=== PATIENT | male | born 1955 | race Caucasian/White ===

== ENCOUNTER → 2016-07-09 | Outpatient (CLI) | payer BC ==
[~2016-07-09] MED LIST: /HCTZ25TA PO; ADVA250A IN; ALBU17IN INH; ALLO100T PO; ASPI1TAB PO; ATEN100T PO; AUGM875T27 PO; CELE10TA PO; FENO145T PO; MULTCAP PO; PERCOCET PO; PRED10TA2 PO
[2016-07-09 12:36] LABS: BASO % 0.7 % (0.0-1.0); EOS # 0.2 K/mm3 (0.0-0.50); EOS % 2.5 % (0.0-3.0); LARGE UNSTAINED CELL # 0.2 K/mm3 (0.0-0.4); LARGE UNSTAINED CELL % 3.5 % (0.0-4.0); LYMPH # 1.3 K/mm3 (1.5-4.5); LYMPH % 19.2 % (24.0-44.0); MEAN CORPUSCULAR HEMOGLOBIN 31.2 pg (27.0-33.0); MEAN CORPUSCULAR HGB CONC 33.9 g/dl (32.0-36.5); MEAN CORPUSCULAR VOLUME 91.9 fl (80.0-96.0); MONO # 0.5 K/mm3 (0.0-0.8); MONO % 7.3 % (0.0-5.0); NEUTROPHILS # 4.6 K/mm3 (1.8-7.7); NEUTROPHILS % 66.8 % (36.0-66.0); PLATELET COUNT, AUTOMATED 258 k/mm3 (150-450); RED CELL DISTRIBUTION WIDTH 12.7 % (11.5-14.5); WHITE BLOOD COUNT 6.8 K/mm3 (4.0-10.0)
[2016-07-09 12:46] LABS: ALBUMIN 3.8 GM/DL (3.2-5.2); ALBUMIN/GLOBULIN RATIO 1.23 (1.00-1.93); ALKALINE PHOSPHATASE 51 U/L (45-117); ALT/SGPT 57 U/L (12-78); ANION GAP 6 MEQ/L (8-16); AST/SGOT 27 U/L (15-37); BILIRUBIN,TOTAL 0.4 MG/DL (0.2-1.0); BLOOD UREA NITROGEN 16 MG/DL (7-18); CARBON DIOXIDE LEVEL 31 MEQ/L (21-32); CHLORIDE LEVEL 106 MEQ/L (98-107); CREATININE FOR GFR 1.26 MG/DL (0.70-1.30); GLOMERULAR FILTRATION RATE > 60.0 (>49); GLUCOSE, FASTING 87 MG/DL (80-110); POTASSIUM SERUM 4.6 MEQ/L (3.5-5.1); SODIUM LEVEL 143 MEQ/L (136-145); TOTAL PROTEIN 6.9 GM/DL (6.4-8.2)
== END ==
LOC: M LAB 11:37
PROVIDERS: ATTEND Internal Medicine Medical Oncology
DX: C26.0 Malignant neoplasm of intestinal tract, part unspecified (principal)

== ENCOUNTER → 2016-07-11 | Outpatient (CLI) | payer BC ==
[~2016-07-11] MED LIST changes: +GASTROGRAFIN SOLUTION 30ML (Q9963) As Ordered ONE; +ISOVUE-370 76% 100ML VIAL (Q9967) As Ordered ONE
--- NOTE | 2016-07-11 22:11 | REP ---
Clinical: History of colorectal cancer. Technique: Axial contrast enhanced images from the lung bases to the pubic symphysis using oral and 100 ml Isovue 370 intravenous contrast material with precontrast and delayed images of the abdomen as well as coronal and sagittal re-formations. Comparison: 07/06/2015. Findings: Diffuse fatty infiltration the liver is appreciated without focal hepatic lesion. Spleen, pancreas, bilateral adrenal glands and kidneys are essentially normal. Cholelithiasis noted without evidence for acute cholecystitis. The patient is status post sigmoid resection with colostomy through the left anterior abdominal wall and evidence for Pedro's pouch. Postsurgical changes in the pelvis remains stable. No obvious recurrence, mass lesion or adenopathy is appreciated and no pelvic fluid or ascites is identified. Pelvis demonstrates normal bladder and stable appearance to the prostate/seminal vesicles. No intraperitoneal or retroperitoneal adenopathy. No free air. No ascites. Atherosclerotic changes to the vasculature noted. Musculoskeletal structures demonstrate age-related changes without focal osseous abnormality. Lung bases are clear. Impression: Status post sigmoid resection with colostomy and Pedro's pouch. Stable postsurgical changes appreciated in the pelvis. No evidence for mass lesion, ascites, adenopathy, or recurrence. Cholelithiasis. Signed by Timmy Briggs MD 07/11/2016 10:03 P
--- NOTE | 2016-07-11 22:15 | REP ---
Clinical: History of colorectal cancer for follow up. Technique: Axial contrast enhanced images from the thoracic inlet to the upper abdomen using 100 ml Isovue 370 intravenous contrast material with coronal and sagittal re-formations. Comparison: 01/12/2016. Findings: The bilateral lung benitez are well-aerated, relatively symmetric and essentially clear. No pulmonary parenchymal consolidation, nodule or mass lesion is appreciated. No pleural effusion/reaction or pneumothorax. Tracheobronchial tree is patent. No significant axillary, hilar or mediastinal adenopathy is appreciated. Mediastinum demonstrates atherosclerotic changes to the thoracic aorta and coronary arteries without cardiomegaly or pericardial effusion. Thoracic aorta is normal caliber without aneurysm or dissection. Surrounding musculoskeletal structures are intact without focal osseous abnormality. Impression: No acute mediastinal or pleuroparenchymal process is appreciated. Previous subtle ground-glass opacity on lung screening examination is unchanged and benign appearing. Signed by Timmy Briggs MD 07/11/2016 10:07 P
== END ==
LOC: M RAD 13:11
PROVIDERS: ATTEND Internal Medicine Medical Oncology
DX: C19 Malignant neoplasm of rectosigmoid junction (principal)
CPT/HCPCS: 71260; 74178; Q9963; Q9967

== ENCOUNTER → 2016-09-23 | Outpatient (CLI) | payer BC ==
[~2016-09-23] VITALS: Ht 177.8 cm; Wt 101.6 kg
[~2016-09-23] MED LIST changes: +ADV250INH INH; -GASTROGRAFIN SOLUTION 30ML (Q9963) As Ordered ONE; -ISOVUE-370 76% 100ML VIAL (Q9967) As Ordered ONE; +JANU100T PO; +NS 1,000 ML IV SCH; +PROPOFOL 200 MG/20 ML VIAL As Ordered ONE
--- NOTE | 2016-09-23 10:01 | ROOR ---
Patient Name: Zack Timmons Procedure Date: 09/23/2016 9:38 AM Date of : 1955 Age: 61 Room: [facility] Gender: Male Note Status: Finalized Procedure: Colonoscopy Indications: High risk colon cancer surveillance: Personal history of colon cancer (2012-rectal and hepatic flrxure metachronous adenoCA--s/p Right aziza and s/p sigmoid colostomy.) Providers: Peter DOW MD Referring MD: ALEXANDRA WILLIAM NP Requesting Provider: Medicines: Monitored Anesthesia Care Complications: No immediate complications. Procedure: Pre-Anesthesia Assessment: - The heart rate, respiratory rate, oxygen saturations, blood pressure, adequacy of pulmonary ventilation, and response to care were monitored throughout the procedure. The Colonoscope was introduced through the sigmoid colostomy and advanced to the ileocolonic anastomosis. The colonoscopy was performed without difficulty. The patient tolerated the procedure well. The quality of the bowel preparation was good. Findings: There was evidence of a prior functional end-to-end ileo-colonic anastomosis at the hepatic flexure. This was patent and was characterized by healthy appearing mucosa. There was evidence of a prior end sigmoid colostomy in the sigmoid colon. This was patent and was characterized by healthy appearing mucosa. (Exam: Complete, Prep: Good or Excellent.) Two sessile polyps were found in the transverse colon. The polyps were diminutive in size. These polyps were removed with a cold snare. Resection and retrieval were complete. The exam was otherwise without abnormality. Impression: - Right Hemicolectomy: Patent, normal ileocolonic anastomosis - End sigmoid colostomy, characterized by healthy appearing mucosa. - Two diminutive polyps in the transverse colon, removed with a cold snare. Resected and retrieved. - The examination was otherwise normal. Recommendation: - Repeat colonoscopy in 1 year for surveillance. Peter Dow MD Peter DOW MD 09/23/2016 10:01:11 AM This report has been signed electronically. Number of Addenda: 0 Note Initiated On: 09/23/2016 9:38 AM Estimated Blood Loss: Estimated blood loss: none.
[2016-09-23 10:27] VITALS: BP 179/82
== END ==
LOC: M OPP 08:26
PROVIDERS: ATTEND Internal Medicine Gastroenterology
DX: Z12.11 Encounter for screening for malignant neoplasm of colon (principal); Z85.038 Personal history of other malignant neoplasm of large intestine; Z98.0 Intestinal bypass and anastomosis status; Z80.0 Family history of malignant neoplasm of digestive organs; D12.3 Benign neoplasm of transverse colon; I10 Essential (primary) hypertension; J45.909 Unspecified asthma, uncomplicated; J44.9 Chronic obstructive pulmonary disease, unspecified; E11.9 Type 2 diabetes mellitus without complications; Z79.82 Long term (current) use of aspirin; Z79.899 Other long term (current) drug therapy; Z88.1 Allergy status to other antibiotic agents

== ENCOUNTER → 2016-11-30 | Outpatient (CLI) | payer BC ==
[~2016-11-30] MED LIST changes: -NS 1,000 ML IV SCH; -PROPOFOL 200 MG/20 ML VIAL As Ordered ONE
[2016-11-30 10:13] LABS: BASO % 0.6 % (0.0-1.0); EOS # 0.1 K/mm3 (0.0-0.50); EOS % 1.8 % (0.0-3.0); LARGE UNSTAINED CELL # 0.2 K/mm3 (0.0-0.4); LARGE UNSTAINED CELL % 2.1 % (0.0-4.0); LYMPH # 1.5 K/mm3 (1.5-4.5); LYMPH % 17.6 % (24.0-44.0); MEAN CORPUSCULAR HEMOGLOBIN 30.7 pg (27.0-33.0); MEAN CORPUSCULAR HGB CONC 33.6 g/dl (32.0-36.5); MEAN CORPUSCULAR VOLUME 91.3 fl (80.0-96.0); MONO # 0.6 K/mm3 (0.0-0.8); MONO % 8.2 % (0.0-5.0); NEUTROPHILS # 5.5 K/mm3 (1.8-7.7); NEUTROPHILS % 69.8 % (36.0-66.0); PLATELET COUNT, AUTOMATED 254 k/mm3 (150-450); RED CELL DISTRIBUTION WIDTH 13.1 % (11.5-14.5); WHITE BLOOD COUNT 7.8 K/mm3 (4.0-10.0)
[2016-11-30 10:40] LABS: ALBUMIN 3.7 GM/DL (3.2-5.2); ALBUMIN/GLOBULIN RATIO 1.06 (1.00-1.93); BILIRUBIN,TOTAL 0.4 MG/DL (0.2-1.0); CALCIUM LEVEL 8.9 MG/DL (8.8-10.2); CREATININE FOR GFR 1.34 MG/DL (0.70-1.30); GLOMERULAR FILTRATION RATE 57.5 (>49); POTASSIUM SERUM 4.4 MEQ/L (3.5-5.1); TOTAL PROTEIN 7.2 GM/DL (6.4-8.2)
== END ==
LOC: M LAB 09:41
PROVIDERS: ATTEND Family Medicine
DX: E78.1 Pure hyperglyceridemia (principal); E11.9 Type 2 diabetes mellitus without complications

== ENCOUNTER → 2017-01-06 | Outpatient (CLI) | payer BC ==
[~2017-01-06] MED LIST changes: +ASPI325T24 PO; +ATOR1TAB21 PO; +BACL1TAB8 PO; +CLOP75TA2 PO; +DULO30CA PO; +ESCI20TA PO; +LISI-538 PO; +LISI-542 PO; +LISI10TA4 PO; +MAGN1TAB25 PO; +MAGN250T9 PO; +OXYB5TAB10 PO; +POTA99TA PO; +PREVPST MT; +SIMV40TA2 PO; +VITA100066 PO
[2017-01-06 14:11] LABS: ALBUMIN 3.8 GM/DL (3.2-5.2); ALBUMIN/GLOBULIN RATIO 1.23 (1.00-1.93); ALKALINE PHOSPHATASE 51 U/L (45-117); ALT/SGPT 58 U/L (12-78); ANION GAP 5 MEQ/L (8-16); AST/SGOT 27 U/L (15-37); BILIRUBIN,TOTAL 0.5 MG/DL (0.2-1.0); BLOOD UREA NITROGEN 18 MG/DL (7-18); CARBON DIOXIDE LEVEL 30 MEQ/L (21-32); CHLORIDE LEVEL 101 MEQ/L (98-107); CHOLESTEROL LEVEL 136 MG/DL (<200); CREATININE FOR GFR 1.01 MG/DL (0.70-1.30); GLOMERULAR FILTRATION RATE > 60.0 (>49); GLUCOSE, FASTING 120 MG/DL (80-110); POTASSIUM SERUM 4.2 MEQ/L (3.5-5.1); SODIUM LEVEL 136 MEQ/L (136-145); TOTAL PROTEIN 6.9 GM/DL (6.4-8.2); TRIGLYCERIDES LEVEL 186 MG/DL (<150)
== END ==
LOC: M SMT 08:50
PROVIDERS: ATTEND Family Medicine
DX: E11.9 Type 2 diabetes mellitus without complications (principal); E78.1 Pure hyperglyceridemia

== ENCOUNTER → 2017-03-06 | Outpatient (REF) | payer BC | LOC: M LAB REF 16:48 | PROVIDERS: ATTEND Internal Medicine Medical Oncology | DX: C18.9 Malignant neoplasm of colon, unspecified (principal) ==

== ENCOUNTER → 2017-03-09 | Outpatient (CLI) | payer BC ==
[2017-03-09 12:44] LABS: ANION GAP 6 MEQ/L (8-16); BLOOD UREA NITROGEN 16 MG/DL (7-18); CALCIUM LEVEL 9.1 MG/DL (8.8-10.2); CARBON DIOXIDE LEVEL 34 MEQ/L (21-32); CHLORIDE LEVEL 95 MEQ/L (98-107); CHOLESTEROL LEVEL 139 MG/DL (<200); CREATININE FOR GFR 1.05 MG/DL (0.70-1.30); GLOMERULAR FILTRATION RATE > 60.0 (>49); GLUCOSE, FASTING 134 MG/DL (80-110); POTASSIUM SERUM 4.2 MEQ/L (3.5-5.1); SODIUM LEVEL 135 MEQ/L (136-145); TRIGLYCERIDES LEVEL 259 MG/DL (<150)
[2017-03-09 12:48] LABS: BASO # 0.1 K/mm3 (0.0-0.2); BASO % 0.7 % (0.0-1.0); EOS # 0.1 K/mm3 (0.0-0.50); EOS % 1.7 % (0.0-3.0); LARGE UNSTAINED CELL # 0.2 K/mm3 (0.0-0.4); LARGE UNSTAINED CELL % 1.8 % (0.0-4.0); LYMPH # 1.4 K/mm3 (1.5-4.5); LYMPH % 17.3 % (24.0-44.0); MEAN CORPUSCULAR HEMOGLOBIN 31.2 pg (27.0-33.0); MEAN CORPUSCULAR HGB CONC 34.2 g/dl (32.0-36.5); MEAN CORPUSCULAR VOLUME 91.4 fl (80.0-96.0); MONO # 0.6 K/mm3 (0.0-0.8); MONO % 7.6 % (0.0-5.0); NEUTROPHILS # 5.9 K/mm3 (1.8-7.7); NEUTROPHILS % 70.9 % (36.0-66.0); PLATELET COUNT, AUTOMATED 233 k/mm3 (150-450); RED CELL DISTRIBUTION WIDTH 12.8 % (11.5-14.5); WHITE BLOOD COUNT 8.2 K/mm3 (4.0-10.0)
== END ==
LOC: M SMT 08:29
PROVIDERS: ATTEND Family Medicine
DX: E11.9 Type 2 diabetes mellitus without complications (principal); E78.2 Mixed hyperlipidemia

== ENCOUNTER 2017-03-23 11:47 | Inpatient (IN) | payer BC ==
[~2017-03-23] VITALS: Ht 177.8 cm; Wt 97.4 kg
[~2017-03-23 11:47] MED LIST changes: -ASPI325T24 PO; -ATOR1TAB21 PO; -BACL1TAB8 PO; -CLOP75TA2 PO; -DULO30CA PO; -ESCI20TA PO; -LISI-538 PO; -LISI-542 PO; -LISI10TA4 PO; -MAGN1TAB25 PO; -MAGN250T9 PO; -OXYB5TAB10 PO; -POTA99TA PO; -PREVPST MT; -SIMV40TA2 PO; -VITA100066 PO
[2017-03-23] MEDS ORDERED: LISI-542 PO (12:08)
[2017-03-23] MEDS ORDERED: ESCI20TA PO (12:08)
[2017-03-23] MEDS ORDERED: SIMV40TA2 PO (12:08)
[2017-03-23] MEDS ORDERED: NS 500 ML IV ONE (12:30)
--- NOTE | 2017-03-23 12:58 | REP ---
CT Head without contrast HISTORY: Infarction COMPARISON: None There is no intraparenchymal hemorrhage, acute infarct, mass or midline shift. The ventricular system is normal in appearance. There is no extra cerebral collection. There is no fracture. The visualized sinuses are clear. IMPRESSION: There is no intracranial lesion. Signed by Jamarcus Houser MD 03/23/2017 12:49 P
[2017-03-23 13:01] LABS: BASO # 0.1 10^3/uL (0.0-0.2); BASO % 0.6 % (0.0-1.0); EOS # 0.2 10^3/uL (0.0-0.50); EOS % 2.3 % (0.0-3.0); IMMATURE GRANULOCYTE % 1.5 % (0-0); LYMPH # 1.6 10^3/uL (1.5-4.5); MEAN CORPUSCULAR HEMOGLOBIN 30.5 pg (27.0-33.0); MEAN CORPUSCULAR HGB CONC 33.8 g/dl (32.0-36.5); MONO # 0.8 10^3/uL (0.0-0.8); MONO % 8.8 % (0.0-5.0); NEUTROPHILS # 5.9 10^3/uL (1.8-7.7); NEUTROPHILS % 68.8 % (36.0-66.0); PLATELET COUNT, AUTOMATED 229 10^3/uL (150-450); RED CELL DISTRIBUTION WIDTH 12.6 % (11.5-14.5); WHITE BLOOD COUNT 8.6 10^3/uL (4.0-10.0)
[2017-03-23 13:22] LABS: INR 0.98
--- NOTE | 2017-03-23 13:24 | REP ---
CHEST, SINGLE VIEW: COMPARISON: 07/06/2015. There is no evidence of acute infiltrate. No pleural effusion is seen. The heart is normal in size. The mediastinal silhouette is unremarkable. The visualized osseous structures are intact. IMPRESSION: No acute pulmonary disease. Signed by Manuel Hart MD 03/23/2017 07:53 P
[2017-03-23 13:42] LABS: ANION GAP 5 MEQ/L (8-16); BLOOD UREA NITROGEN 16 MG/DL (7-18); CALCIUM LEVEL 9.1 MG/DL (8.8-10.2); CARBON DIOXIDE LEVEL 33 MEQ/L (21-32); CHLORIDE LEVEL 97 MEQ/L (98-107); CREATININE FOR GFR 1.14 MG/DL (0.70-1.30); GLOMERULAR FILTRATION RATE > 60.0 (>49); GLUCOSE, FASTING 118 MG/DL (80-110); POTASSIUM SERUM 3.9 MEQ/L (3.5-5.1); SODIUM LEVEL 135 MEQ/L (136-145)
[2017-03-23] MEDS ORDERED: LISI10TA4 PO (16:13)
[2017-03-23] MEDS ORDERED: POTA99TA PO (16:13)
[2017-03-23] MEDS ORDERED: MAGN1TAB25 PO (16:13)
[2017-03-23] MEDS ORDERED: PREVPST MT (16:13)
[2017-03-23] MEDS ORDERED: VITA100066 PO (16:13)
[2017-03-23] MEDS ORDERED: ALBUTEROL 90 MCG/ACT 8GM HFA INHALER INH PRN (17:00)
[2017-03-23] MEDS ORDERED: GLUCOSE 4 GM CHEW TABLET PO PRN (17:15)
[2017-03-23] MEDS ORDERED: GLUCAGON FOR INJ 1 MG VIAL (J1610) SC PRN (17:15)
[2017-03-23] MEDS ORDERED: DEXTROSE 50% 50 ML SYRINGE IV PRN (17:15)
[2017-03-23] MEDS ORDERED: ASPIRIN 325 MG TAB FT SCH (18:00)
--- NOTE | 2017-03-23 18:35 | HPEPDOC ---
General Date of Admission Mar 23, 2017 at 15:41 Primary Care Physician: LUCIE MANUEL DO Chief Complaint The patient is a 61-year-old male complaining of weakness of the right side and was admitted for a TIA workup. History of Present Illness This is a 61-year-old male with a pertinent past medical history of colorectal cancer status post radiation and chemotherapy 2012, a current smoker with a 42- pack-year, presenting with unilateral weakness and slurred speech. Patient states that when he was going to work this morning at 7:40 AM he noticed that his legs were weak. He's noticed that his right side was weaker than his left and it was not "working right"" the patient states that he was able to walk into work still with a little bit of unsteadiness. He then states 2 hours later he noticed a tingling in his right arm down to his fingers. He states that he can physically move his fingers but it was "like it wasn't there". Patient states he then went home and his noticed that he looked at this oriented. Patient states that had at his work is possible noticed that he was speaking funny but he could not elaborate more. His ,who is a retired RN, states that she took his blood pressure at home and it was ranged between 170/90-140/ 90. The then took him to the urgent care because she felt like he didn't look right. Patient states that from the urgent care they call an ambulance and send him to the [facility] ER. Patient states at the urgent care his blood pressure ranged from 140-180s systolic. Patient states that currently he is experiencing weakness in his right leg more than his left leg and he still has a tingling sensation in his right upper extremity. Patient states the only recent medication change was lisinopril 5 mg was added a month ago and this past Monday was increased to 10 mg. Per she states his blood pressure at home has been ranging in the 140s/80s. Patient states that he takes aspirin 81 mg every day. Patient states that he does have chronic pain bilaterally in his knees after the radiation to his rectum with his right side worse than his left. Patient states that he has trouble breathing in the last week he has some shortness of breath and cough that is chronic. Home Medications Scheduled (Prevident 5000 Enamel Pro 1.1-5 %) 1 Pst Pst, 1 DOSE MT BID, (Reported) Aspirin (Aspirin 81) 81 Mg Tab, 81 MG PO DAILY, (Reported) Atenolol (Atenolol) 100 Mg Tab, 100 MG PO DAILY, (Reported) Cholecalciferol (Vitamin D) 1,000 Unit Tab, 1,000 UNIT PO DAILY, (Reported) Escitalopram Oxalate (Escitalopram Oxalate) 20 Mg Tab, 20 MG PO DAILY, (Reported ) Lisinopril (Lisinopril) 10 Mg Tab, 10 MG PO DAILY, (Reported) Magnesium Oxide (Magnesium) 400 Mg Tab, 800 MG PO DAILY, (Reported) Potassium (Potassium) 99 Mg Tab, 198 MG PO DAILY, (Reported) Salmeterol/Fluticasone (Advair Diskus 250-50 Mcg/Dose) 14 Puff/Inhaler Aerp, 1 PUFF INH BID, (Reported) Simvastatin - High Dose (Simvastatin) 40 Mg Tab, 40 MG PO QHS, (Reported) Sitagliptin Phosphate (Januvia) 100 Mg Tab, 100 MG PO DAILY, (Reported) Scheduled PRN Albuterol Sulfate (Ventolin Hfa) 200 Puff/8 Gm Aers, 2 PUFF INH QID PRN for SOB/ WHEEZING, (Reported) Allergies Coded Allergies: Quinolones (Verified Allergy, Unknown, 09/15/16) Past Medical History Medical History 1. Colorectal cancer 2. Hypertension 3. Diverticulitis 3. COPD 4. Hyperlipidemia 5. Tobacco abuse [id number] Social History * Smoker: current smoker ([id number]) Alcohol: other (previous drinker 8-10 beers daily stopped 5 years ago) Drugs: denies Review of Symptoms Constitutional: Reports: Weakness, Denies: Chills, Fever, Night Sweats Eyes: Denies: Pain, Vision change ENT: Denies: Head Aches, Ear Pain, Dysphagia Skin: Denies: Rash, Lesions, Breakdown Pulmonary: Denies: Dyspnea, Cough Cardiovascular: Denies: Chest Pain, Palpitations, Orthopnea, Paroxysmal Noc. Dyspnea, Lt Headedness Gastrointestinal: Denies: Nausea, Vomiting, Abdominal Pain, Diarrhea Genitourinary: Denies: Dysuria, Frequency, Incontinence, Retention Hematologic: Denies: Bruising, Bleeding Excessively Musculoskeletal: Denies: Neck Pain, Back Pain, Joint Pain, Muscle Pain, Spasms Neurological: Reports: Weakness (bilateral lower extremities (R>L), right upper extremity), Numbness (right upper extremity), Other Symptoms (dizziness), Denies: Change in speech, Confusion Psych: Reports: Mood Normal, Denies: Depression, Memory Issues Physical Examination General Exam: Positive: Alert, No Acute Distress Eye Exam: Positive: PERRLA, Conjunctiva & lids normal, EOMI, Negative: Sclera icteric ENT Exam: Positive: Atraumatic, Mucous membr. moist/pink, Pharynx Normal Neck Exam: Positive: Supple, Negative: JVD, thyromegaly Chest Exam: Positive: Clear to auscultation, Normal air movement Heart Exam: Positive: Rate Normal, Regular Rhythm, Normal S1, Normal S2, Negative: Murmurs, Rubs Telemetry: Positive: No significant arrhythmia Abdomen Exam: Positive: Normal bowel sounds, Soft, Other (colostomy bag appreciated in the left lower quadrant multiple surgical incisions are noted on the abdomen), Negative: Tenderness, Hepatospenomegaly Extremity Exam: Positive: Normal pulses, Negative: Clubbing, Cyanosis, Edema Skin Exam: Positive: Nl turgor and temperature, Other skin issue (multiple skin lesions are appreciated on the this), Negative: Breakdown, Lesion Neuro Exam: Positive: Normal Gait, Normal Speech, Negative: Strength at 5/5 X4 ext (5 out of 5 strength of the lower extremities bilaterally, reduce muscle strength (4/5) in the right upper extremities), Sensation Intact (sensation reduced on the right side upper extremity, sensation intact bilaterally in the lower extremities) Psych Exam: Positive: Mental status NL, Mood NL, Oriented x 3 Vital Signs Vital Signs Date Time Temp Pulse Resp B/P (MAP) Pulse Ox O2 Delivery O2 Flow Rate FiO2 03/23/17 16:33 56 03/23/17 16:03 95 03/23/17 15:33 187/91 (123) 03/23/17 12:19 97.4 16 Room Air Laboratory Data Labs 24H Laboratory Tests 2 03/23/17 12:57: White Blood Count 8.6, Red Blood Count 4.40, Hemoglobin 13.4L, Hematocrit 39.6L , Mean Corpuscular Volume 90.0, Mean Corpuscular Hemoglobin 30.5, Mean Corpuscular Hemoglobin Concent 33.8, Red Cell Distribution Width 12.6, Platelet Count 229, Neutrophils (%) (Auto) 68.8H, Lymphocytes (%) (Auto) 18.0L, Monocytes (%) (Auto) 8.8H, Eosinophils (%) (Auto) 2.3, Basophils (%) (Auto) 0.6 , Neutrophils # (Auto) 5.9, Lymphocytes # (Auto) 1.6, Monocytes # (Auto) 0.8, Eosinophils # (Auto) 0.2, Basophils # (Auto) 0.1, Immature Granulocyte # (Auto) 0.1H, Nucleated Red Blood Cells % (auto) 0.0, Prothrombin Time 13.1, Prothromb Time International Ratio 0.98, Activated Partial Thromboplast Time 30.8, Anion Gap 5L, Glomerular Filtration Rate > 60.0, Blood Urea Nitrogen 16, Creatinine 1.14, Sodium Level 135L, Potassium Level 3.9, Chloride Level 97L, Carbon Dioxide Level 33H, Calcium Level 9.1, Total Creatine Kinase 209, Creatine Kinase MB 2.2, Creatine Kinase MB Relative Index 1.05, Troponin I < 0.02 03/23/17 13:01: Bedside Glucose (Misc Panel) 113 CBC/BMP Laboratory Tests 03/23/17 12:57 Red Blood Count 4.40, Mean Corpuscular Volume 90.0, Mean Corpuscular Hemoglobin 30.5, Mean Corpuscular Hemoglobin Concent 33.8, Red Cell Distribution Width 12.6 , Neutrophils (%) (Auto) 68.8 H, Lymphocytes (%) (Auto) 18.0 L, Monocytes (%) ( Auto) 8.8 H, Eosinophils (%) (Auto) 2.3, Basophils (%) (Auto) 0.6, Neutrophils # (Auto) 5.9, Lymphocytes # (Auto) 1.6, Monocytes # (Auto) 0.8, Eosinophils # ( Auto) 0.2, Basophils # (Auto) 0.1, Calcium Level 9.1, Total Creatine Kinase 209 Assessment/Plan 1. Unilateral weakness-likely due to a TIA. In the ER CT of the head was negative for a stroke. Dr. Puentes was consulted and requested for a TIA workup. Have ordered a MRI and MRA of the brain. Cardiac marker channels were ordered in the ER CK was 2.2. Patient's EKG in the ER showed a sinus bradycardia with AV block. Patient at this time denies any chest pain. Patient is to take 325 mg of aspirin daily. Will get a cardiac lipid panel fasting in the a.m. Also ordered a carotid ultrasound and echocardiogram. Neurology recommendations are appreciated. 2. Bradycardia with AV block -in the ER the patient's EKG showed a sinus bradycardia with AV block. The patient was on atenolol 100 mg at home. We will not continue the medication at this time inpatient. We'll continue to monitor the patient's rhythm on telemetry. 3. Hypertension - We will like to keep the patient's blood pressure elevated if he is currently experiencing a stroke to give sufficient flow for the collaterals vessels for the next 24 hours. I have held the patient's home dose of lisinopril 10 mg. And continue to monitor the patient daily vitals every 4hours. Will reassess in 24 hours if it's warranted to continue patient's BP meds. 4. Diabetes - patient is currently on insulin sliding scale. 5. COPD- patient is to continue home medication, Advair 6. Hyperlipidemia - patient is to continue with his Zocor inpatient. We will get a updated cardiac lipid panel in the a.m. 7. Diet - consistent carb with 2 g of sodium diet 8. DVT prophylaxis -TEDs/SCDs Plan / VTE VTE Prophylaxis Ordered?: Yes (TEDs) GME ATTESTATION GME ATTESTATION My preceptor for this patient encounter was physically present in the building during the encounter and was fully available. As needed, all aspects of the patient interview, examination, medical decision making process, and medical care plan development were reviewed and approved by the preceptor. Preceptor is aware and concurs with the plan as stated in the body of this note and will attest to such by his/her cosignature. ATTENDING NOTE I have seen and examined the above patient and agree with the H and P as documented above. KACEY PEÑALOZA DO Mar 23, 2017 18:34 PATTIE PHILIP Mar 23, 2017 21:17
[2017-03-23] MEDS: HumaLOG INSULIN (NovoLOG) PER UNIT SC SCH ×2 (18:43→20:54)
[2017-03-23 18:50] VITALS: BP 162/76
[2017-03-23 20:00] VITALS: BP 170/82
[2017-03-23] MEDS: ADVAIR HFA 115/21MCG INHALER INH SCH (20:24)
[2017-03-23] MEDS: SIMVASTATIN 40 MG TAB PO SCH (20:54)
--- NOTE | 2017-03-23 20:54 | ECGEPIP ---
Stationary ECG Study [facility] - ED Test Date: 2017-03-23 Pat Name: OSWALDO GARY Department: Room: - Gender: M [employer] Intern: AF : 1955 Requested By: DANISHA Cheung Order Number: [id number] Reading MD: Mona Tiwari Measurements Intervals [place] Rate: 58 P: 61 IL: 240 QRS: 23 QRSD: 95 T: 64 QT: 431 QTc: 424 Interpretive Statements SINUS BRADYCARDIA WITH FIRST DEGREE AV BLOCK ST DEVIATION AND MODERATE T-WAVE ABNORMALITY, CONSIDER ANTERIOR ISCHEMIA DECREASED RATE 03/13/12 Electronically Signed On 03-23-2017 20:53:40 EDT by Mona Tiwari
[2017-03-24] VITALS: BP 166/76
--- NOTE | 2017-03-24 01:50 | REPUSA ---
CLINICAL HISTORY: Acute neural changes. TECHNIQUE: Multiple axial CT images were obtained through the brain without IV contrast material. COMMENTS: There is normal configuration of sella turcica. There are no intra or extra-axial collections. There is no mass effect or midline shift. There is no evidence of hematoma formation. No hydrocephalus is p resent. The ventricles are symmetrical. No abnormal calcifications are present. There is diffuse age-appropriate cerebellar and cerebral atrophy with proportionally dilated ventricl es and cortical sulci. There are bilateral periventricular and subcortical white matter hypolucencies compatible with mild c hronic microvascular disease. Otherwise, no significant focal abnormalities are seen either in the posterior fossa or supratentoria l compartment. IMPRESSION: 1. Age-appropriate cerebellar and cerebral atrophy. 2. Mild chronic microvascular disease. 3. No evidence of acute intracranial pathology. No change from the prior exam on 03/23/2017. Thank you for your kind referral of this patient.
--- NOTE | 2017-03-24 03:23 | REP ---
Clinical: Transient ischemic attack . Technique: Hart scale and color Doppler evaluation using linear high frequency transducer Findings: Two-dimensional hart scale and color images demonstrate smooth intimal thickening to the common carotid arteries significant mixed atheromatous plaquing involving the distal common carotid arteries extending through the bulbs and proximal internal/external carotid arteries bilaterally (right greater than left). Color Doppler interrogation demonstrates arterial wave patterns with moderate spectral broadening. Normal flow direction is appreciated in the left vertebral artery only, and the right vertebral artery was not visualized. RIGHT (cm/s) LEFT (cm/s) ICA peak systolic velocity 160.9 113.1 ICA diastolic velocity 49.8 32.2 ECA peak systolic velocity 170.9 103.2 CCA peak systolic velocity 62.5 68.8 ICA/CCA ratio 2.57 1.86 Impression: 1. Significant atheromatous plaquing is appreciated bilaterally (right greater than left) and evaluation is somewhat limited due to motion artifact and high bifurcation. 2. Based on set standards narrowing falls within the 50-69% range through the right carotid bulb/ICA and approaches the 50% range through the left carotid bulb/ICA. Signed by Timmy Briggs MD 03/24/2017 03:14 A
[2017-03-24 04:00] VITALS: BP 160/74
[2017-03-24 05:11] LABS: MEAN CORPUSCULAR HEMOGLOBIN 30.1 pg (27.0-33.0); MEAN CORPUSCULAR HGB CONC 33.6 g/dl (32.0-36.5); MEAN CORPUSCULAR VOLUME 89.7 fl (80.0-96.0); RED CELL DISTRIBUTION WIDTH 12.8 % (11.5-14.5); WHITE BLOOD COUNT 8.8 10^3/uL (4.0-10.0)
[2017-03-24 05:27] LABS: ALBUMIN 3.4 GM/DL (3.2-5.2); ALBUMIN/GLOBULIN RATIO 0.97 (1.00-1.93); ALKALINE PHOSPHATASE 47 U/L (45-117); ALT/SGPT 44 U/L (12-78); ANION GAP 4 MEQ/L (8-16); AST/SGOT 23 U/L (15-37); BILIRUBIN,TOTAL 0.4 MG/DL (0.2-1.0); BLOOD UREA NITROGEN 17 MG/DL (7-18); CALCIUM LEVEL 8.8 MG/DL (8.8-10.2); CARBON DIOXIDE LEVEL 31 MEQ/L (21-32); CHLORIDE LEVEL 101 MEQ/L (98-107); CHOLESTEROL LEVEL 139 MG/DL (<200); CREATININE FOR GFR 1.02 MG/DL (0.70-1.30); GLOMERULAR FILTRATION RATE > 60.0 (>49); GLUCOSE, FASTING 143 MG/DL (80-110); POTASSIUM SERUM 4.2 MEQ/L (3.5-5.1); SODIUM LEVEL 136 MEQ/L (136-145); TOTAL PROTEIN 6.9 GM/DL (6.4-8.2); TRIGLYCERIDES LEVEL 252 MG/DL (<150)
[2017-03-24] MEDS: ADVAIR HFA 115/21MCG INHALER INH SCH ×2 (07:49→21:00)
[2017-03-24 08:00] VITALS: BP 184/84
[2017-03-24] MEDS ORDERED: LISINOPRIL 10 MG TAB PO SCH (09:00)
[2017-03-24] MEDS: HumaLOG INSULIN (NovoLOG) PER UNIT SC SCH ×4 (09:40→21:00)
[2017-03-24] MEDS: ASPIRIN ENTERIC 325 MG TAB PO SCH (09:41)
[2017-03-24] MEDS: ESCITALOPRAM OXALATE 10 MG TAB (LEXAPRO) PO SCH (09:41)
--- NOTE | 2017-03-24 09:41 | REP ---
MRA BRAIN WITHOUT CONTRAST: HISTORY: Slurred speech. 3D [id number] MR angiography was performed at the level of the [place] of [place]. There is no aneurysm or arteriovenous malformation. Mild atherosclerotic disease involves the cavernous internal carotid arteries. The major intracranial vessels are patent. The left vertebral artery is dominant. IMPRESSION: 1. There is no aneurysm or arteriovenous malformation. 2. Atherosclerotic disease as described above. Signed by Jamarcus Houser MD 03/24/2017 10:33 A
--- NOTE | 2017-03-24 09:49 | REP ---
MR BRAIN WITHOUT CONTRAST: HISTORY: Slurred speech. COMPARISON: CT 03/23/2017 A punctate focus of increased signal intensity on diffusion and T2-weighted images is present in the anteromedial left temporal lobe. This is decreased in signal intensity on ADC images and is consistent with an acute infarction. Several punctate areas of increased signal intensity on T2-weighted images are present in the periventricular and subcortical white matter. This represents small vessel ischemic disease. There is no intraparenchymal hemorrhage, mass or midline shift. The ventricular system is normal in appearance. There is no extracerebral collection. The sinuses are clear. IMPRESSION: 1. There is a punctate acute infarction in the anteromedial left temporal lobe. 2. Minimal small vessel ischemic disease. Signed by Jamarcus Houser MD 03/24/2017 10:33 A
--- NOTE | 2017-03-24 10:05 | CR ---
DATE OF CONSULTATION: REFERRING PROVIDER: Dr. Nataly Marrero REASON FOR CONSULTATION: Suspected acute stroke. HISTORY: The patient is a 61-year-old male with a past medical history significant for hypertension, diabetes and tobacco abuse presenting with a chief complaint of having sudden onset of right leg weakness, as well as right upper extremity numbness and a sense of disorientation with slight slurred speech. The patient's symptoms continued to wax and wane and eventually had completely resolved. While in the emergency department, he had a recurrence of right upper extremity numbness, which has been intermittent. His right lower extremity weakness returned and persisted. The patient was outside the hours of receiving TPA. The patient had a head CT, which was negative. He does not have a history of atrial fibrillation. He was taking aspirin 81 mg every day, as well as Simvastatin 40 mg daily. Recommendation was to increase his aspirin to 325 mg, as well as complete stroke workup, including MRI of the brain, MR angiogram of the head, and carotid ultrasound. The patient was to be started with physical therapy and occupational therapy for any residual symptoms. The patient states he has never had any stroke-like symptoms in the past. He has been smoking one packet tobacco per day. The patient has a history of colorectal cancer, which he had upper and lower colectomy and has a colostomy pouch. PAST MEDICAL HISTORY: 1. Colorectal cancer. 2. Hypertension. 3. Diabetes. 4. Tobacco abuse. 5. Chronic obstructive pulmonary disease (COPD). 6. Asthma. 7. History of gout. PAST SURGICAL HISTORY: Ileostomy construction, colon resection, colostomy, bilateral cataract surgery with IOL in 2007, bronchoscopy. ALLERGIES: FLOXIN, QUINOLONES. HOME MEDICATIONS: Include: - aspirin 81 mg daily - simvastatin 40 mg by mouth daily - Advair 250/50 mcg twice a day - atenolol 100 mg daily - hydrochlorothiazide 25 mg daily - Proventil two puffs every 6 hours as needed for shortness breath SOCIAL HISTORY: The patient has a 60 pack-year history of smoking, smoked for 40 years at a pack and half a day. The patient used to drink six to eight beers daily, but no longer does. Denies any recreational drug use. FAMILY HISTORY: Noncontributory. REVIEW OF SYSTEMS: 14-point review of systems obtained is negative except as per history of present illness. PHYSICAL EXAMINATION: Blood pressure is 218/93, pulse rate 58, respiratory rate is 16, oxygenation 95% on room air, temperature 97.4 degrees Fahrenheit. The patient is awake, alert, oriented to person, place and time. Speech, language comprehension and repetition are intact. Pupils are 3 mm round, reactive to light. Sensation V1, V2-V3 is intact to light touch. No facial asymmetry to activation. Palate elevates symmetrically. Tongue is midline. No weakness of sternocleidomastoids bilaterally. No pronator drift. Strength is 5/5, including bilateral deltoids, biceps, triceps, handgrip. The patient demonstrates 5- weakness of the right iliopsoas and tibialis anterior, quadriceps are 5/5, left-sided lower extremity strength is normal. Babinski signs are absent. Sensory is intact to light touch in all four extremities, as well as vibration. Gait deferred. ASSESSMENT: Suspected acute stroke with right-sided sensory hemiparesis with fluctuating symptoms. PLAN: 1. Increase aspirin to 325 mg daily. 2. Continue simvastatin 40 mg daily. 3. Obtain MRI of brain MR angiogram of the head without contrast. 4. Obtain carotid ultrasound. 5. Telemetry monitoring. 6. Obtain echocardiogram. 7. Physical therapy (PT) and occupational therapy (OT).
--- NOTE | 2017-03-24 10:40 | IPNPDOC ---
Subjective Date Seen The patient was seen on 03/24/17. Subjective Chief Complaint/HPI The patient is a 61-year-old male admitted with a reason for visit of TIA. Patient was seen in the ICU this morning and states that his symptoms are worsening. He states he has decreased coordination in his right upper extremity and that his limbs feel heavier and weaker compared to last night. His nurse also reports the worsening of the patient's symptoms in that he is becoming less coordinated with his [id number]-[id number] testing. Other than the decrease in coordination, the nurses report bp have been downtrending from 180 to 160 systolic. Patient hasn't received his lisinopril. No telemetry events overnight. Constitutional: Reports: Weakness, Denies: Fever Eyes: Denies: Pain, Vision change (denies blurry and double vision, denies vision loss) ENT: Reports: Sinus Congestion, Denies: Head Aches Pulmonary: Reports: Cough (productive, unable to confirm appearance), Denies: Dyspnea, Pleuritic Chest Pain Cardiovascular: Denies: Chest Pain, Palpitations Gastrointestinal: Denies: Abdominal Pain Neurological: Reports: Numbness (right face, right upper extremity, right lower extremity ), Incoordination (right upper extremity ), Other Symptoms ( reports right upper and lower extremity feel "heavy") Objective Physical Examination General Exam: Positive: Alert, No Acute Distress Eye Exam: Positive: PERRLA, Conjunctiva & lids normal, EOMI, Other Eye Symptoms (visual benitez intact), Negative: Sclera icteric ENT Exam: Positive: Atraumatic, Mucous membr. moist/pink, Pharynx Normal Neck Exam: Positive: Supple, Negative: JVD, thyromegaly Chest Exam: Positive: Normal air movement, Wheezing (faint expiratory wheezes heard in left anteriorly and right posteriorly ) Heart Exam: Positive: Rate Normal, Regular Rhythm, Normal S1, Normal S2, Negative: Murmurs, Rubs Telemetry: Positive: No significant arrhythmia Abdomen Exam: Positive: Normal bowel sounds, Soft, Other (colostomy bag appreciated in the left lower quadrant with fecal drainage, multiple surgical incisions are noted on the abdomen), Negative: Tenderness, Hepatospenomegaly Extremity Exam: Negative: Clubbing, Cyanosis, Edema Skin Exam: Positive: Nl turgor and temperature, Other skin issue (multiple skin lesions are appreciated on the this), Negative: Breakdown, Lesion Neuro Exam: Positive: Normal Speech, Strength at 5/5 X4 ext (Facial muscles have normal strength/tone), Cranial Nerves 3-12 NL, Other (FNF on right markedly impaired, heel to henderson normal BL, positive pronator drift on right upper extremity, no facial palsy, patient has unilateral choreaform movements on the right upper extermity. ), Negative: Sensation Intact (sensation decreased on the right in: V1-V3, C4-T2 ,L4-S1 dermatomes) Psych Exam: Positive: Mental status NL, Mood NL Assessment /Plan Assessment 1. Unilateral sensory deficits/incoordination-likely due to a TIA. In the ER CT of the head was negative for a stroke. Repeat CT of the head today revealed no evidence of acute pathology. Dr. Puentes was consulted and requested for a TIA workup. Appreciate his assistance. Have ordered a MRI and MRA of the brain , results are pending. Cardiac marker panels were ordered in the ER, CK was 2.2. Patient's EKG in the ER showed a sinus bradycardia with 1st degree AV block. Patient currently denies any chest pain. Patient was started on 325 mg of aspirin daily yesterday. Carotid ultrasound ordered yesterday revealed stenosis of 50-69% on the right and 50% on the left. Will consult Vascular surgery for possible carotid endarterectomy. 2. Bradycardia with AV block -in the ER the patient's EKG showed a sinus bradycardia with AV block. The patient was on atenolol 100 mg at home. We will not continue the medication at this time inpatient. Patient had no events on telemetry overnight. Continue to monitor. 3. Hypertension - Permissive hypertension as patient is within 48 hours of stroke onset. Restarted the lisinopril 10 mg this AM. Continue to monitor the patient daily vitals every 4hours. Dr. Proctor recommendation on BP perimeters will be appreciate . 4. Diabetes - patient is currently on insulin sliding scale. 5. COPD- patient is to continue home medication, Advair 6. Hyperlipidemia - patient is to continue with his Zocor 40mg inpatient. Lipid panel today revealed high triglycerides at 252, and low HDL at 37. Patients CV risk is 39.3%. Will consider changing the patient to a high-density statin. 7. Diet - consistent carb with 2 g of sodium diet 8. DVT prophylaxis -TEDs/SCDs 9. Right shoulder/arm pain: musculoscketal, Percocet 5/325mg one every 4hrs prn. Hold for sedation. Plan/VTE VTE Prophylaxis Ordered?: Yes (TEDs) VS, I&O, 24H, Fishbone Vital Signs/I&O Vital Signs Date Time Temp Pulse Resp B/P (MAP) Pulse Ox O2 Delivery O2 Flow Rate FiO2 03/24/17 04:00 98.9 68 20 160/74 (102) 94 Room Air I&O- Last 24 Hours up to 6 AM 03/25/17 06:00 Intake Total 0 ml Output Total 300 ml Balance -300 ml Laboratory Data 24H LABS Laboratory Tests 2 03/23/17 12:57: White Blood Count 8.6, Red Blood Count 4.40, Hemoglobin 13.4L, Hematocrit 39.6L , Mean Corpuscular Volume 90.0, Mean Corpuscular Hemoglobin 30.5, Mean Corpuscular Hemoglobin Concent 33.8, Red Cell Distribution Width 12.6, Platelet Count 229, Neutrophils (%) (Auto) 68.8H, Lymphocytes (%) (Auto) 18.0L, Monocytes (%) (Auto) 8.8H, Eosinophils (%) (Auto) 2.3, Basophils (%) (Auto) 0.6 , Neutrophils # (Auto) 5.9, Lymphocytes # (Auto) 1.6, Monocytes # (Auto) 0.8, Eosinophils # (Auto) 0.2, Basophils # (Auto) 0.1, Immature Granulocyte # (Auto) 0.1H, Nucleated Red Blood Cells % (auto) 0.0, Prothrombin Time 13.1, Prothromb Time International Ratio 0.98, Activated Partial Thromboplast Time 30.8, Anion Gap 5L, Glomerular Filtration Rate > 60.0, Blood Urea Nitrogen 16, Creatinine 1.14, Sodium Level 135L, Potassium Level 3.9, Chloride Level 97L, Carbon Dioxide Level 33H, Calcium Level 9.1, Total Creatine Kinase 209, Creatine Kinase MB 2.2, Creatine Kinase MB Relative Index 1.05, Troponin I < 0.02 03/23/17 13:01: Bedside Glucose (Misc Panel) 113 03/23/17 18:38: Bedside Glucose (Misc Panel) 125H 03/23/17 20:49: Bedside Glucose (Misc Panel) 182H 03/24/17 04:38: Anion Gap 4L, Glomerular Filtration Rate > 60.0, Blood Urea Nitrogen 17, Creatinine 1.02, Sodium Level 136, Potassium Level 4.2, Chloride Level 101, Carbon Dioxide Level 31, Calcium Level 8.8, Aspartate Amino Transf (AST/SGOT) 23 , Alanine Aminotransferase (ALT/SGPT) 44, Alkaline Phosphatase 47, Total Bilirubin 0.4, Triglycerides Level 252H, LDL Cholesterol 51.6, Total Protein 6.9 , Albumin 3.4, Magnesium Level 2.0, Albumin/Globulin Ratio 0.97L, Total Cholesterol 139, Non-HDL Cholesterol (LDL + VLDL) 102, Total HDL Cholesterol 37L , Cholesterol/HDL Ratio 3.756 CBC/BMP Laboratory Tests 03/23/17 12:57 Red Blood Count 4.40, Mean Corpuscular Volume 90.0, Mean Corpuscular Hemoglobin 30.5, Mean Corpuscular Hemoglobin Concent 33.8, Red Cell Distribution Width 12.6 , Neutrophils (%) (Auto) 68.8 H, Lymphocytes (%) (Auto) 18.0 L, Monocytes (%) ( Auto) 8.8 H, Eosinophils (%) (Auto) 2.3, Basophils (%) (Auto) 0.6, Neutrophils # (Auto) 5.9, Lymphocytes # (Auto) 1.6, Monocytes # (Auto) 0.8, Eosinophils # ( Auto) 0.2, Basophils # (Auto) 0.1, Calcium Level 9.1, Total Creatine Kinase 209 03/24/17 04:38 Red Blood Count 4.48, Mean Corpuscular Volume 89.7, Mean Corpuscular Hemoglobin 30.1, Mean Corpuscular Hemoglobin Concent 33.6, Red Cell Distribution Width 12.8 , Calcium Level 8.8, Aspartate Amino Transf (AST/SGOT) 23, Alanine Aminotransferase (ALT/SGPT) 44, Alkaline Phosphatase 47, Total Bilirubin 0.4, Triglycerides Level 252 H, LDL Cholesterol 51.6, Total Protein 6.9, Albumin 3.4 GME ATTESTATION GME ATTESTATION My preceptor for this patient encounter was physically present in the building during the encounter and was fully available. As needed, all aspects of the patient interview, examination, medical decision making process, and medical care plan development were reviewed and approved by the preceptor. Preceptor is aware and concurs with the plan as stated in the body of this note and will attest to such by his/her cosignature. ATTENDING NOTE MRI Brain: 1. There is a punctate acute infarction in the anteromedial left temporal lobe. 2. Minimal small vessel ischemic disease. MRA Brain: 1. There is no aneurysm or arteriovenous malformation. 2. Atherosclerotic disease as described above KACEY PEÑALOZA,DO Mar 24, 2017 10:03 KAUSHAL BLAIR DO Mar 24, 2017 14:26
[2017-03-24] MEDS ORDERED: ISOVUE-370 76% 100ML VIAL (Q9967) As Ordered ONE (11:26)
[2017-03-24 12:00] VITALS: BP 154/80
--- NOTE | 2017-03-24 13:19 | REP ---
CT ANGIO HEAD: HISTORY: TIA. CONTRAST: Isovue-370, 100 mL. There is no aneurysm or arteriovenous malformation. Calcified atherosclerotic plaques are present in the cavernous internal carotid arteries. These produce mild to moderate stenosis. Major intracranial vessels are patent. The left vertebral artery is dominant. IMPRESSION: 1. There is no aneurysm or arteriovenous malformation. 2. Atherosclerotic disease, as described above. Signed by Jamarcus Houser MD 03/24/2017 01:48 P
--- NOTE | 2017-03-24 13:36 | REP ---
CT ANGIO NECK: HISTORY: TIAs. CONTRAST: Isovue-370, 75 mL. A large calcified atherosclerotic plaque is present at the origins of the right external and internal carotid arteries. There is severe stenosis of 90% of the right internal carotid artery at its origin. There is moderate stenosis of 65% of the right external carotid artery at its origin. A large calcified atherosclerotic plaque is present at the origins of the left external and internal carotid arteries. There is mild stenosis of 25% of the left internal carotid artery at its origin. There is severe stenosis of 80% of the left internal carotid artery 8 mm from its origin. There is mild stenosis of 20% on the left external carotid artery at its origin. A small calcified atherosclerotic plaque is present in the proximal right vertebral artery. There is no significant stenosis. The vertebral arteries are patent. The left vertebral artery is dominant. Calcified atherosclerotic plaques are present at the origins of the left subclavian, left common carotid, and right subclavian arteries. These produce at least mild stenosis. IMPRESSION: 1. Severe stenosis of 90% of the right internal carotid artery at its origin. 2. Mild stenosis of 25% of the left internal carotid artery at its origin. There is severe stenosis of 80% of the internal carotid artery 8 mm from its origin. Signed by Jamarcus Houser MD 03/24/2017 01:48 P
[2017-03-24] MEDS: PERCOCET 5MG/325MG TAB PO PRN ×3 (15:51→23:58)
[2017-03-24 16:00] VITALS: BP 152/78
[2017-03-24] MEDS ORDERED: CLOPIDOGREL 300 MG TAB (PLAVIX) PO STA (16:05)
[2017-03-24 20:00] VITALS: BP 152/68
[2017-03-24] MEDS: SIMVASTATIN 40 MG TAB PO SCH (20:02)
--- NOTE | 2017-03-24 22:00 | REPUSA ---
MRI of the brain. Clinical history: CVA. Comparison: 03/24/2017. Technique: Multiecho multiplanar MRI images of the brain were obtained without administration of cont rast. Diffusion weighted images with ADC mapping was also obtained. Findings: The ventricles and sulci are symmetric bilaterally. The brain parenchyma demonstrates several small f oci of T2 hyperintensity in the subcortical white matter bilaterally. There is a large T2 hyperintens e lesion in the posterior left basal ganglia . A second large lesion is seen in the anterior left upp er lobe. Both of these lesions demonstrate restricted diffusion. There is no midline shift, mass effe ct, or extra-axial fluid collection. The midline intracranial structures do not demonstrate any gross abnormalities. The cervical cranial junction is intact. The orbits are unremarkable. The visualized paranasal sinuses and mastoid air cells are clear. The osseous structures and superficial soft tissue s are unremarkable. The vascular structures demonstrate appropriate flow voids. Impression: 1. Acute infarct in the posterior left basal ganglia. No edema or mass effect appreciated. 2. Small acute infarct in the anterior left temporal lobe. 3. Mild chronic small vessel ischemic changes. A call will be placed to the facility regarding these findings.
[2017-03-25] VITALS: BP 170/78
[2017-03-25 04:00] VITALS: BP 172/74
[2017-03-25 05:10] LABS: MEAN CORPUSCULAR HEMOGLOBIN 29.9 pg (27.0-33.0); MEAN CORPUSCULAR HGB CONC 33.4 g/dl (32.0-36.5); MEAN CORPUSCULAR VOLUME 89.6 fl (80.0-96.0); RED CELL DISTRIBUTION WIDTH 12.9 % (11.5-14.5)
[2017-03-25 05:32] LABS: ALBUMIN 3.5 GM/DL (3.2-5.2); ALBUMIN/GLOBULIN RATIO 0.92 (1.00-1.93); ALKALINE PHOSPHATASE 51 U/L (45-117); ALT/SGPT 48 U/L (12-78); ANION GAP 7 MEQ/L (8-16); AST/SGOT 31 U/L (15-37); BILIRUBIN,TOTAL 0.5 MG/DL (0.2-1.0); BLOOD UREA NITROGEN 16 MG/DL (7-18); CALCIUM LEVEL 8.9 MG/DL (8.8-10.2); CARBON DIOXIDE LEVEL 30 MEQ/L (21-32); CHLORIDE LEVEL 98 MEQ/L (98-107); CREATININE FOR GFR 1.08 MG/DL (0.70-1.30); GLOMERULAR FILTRATION RATE > 60.0 (>49); GLUCOSE, FASTING 131 MG/DL (80-110); MAGNESIUM LEVEL 2.1 MG/DL (1.8-2.4); POTASSIUM SERUM 3.9 MEQ/L (3.5-5.1); SODIUM LEVEL 135 MEQ/L (136-145); TOTAL PROTEIN 7.3 GM/DL (6.4-8.2)
[2017-03-25 08:00] VITALS: BP 160/78
[2017-03-25] MEDS: ADVAIR HFA 115/21MCG INHALER INH SCH ×2 (08:02→19:52)
[2017-03-25] MEDS: CLOPIDOGREL 75 MG TAB PO SCH (08:42)
[2017-03-25] MEDS: ASPIRIN ENTERIC 325 MG TAB PO SCH (08:42)
[2017-03-25] MEDS: LISINOPRIL 20 MG TAB PO SCH ×2 (08:42→20:01)
[2017-03-25] MEDS: ESCITALOPRAM OXALATE 10 MG TAB (LEXAPRO) PO SCH (08:42)
[2017-03-25] MEDS: HumaLOG INSULIN (NovoLOG) PER UNIT SC SCH ×4 (08:43→19:30)
[2017-03-25] MEDS: PERCOCET 5MG/325MG TAB PO PRN (10:45)
[2017-03-25] MEDS: BACLOFEN 10 MG TAB PO SCH ×2 (10:48→20:00)
[2017-03-25] MEDS: DULoxetine 30 MG CAP (CYMBALTA) PO SCH (10:48)
--- NOTE | 2017-03-25 11:32 | IPNPDOC ---
Subjective Date Seen The patient was seen on 03/25/17. Subjective Chief Complaint/HPI The patient is a 61-year-old male admitted with a reason for visit of TIA. Events since last encounter Has no complaints this. Involuntary movements in the right shoulder is improving. Appetite is appropriate. BP is still elevated this AM. wasn't in the room to ask questions. Neurologist and Vascular Surgeons are on board and saw the patient yesterday. Patient has had new imaging done yesterday. General: Reports: Normal Appetite, Denies: Chills, Night Sweats, Fatigue, Malaise Eyes: Denies: Pain, Vision change ENT: Denies: Dysphagia, Sore Throat Skin: Denies: Rash, Lesions, Bruising Pulmonary: Denies: Dyspnea, Cough Cardiovascular: Denies: Chest Pain, Palpitations, Edema, Lt Headedness Gastrointestinal: Denies: Nausea, Vomiting, Abdominal Pain, Diarrhea, Constipation Genitourinary: Denies: Dysuria, Frequency, Incontinence, Hematuria, Retention Hematologic: Denies: Bruising, Bleeding Excessively Endocrine: Denies: Polydipsia, Polyphagia, Polyuria Musculoskeletal: Denies: Neck Pain, Back Pain, Joint Pain, Muscle Pain, Spasms Neurological: Reports: Incoordination (Right shoulder involuntary movment ( improving)), Denies: Weakness, Numbness, Change in speech, Confusion Psych: Reports: Mood Normal, Denies: Depression, Memory Issues Objective Physical Examination General Exam: Positive: Alert, No Acute Distress Eye Exam: Positive: PERRLA, Conjunctiva & lids normal, EOMI, Other Eye Symptoms (visual benitez intact), Negative: Sclera icteric ENT Exam: Positive: Atraumatic, Mucous membr. moist/pink, Pharynx Normal Neck Exam: Positive: Supple, Negative: JVD, thyromegaly Chest Exam: Positive: Normal air movement, Wheezing (faint expiratory wheezes heard in left anteriorly and right posteriorly ) Heart Exam: Positive: Rate Normal, Regular Rhythm, Normal S1, Normal S2, Negative: Murmurs, Rubs Telemetry: Positive: No significant arrhythmia Abdomen Exam: Positive: Normal bowel sounds, Soft, Other (colostomy bag appreciated in the left lower quadrant with fecal drainage, multiple surgical incisions are noted on the abdomen), Negative: Tenderness, Hepatospenomegaly Extremity Exam: Negative: Clubbing, Cyanosis, Edema Skin Exam: Positive: Nl turgor and temperature, Other skin issue (multiple skin lesions are appreciated on his back), Negative: Breakdown, Lesion Neuro Exam: Positive: Normal Speech, Strength at 5/5 X4 ext (Facial muscles have normal strength/tone), Cranial Nerves 3-12 NL, Other (FNF on right markedly impaired, heel to henderson normal BL, positive pronator drift on right upper extremity, no facial palsy, patient has unilateral choreaform movements on the right upper extermity (improving) ), Negative: Sensation Intact (sensation decreased on the right in: V1-V3, C4-T2 ,L4-S1 dermatomes) Psych Exam: Positive: Mental status NL, Mood NL Assessment /Plan Assessment 1. Unilateral sensory deficits/incoordination-likely due to a TIA. In the ER CT of the head was negative for a stroke. Repeat CT of the head today revealed no evidence of acute pathology. Dr. Puentes was consulted and requested for a TIA workup. Appreciate his assistance. MRI of the brain showed punctate acute infarction in the anteromedial left temporal lobe. Cardiac marker panels were ordered in the ER, CK was 2.2. Patient's EKG in the ER showed a sinus bradycardia with 1st degree AV block. Patient currently denies any chest pain. Patient was started on 325 mg of aspirin daily yesterday. Carotid ultrasound revealed stenosis of 50-69% on the right and 50% on the left. CTA of the neck showed 1. Severe stenosis of 90% of the right internal carotid artery at its origin. Mild stenosis of 25% of the left internal carotid artery at its origin. There is severe stenosis of 80% of the internal carotid artery 8 mm from its origin. Patient also had an update MRI of the brain yesterday showed a new Acute infarct in the posterior left basal ganglia. No edema or mass effect appreciated. Awaiting Neurology and Vascular recommendations. 2. Bradycardia with AV block (Improving) -in the ER the patient's EKG showed a sinus bradycardia with AV block. The patient was on atenolol 100 mg at home. We will not continue the medication at this time inpatient. Patient had no events on telemetry overnight. Patient heart rate this AM was 70. Will continue to monitor. 3. Hypertension - Increased the patient lisinopril to 20 mg. Will continue to monitor the patient daily vitals every 4hours. 4. Diabetes - patient is currently on insulin sliding scale. 5. COPD- patient is to continue home medication, Advair 6. Hyperlipidemia - patient is to continue with his Zocor 40mg inpatient. Lipid panel today revealed high triglycerides at 252, and low HDL at 37. Patients CV risk is 39.3%. Will consider changing the patient to a high-density statin in the future. 7. Diet - consistent carb with 2 g of sodium diet 8. DVT prophylaxis -TEDs/SCDs 9. Right shoulder/arm pain: musculoscketal, Percocet 5/325mg one every 4hrs prn. Updated MRI of the brain yesterday showed a new acute infarct in the posterior left basal ganglia. No edema or mass effect appreciated. Involuntary movements are improving. Plan/VTE VTE Prophylaxis Ordered?: Yes (TEDs) VS, I&O, 24H, Fishbone Vital Signs/I&O Vital Signs Date Time Temp Pulse Resp B/P (MAP) Pulse Ox O2 Delivery O2 Flow Rate FiO2 03/25/17 10:45 20 03/25/17 08:00 Room Air 03/25/17 08:00 98.0 70 160/78 (105) 92 I&O- Last 24 Hours up to 6 AM 03/26/17 06:00 Intake Total 240 ml Output Total 425 ml Balance -185 ml Laboratory Data 24H LABS Laboratory Tests 2 03/24/17 12:25: Bedside Glucose (Misc Panel) 137H 03/24/17 17:12: Bedside Glucose (Misc Panel) 117H 03/24/17 21:33: Bedside Glucose (Misc Panel) 121H 03/25/17 04:45: Anion Gap 7L, Glomerular Filtration Rate > 60.0, Blood Urea Nitrogen 16, Creatinine 1.08, Sodium Level 135L, Potassium Level 3.9, Chloride Level 98, Carbon Dioxide Level 30, Calcium Level 8.9, Aspartate Amino Transf (AST/SGOT) 31 , Alanine Aminotransferase (ALT/SGPT) 48, Alkaline Phosphatase 51, Total Bilirubin 0.5, Total Protein 7.3, Albumin 3.5, Magnesium Level 2.1, Albumin/ Globulin Ratio 0.92L CBC/BMP Laboratory Tests 03/25/17 04:45 Red Blood Count 4.71, Mean Corpuscular Volume 89.6, Mean Corpuscular Hemoglobin 29.9, Mean Corpuscular Hemoglobin Concent 33.4, Red Cell Distribution Width 12.9 , Calcium Level 8.9, Aspartate Amino Transf (AST/SGOT) 31, Alanine Aminotransferase (ALT/SGPT) 48, Alkaline Phosphatase 51, Total Bilirubin 0.5, Total Protein 7.3, Albumin 3.5 GME ATTESTATION GME ATTESTATION My preceptor for this patient encounter was physically present in the building during the encounter and was fully available. As needed, all aspects of the patient interview, examination, medical decision making process, and medical care plan development were reviewed and approved by the preceptor. Preceptor is aware and concurs with the plan as stated in the body of this note and will attest to such by his/her cosignature. KACEY PEÑALOZA DO Mar 25, 2017 11:31
[2017-03-25 12:00] VITALS: BP 150/63
[2017-03-25 16:00] VITALS: BP 158/84
[2017-03-25 20:00] VITALS: BP 156/62
[2017-03-25] MEDS: ATORVASTATIN 20 MG TAB PO SCH (20:00)
[2017-03-26] VITALS (8 sets, daily range): BP systolic 144–160; BP diastolic 70–84
[2017-03-26 04:49] LABS: MEAN CORPUSCULAR HEMOGLOBIN 30.2 pg (27.0-33.0); MEAN CORPUSCULAR HGB CONC 33.3 g/dl (32.0-36.5); MEAN CORPUSCULAR VOLUME 90.5 fl (80.0-96.0); RED CELL DISTRIBUTION WIDTH 13.1 % (11.5-14.5); WHITE BLOOD COUNT 11.2 10^3/uL (4.0-10.0)
[2017-03-26 05:09] LABS: ALBUMIN 3.6 GM/DL (3.2-5.2); ALBUMIN/GLOBULIN RATIO 1.06 (1.00-1.93); ALKALINE PHOSPHATASE 52 U/L (45-117); ALT/SGPT 43 U/L (12-78); ANION GAP 5 MEQ/L (8-16); AST/SGOT 30 U/L (15-37); BILIRUBIN,TOTAL 0.6 MG/DL (0.2-1.0); BLOOD UREA NITROGEN 17 MG/DL (7-18); CALCIUM LEVEL 8.9 MG/DL (8.8-10.2); CARBON DIOXIDE LEVEL 30 MEQ/L (21-32); CHLORIDE LEVEL 99 MEQ/L (98-107); GLOMERULAR FILTRATION RATE > 60.0 (>49); GLUCOSE, FASTING 138 MG/DL (80-110); POTASSIUM SERUM 4.3 MEQ/L (3.5-5.1); SODIUM LEVEL 134 MEQ/L (136-145)
--- NOTE | 2017-03-26 06:44 | ECHO ---
DATE OF PROCEDURE: 03/24/2017 REFERRING PHYSICIAN: Dr. Suha Chu. INDICATION: Transient cerebral ischemic, unspecified. HEIGHT: 178 cm. WEIGHT: 104 kg. MEASUREMENTS: Aortic valve velocity: 1.24 cm/s Posterior wall: 1.21 cm Left ventricle diastole: 4.2 cm Left atrium: 3.6 cm Aortic root: 3.6 cm LVOT: 2.3 cm DOPPLER MEASUREMENTS: Aortic valve velocity: 85.5 cm/s LVOT velocity: 84.2 cm/s LVOT VTI: 17.6 cm Mitral E velocity: 66.6 cm/s Mitral A velocity: 80.5 cm/s Mitral deacceleration time: 268 ms Pulmonary artery systolic pressure 21 mmHg by pulmonary acceleration time method. MITRAL ANNULAR TISSUE DOPPLER: E-prime septal: 9.0 cm/s E-prime lateral: 8.7 cm/s DESCRIPTION: Rhythm was sinus. No pericardial effusion. This was a technically difficult echocardiogram. This was a 2D, M-mode, color flow Doppler and pulsed wave Doppler examination and included mitral annular tissue Doppler. CONCLUSIONS: 1. Very mild concentric left ventricular hypertrophy. No regional wall motion abnormalities apparent. Normal LV systolic function. LVEF 65% by visual estimate. Grade 1 LV diastolic dysfunction (impaired relaxation filling pattern). 2. Normal right ventricle size and systolic function. 3. Normal appearing aortic and mitral valves. 4. Technically difficult echocardiogram. cc: DO Suha Martinez, PGY-1,DO
[2017-03-26] MEDS: ADVAIR HFA 115/21MCG INHALER INH SCH ×2 (07:33→21:40)
[2017-03-26] MEDS: HumaLOG INSULIN (NovoLOG) PER UNIT SC SCH ×4 (07:55→21:00)
[2017-03-26] MEDS: DULoxetine 30 MG CAP (CYMBALTA) PO SCH (09:23)
[2017-03-26] MEDS: ASPIRIN ENTERIC 325 MG TAB PO SCH (09:24)
[2017-03-26] MEDS: ESCITALOPRAM OXALATE 10 MG TAB (LEXAPRO) PO SCH (09:24)
[2017-03-26] MEDS: LISINOPRIL 20 MG TAB PO SCH ×2 (09:26→21:26)
[2017-03-26] MEDS: BACLOFEN 10 MG TAB PO SCH ×2 (09:27→21:27)
[2017-03-26] MEDS: CLOPIDOGREL 75 MG TAB PO SCH (09:27)
[2017-03-26] MEDS ORDERED: SLF 3 ML SYR IV PRN (11:45)
[2017-03-26] MEDS: SLF 3 ML SYR IV SCH ×2 (14:15→21:27)
--- NOTE | 2017-03-26 14:26 | IPNPDOC ---
Date Seen The patient was seen on 03/26/17. Progress Note SUBJECTIVE: Patient is a 59-year-old gentleman with cerebrovascular accident, right arm weakness and decreased proprioception involving the right arm and right leg. He denies any overnight issues. No fevers, chills, chest pain, shortness of breath, nausea, vomiting, no visual changes. OBJECTIVE PHYSICAL EXAMINATION: VITAL SIGNS: Please see below. GENERAL: No acute distress, is alert, pleasant HEENT: PERRLA. Throat clear. Neck supple, no adenopathy CARDIOVASCULAR: Regular rate and rhythm. RESPIRATORY: Clear to auscultation bilaterally. ABDOMINAL: Soft, nontender, nondistended, positive bowel sounds, masses. No rebound EXTREMITIES: No edema, no calf tenderness NEUROLOGICAL: Cranial nerves II through XII grossly intact. He does have good dining room busser strength bilaterally and strength appears to be appreciated, however, his proprioception for spatial occasion of his upper extremity is quite noticeable. PSYCHOLOGICAL: Negative LABORATORY DATA: Please see below. MICROBIOLOGY: Please see below. IMAGING: [ MRI BRAIN (03/24/2017): 1. Acute infarct in the posterior left basal ganglia. No edema or mass effect appreciated. 2. Small acute infarct in the anterior left temporal lobe. 3. Mild chronic small vessel ischemic changes. CT ANGiO head (03/24/2017): 1. There is no aneurysm or arteriovenous malformation. 2. Atherosclerotic disease, as described above. CT ANGIO NECK (03/24/2017): 1. Severe stenosis of 90% of the right internal carotid artery at its origin. 2. Mild stenosis of 25% of the left internal carotid artery at its origin. There is severe stenosis of 80% of the internal carotid artery 8 mm from its origin. Echocardiogram: () 1. Very mild concentric left ventricular hypertrophy. No regional wall motion abnormalities apparent. Normal LV systolic function. LVEF 65% by visual estimate. Grade 1 LV diastolic dysfunction (impaired relaxation filling pattern). 2. Normal right ventricle size and systolic function. 3. Normal appearing aortic and mitral valves. 4. Technically difficult echocardiogram. . DVT prophylaxis ordered?: YES ASSESSMENT AND PLAN: This is a 61-year-old gentleman seen at bedside with continued issues with paresthesias and loss of proprioception involving the right upper and lower extremity, likely secondary to new cerebrovascular accident. He additionally has significant carotid stenosis bilaterally. PROBLEMS: 1. Unilateral sensory deficits/incoordination-likely due to CVA: He has significant carotid artery stenosis bilaterally and appreciate Dr. Martinez's further recommendations. We will need patient follow-up elective procedure in the near future. Regarding the neurologic issues. Appreciate neurology's input and he'll be continuing with occupational therapy and physical therapy. Already spoke to physical medicine rehabilitation to evaluate the patient this coming week to see if he would qualify for rehabilitation. Full dose ASA (325mg) daily, Lipitor 80mg daily and Plavix 75mg daily. 2. Bradycardia with AV block resolved and held beta lata. 3. Hypertension - Increased the patient lisinopril to 20 mg. Allowed passive mild hypertension for now and can begin gradually working on lowering BP. 4. Diabetes - patient is currently on insulin sliding scale. 5. COPD- continue Advair 6. Hyperlipidemia - continue statin. 7. Diet - consistent carb with 2 g of sodium diet 8. Right shoulder/arm pain: continue prn Percocet, Cymbalta and Baclofen. 9. DVT prophylaxis -TEDs/SCDs DISPOSITION: Patient currently appears stable. Will anticipate evaluation by PMR tomorrow. Ok to transfer off telemetry to the medical floor.. VS, I&O, 24H, [place] Vital Signs/I&O Vital Signs Date Time Temp Pulse Resp B/P (MAP) Pulse Ox O2 Delivery O2 Flow Rate FiO2 03/26/17 12:00 98.7 86 16 156/82 (106) 97 Room Air I&O- Last 24 Hours up to 6 AM 03/27/17 06:00 Intake Total 720 ml Output Total 1000 ml Balance -280 ml Laboratory Data 24H LABS Laboratory Tests 2 03/25/17 17:18: Bedside Glucose (Misc Panel) 135H 03/25/17 19:28: Bedside Glucose (Misc Panel) 197H 03/26/17 04:34: Anion Gap 5L, Glomerular Filtration Rate > 60.0, Blood Urea Nitrogen 17, Creatinine 1.20, Sodium Level 134L, Potassium Level 4.3, Chloride Level 99, Carbon Dioxide Level 30, Calcium Level 8.9, Aspartate Amino Transf (AST/SGOT) 30 , Alanine Aminotransferase (ALT/SGPT) 43, Alkaline Phosphatase 52, Total Bilirubin 0.6, Total Protein 7.0, Albumin 3.6, Magnesium Level 2.0, Albumin/ Globulin Ratio 1.06 03/26/17 11:47: Bedside Glucose (Misc Panel) 156H CBC/BMP Laboratory Tests 03/26/17 04:34 Red Blood Count 4.61, Mean Corpuscular Volume 90.5, Mean Corpuscular Hemoglobin 30.2, Mean Corpuscular Hemoglobin Concent 33.3, Red Cell Distribution Width 13.1 , Calcium Level 8.9, Aspartate Amino Transf (AST/SGOT) 30, Alanine Aminotransferase (ALT/SGPT) 43, Alkaline Phosphatase 52, Total Bilirubin 0.6, Total Protein 7.0, Albumin 3.6 KAUSHAL BLAIR DO Mar 26, 2017 14:26
[2017-03-26] MEDS: ATORVASTATIN 20 MG TAB PO SCH (21:26)
[2017-03-27] MEDS: SLF 3 ML SYR IV SCH (05:37)
[2017-03-27 06:00] VITALS: BP 138/77
[2017-03-27 07:24] LABS: MEAN CORPUSCULAR HEMOGLOBIN 29.8 pg (27.0-33.0); MEAN CORPUSCULAR HGB CONC 32.6 g/dl (32.0-36.5); MEAN CORPUSCULAR VOLUME 91.3 fl (80.0-96.0); RED CELL DISTRIBUTION WIDTH 13.1 % (11.5-14.5); WHITE BLOOD COUNT 10.5 10^3/uL (4.0-10.0)
[2017-03-27] MEDS: ADVAIR HFA 115/21MCG INHALER INH SCH (07:29)
[2017-03-27 07:46] LABS: ALBUMIN 3.6 GM/DL (3.2-5.2); ALBUMIN/GLOBULIN RATIO 0.88 (1.00-1.93); BILIRUBIN,TOTAL 0.7 MG/DL (0.2-1.0); CALCIUM LEVEL 8.9 MG/DL (8.8-10.2); CREATININE FOR GFR 1.32 MG/DL (0.70-1.30); GLOMERULAR FILTRATION RATE 58.5 (>49); MAGNESIUM LEVEL 2.1 MG/DL (1.8-2.4); POTASSIUM SERUM 4.5 MEQ/L (3.5-5.1); TOTAL PROTEIN 7.7 GM/DL (6.4-8.2)
[2017-03-27 08:33] VITALS: BP 165/85
[2017-03-27] MEDS: LISINOPRIL 20 MG TAB PO SCH (08:33)
[2017-03-27] MEDS: HumaLOG INSULIN (NovoLOG) PER UNIT SC SCH ×2 (08:33→12:37)
[2017-03-27] MEDS: CLOPIDOGREL 75 MG TAB PO SCH (08:34)
[2017-03-27] MEDS: BACLOFEN 10 MG TAB PO SCH (08:34)
[2017-03-27] MEDS: DULoxetine 30 MG CAP (CYMBALTA) PO SCH (08:34)
[2017-03-27] MEDS: ESCITALOPRAM OXALATE 10 MG TAB (LEXAPRO) PO SCH (08:34)
[2017-03-27] MEDS ORDERED: ASPIRIN ENTERIC 325 MG TAB PO SCH (09:00)
[2017-03-27] MEDS ORDERED: ATOR1TAB21 PO (12:09)
[2017-03-27] MEDS ORDERED: LISI-538 PO (12:09)
[2017-03-27] MEDS ORDERED: BACL1TAB8 PO (12:09)
[2017-03-27] MEDS ORDERED: ASPI325T24 PO (12:09)
[2017-03-27] MEDS ORDERED: CLOP75TA2 PO (12:09)
[2017-03-27] MEDS ORDERED: DULO30CA PO (12:09)
--- NOTE | 2017-03-27 21:40 | DS.PDOC ---
Discharge Summary General Date of Admission Mar 24, 2017 at 14:58 Date of Discharge Date of discharge to [facility] 03/27/2017 Primary Care Physician: LUCIE MANUEL DO Discharge Summary ADMITTING DIAGNOSES: 1. TIA DISCHARGE DIAGNOSES: 1. acute infarction in the anteromedial left temporal lobe COMPLICATIONS/CHIEF COMPLAINT: TIA. HISTORY OF PRESENT ILLNESS: This is a 61-year-old male with a pertinent past medical history of colorectal cancer status post radiation and chemotherapy 2012 , a current smoker with a [id number], presenting with unilateral weakness and slurred speech. Patient states that when he was going to work this morning at 7: 40 AM he noticed that his legs were weak. He's noticed that his right side was weaker than his left and it was not "working right"" the patient states that he was able to walk into work still with a little bit of unsteadiness. He then states 2 hours later he noticed a tingling in his right arm down to his fingers. He states that he can physically move his fingers but it was "like it wasn't there". Patient states he then went home and his noticed that he looked at this oriented. Patient states that had at his work is possible noticed that he was speaking funny but he could not elaborate more. His , who is a retired RN, states that she took his blood pressure at home and it was ranged between 170/90-140/90. The then took him to the urgent care because she felt like he didn't look right. Patient states that from the urgent care they call an ambulance and send him to the [facility] ER. Patient states at the urgent care his blood pressure ranged from 140-180s systolic. Patient states that currently he is experiencing weakness in his right leg more than his left leg and he still has a tingling sensation in his right upper extremity. Patient states the only recent medication change was lisinopril 5 mg was added a month ago and this past Monday was increased to 10 mg. Per she states his blood pressure at home has been ranging in the 140s/80s. Patient states that he takes aspirin 81 mg every day. Patient states that he does have chronic pain bilaterally in his knees after the radiation to his rectum with his right side worse than his left. Patient states that he has trouble breathing in the last week he has some shortness of breath and cough that is chronic. HOSPITAL COURSE: 1. Unilateral sensory deficits/incoordination-likely due to a TIA. In the ER CT of the head was negative for a stroke. Repeat CT of the head today revealed no evidence of acute pathology. Dr. Puentes was consulted and requested for a TIA workup. Appreciate his assistance. MRI of the brain showed punctate acute infarction in the anteromedial left temporal lobe. Cardiac marker panels were ordered in the ER, CK was 2.2. Patient's EKG in the ER showed a sinus bradycardia with 1st degree AV block. Patient currently denies any chest pain. Patient was started on 325 mg of aspirin daily yesterday. Carotid ultrasound revealed stenosis of 50-69% on the right and 50% on the left. CTA of the neck showed 1. Severe stenosis of 90% of the right internal carotid artery at its origin. Mild stenosis of 25% of the left internal carotid artery at its origin. There is severe stenosis of 80% of the internal carotid artery 8 mm from its origin. Patient also had an update MRI of the brain yesterday showed a new Acute infarct in the posterior left basal ganglia. No edema or mass effect appreciated. Awaiting Neurology and Vascular recommendations. 2. Bradycardia with AV block (Improving) -in the ER the patient's EKG showed a sinus bradycardia with AV block. The patient was on atenolol 100 mg at home. We will not continue the medication at this time inpatient. Patient had no events on telemetry overnight. Patient heart rate this AM was 70. Will continue to monitor. 3. Hypertension - Increased the patient lisinopril to 20 mg. Will continue to monitor the patient daily vitals every 4hours. 4. Diabetes - patient is currently on insulin sliding scale. 5. COPD- patient is to continue home medication, Advair 6. Hyperlipidemia - patient is to continue with his Zocor 40mg inpatient. Lipid panel today revealed high triglycerides at 252, and low HDL at 37. Patients CV risk is 39.3%. Will consider changing the patient to a high-density statin in the future. 7. Diet - consistent carb with 2 g of sodium diet 8. DVT prophylaxis -TEDs/SCDs 9. Right shoulder/arm pain: musculoscketal, Percocet 5/325mg one every 4hrs prn. Updated MRI of the brain yesterday showed a new acute infarct in the posterior left basal ganglia. No edema or mass effect appreciated. Involuntary movements are improving. DISCHARGE MEDICATIONS: Please see below. ALLERGIES: Please see below. PHYSICAL EXAMINATION ON DISCHARGE: VITAL SIGNS: Please see below. GENERAL: No acute distress, is alert, pleasant HEENT: PERRLA. Throat clear. Neck supple, no adenopathy CARDIOVASCULAR: Regular rate and rhythm. RESPIRATORY: Clear to auscultation bilaterally. ABDOMINAL: Soft, nontender, nondistended, positive bowel sounds, masses. No rebound EXTREMITIES: No edema, no calf tenderness NEUROLOGICAL: Cranial nerves II through XII grossly intact. 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 PSYCHOLOGICAL: Negative LABORATORY DATA: Please see below. LABORATORY DATA: Please see below. IMAGING: [ MRI BRAIN (03/24/2017): 1. Acute infarct in the posterior left basal ganglia. No edema or mass effect appreciated. 2. Small acute infarct in the anterior left temporal lobe. 3. Mild chronic small vessel ischemic changes. CT ANGiO head (03/24/2017): 1. There is no aneurysm or arteriovenous malformation. 2. Atherosclerotic disease, as described above. CT ANGIO NECK (03/24/2017): 1. Severe stenosis of 90% of the right internal carotid artery at its origin. 2. Mild stenosis of 25% of the left internal carotid artery at its origin. There is severe stenosis of 80% of the internal carotid artery 8 mm from its origin. Echocardiogram: () 1. Very mild concentric left ventricular hypertrophy. No regional wall motion abnormalities apparent. Normal LV systolic function. LVEF 65% by visual estimate. Grade 1 LV diastolic dysfunction (impaired relaxation filling pattern). 2. Normal right ventricle size and systolic function. 3. Normal appearing aortic and mitral valves. 4. Technically difficult echocardiogram. ACTIVITY: As tolerated. DIET: Consistent Carb Diet with 2g sodium diet DISCHARGE PLAN: 1. Unilateral sensory deficits/incoordination-likely due to CVA : He has significant carotid artery stenosis bilaterally and appreciate Dr. Martinez's further recommendations. We will need patient follow-up elective procedure in the near future. Regarding the neurologic issues. Appreciate neurology's input and he'll be continuing with occupational therapy and physical therapy. Already spoke to physical medicine rehabilitation to evaluate the patient this coming week to see if he would qualify for rehabilitation. Full dose ASA (325mg) daily, Lipitor 80mg daily and Plavix 75mg daily. 2. Bradycardia with AV block resolved and held beta lata. 3. Hypertension - Increased the patient lisinopril to 20 mg. Allowed passive mild hypertension for now and can begin gradually working on lowering BP. 4. Diabetes - patient is currently on insulin sliding scale. 5. COPD- continue Advair 6. Hyperlipidemia - continue statin. 7. Diet - consistent carb with 2 g of sodium diet 8. Right shoulder/arm pain: continue prn Percocet, Cymbalta and Baclofen. 9. DVT prophylaxis -TEDs/SCDs DISPOSITION: 62 D/T Rehab Facility. DISCHARGE INSTRUCTIONS: 1. Discharge to [facility] 1. Follow up with PCP within 7 days after discharge from PMR ITEMS TO FOLLOWUP ON ON OUTPATIENT: 1. Follow up with PCP within 7 days after discharge from PMR TIME SPENT ON DISCHARGE: Greater than 30 minutes. Vital Signs/I&Os Vital Signs Date Time Temp Pulse Resp B/P (MAP) Pulse Ox O2 Delivery O2 Flow Rate FiO2 03/27/17 08:33 165/85 03/27/17 06:00 96.0 67 18 97 Room Air I&O- Last 24 Hours up to 6 AM 03/28/17 06:00 Intake Total 480 ml Output Total 450 ml Balance 30 ml Laboratory Data Labs 24H Laboratory Tests 2 03/27/17 07:11: Anion Gap 4L, Glomerular Filtration Rate 58.5, Blood Urea Nitrogen 19H, Creatinine 1.32H, Sodium Level 133L, Potassium Level 4.5, Chloride Level 99, Carbon Dioxide Level 30, Calcium Level 8.9, Aspartate Amino Transf (AST/SGOT) 31 , Alanine Aminotransferase (ALT/SGPT) 44, Alkaline Phosphatase 59, Total Bilirubin 0.7, Total Protein 7.7, Albumin 3.6, Magnesium Level 2.1, Albumin/ Globulin Ratio 0.88L 03/27/17 11:38: Bedside Glucose (Misc Panel) 120H CBC/BMP Laboratory Tests 03/27/17 07:11 Red Blood Count 4.80, Mean Corpuscular Volume 91.3, Mean Corpuscular Hemoglobin 29.8, Mean Corpuscular Hemoglobin Concent 32.6, Red Cell Distribution Width 13.1 , Calcium Level 8.9, Aspartate Amino Transf (AST/SGOT) 31, Alanine Aminotransferase (ALT/SGPT) 44, Alkaline Phosphatase 59, Total Bilirubin 0.7, Total Protein 7.7, Albumin 3.6 FSBS Laboratory Tests Test 03/27/17 11:38 Range/Units Bedside Glucose (Misc Panel) 120 80-115 MG/DL Discharge Medications Scheduled (Prevident 5000 Enamel Pro 1.1-5 %) 1 Pst Pst, 1 DOSE MT BID, (Reported) Aspirin (Aspirin EC) 325 Mg Tabec, 325 MG PO DAILY Atorvastatin Calcium (Atorvastatin Calcium) 20 Mg Tab, 80 MG PO DAILY@2100 Baclofen (Baclofen) 10 Mg Tab, 10 MG PO BID Cholecalciferol (Vitamin D) 1,000 Unit Tab, 1,000 UNIT PO DAILY, (Reported) Clopidogrel Bisulfate (Clopidogrel) 75 Mg Tab, 75 MG PO DAILY Duloxetine Hcl (Cymbalta) 30 Mg Cap, 60 MG PO DAILY Escitalopram Oxalate (Escitalopram Oxalate) 20 Mg Tab, 20 MG PO DAILY, (Reported ) Lisinopril (Lisinopril) 20 Mg Tab, 20 MG PO BID Salmeterol/Fluticasone (Advair Diskus 250-50 Mcg/Dose) 14 Puff/Inhaler Aerp, 1 PUFF INH BID, (Reported) Sitagliptin Phosphate (Januvia) 100 Mg Tab, 100 MG PO DAILY, (Reported) Scheduled PRN Albuterol Sulfate (Ventolin Hfa) 200 Puff/8 Gm Aers, 2 PUFF INH QID PRN for SOB/ WHEEZING, (Reported) Allergies Coded Allergies: Ofloxacin (Verified Allergy, Unknown, 03/27/17) Quinolones (Verified Allergy, Unknown, 09/15/16) GME ATTESTATION GME ATTESTATION My preceptor for this patient encounter was physically present in the building during the encounter and was fully available. As needed, all aspects of the patient interview, examination, medical decision making process, and medical care plan development were reviewed and approved by the preceptor. Preceptor is aware and concurs with the plan as stated in the body of this note and will attest to such by his/her cosignature. KACEY PEÑALOZA DO Mar 27, 2017 21:40
[2017-05-01] MEDS ORDERED: MAGN250T9 PO (13:42)
[2017-05-01] MEDS ORDERED: POTA99TA PO (13:42)
== END 2017-03-27 14:28 | DRG 45 ==
LOC: M ED 11:47 → M ED INP 15:41 → M ICU 18:30 → OBSVTOIN 03-24 14:58 → M MSPAV 03-26 15:02
PROVIDERS: ADMIT Hospitalist; ATTEND Hospitalist
DX: I63.9 Cerebral infarction, unspecified (principal); I69.351 Hemiplegia and hemiparesis following cerebral infarction affecting right dominant side; I10 Essential (primary) hypertension; F17.210 Nicotine dependence, cigarettes, uncomplicated; J44.9 Chronic obstructive pulmonary disease, unspecified; E78.5 Hyperlipidemia, unspecified; I44.30 Unspecified atrioventricular block; Z90.49 Acquired absence of other specified parts of digestive tract; Z93.3 Colostomy status; Z92.3 Personal history of irradiation; Z92.21 Personal history of antineoplastic chemotherapy; Z85.038 Personal history of other malignant neoplasm of large intestine; Z79.82 Long term (current) use of aspirin; Z79.84 Long term (current) use of oral hypoglycemic drugs; Z88.1 Allergy status to other antibiotic agents; Z98.41 Cataract extraction status, right eye; Z98.42 Cataract extraction status, left eye

== ENCOUNTER 2017-03-27 11:50 | Inpatient (IN) | payer BC ==
[~2017-03-27] VITALS: Ht 177.8 cm; Wt 97.3 kg
[~2017-03-27 11:50] MED LIST changes: +ESCI20TA PO; +LISI-542 PO; +LISI10TA4 PO; +MAGN1TAB25 PO; +POTA99TA PO; +PREVPST MT; +SIMV40TA2 PO; +VITA100066 PO
[2017-03-27] MEDS ORDERED: BACL1TAB8 PO (12:09)
[2017-03-27] MEDS ORDERED: ASPI325T24 PO (12:09)
[2017-03-27] MEDS ORDERED: CLOP75TA2 PO (12:09)
[2017-03-27] MEDS ORDERED: DULO30CA PO (12:09)
[2017-03-27] MEDS ORDERED: LISI-538 PO (12:09)
[2017-03-27] MEDS ORDERED: ATOR1TAB21 PO (12:09)
[2017-03-27 14:45] VITALS: BP 124/61
[2017-03-27] MEDS ORDERED: GLUCAGON FOR INJ 1 MG VIAL (J1610) SC PRN (15:15)
[2017-03-27] MEDS ORDERED: MOM 30ML SUSPENSION UDC PO PRN (15:15)
[2017-03-27] MEDS ORDERED: DEXTROSE 50% 50 ML SYRINGE IV PRN (15:15)
[2017-03-27] MEDS ORDERED: BISACODYL 5 MG TAB PO PRN (15:15)
[2017-03-27] MEDS ORDERED: PERCOCET 5MG/325MG TAB PO PRN (15:15)
[2017-03-27] MEDS ORDERED: GLUCOSE 4 GM CHEW TABLET PO PRN (15:15)
[2017-03-27] MEDS: ALBUTEROL 90 MCG/ACT 8GM HFA INHALER INH SCH ×2 (16:57→21:00)
[2017-03-27] MEDS: HumaLOG INSULIN (NovoLOG) PER UNIT SC SCH ×2 (17:01→21:00)
--- NOTE | 2017-03-27 18:45 | PMRHPE ---
DATE OF ADMISSION: 03/27/2017 REASON FOR ADMISSION: Rehabilitation of left basal ganglia and superior temporal lobe cerebrovascular accidents (CVAs) with right hemisensory deficits and right upper extremity motor coordination and balance, activities of daily living (ADL) deficits. HISTORY OF THE PRESENT ILLNESS: The patient is a 61-year-old right-handed white male who started having trouble with controlling his right side on 03/23/2017 and presented to [facility] Emergency Room and was evaluated for possible transient ischemic attack (TIA) as he was having the right-sided discoordinated movement and weakness, especially the upper, as well as a sense of weakness in both lower extremities, difficulty walking and some slurring of speech. He then developed tingling in his right arm, down the finger and has since developed pain in his right upper extremity, which is of an achy nature. On arriving at the emergency room, the patient's blood pressure has ranged from 140 to 180 in the systolic range and was treated. Recurrent CT scan and MRIs did end up disclosing the thromboembolic left basal ganglia and superior temporal lobe CVAs with extensive internal carotid stenosis. Blood pressure has been treated and stabilized, and the patient has been assessed in physical and occupational therapy and is very motivated to regain independence to return home and to work. Therefore, the patient has elected a trial of neurorehabilitation on the acute rehabilitation unit today, 03/27/2017. PAST MEDICAL HISTORY: Includes: Colorectal cancer in two sites with two anastomoses and a colostomy and one time ileostomy. He reports having been treated with radiation and chemotherapy as well as resection. Atherosclerotic cardiovascular disease including hypertension, hyperlipidemia and 42 pack-year smoking history with 5 years off of smoking. Diverticulitis. Chronic obstructive pulmonary disease (COPD) and reactive airways disease. Type 2 diabetes mellitus. PAST SURGICAL HISTORY: Includes the abdominal surgeries reported above. ALLERGIES: QUINOLONES and to FLOXIN. FAMILY HISTORY: Noncontributory. SOCIAL HISTORY: As previously noted, patient with a 42 pack-year smoking history, quit 5 years ago. Also a history of drinking 8-10 beers daily, which he also stopped 5 years ago. He has no illicit drug history. 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 MEDICATIONS ON ADMISSION: - albuterol HFA inhaler two puffs four times a day - aspirin, enteric coated, 325 mg daily - atorvastatin 80 mg nightly - baclofen 10 mg twice a day - Plavix 75 mg daily - Cymbalta 60 mg daily - Lexapro 20 mg daily - lisinopril 20 mg twice a day for hypertension - Percocet 5/325 one every 4 hours for the right upper extremity pain - Advair HFA inhaler two puffs twice a day - The patient has also been placed on insulin sliding scale before food and nightly along with hypoglycemic protocol with glucose, Glucagon and dextrose in case of low blood sugars. - I have also started him on Milk of Magnesia as needed for any constipation and Dulcolax tablets, though these will probably not be necessary as the patient has had fairly good control using his colostomy. REVIEW OF SYSTEMS: Negative except for those things noted above. PHYSICAL EXAMINATION: The patient is a 5 foot 10 inch, 97.6 kg, late middle-aged white male who looks approximately stated age of 61 with some thinning and graying of the hair. Vital Signs: Showed a temperature of 97.9, blood pressure 124/61, pulse 89, respirations 16 and pulse oximetry is 91% on room air. HEENT: Normocephalic, atraumatic. As noted above, some thinning and graying of the hair with normal facial symmetry. No facial droop. Slight right-sided deviation of the tongue. No dysarthria or dysphagia noted. No pooling or gurgling noted on speech or trouble handling secretion. Septum is midline and nares are patent. Hearing is somewhat decreased but patient is able to function reasonably well with language. Neck is supple. Thyroid is normal size, texture and midline. There are no carotid bruits appreciated on auscultation. Lungs are clear in all benitez to auscultation. Coronary shows a regular rate and rhythm with normal S1 and S2 without S3, S4, murmurs or rubs. Patient with 2/4 bilateral radial pulses and good perfusion and skin coloration in the upper and lower extremities. Patient with functional range of motion of bilateral upper and lower extremities. He does have a little discomfort in right upper extremity range of motion. Abdomen: Mildly obese with normal bowel sounds in all quadrants. Colostomy in the left lower quadrant. Neurologically: Patient alert and oriented times four. Speech is clear, coherent and appropriate. Affect is pleasant and cooperative without significant anxiety or depression. Memory is grossly intact. Motor shows functional strength in left upper and lower extremity with good strength in the right lower extremity but a little bit of increased tone with positioning but lots of motor coordination problems in the right upper extremity with tendency to go past pointing in movements but good strength is present; it is just a coordination problem noted. Deep tendon reflexes show 2 out of 4 biceps, triceps, brachial radialis and left knee jerk and 2+ out of 4 right knee jerk. Toes are equivalent on understimulation. Light touch is decreased in the right upper and lower extremity. Vibration is decreased in the right upper extremity versus the left side. Extraocular motions are intact and pupils are 4 mm and equal, round and reactive to light and accommodation. LABORATORY DATA: White blood cell count is mildly elevated at 10.5 with normal hemoglobin and hematocrit of 14.3 and 43.8. MCV is normal at 91.3. RDW is normal at 13.1 and platelet count is 235,000, which is normal. Comprehensive metabolic panel shows mild hyponatremia at 133 with normal potassium, chloride and bicarbonate. Mildly elevated BUN of 19 and creatinine of 1.32. Fasting blood sugar of 135, which is also elevated. Calcium, liver function test, albumin and total protein are all normal and most recent fasting blood sugar is 154, which is elevated. ASSESSMENT/PLAN: 1. Rehabilitation of left basal ganglia and superior temporal lobe cerebrovascular accidents secondary to thromboembolic event, most likely related to the stenosis of the left internal carotid artery, though the patient had bilateral stenosis and will followup with Dr. Martinez as an outpatient. The patient currently is having problems with balance and gaiting and this is affecting his ability to perform normal activities of daily living and function in his regular capacity. I do feel the patient is very likely to benefit from acute intensive rehabilitation to facilitate his return to home with his and transition to home care physical therapy (PT), occupational therapy (OT) and then on to outpatient, and I feel he has a very good prognosis for being able to return to his former type of employment as it is to my understanding to be light duty to sedentary type work. But at this time, the patient is not safe in mobility, ambulations and activities of daily living and will need work with physical therapy and occupational therapy to improve his balance and neuromuscular facilitation of his right upper and lower extremity to learn to compensate for the sensory deficits noted on the physical exam above. The patient, because of his prior cancer and hypertension problem, I feel does need to be monitored closely, as well as receive education from rehabilitation nursing, physiatry and also I have submitted a medicine consultation to continue with management as it is important to avoid any exacerbation due to hypertensive problems. I anticipate the patient will likely require about 10-14 days; however, it is quite possible that due to his relative young age for this event, that he may progress faster. 2. Atherosclerotic cardiovascular disease. As noted above, the patient will need followup for surgical options to prevent subsequent thromboembolic events, likely coming from the 80 and 90% internal carotid artery stenosis found on study. He will need ongoing blood pressure management with his lisinopril and possible other addition, blood clot prevention with the Plavix and enteric coated aspirin. 3. Chronic obstructive pulmonary disease (COPD)/asthma. Will go ahead and continue the patient on his Advair and albuterol inhalers and provide oxygen as needed, though it appears the patient has weaned off from this. 4. Right upper extremity pain problem. For now, will go ahead and continue with the Percocet, along with the Cymbalta. The Cymbalta should be helpful to the Lexapro in treating any mood disorder that appears the patient may have going into this but furthermore to help treat pain, the patient is already on Baclofen. I will continue this. 5. Atherosclerotic cardiovascular disease. Patient will continue on the atorvastatin for the hyperlipidemia along with the aspirin and Plavix for clot prevention. 6. Type 2 diabetes mellitus. The patient will go ahead and continue on insulin sliding scale at this time along with a consistent carbohydrate diet. Because of the hypertension problems, he will also be on a 2-gram sodium restriction. POST-ADMISSION PHYSICIAN EVALUATION: I find the patient is consistent with preadmission screening and while he has multiple medical problems, I do feel he is able to participate in and is very willing to do so and benefit from acute intensive neurorehabilitation, including physical and occupational therapy, along with rehabilitation nursing and physiatry. He does have a number of medical needs, and I will consult the hospitalists on this. I do feel he has a good prognosis for returning to home with his and eventually to vocation. I estimate his length of stay approximately 10-14 days. Time spent on chart review, history and physical and documentation is greater than 70 minutes. MTDD
[2017-03-27 20:00] VITALS: BP 152/61
[2017-03-27] MEDS: LISINOPRIL 20 MG TAB PO SCH (20:57)
[2017-03-27] MEDS: BACLOFEN 10 MG TAB PO SCH (20:57)
[2017-03-27] MEDS: ATORVASTATIN 20 MG TAB PO SCH (20:57)
[2017-03-27] MEDS: ADVAIR HFA 115/21MCG INHALER INH SCH (21:06)
[2017-03-28 06:00] VITALS: BP 139/73
[2017-03-28 07:12] LABS: BASO # 0.1 10^3/uL (0.0-0.2); BASO % 0.6 % (0.0-1.0); EOS # 0.2 10^3/uL (0.0-0.50); EOS % 1.4 % (0.0-3.0); IMMATURE GRANULOCYTE % 1.1 % (0-0); LYMPH # 1.3 10^3/uL (1.5-4.5); LYMPH % 12.6 % (24.0-44.0); MEAN CORPUSCULAR HEMOGLOBIN 30.5 pg (27.0-33.0); MEAN CORPUSCULAR HGB CONC 33.5 g/dl (32.0-36.5); MONO # 1.1 10^3/uL (0.0-0.8); MONO % 9.9 % (0.0-5.0); NEUTROPHILS # 7.9 10^3/uL (1.8-7.7); NEUTROPHILS % 74.4 % (36.0-66.0); PLATELET COUNT, AUTOMATED 230 10^3/uL (150-450); RED CELL DISTRIBUTION WIDTH 13.1 % (11.5-14.5); WHITE BLOOD COUNT 10.6 10^3/uL (4.0-10.0)
[2017-03-28] MEDS: ADVAIR HFA 115/21MCG INHALER INH SCH ×2 (07:33→20:24)
[2017-03-28] MEDS: HumaLOG INSULIN (NovoLOG) PER UNIT SC SCH ×4 (07:51→21:00)
[2017-03-28 07:52] LABS: ALBUMIN 3.4 GM/DL (3.2-5.2); ALBUMIN/GLOBULIN RATIO 0.85 (1.00-1.93); ALKALINE PHOSPHATASE 65 U/L (45-117); ALT/SGPT 49 U/L (12-78); ANION GAP 4 MEQ/L (8-16); AST/SGOT 28 U/L (15-37); BILIRUBIN,TOTAL 0.7 MG/DL (0.2-1.0); BLOOD UREA NITROGEN 19 MG/DL (7-18); CALCIUM LEVEL 8.9 MG/DL (8.8-10.2); CARBON DIOXIDE LEVEL 31 MEQ/L (21-32); CHLORIDE LEVEL 98 MEQ/L (98-107); CREATININE FOR GFR 1.13 MG/DL (0.70-1.30); GLOMERULAR FILTRATION RATE > 60.0 (>49); GLUCOSE, FASTING 133 MG/DL (80-110); POTASSIUM SERUM 4.5 MEQ/L (3.5-5.1); SODIUM LEVEL 133 MEQ/L (136-145); TOTAL PROTEIN 7.4 GM/DL (6.4-8.2)
[2017-03-28] MEDS: DULoxetine 30 MG CAP (CYMBALTA) PO SCH (08:50)
[2017-03-28] MEDS: ASPIRIN ENTERIC 325 MG TAB PO SCH (08:50)
[2017-03-28] MEDS: ESCITALOPRAM OXALATE 10 MG TAB (LEXAPRO) PO SCH (08:51)
[2017-03-28] MEDS: CLOPIDOGREL 75 MG TAB PO SCH (08:51)
[2017-03-28] MEDS: BACLOFEN 10 MG TAB PO SCH ×2 (08:51→20:17)
[2017-03-28] MEDS: LISINOPRIL 20 MG TAB PO SCH ×2 (08:51→20:18)
[2017-03-28] MEDS: ALBUTEROL 90 MCG/ACT 8GM HFA INHALER INH SCH ×4 (09:00→20:24)
--- NOTE | 2017-03-28 11:13 | CR.PDOC ---
[facility] Consultation Consultation CONSULTATION REPORT FOR: Dr Moon REASON FOR CONSULTATION: Medical Management DATE OF VISIT: 03/28/17 ATTENDING: Dr. Peter Moreno PCP: Dr Kushal Steen HPI: This is a 61-year-old male with a pertinent past medical history of colorectal cancer status post radiation and chemotherapy 2012, a current smoker with a [id number], presenting with unilateral weakness and slurred speech. Patient states that when he was going to work on the morning of admission at 7: 40 AM he noticed that his legs were weak. He noticed that his right side was weaker than his left and it was not "working right"" the patient stated that he was able to walk into work still with a little bit of unsteadiness. He then stated 2 hours later he noticed a tingling in his right arm down to his fingers. He stated that he can physically move his fingers but it was "like it wasn't there". Patient stated he then went home and his noticed that he looked disoriented. Patient states that he was speaking funny but he could not elaborate more. He was brought to [facility] on the day of admission 03/24/17. He was found to have acute infarction in the anterior medial left temporal lobe. The patient was seen by neurology during his admission. He was also seen by Dr. Martinez vascular surgery, related to severe carotid stenosis PN not available at this time. He was subsequently transferred to the care of MARIBEL Casillas 03/27/17. Denies any fevers, chills, weakness, fatigue, Headache, Chest Pain, Shortness of breath, cough, palpitations, abdominal pain, N/V/D or changes in bowel or bladder habits. Consultation is requested for medical management. PMHx/PSH: Bradycardia with First degree AV block. Beta lata, atenolol, discontinued during admission. Carotid stenosis Hypertension DM COPD Dyslipidemia Chronic right shoulder/arm pain History of colorectal cancer status post resection/s/p radiation and chemotherapy 2012/Colostomy. 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 ETOH: 8-10 beers daily, stopped 2011 Illicit Drugs: Denies Advanced Directives. Full code ROS: As noted in HPI, otherwise 11pt ROS of systems reviewed and unremarkable. PE: GEN: 61yoM, appears stated age. Well-nourished, well developed. No acute distress. Alert and oriented x 3. Pleasant, interactive. HEENT: Normocephalic, atraumatic. Sclera are nonicteric. Conjunctiva without injection. Nose midline. No facial asymmetry. Moist mucous membranes. Dentition fair. Pharynx pink and moist, no cobblestoning. Neck supple, trachea midline. CHEST: Regular rate and rhythm, +S1, +S2 LUNGS: Clear to auscultation bilaterally. No wheezes, rales, or rhonchi. Breathing appears symmetric and easy. Patient is speaking in full sentences. No accessory muscle use. ABD: Round, soft, non-tender, non-distended. +Bowel sounds throughout. No rebound or guarding. No costovertebral angle tenderness. Colostomy noted. EXT: Pulses 2+ bilaterally dorsalis pedis and radial. No lower extremity edema appreciated. SKIN: [place], dry, warm. Capillary refill <2sec. No rashes. NEURO: Alert and oriented x 3. MRI BRAIN (03/24/2017): 1. Acute infarct in the posterior left basal ganglia. No edema or mass effect appreciated. 2. Small acute infarct in the anterior left temporal lobe. 3. Mild chronic small vessel ischemic changes. CT ANGiO head (03/24/2017): 1. There is no aneurysm or arteriovenous malformation. 2. Atherosclerotic disease, as described above. CT ANGIO NECK (03/24/2017): 1. Severe stenosis of 90% of the right internal carotid artery at its origin. 2. Mild stenosis of 25% of the left internal carotid artery at its origin. There is severe stenosis of 80% of the internal carotid artery 8 mm from its origin. Echocardiogram: (03/24/2017) 1. Very mild concentric left ventricular hypertrophy. No regional wall motion abnormalities apparent. Normal LV systolic function. LVEF 65% by visual estimate. Grade 1 LV diastolic dysfunction (impaired relaxation filling pattern). 2. Normal right ventricle size and systolic function. 3. Normal appearing aortic and mitral valves. 4. Technically difficult echocardiogram. UC pending. A&P: This is a 61-year-old male with a pertinent past medical history of colorectal cancer status post radiation and chemotherapy 2012, a current smoker with a [id number], presenting with unilateral weakness and slurred speech. Patient states that when he was going to work on the morning of admission at 7: 40 AM he noticed that his legs were weak. He noticed that his right side was weaker than his left and it was not "working right"" the patient stated that he was able to walk into work still with a little bit of unsteadiness. He then stated 2 hours later he noticed a tingling in his right arm down to his fingers. He stated that he can physically move his fingers but it was "like it wasn't there". Patient stated he then went home and his noticed that he looked disoriented. Patient states that he was speaking funny but he could not elaborate more. He was brought to [facility] on the day of admission 03/24/17. He was found to have acute infarction in the anterior medial left temporal lobe. The patient was seen by neurology during his admission. He was subsequently transferred to the care of MARIBEL Casillas 03/27/17. 1. Status post CVA. Management as per MARIBEL/Dr Moon. Outpatient follow-up with neurology. Outpatient follow up with vascular surgery. PT/OT as per Dr Moon/MARIBEL. Speech therapy as per Dr Moon/MARIBEL. Pain control as per Dr Moon/MARIBEL Bowel care as per Dr Hailey LÓPEZ. DVT prophylaxis as per MARIBEL/Dr Moon. Continue aspirin 325 mg daily, Plavix 75 mg daily, Lipitor 80 mg daily. 2. Severe carotid stenosis. Note from Vascular surgery not available at this time. Plan is for outpatient follow-up with vascular surgery. Continue aspirin 325 mg daily, Plavix 75 mg daily, Lipitor 80 mg daily. 3. Bradycardia, first-degree AV block. Beta lata discontinued during his admission. Monitor heart rate trends. 4. Hypertension. Continue lisinopril 20 mg by mouth twice a day. Blood pressure this a.m. is noted to be 139/73. 5. DM. Consistent carbohydrate diet. Continue sliding scale insulin. 6. COPD. Continue Advair 115/21 2 puffs twice a day and albuterol HFA 2 puffs every 4 hours as needed. 7. Dyslipidemia. Continue Lipitor 80 mg daily. 8. Chronic right arm/right shoulder pain. Continue Percocet 5/325 every 4 hours as needed, Cymbalta 60 mg daily and baclofen 10 mg twice a day. 9. Depression. Continue Lexapro 20 mg by mouth daily. 10. Mild leukocytosis. WBC 10.6. Pt afebrile. Recheck CBC in AM. UC pending. Thank you for your consultation. We will continue to follow along with you. Vital Signs/I&O Vital Signs Date Time Temp Pulse Resp B/P (MAP) Pulse Ox O2 Delivery O2 Flow Rate FiO2 03/28/17 08:51 139/73 03/28/17 06:00 97.5 86 18 95 Room Air I&O- Last 24 Hours up to 6 AM 03/29/17 05:59 Intake Total 440 ml Output Total 600 ml Balance -160 ml Laboratory Data Labs 24H Laboratory Tests 2 03/27/17 16:23: Urine Appearance HAZY, Urine Color YELLOW, Urine pH 6.0, Urine Specific Glenn 1.014, Urine Protein NEGATIVE, Urine Glucose (UA) NEGATIVE, Urine Ketones NEGATIVE, Urine Urobilinogen 0.2, Urine Bilirubin NEGATIVE, Urine Leukocyte Esterase 1+H, Urine Blood NEGATIVE, Urine Nitrite POSITIVE, Urine WBC (Auto) 12H , Urine RBC (Auto) 2, Urine Hyaline Casts (Auto) 3, Urine Bacteria (Auto) 1+H, Urine Squamous Epithelial Cells 1, Urine Mucus (Auto) SMALL, Urine Sperm (Auto) 03/27/17 16:56: Bedside Glucose (Misc Panel) 154H 03/27/17 20:25: Bedside Glucose (Misc Panel) 115 03/28/17 07:03: Immature Granulocyte % (Auto) 1.1H, White Blood Count 10.6H, Red Blood Count 4.79, Hemoglobin 14.6, Hematocrit 43.6, Mean Corpuscular Volume 91.0, Mean Corpuscular Hemoglobin 30.5, Mean Corpuscular Hemoglobin Concent 33.5, Red Cell Distribution Width 13.1, Platelet Count 230, Neutrophils (%) (Auto) 74.4H, Lymphocytes (%) (Auto) 12.6L, Monocytes (%) (Auto) 9.9H, Eosinophils (%) (Auto) 1.4, Basophils (%) (Auto) 0.6, Neutrophils # (Auto) 7.9H, Lymphocytes # (Auto) 1.3L, Monocytes # (Auto) 1.1H, Eosinophils # (Auto) 0.2, Basophils # (Auto) 0.1 , Immature Granulocyte # (Auto) 0.1H, Nucleated Red Blood Cells % (auto) 0.0, Anion Gap 4L, Glomerular Filtration Rate > 60.0, Blood Urea Nitrogen 19H, Creatinine 1.13, Sodium Level 133L, Potassium Level 4.5, Chloride Level 98, Carbon Dioxide Level 31, Calcium Level 8.9, Aspartate Amino Transf (AST/SGOT) 28 , Alanine Aminotransferase (ALT/SGPT) 49, Alkaline Phosphatase 65, Total Bilirubin 0.7, Total Protein 7.4, Albumin 3.4, Albumin/Globulin Ratio 0.85L 03/28/17 07:04: Bedside Glucose (Misc Panel) 131H CBC/BMP Laboratory Tests 03/28/17 07:03 Red Blood Count 4.79, Mean Corpuscular Volume 91.0, Mean Corpuscular Hemoglobin 30.5, Mean Corpuscular Hemoglobin Concent 33.5, Red Cell Distribution Width 13.1 , Neutrophils (%) (Auto) 74.4 H, Lymphocytes (%) (Auto) 12.6 L, Monocytes (%) ( Auto) 9.9 H, Eosinophils (%) (Auto) 1.4, Basophils (%) (Auto) 0.6, Neutrophils # (Auto) 7.9 H, Lymphocytes # (Auto) 1.3 L, Monocytes # (Auto) 1.1 H, Eosinophils # (Auto) 0.2, Basophils # (Auto) 0.1, Calcium Level 8.9, Aspartate Amino Transf (AST/SGOT) 28, Alanine Aminotransferase (ALT/SGPT) 49, Alkaline Phosphatase 65, Total Bilirubin 0.7, Total Protein 7.4, Albumin 3.4 Allergies Coded Allergies: Ofloxacin (Verified Allergy, Unknown, 03/27/17) Quinolones (Verified Allergy, Unknown, 09/15/16) Home Medications Scheduled (Prevident 5000 Enamel Pro 1.1-5 %) 1 Pst Pst, 1 DOSE MT BID, (Reported) Aspirin (Aspirin EC) 325 Mg Tabec, 325 MG PO DAILY, #30 Atorvastatin Calcium (Atorvastatin Calcium) 20 Mg Tab, 80 MG PO DAILY@2100, #30 Baclofen (Baclofen) 10 Mg Tab, 10 MG PO BID, #30 Cholecalciferol (Vitamin D) 1,000 Unit Tab, 1,000 UNIT PO DAILY, (Reported) Clopidogrel Bisulfate (Clopidogrel) 75 Mg Tab, 75 MG PO DAILY, #30 Duloxetine Hcl (Cymbalta) 30 Mg Cap, 60 MG PO DAILY, #30 Escitalopram Oxalate (Escitalopram Oxalate) 20 Mg Tab, 20 MG PO DAILY, (Reported ) Lisinopril (Lisinopril) 20 Mg Tab, 20 MG PO BID, #30 Salmeterol/Fluticasone (Advair Diskus 250-50 Mcg/Dose) 14 Puff/Inhaler Aerp, 1 PUFF INH BID, (Reported) Sitagliptin Phosphate (Januvia) 100 Mg Tab, 100 MG PO DAILY, (Reported) Scheduled PRN Albuterol Sulfate (Ventolin Hfa) 200 Puff/8 Gm Aers, 2 PUFF INH QID PRN for SOB/ WHEEZING, (Reported) Viki Valiente Mar 28, 2017 11:12
[2017-03-28 14:00] VITALS: BP 156/74
--- NOTE | 2017-03-28 14:44 | IPNPDOC ---
Marriage Therapist Progress Note DATE OF SERVICE: 03/28/17 DATE OF ADMISSION: Mar 27, 2017 at 14:35 INPATIENT REHABILITATION ADMISSION DAY: #2 SUBJECTIVE: The patient is a 61-year-old right-handed white male who started having trouble with controlling his right side on 03/23/2017 and presented to [facility] Emergency Room and was evaluated for possible transient ischemic attack (TIA) as he was having the right-sided discoordinated movement and weakness, especially the upper, as well as a sense of weakness in both lower extremities, difficulty walking and some slurring of speech. He then developed tingling in his right arm, down the finger and has since developed pain in his right upper extremity, which is of an achy nature. 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 Patient reported sleeping well and having less Right Upper Extremity pain this morning. No other complaints. ALLERGIES: See Below MEDICATIONS: Reviewed, see below. OBJECTIVE: VITAL SIGNS: Please see below. PHYSICAL EXAMINATION: GENERAL: Somewhat overweight but well-nourished well-developed late middle-age white male in no acute distress, who is alert and well oriented. HEENT: Minimal left facial droop and tongue deviation otherwise normocephalic/ atraumatic. CARDIOVASCULAR: Regular rate and rhythm with normal S1 and S2. 2/4 bilateral radial pulses. LUNGS: All benitez clear to auscultation. ABDOMEN: Obese, soft, nontender with left lower quadrant colostomy and bowel sounds present in all quadrants. NEUROLOGICAL: Patient alert and oriented 4. Affect is pleasant and cooperative. Memory is good. Speech is clear coherent and appropriate without any notable dysarthria or sounds of gurgling of secretions. Extraocular ocular motions are intact in vision is conjugate. Good to full motor power in left upper and bilateral lower extremities but some decreased control in the right upper and lower extremity with difficulty planning and placing right upper extremity on ballistic movement. Right lower extremity with good strength. SKIN: Colostomy site intact without any inflammation or irritation findings. No other skin lesions. LABORATORY DATA: Reviewed. Please see below. MICROBIOLOGY: Please see below. IMAGING: No new imaging. DVT prophylaxis ordered?: Aspirin, Plavix and use of LILIBETH hose. ASSESSMENT AND PLAN: 1. 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 Patient starting physical and occupational therapy 3 hours per day. Focus to be on sensory and motor reintegration of the right upper and lower extremities. Kaila needs to learn to adapt to the discoordination as dominant right hand/upper extremity. Anticipated length of stay 10-14 days. 2. Leukocytosis: Patient with WBC count of 10.6 thousand with a mild rise in PMNs on his CBC. This is likely a stress reaction but we will continue to monitor it. 3. Type 2 diabetes mellitus: Patient with reasonable blood sugars on before meals and at bedtime testing affect fasting load sugar this morning of 133 being maintained on consistent carbohydrate diet and insulin sliding scales before meals and at at bedtime. 4. Colon cancer: Patient doing well with colostomy. He has no anemia and has normal albumin total protein and liver function tests. TIME SPENT: Chart Review, examination and documentation required greater than 25 minutes. Allergies Coded Allergies: Ofloxacin (Verified Allergy, Unknown, 03/27/17) Quinolones (Verified Allergy, Unknown, 09/15/16) Vital Signs Vital Signs Date Time Temp Pulse Resp B/P (MAP) Pulse Ox O2 Delivery O2 Flow Rate FiO2 03/28/17 08:51 139/73 03/28/17 06:00 97.5 86 18 95 Room Air Laboratory Data CBC/BMP Laboratory Tests 03/28/17 07:03 Red Blood Count 4.79, Mean Corpuscular Volume 91.0, Mean Corpuscular Hemoglobin 30.5, Mean Corpuscular Hemoglobin Concent 33.5, Red Cell Distribution Width 13.1 , Neutrophils (%) (Auto) 74.4 H, Lymphocytes (%) (Auto) 12.6 L, Monocytes (%) ( Auto) 9.9 H, Eosinophils (%) (Auto) 1.4, Basophils (%) (Auto) 0.6, Neutrophils # (Auto) 7.9 H, Lymphocytes # (Auto) 1.3 L, Monocytes # (Auto) 1.1 H, Eosinophils # (Auto) 0.2, Basophils # (Auto) 0.1, Calcium Level 8.9, Aspartate Amino Transf (AST/SGOT) 28, Alanine Aminotransferase (ALT/SGPT) 49, Alkaline Phosphatase 65, Total Bilirubin 0.7, Total Protein 7.4, Albumin 3.4 Labs 24H Laboratory Tests 2 03/27/17 16:23: Urine Appearance HAZY, Urine Color YELLOW, Urine pH 6.0, Urine Specific [place] 1.014, Urine Protein NEGATIVE, Urine Glucose (UA) NEGATIVE, Urine Ketones NEGATIVE, Urine Urobilinogen 0.2, Urine Bilirubin NEGATIVE, Urine Leukocyte Esterase 1+H, Urine Blood NEGATIVE, Urine Nitrite POSITIVE, Urine WBC (Auto) 12H , Urine RBC (Auto) 2, Urine Hyaline Casts (Auto) 3, Urine Bacteria (Auto) 1+H, Urine Squamous Epithelial Cells 1, Urine Mucus (Auto) SMALL, Urine Sperm (Auto) 03/27/17 16:56: Bedside Glucose (Misc Panel) 154H 03/27/17 20:25: Bedside Glucose (Misc Panel) 115 03/28/17 07:03: Immature Granulocyte % (Auto) 1.1H, White Blood Count 10.6H, Red Blood Count 4.79, Hemoglobin 14.6, Hematocrit 43.6, Mean Corpuscular Volume 91.0, Mean Corpuscular Hemoglobin 30.5, Mean Corpuscular Hemoglobin Concent 33.5, Red Cell Distribution Width 13.1, Platelet Count 230, Neutrophils (%) (Auto) 74.4H, Lymphocytes (%) (Auto) 12.6L, Monocytes (%) (Auto) 9.9H, Eosinophils (%) (Auto) 1.4, Basophils (%) (Auto) 0.6, Neutrophils # (Auto) 7.9H, Lymphocytes # (Auto) 1.3L, Monocytes # (Auto) 1.1H, Eosinophils # (Auto) 0.2, Basophils # (Auto) 0.1 , Immature Granulocyte # (Auto) 0.1H, Nucleated Red Blood Cells % (auto) 0.0, Anion Gap 4L, Glomerular Filtration Rate > 60.0, Blood Urea Nitrogen 19H, Creatinine 1.13, Sodium Level 133L, Potassium Level 4.5, Chloride Level 98, Carbon Dioxide Level 31, Calcium Level 8.9, Aspartate Amino Transf (AST/SGOT) 28 , Alanine Aminotransferase (ALT/SGPT) 49, Alkaline Phosphatase 65, Total Bilirubin 0.7, Total Protein 7.4, Albumin 3.4, Albumin/Globulin Ratio 0.85L 03/28/17 07:04: Bedside Glucose (Misc Panel) 131H 03/28/17 11:37: Bedside Glucose (Misc Panel) 123H Current Medications Current Medications Current Medications Albuterol Sulfate (Proventil, Ventolin Hfa) 2 puff QID INH Last administered on 03/28/17 11:08; Start 03/27/17 at 17:00; Stop 04/26/17 at 16:59 Aspirin (Ecotrin) 325 mg DAILY PO Last administered on 03/28/17 08:50; Start 03/28/17 at 09:00; Stop 04/27/17 at 08:59 Atorvastatin Calcium (Lipitor) 80 mg QHS PO Last administered on 03/27/17 20: 57; Start 03/27/17 at 21:00; Stop 04/26/17 at 20:59 Baclofen (Lioresal) 10 mg BID PO Last administered on 03/28/17 08:51; Start 03/27/17 at 21:00; Stop 04/26/17 at 20:59 Bisacodyl (Dulcolax Tab) 5 mg DAILYPRN PRN PO CONSTIPATION; Start 03/27/17 at 15:15; Stop 04/26/17 at 15:14 Clopidogrel Bisulfate (PLAVix) 75 mg DAILY PO Last administered on 03/28/17 08 :51; Start 03/28/17 at 09:00; Stop 04/27/17 at 08:59 Dextrose (Dextrose 50%) 25 ml ASDIRECTED PRN IV SEE LABEL COMMENTS; Start 03/27 at 15:15; Stop 04/26/17 at 15:14 Duloxetine HCl (Cymbalta) 60 mg DAILY PO Last administered on 03/28/17 08:50; Start 03/28/17 at 09:00; Stop 04/27/17 at 08:59 Escitalopram Oxalate (Lexapro) 20 mg DAILY PO Last administered on 03/28/17 08 :51; Start 03/28/17 at 09:00; Stop 04/27/17 at 08:59 Glucagon (Glucagon) 1 mg ASDIRECTED PRN SC SEE LABEL COMMENTS; Start 03/27/17 at 15:15; Stop 04/26/17 at 15:14 Glucose (Glucose) 16 GM ASDIRECTED PRN PO SEE LABEL COMMENTS; Start 03/27/17 at 15:15; Stop 04/26/17 at 15:14 Insulin Human Lispro (HumaLOG INSULIN) See Protocol Table AC SC Last administered on 03/28/17 12:47; Start 03/27/17 at 17:30; Stop 04/26/17 at 17:29 Insulin Human Lispro (HumaLOG INSULIN) See Protocol Table QHS SC ; Start at 21:00; Stop 04/26/17 at 20:59 Lisinopril (Prinivil) 20 mg BID PO Last administered on 03/28/17 08:51; Start 03/27/17 at 21:00; Stop 04/26/17 at 20:59 Magnesium Hydroxide (Milk Of Magnesia) 30 ml DAILYPRN PRN PO CONSTIPATION; Start 03/27/17 at 15:15; Stop 04/26/17 at 15:14 Oxycodone/ Acetaminophen (Percocet 5mg/ 325mg Tablet) 1 tab Q4HP PRN PO SEVERE PAIN (PS 8-10); Start 03/27/17 at 15:15; Stop 04/03/17 at 15:14 Salmeterol Xinafoate/ Fluticasone (Advair Hfa 115/ 21) 2 puff BID INH Last administered on 03/28/17 07:33; Start 03/27/17 at 21:00; Stop 04/26/17 at 20:59 FLAVIO ZAPATA MD Mar 28, 2017 14:44
[2017-03-28 20:00] VITALS: BP 162/73
[2017-03-28] MEDS: ATORVASTATIN 20 MG TAB PO SCH (20:17)
[2017-03-29 06:00] VITALS: BP 135/77
[2017-03-29 06:43] LABS: MEAN CORPUSCULAR HGB CONC 32.8 g/dl (32.0-36.5); MEAN CORPUSCULAR VOLUME 91.3 fl (80.0-96.0); PLATELET COUNT, AUTOMATED 315 10^3/uL (150-450); WHITE BLOOD COUNT 13.3 10^3/uL (4.0-10.0)
[2017-03-29 07:08] LABS: ALBUMIN 3.5 GM/DL (3.2-5.2); ALBUMIN/GLOBULIN RATIO 0.85 (1.00-1.93); BILIRUBIN,TOTAL 0.6 MG/DL (0.2-1.0); CALCIUM LEVEL 9.2 MG/DL (8.8-10.2); CREATININE FOR GFR 1.5 MG/DL (0.70-1.30); GLOMERULAR FILTRATION RATE 50.5 (>49); POTASSIUM SERUM 4.6 MEQ/L (3.5-5.1); TOTAL PROTEIN 7.6 GM/DL (6.4-8.2)
[2017-03-29 07:21] LABS: ADD MANUAL DIFFER YES; DIFF SLIDE NUMBER 64
[2017-03-29 07:22] LABS: EOSINOPHILS 1 % (0-5)
[2017-03-29] MEDS: ASPIRIN ENTERIC 325 MG TAB PO SCH (08:17)
[2017-03-29] MEDS: DULoxetine 30 MG CAP (CYMBALTA) PO SCH (08:17)
[2017-03-29] MEDS: LISINOPRIL 20 MG TAB PO SCH (08:17)
[2017-03-29] MEDS: ESCITALOPRAM OXALATE 10 MG TAB (LEXAPRO) PO SCH (08:17)
[2017-03-29] MEDS: BACLOFEN 10 MG TAB PO SCH ×3 (08:17→21:13)
[2017-03-29] MEDS: CLOPIDOGREL 75 MG TAB PO SCH (08:17)
[2017-03-29] MEDS: HumaLOG INSULIN (NovoLOG) PER UNIT SC SCH ×4 (08:17→20:59)
[2017-03-29] MEDS: ALBUTEROL 90 MCG/ACT 8GM HFA INHALER INH SCH ×2 (08:25→11:57)
[2017-03-29] MEDS: ADVAIR HFA 115/21MCG INHALER INH SCH ×2 (08:25→20:55)
--- NOTE | 2017-03-29 11:37 | IPNPDOC ---
Date Seen The patient was seen on 03/29/17. Progress Note HPI: This is a 61-year-old male with a pertinent past medical history of colorectal cancer status post radiation and chemotherapy 2012, a current smoker with a [id number], presenting with unilateral weakness and slurred speech. Patient states that when he was going to work on the morning of admission at 7: 40 AM he noticed that his legs were weak. He noticed that his right side was weaker than his left and it was not "working right"" the patient stated that he was able to walk into work still with a little bit of unsteadiness. He then stated 2 hours later he noticed a tingling in his right arm down to his fingers. He stated that he can physically move his fingers but it was "like it wasn't there". Patient stated he then went home and his noticed that he looked disoriented. Patient states that he was speaking funny but he could not elaborate more. He was brought to [facility] on the day of admission 03/24/17. He was found to have acute infarction in the anterior medial left temporal lobe. The patient was seen by neurology during his admission. He was also seen by Dr. Martinez vascular surgery, related to severe carotid stenosis PN not available at this time. He was subsequently transferred to the care of MARIBEL Casillas 03/27/17. Denies any fevers, chills, weakness, fatigue, Headache, Chest Pain, Shortness of breath, cough, palpitations, abdominal pain, N/V/D or changes in bowel or bladder habits. Consultation is requested for medical management. PMHx/PSH: Bradycardia with First degree AV block. Beta lata, atenolol, discontinued during admission. Carotid stenosis Hypertension DM COPD Dyslipidemia Chronic right shoulder/arm pain History of colorectal cancer status post resection/s/p radiation and chemotherapy 2012/Colostomy. 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 ETOH: 8-10 beers daily, stopped 2011 Illicit Drugs: Denies Advanced Directives. Full code ROS: As noted in HPI, otherwise 11pt ROS of systems reviewed and unremarkable. PE: GEN: 61yoM, appears stated age. Well-nourished, well developed. No acute distress. Alert and oriented x 3. Pleasant, interactive. HEENT: Normocephalic, atraumatic. Sclera are nonicteric. Conjunctiva without injection. Nose midline. No facial asymmetry. Moist mucous membranes. Dentition fair. Pharynx pink and moist, no cobblestoning. Neck supple, trachea midline. CHEST: Regular rate and rhythm, +S1, +S2 LUNGS: Clear to auscultation bilaterally. No wheezes, rales, or rhonchi. Breathing appears symmetric and easy. Patient is speaking in full sentences. No accessory muscle use. ABD: Round, soft, non-tender, non-distended. +Bowel sounds throughout. No rebound or guarding. No costovertebral angle tenderness. Colostomy noted. EXT: Pulses 2+ bilaterally dorsalis pedis and radial. No lower extremity edema appreciated. SKIN: [place], dry, warm. Capillary refill <2sec. No rashes. NEURO: Alert and oriented x 3. MRI BRAIN (03/24/2017): 1. Acute infarct in the posterior left basal ganglia. No edema or mass effect appreciated. 2. Small acute infarct in the anterior left temporal lobe. 3. Mild chronic small vessel ischemic changes. CT ANGiO head (03/24/2017): 1. There is no aneurysm or arteriovenous malformation. 2. Atherosclerotic disease, as described above. CT ANGIO NECK (03/24/2017): 1. Severe stenosis of 90% of the right internal carotid artery at its origin. 2. Mild stenosis of 25% of the left internal carotid artery at its origin. There is severe stenosis of 80% of the internal carotid artery 8 mm from its origin. Echocardiogram: (03/24/2017) 1. Very mild concentric left ventricular hypertrophy. No regional wall motion abnormalities apparent. Normal LV systolic function. LVEF 65% by visual estimate. Grade 1 LV diastolic dysfunction (impaired relaxation filling pattern). 2. Normal right ventricle size and systolic function. 3. Normal appearing aortic and mitral valves. 4. Technically difficult echocardiogram. UC pending. A&P: This is a 61-year-old male with a pertinent past medical history of colorectal cancer status post radiation and chemotherapy 2012, a current smoker with a [id number], presenting with unilateral weakness and slurred speech. Patient states that when he was going to work on the morning of admission at 7: 40 AM he noticed that his legs were weak. He noticed that his right side was weaker than his left and it was not "working right"" the patient stated that he was able to walk into work still with a little bit of unsteadiness. He then stated 2 hours later he noticed a tingling in his right arm down to his fingers. He stated that he can physically move his fingers but it was "like it wasn't there". Patient stated he then went home and his noticed that he looked disoriented. Patient states that he was speaking funny but he could not elaborate more. He was brought to [facility] on the day of admission 03/24/17. He was found to have acute infarction in the anterior medial left temporal lobe. The patient was seen by neurology during his admission. He was subsequently transferred to the care of MARIBEL Casillas 03/27/17. 1. Status post CVA. Management as per MARIBEL/Dr Moon. Outpatient follow-up with neurology. Outpatient follow up with vascular surgery. PT/OT as per Dr Moon/MARIBEL. Speech therapy as per Dr Moon/MARIBEL. Pain control as per Dr Moon/MARIBEL Bowel care as per Dr Moon/ MARIBEL. DVT prophylaxis as per MARIBEL/Dr Moon. Continue aspirin 325 mg daily, Plavix 75 mg daily, Lipitor 80 mg daily. 2. Severe carotid stenosis. Note from Vascular surgery not available at this time. Plan is for outpatient follow-up with vascular surgery. Continue aspirin 325 mg daily, Plavix 75 mg daily, Lipitor 80 mg daily. 3. Bradycardia, first-degree AV block. Beta lata discontinued during his admission. Heart rate trends noted 78-117. Request EKG. 4. Hypertension. Avoid BB related to above Elevated SCr noted, Reduce lisinopril to 20 mg Daily (previous oupt dose 10mg daily). Add Norvasc 5 mg daily. Monitor BP control. 5. DM. Consistent carbohydrate diet. Continue sliding scale insulin. 6. COPD. Continue Advair 115/21 2 puffs twice a day and albuterol HFA 2 puffs every 4 hours as needed. 7. Dyslipidemia. Continue Lipitor 80 mg daily. 8. Chronic right arm/right shoulder pain. Continue Percocet 5/325 every 4 hours as needed, Cymbalta 60 mg daily and baclofen 10 mg twice a day. 9. Depression. Continue Lexapro 20 mg by mouth daily. 10. Leukocytosis. WBC 10.6. Pt afebrile. UC pending. BC pending. CXR pending. 11. Hyponatremia. Request further labs. Mag, TSH. Ur Na/Osm/Cr. IVF x 1 liter over 10 hrs then D/C. Monitor labs. Discussed with Dr Bhat. VS, I&O, 24H, Fishbone Vital Signs/I&O Vital Signs Date Time Temp Pulse Resp B/P (MAP) Pulse Ox O2 Delivery O2 Flow Rate FiO2 03/29/17 08:17 135/77 03/29/17 06:00 97.8 117 18 96 Room Air I&O- Last 24 Hours up to 6 AM 03/30/17 06:00 Intake Total 360 ml Output Total 200 ml Balance 160 ml Laboratory Data 24H LABS Laboratory Tests 2 03/28/17 11:37: Bedside Glucose (Misc Panel) 123H 03/28/17 16:35: Bedside Glucose (Misc Panel) 122H 03/28/17 21:08: Bedside Glucose (Misc Panel) 208H 03/29/17 06:26: White Blood Count 13.3H, Red Blood Count 5.17, Hemoglobin 15.5, Hematocrit 47.2 , Mean Corpuscular Volume 91.3, Mean Corpuscular Hemoglobin 30.0, Mean Corpuscular Hemoglobin Concent 32.8, Red Cell Distribution Width 13.0, Platelet Count 315, Monocytes # (Auto) , Nucleated Red Blood Cells % (auto) 0.0, Neutrophils 77H, Lymphocytes (Manual) 8L, Monocytes (Manual) 12H, Eosinophils ( Manual) 1, Myelocytes 2H, Platelet Estimate NORMAL, Red Blood Cell Morphology NORMAL, Anion Gap 7L, Glomerular Filtration Rate 50.5, Blood Urea Nitrogen 24H, Creatinine 1.50H, Sodium Level 132L, Potassium Level 4.6, Chloride Level 98, Carbon Dioxide Level 27, Calcium Level 9.2, Aspartate Amino Transf (AST/SGOT) 28 , Alanine Aminotransferase (ALT/SGPT) 52, Alkaline Phosphatase 66, Total Bilirubin 0.6, Total Protein 7.6, Albumin 3.5, Albumin/Globulin Ratio 0.85L CBC/BMP Laboratory Tests 03/29/17 06:26 Red Blood Count 5.17, Mean Corpuscular Volume 91.3, Mean Corpuscular Hemoglobin 30.0, Mean Corpuscular Hemoglobin Concent 32.8, Red Cell Distribution Width 13.0 , Monocytes # (Auto) , Calcium Level 9.2, Aspartate Amino Transf (AST/SGOT) 28, Alanine Aminotransferase (ALT/SGPT) 52, Alkaline Phosphatase 66, Total Bilirubin 0.6, Total Protein 7.6, Albumin 3.5 Microbiology Microbiology 03/28/17 Urine Culture, Received Pending Viki Valiente Mar 29, 2017 11:37
[2017-03-29] MEDS ORDERED: NS 1,000 ML IV SCH (12:06)
[2017-03-29 12:10] LABS: MAGNESIUM LEVEL 2.1 MG/DL (1.8-2.4)
--- NOTE | 2017-03-29 12:12 | IPNPDOC ---
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 He then developed tingling in his right arm, down the finger and has since developed pain in his right upper extremity, which is of an achy nature. 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 Patient reported sleeping well and having less Right Upper Extremity pain this morning. Patient requests through Respiratory Therapy change of Albuterol HFA to PRN. Patient notes some left flank and upper quadrant abdominal tightness and pain. ALLERGIES: See Below MEDICATIONS: Reviewed, see below. OBJECTIVE: VITAL SIGNS: Please see below. PHYSICAL EXAMINATION: GENERAL: Somewhat overweight but well-nourished well-developed late middle-age white male in no acute distress, who is alert and well oriented. HEENT: Minimal left facial droop and tongue deviation otherwise normocephalic/ atraumatic. CARDIOVASCULAR: Regular rate and rhythm with normal S1 and S2. 2/4 bilateral radial pulses. LUNGS: All benitez clear to auscultation. ABDOMEN: Obese, soft, nontender with left lower quadrant colostomy and bowel sounds present in all quadrants. Mild tender points of left flank. NEUROLOGICAL: Patient alert and oriented 4. Affect is pleasant and cooperative. Memory is good. Speech is clear coherent and appropriate without any notable dysarthria or sounds of gurgling of secretions. Extraocular ocular motions are intact in vision is conjugate. Good to full motor power in left upper and bilateral lower extremities but some decreased control in the right upper and lower extremity with difficulty planning and placing right upper extremity on ballistic movement (he did reach out in space today and take my right hand with his). Right lower extremity with good strength. SKIN: Colostomy site intact without any inflammation or irritation findings. No other skin lesions. LABORATORY DATA: Reviewed. Please see below. MICROBIOLOGY: Please see below. IMAGING: No new imaging. DVT prophylaxis ordered?: Aspirin, Plavix and use of LILIBETH hose. ASSESSMENT AND PLAN: 1. 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 Patient starting physical and occupational therapy 3 hours per day. Focus to be on sensory and motor reintegration of the right upper and lower extremities. As he needs to learn to adapt to the disco-ordination as dominant right hand/upper extremity. However, today much more accurate in Right Upper Extremity placement. Anticipated length of stay 10-14 days. 2. Leukocytosis: Patient with WBC count of 13.3 thousand increased today . This is likely a stress reaction but we will continue to monitor it. 3. Type 2 diabetes mellitus: Patient with reasonable blood sugars on before meals and at bedtime testing affect fasting load sugar this morning of 133 being maintained on consistent carbohydrate diet and insulin sliding scales before meals and at at bedtime. 4. Colon cancer: Patient doing well with colostomy, except for some left flank/ abdominal cramps. He has no anemia and has normal albumin total protein and liver function tests. I am increasing his Baclofen to 10 mg PO tid. 5. COPD/RAD: Patient doing well and would like to revert to home use of PRN Albuterol from scheduled. I will change this. TIME SPENT: Chart Review, examination and documentation required greater than 25 minutes. Allergies Coded Allergies: Ofloxacin (Verified Allergy, Unknown, 03/27/17) Quinolones (Verified Allergy, Unknown, 09/15/16) Vital Signs Vital Signs Date Time Temp Pulse Resp B/P (MAP) Pulse Ox O2 Delivery O2 Flow Rate FiO2 03/29/17 08:17 135/77 03/29/17 06:00 97.8 117 18 96 Room Air Laboratory Data CBC/BMP Laboratory Tests 03/29/17 06:26 Red Blood Count 5.17, Mean Corpuscular Volume 91.3, Mean Corpuscular Hemoglobin 30.0, Mean Corpuscular Hemoglobin Concent 32.8, Red Cell Distribution Width 13.0 , Monocytes # (Auto) , Calcium Level 9.2, Aspartate Amino Transf (AST/SGOT) 28, Alanine Aminotransferase (ALT/SGPT) 52, Alkaline Phosphatase 66, Total Bilirubin 0.6, Total Protein 7.6, Albumin 3.5 Labs 24H Laboratory Tests 2 03/28/17 16:35: Bedside Glucose (Misc Panel) 122H 03/28/17 21:08: Bedside Glucose (Misc Panel) 208H 03/29/17 06:26: White Blood Count 13.3H, Red Blood Count 5.17, Hemoglobin 15.5, Hematocrit 47.2 , Mean Corpuscular Volume 91.3, Mean Corpuscular Hemoglobin 30.0, Mean Corpuscular Hemoglobin Concent 32.8, Red Cell Distribution Width 13.0, Platelet Count 315, Monocytes # (Auto) , Nucleated Red Blood Cells % (auto) 0.0, Neutrophils 77H, Lymphocytes (Manual) 8L, Monocytes (Manual) 12H, Eosinophils ( Manual) 1, Myelocytes 2H, Platelet Estimate NORMAL, Red Blood Cell Morphology NORMAL, Anion Gap 7L, Glomerular Filtration Rate 50.5, Blood Urea Nitrogen 24H, Creatinine 1.50H, Sodium Level 132L, Potassium Level 4.6, Chloride Level 98, Carbon Dioxide Level 27, Calcium Level 9.2, Aspartate Amino Transf (AST/SGOT) 28 , Alanine Aminotransferase (ALT/SGPT) 52, Alkaline Phosphatase 66, Total Bilirubin 0.6, Total Protein 7.6, Albumin 3.5, Albumin/Globulin Ratio 0.85L 03/29/17 11:29: Bedside Glucose (Misc Panel) 115 Microbiology Microbiology 03/28/17 Urine Culture, Received Pending Current Medications Current Medications Current Medications Albuterol Sulfate (Proventil, Ventolin Hfa) 2 puff QID INH Last administered on 03/29/17 11:57; Start 03/27/17 at 17:00; Stop 04/26/17 at 16:59 Aspirin (Ecotrin) 325 mg DAILY PO Last administered on 03/29/17 08:17; Start 03/28/17 at 09:00; Stop 04/27/17 at 08:59 Atorvastatin Calcium (Lipitor) 80 mg QHS PO Last administered on 03/28/17 20: 17; Start 03/27/17 at 21:00; Stop 04/26/17 at 20:59 Baclofen (Lioresal) 10 mg BID PO Last administered on 03/29/17 08:17; Start 03/27/17 at 21:00; Stop 04/26/17 at 20:59 Bisacodyl (Dulcolax Tab) 5 mg DAILYPRN PRN PO CONSTIPATION; Start 03/27/17 at 15:15; Stop 04/26/17 at 15:14 Clopidogrel Bisulfate (PLAVix) 75 mg DAILY PO Last administered on 03/29/17 08 :17; Start 03/28/17 at 09:00; Stop 04/27/17 at 08:59 Dextrose (Dextrose 50%) 25 ml ASDIRECTED PRN IV SEE LABEL COMMENTS; Start 03/27 at 15:15; Stop 04/26/17 at 15:14 Duloxetine HCl (Cymbalta) 60 mg DAILY PO Last administered on 03/29/17 08:17; Start 03/28/17 at 09:00; Stop 04/27/17 at 08:59 Escitalopram Oxalate (Lexapro) 20 mg DAILY PO Last administered on 03/29/17 08 :17; Start 03/28/17 at 09:00; Stop 04/27/17 at 08:59 Glucagon (Glucagon) 1 mg ASDIRECTED PRN SC SEE LABEL COMMENTS; Start 03/27/17 at 15:15; Stop 04/26/17 at 15:14 Glucose (Glucose) 16 GM ASDIRECTED PRN PO SEE LABEL COMMENTS; Start 03/27/17 at 15:15; Stop 04/26/17 at 15:14 Insulin Human Lispro (HumaLOG INSULIN) See Protocol Table AC SC Last administered on 03/29/17 08:17; Start 03/27/17 at 17:30; Stop 04/26/17 at 17:29 Insulin Human Lispro (HumaLOG INSULIN) See Protocol Table QHS SC ; Start at 21:00; Stop 04/26/17 at 20:59 Lisinopril (Prinivil) 20 mg BID PO Last administered on 03/29/17 08:17; Start 03/27/17 at 21:00; Stop 04/26/17 at 20:59 Magnesium Hydroxide (Milk Of Magnesia) 30 ml DAILYPRN PRN PO CONSTIPATION; Start 03/27/17 at 15:15; Stop 04/26/17 at 15:14 Oxycodone/ Acetaminophen (Percocet 5mg/ 325mg Tablet) 1 tab Q4HP PRN PO SEVERE PAIN (PS 8-10); Start 03/27/17 at 15:15; Stop 04/03/17 at 15:14 Salmeterol Xinafoate/ Fluticasone (Advair Hfa 115/ 21) 2 puff BID INH Last administered on 03/29/17t 08:25; Start 03/27/17 at 21:00; Stop 04/26/17 at 20:59 FLAVIO ZAPATA MD Mar 29, 2017 12:12
[2017-03-29 14:00] VITALS: BP 140/70
--- NOTE | 2017-03-29 14:12 | REP ---
PA and lateral chest: Comparisons 07/06/2015. The lung benitez are clear. The cardiac size is normal The billy, mediastinum, and bony thorax are unremarkable. Impression: Negative PA and lateral chest. There is no interval change. Signed by Manuel Dowell MD 03/29/2017 02:03 P
[2017-03-29] MEDS ORDERED: ALBUTEROL 90 MCG/ACT 8GM HFA INHALER INH PRN (17:00)
[2017-03-29 20:00] VITALS: BP 140/62
--- NOTE | 2017-03-29 21:02 | ECGEPIP ---
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
[2017-03-29] MEDS: amLODIPine 5 MG TAB PO SCH (21:13)
[2017-03-29] MEDS: ATORVASTATIN 20 MG TAB PO SCH (21:13)
[2017-03-30 06:00] VITALS: BP 127/73
[2017-03-30 07:11] LABS: MEAN CORPUSCULAR HEMOGLOBIN 30.2 pg (27.0-33.0); MEAN CORPUSCULAR HGB CONC 33.3 g/dl (32.0-36.5); MEAN CORPUSCULAR VOLUME 90.5 fl (80.0-96.0)
[2017-03-30 07:30] LABS: ALBUMIN 3.1 GM/DL (3.2-5.2); ALBUMIN/GLOBULIN RATIO 0.91 (1.00-1.93); ALKALINE PHOSPHATASE 64 U/L (45-117); ALT/SGPT 47 U/L (12-78); ANION GAP 7 MEQ/L (8-16); AST/SGOT 23 U/L (15-37); BILIRUBIN,TOTAL 0.5 MG/DL (0.2-1.0); BLOOD UREA NITROGEN 24 MG/DL (7-18); CALCIUM LEVEL 8.9 MG/DL (8.8-10.2); CARBON DIOXIDE LEVEL 26 MEQ/L (21-32); CHLORIDE LEVEL 100 MEQ/L (98-107); CREATININE FOR GFR 1.23 MG/DL (0.70-1.30); GLOMERULAR FILTRATION RATE > 60.0 (>49); GLUCOSE, FASTING 128 MG/DL (80-110); POTASSIUM SERUM 4.8 MEQ/L (3.5-5.1); SODIUM LEVEL 133 MEQ/L (136-145); TOTAL PROTEIN 6.5 GM/DL (6.4-8.2)
[2017-03-30] MEDS: ADVAIR HFA 115/21MCG INHALER INH SCH ×2 (08:36→18:28)
[2017-03-30] MEDS: CLOPIDOGREL 75 MG TAB PO SCH (08:39)
[2017-03-30] MEDS: HumaLOG INSULIN (NovoLOG) PER UNIT SC SCH ×4 (08:39→20:24)
[2017-03-30] MEDS: DULoxetine 30 MG CAP (CYMBALTA) PO SCH (08:39)
[2017-03-30] MEDS: BACLOFEN 10 MG TAB PO SCH ×3 (08:40→20:48)
[2017-03-30] MEDS: ASPIRIN ENTERIC 325 MG TAB PO SCH (08:40)
[2017-03-30] MEDS: ESCITALOPRAM OXALATE 10 MG TAB (LEXAPRO) PO SCH (08:40)
[2017-03-30] MEDS: LISINOPRIL 20 MG TAB PO SCH (08:42)
[2017-03-30] MEDS ORDERED: AZITHROMYCIN 250 MG TAB PO ONE (09:00)
--- NOTE | 2017-03-30 10:24 | IPNPDOC ---
Developmental Psychologist Progress Note DATE OF SERVICE: 03/30/17 DATE OF ADMISSION: Mar 27, 2017 at 14:35 INPATIENT REHABILITATION ADMISSION DAY: #4 SUBJECTIVE: The patient is a 61-year-old right-handed white male who started having trouble with controlling his right side on 03/23/2017 and presented to [facility] Emergency Room and was evaluated for possible transient ischemic attack (TIA) as he was having the right-sided discoordinated movement and weakness, especially the upper, as well as a sense of weakness in both lower extremities, difficulty walking and some slurring of speech. He then developed tingling in his right arm, down the finger and has since developed pain in his right upper extremity, which is of an achy nature. 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 Patient reported sleeping well and having less Right Upper Extremity pain this morning. Patient's only complaint is no meat with breakfast (salt restricted). ALLERGIES: See Below MEDICATIONS: Reviewed, see below. OBJECTIVE: VITAL SIGNS: Please see below. PHYSICAL EXAMINATION: GENERAL: Somewhat overweight but well-nourished well-developed late middle-age white male in no acute distress, who is alert and well oriented. HEENT: Minimal left facial droop and tongue deviation otherwise normocephalic/ atraumatic. CARDIOVASCULAR: Regular rate and rhythm with normal S1 and S2. 2/4 bilateral radial pulses. LUNGS: All benitez clear to auscultation. ABDOMEN: Obese, soft, nontender with left lower quadrant colostomy and bowel sounds present in all quadrants. Mild tender points of left flank. NEUROLOGICAL: Patient alert and oriented 4. Affect is pleasant and cooperative. Memory is good. Speech is clear coherent and appropriate without any notable dysarthria or sounds of gurgling of secretions. Extraocular ocular motions are intact in vision is conjugate. Good to full motor power in left upper and bilateral lower extremities but some decreased control in the right upper and lower extremity with difficulty planning and placing right upper extremity on ballistic movement. Right lower extremity with good strength. SKIN: Colostomy site intact without any inflammation or irritation findings. No other skin lesions. LABORATORY DATA: Reviewed. Please see below. MICROBIOLOGY: Please see below. IMAGING: No new imaging. DVT prophylaxis ordered?: Aspirin, Plavix and use of LILIBETH hose. ASSESSMENT AND PLAN: 1. 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 Patient tolerating therapy 3 hours per day and showing gains. Focus continues to be on sensory and motor reintegration of the right upper and lower extremities. As he needs to learn to adapt to the disco- ordination as dominant right hand/upper extremity. However, daily improvement in accuracy in Right Upper Extremity placement. Anticipated length of stay 10- 14 days. REHAB. TEAM ROUNDS: Patient doing well in PT/OT for effort and his main deficits are due to RUE (Dominant Hand) ataxia limiting his daily activities including his ostomy care/management. Patient needs to work more on balance and safe gaiting, along with NMF of RU&LE to compensate in ballistic activities. Estimated Length of Stay is 15 days to 04/10/17. 2. Leukocytosis: Patient with WBC count of 9.0 thousand which is normal. Uc&s positive. 3. Type 2 diabetes mellitus: Patient with reasonable blood sugars on before meals and at bedtime testing affect fasting load sugar this morning of 128 being maintained on consistent carbohydrate diet and insulin sliding scales before meals and at at bedtime. 4. Colon cancer: Patient doing well with colostomy, except for some left flank/ abdominal cramps. He has no anemia and has normal albumin total protein and liver function tests. I am increasing his Baclofen to 10 mg PO tid. No spasms complaints today. 5. COPD/RAD: Patient doing well and would like to revert to home use of PRN Albuterol from scheduled. I will change this. 6. Staph. Epi. UTI: Uc&s shows Staph Epi sensitive to Oxacillin, not PCN. Also sensitive to Erythromycin, Gentamicin, Bactrim. I will put patient on Z-John. He reports having tolerated this before. TIME SPENT: Chart Review, examination and documentation required greater than 25 minutes. Allergies Coded Allergies: Ofloxacin (Verified Allergy, Unknown, 03/27/17) Quinolones (Verified Allergy, Unknown, 09/15/16) Vital Signs Vital Signs Date Time Temp Pulse Resp B/P (MAP) Pulse Ox O2 Delivery O2 Flow Rate FiO2 03/30/17 08:42 142/68 03/30/17 06:00 98.7 75 18 95 Room Air Laboratory Data CBC/BMP Laboratory Tests 03/30/17 06:52 Red Blood Count 4.41, Mean Corpuscular Volume 90.5, Mean Corpuscular Hemoglobin 30.2, Mean Corpuscular Hemoglobin Concent 33.3, Red Cell Distribution Width 13.0 , Calcium Level 8.9, Aspartate Amino Transf (AST/SGOT) 23, Alanine Aminotransferase (ALT/SGPT) 47, Alkaline Phosphatase 64, Total Bilirubin 0.5, Total Protein 6.5, Albumin 3.1 L Labs 24H Laboratory Tests 2 03/29/17 11:29: Bedside Glucose (Misc Panel) 115 03/29/17 13:35: Urine Random Osmolality 627, Urine Random Creatinine 271.0, Urine Random Sodium 27 03/29/17 16:47: Bedside Glucose (Misc Panel) 171H 03/29/17 20:56: Bedside Glucose (Misc Panel) 158H 03/30/17 06:52: Anion Gap 7L, Glomerular Filtration Rate > 60.0, Blood Urea Nitrogen 24H, Creatinine 1.23, Sodium Level 133L, Potassium Level 4.8, Chloride Level 100, Carbon Dioxide Level 26, Calcium Level 8.9, Aspartate Amino Transf (AST/SGOT) 23 , Alanine Aminotransferase (ALT/SGPT) 47, Alkaline Phosphatase 64, Total Bilirubin 0.5, Total Protein 6.5, Albumin 3.1L, Albumin/Globulin Ratio 0.91L 03/30/17 07:10: Bedside Glucose (Misc Panel) 141H Microbiology Microbiology 03/29/17 Blood Culture, Received Pending 03/29/17 Blood Culture, Received Pending 03/28/17 Urine Culture - Final, Complete Staphylococcus Epidermidis Current Medications Current Medications Current Medications Albuterol Sulfate (Proventil, Ventolin Hfa) 2 puff QID INH Last administered on 03/29/17 11:57; Start 03/27/17 at 17:00; Stop 03/29/17 at 12:04; Status DC Albuterol Sulfate (Proventil, Ventolin Hfa) 2 puff QIDP PRN INH dyspnea; Start 03/29/17 at 17:00; Stop 04/26/17 at 16:59 Amlodipine Besylate (Norvasc) 5 mg DAILY@2100 PO Last administered on 21:13; Start 03/29/17 at 21:00; Stop 04/28/17 at 20:59 Aspirin (Ecotrin) 325 mg DAILY PO Last administered on 03/30/17 08:40; Start 03/28/17 at 09:00; Stop 04/27/17 at 08:59 Atorvastatin Calcium (Lipitor) 80 mg QHS PO Last administered on 03/29/17 21: 13; Start 03/27/17 at 21:00; Stop 04/26/17 at 20:59 Azithromycin (Zithromax Tab) 250 mg DAILY PO ; Start 03/31/17 at 09:00; Stop at 08:59 Baclofen (Lioresal) 10 mg BID PO Last administered on 03/29/17 08:17; Start 03/27/17 at 21:00; Stop 03/29/17 at 12:04; Status DC Baclofen (Lioresal) 10 mg TID PO Last administered on 03/30/17 08:40; Start 03/29/17 at 16:00; Stop 04/26/17 at 20:59 Bisacodyl (Dulcolax Tab) 5 mg DAILYPRN PRN PO CONSTIPATION; Start 03/27/17 at 15:15; Stop 04/26/17 at 15:14 Clopidogrel Bisulfate (PLAVix) 75 mg DAILY PO Last administered on 03/30/17 08 :39; Start 03/28/17 at 09:00; Stop 04/27/17 at 08:59 Dextrose (Dextrose 50%) 25 ml ASDIRECTED PRN IV SEE LABEL COMMENTS; Start 03/27 at 15:15; Stop 04/26/17 at 15:14 Duloxetine HCl (Cymbalta) 60 mg DAILY PO Last administered on 03/30/17 08:39; Start 03/28/17 at 09:00; Stop 04/27/17 at 08:59 Escitalopram Oxalate (Lexapro) 20 mg DAILY PO Last administered on 03/30/17 08 :40; Start 03/28/17 at 09:00; Stop 04/27/17 at 08:59 Glucagon (Glucagon) 1 mg ASDIRECTED PRN SC SEE LABEL COMMENTS; Start 03/27/17 at 15:15; Stop 04/26/17 at 15:14 Glucose (Glucose) 16 GM ASDIRECTED PRN PO SEE LABEL COMMENTS; Start 03/27/17 at 15:15; Stop 04/26/17 at 15:14 Insulin Human Lispro (HumaLOG INSULIN) See Protocol Table AC SC Last administered on 03/30/17 08:39; Start 03/27/17 at 17:30; Stop 04/26/17 at 17:29 Insulin Human Lispro (HumaLOG INSULIN) See Protocol Table QHS SC ; Start at 21:00; Stop 04/26/17 at 20:59 Lisinopril (Prinivil) 20 mg BID PO Last administered on 03/29/17 08:17; Start 03/27/17 at 21:00; Stop 03/29/17 at 12:16; Status DC Lisinopril (Prinivil) 20 mg DAILY PO Last administered on 03/30/17 08:42; Start 03/30/17 at 09:00; Stop 04/29/17 at 08:59 Magnesium Hydroxide (Milk Of Magnesia) 30 ml DAILYPRN PRN PO CONSTIPATION; Start 03/27/17 at 15:15; Stop 04/26/17 at 15:14 Oxycodone/ Acetaminophen (Percocet 5mg/ 325mg Tablet) 1 tab Q4HP PRN PO SEVERE PAIN (PS 8-10); Start 03/27/17 at 15:15; Stop 04/03/17 at 15:14 Salmeterol Xinafoate/ Fluticasone (Advair Hfa 115/ 21) 2 puff BID INH Last administered on 03/30/17 08:36; Start 03/27/17 at 21:00; Stop 04/26/17 at 20:59 Sodium Chloride 1,000 ml @ 100 mls/hr Q10H IV Last administered on 03/29/17 14:03; Start 03/29/17 at 12:06; Stop 03/29/17 at 22:05; Status DC FLAVIO ZAPATA MD Mar 30, 2017 10:24
--- NOTE | 2017-03-30 11:43 | IPNPDOC ---
Date Seen The patient was seen on 03/30/17. Progress Note HPI: This is a 61-year-old male with a pertinent past medical history of colorectal cancer status post radiation and chemotherapy 2012, a current smoker with a [id number], presenting with unilateral weakness and slurred speech. Patient states that when he was going to work on the morning of admission at 7: 40 AM he noticed that his legs were weak. He noticed that his right side was weaker than his left and it was not "working right"" the patient stated that he was able to walk into work still with a little bit of unsteadiness. He then stated 2 hours later he noticed a tingling in his right arm down to his fingers. He stated that he can physically move his fingers but it was "like it wasn't there". Patient stated he then went home and his noticed that he looked disoriented. Patient states that he was speaking funny but he could not elaborate more. He was brought to [facility] on the day of admission 03/24/17. He was found to have acute infarction in the anterior medial left temporal lobe. The patient was seen by neurology during his admission. He was also seen by Dr. Martinez vascular surgery, related to severe carotid stenosis PN not available at this time. He was subsequently transferred to the care of MARIBEL Casillas 03/27/17. Denies any fevers, chills, weakness, fatigue, Headache, Chest Pain, Shortness of breath, cough, palpitations, abdominal pain, N/V/D or changes in bowel or bladder habits. Consultation was requested for medical management. PMHx/PSH: Bradycardia with First degree AV block. Beta lata, atenolol, discontinued during admission. Carotid stenosis Hypertension DM COPD Dyslipidemia Chronic right shoulder/arm pain History of colorectal cancer status post resection/s/p radiation and chemotherapy 2012/Colostomy. History of diverticulitis Tobacco use Depression PE: GEN: 61yoM, appears stated age. Well-nourished, well developed. No acute distress. Alert and oriented x 3. Pleasant, interactive. HEENT: Normocephalic, atraumatic. Sclera are nonicteric. Conjunctiva without injection. Nose midline. No facial asymmetry. Moist mucous membranes. Dentition fair. Pharynx pink and moist, no cobblestoning. Neck supple, trachea midline. CHEST: Regular rate and rhythm, +S1, +S2 LUNGS: Clear to auscultation bilaterally. No wheezes, rales, or rhonchi. Breathing appears symmetric and easy. Patient is speaking in full sentences. No accessory muscle use. ABD: Round, soft, non-tender, non-distended. +Bowel sounds throughout. No rebound or guarding. No costovertebral angle tenderness. Colostomy noted. EXT: Pulses 2+ bilaterally dorsalis pedis and radial. No lower extremity edema appreciated. SKIN: [place], dry, warm. Capillary refill <2sec. No rashes. NEURO: Alert and oriented x 3. MRI BRAIN (03/24/2017): 1. Acute infarct in the posterior left basal ganglia. No edema or mass effect appreciated. 2. Small acute infarct in the anterior left temporal lobe. 3. Mild chronic small vessel ischemic changes. CT ANGiO head (03/24/2017): 1. There is no aneurysm or arteriovenous malformation. 2. Atherosclerotic disease, as described above. CT ANGIO NECK (03/24/2017): 1. Severe stenosis of 90% of the right internal carotid artery at its origin. 2. Mild stenosis of 25% of the left internal carotid artery at its origin. There is severe stenosis of 80% of the internal carotid artery 8 mm from its origin. Echocardiogram: (03/24/2017) 1. Very mild concentric left ventricular hypertrophy. No regional wall motion abnormalities apparent. Normal LV systolic function. LVEF 65% by visual estimate. Grade 1 LV diastolic dysfunction (impaired relaxation filling pattern). 2. Normal right ventricle size and systolic function. 3. Normal appearing aortic and mitral valves. 4. Technically difficult echocardiogram. CXR 03/29/17 Negative PA and lateral chest. There is no interval change. BC x 2 pending. EKG 03/29/[address] DEVIATION AND MODERATE T-WAVE ABNORMALITY, CONSIDER ANTEROLATERAL ISCHEMIA ST DEVIATION AND MODERATE T-WAVE ABNORMALITY, CONSIDER INFERIOR ISCHEMIA SINCE 03/23/17 STT ABNORMALITIES ARE MUCH MORE APPARENT UC 03/28 Organism 1 STAPHYLOCOCCUS EPIDERMIDIS COLONY COUNT >100,000 CFU/ml A&P: This is a 61-year-old male with a pertinent past medical history of colorectal cancer status post radiation and chemotherapy 2012, a current smoker with a [id number], presenting with unilateral weakness and slurred speech. Patient states that when he was going to work on the morning of admission at 7: 40 AM he noticed that his legs were weak. He noticed that his right side was weaker than his left and it was not "working right"" the patient stated that he was able to walk into work still with a little bit of unsteadiness. He then stated 2 hours later he noticed a tingling in his right arm down to his fingers. He stated that he can physically move his fingers but it was "like it wasn't there". Patient stated he then went home and his noticed that he looked disoriented. Patient states that he was speaking funny but he could not elaborate more. He was brought to [facility] on the day of admission 03/24/17. He was found to have acute infarction in the anterior medial left temporal lobe. The patient was seen by neurology during his admission. He was subsequently transferred to the care of MARIBEL Casillas 03/27/17. 1. Status post CVA. Management as per MARIBEL/Dr Moon. Outpatient follow-up with neurology. Outpatient follow up with vascular surgery. PT/OT as per Dr Moon/MARIBEL. Speech therapy as per Dr Moon/MARIBEL. Pain control as per Dr Moon/MARIBEL Bowel care as per Dr Moon/ MARIBEL. DVT prophylaxis as per MARIBEL/Dr Moon. Continue aspirin 325 mg daily, Plavix 75 mg daily, Lipitor 80 mg daily. 2. Severe carotid stenosis. Note from Vascular surgery not available at this time. Plan is for outpatient follow-up with vascular surgery. Continue aspirin 325 mg daily, Plavix 75 mg daily, Lipitor 80 mg daily. 3. Bradycardia, first-degree AV block. Beta lata discontinued during his admission. Heart rate trends noted 78-117 03/29/17. Noted this AM 70s-80s. EKG as above. Pt has been asymptomatic. Will add CIP/Troponin to this AM labs. 4. Hypertension. Avoid BB related to above Elevated SCr noted, Reduce lisinopril to 20 mg Daily (previous oupt dose 10mg daily). Norvasc 5 mg daily added 03/29/17. BP 127-142 systolic. 5. DM. Consistent carbohydrate diet. Continue sliding scale insulin. 6. COPD. Continue Advair 115/21 2 puffs twice a day and albuterol HFA 2 puffs every 4 hours as needed. 7. Dyslipidemia. Continue Lipitor 80 mg daily. 8. Chronic right arm/right shoulder pain. Continue Percocet 5/325 every 4 hours as needed, Cymbalta 60 mg daily and baclofen 10 mg twice a day. 9. Depression. Continue Lexapro 20 mg by mouth daily. 10. UTI. Staph epi. Pt started on Zmax as per [facility]U attending 03/29/17. 11. Hyponatremia. Mag, TSH. Ur Na/Osm/Cr WNL. IVF x 1 liter 03/29. Monitor labs. VS, I&O, 24H, Fishbone Vital Signs/I&O Vital Signs Date Time Temp Pulse Resp B/P (MAP) Pulse Ox O2 Delivery O2 Flow Rate FiO2 03/30/17 08:42 142/68 03/30/17 06:00 98.7 75 18 95 Room Air I&O- Last 24 Hours up to 6 AM 03/31/17 05:59 Intake Total 360 ml Output Total 325 ml Balance 35 ml Laboratory Data 24H LABS Laboratory Tests 2 03/29/17 13:35: Urine Random Osmolality 627, Urine Random Creatinine 271.0, Urine Random Sodium 27 03/29/17 16:47: Bedside Glucose (Misc Panel) 171H 03/29/17 20:56: Bedside Glucose (Misc Panel) 158H 03/30/17 06:52: Anion Gap 7L, Glomerular Filtration Rate > 60.0, Blood Urea Nitrogen 24H, Creatinine 1.23, Sodium Level 133L, Potassium Level 4.8, Chloride Level 100, Carbon Dioxide Level 26, Calcium Level 8.9, Aspartate Amino Transf (AST/SGOT) 23 , Alanine Aminotransferase (ALT/SGPT) 47, Alkaline Phosphatase 64, Total Bilirubin 0.5, Total Protein 6.5, Albumin 3.1L, Albumin/Globulin Ratio 0.91L 03/30/17 07:10: Bedside Glucose (Misc Panel) 141H 03/30/17 11:17: Bedside Glucose (Misc Panel) 114 CBC/BMP Laboratory Tests 03/30/17 06:52 Red Blood Count 4.41, Mean Corpuscular Volume 90.5, Mean Corpuscular Hemoglobin 30.2, Mean Corpuscular Hemoglobin Concent 33.3, Red Cell Distribution Width 13.0 , Calcium Level 8.9, Aspartate Amino Transf (AST/SGOT) 23, Alanine Aminotransferase (ALT/SGPT) 47, Alkaline Phosphatase 64, Total Bilirubin 0.5, Total Protein 6.5, Albumin 3.1 L Microbiology Microbiology 03/29/17 Blood Culture, Received Pending 03/29/17 Blood Culture, Received Pending 03/28/17 Urine Culture - Final, Complete Staphylococcus Epidermidis Viki Valiente Mar 30, 2017 11:43
[2017-03-30 14:00] VITALS: BP 140/67
[2017-03-30 20:00] VITALS: BP 144/64
[2017-03-30] MEDS: ATORVASTATIN 20 MG TAB PO SCH (20:48)
[2017-03-30] MEDS: amLODIPine 5 MG TAB PO SCH (20:48)
[2017-03-31 06:00] VITALS: BP 133/64
[2017-03-31] MEDS: ADVAIR HFA 115/21MCG INHALER INH SCH ×2 (07:12→19:56)
[2017-03-31 07:19] LABS: MEAN CORPUSCULAR HEMOGLOBIN 30.4 pg (27.0-33.0); MEAN CORPUSCULAR HGB CONC 33.4 g/dl (32.0-36.5); RED CELL DISTRIBUTION WIDTH 12.6 % (11.5-14.5); WHITE BLOOD COUNT 7.8 10^3/uL (4.0-10.0)
[2017-03-31 07:57] LABS: ALBUMIN 3.4 GM/DL (3.2-5.2); ALBUMIN/GLOBULIN RATIO 0.94 (1.00-1.93); ALKALINE PHOSPHATASE 65 U/L (45-117); ALT/SGPT 50 U/L (12-78); ANION GAP 3 MEQ/L (8-16); AST/SGOT 30 U/L (15-37); BILIRUBIN,TOTAL 0.5 MG/DL (0.2-1.0); BLOOD UREA NITROGEN 19 MG/DL (7-18); CALCIUM LEVEL 8.6 MG/DL (8.8-10.2); CARBON DIOXIDE LEVEL 32 MEQ/L (21-32); CHLORIDE LEVEL 99 MEQ/L (98-107); CREATININE FOR GFR 0.92 MG/DL (0.70-1.30); GLOMERULAR FILTRATION RATE > 60.0 (>49); GLUCOSE, FASTING 122 MG/DL (80-110); POTASSIUM SERUM 4.4 MEQ/L (3.5-5.1); SODIUM LEVEL 134 MEQ/L (136-145)
[2017-03-31] MEDS: LISINOPRIL 20 MG TAB PO SCH (08:11)
[2017-03-31] MEDS: ASPIRIN ENTERIC 325 MG TAB PO SCH (08:11)
[2017-03-31] MEDS: AZITHROMYCIN 250 MG TAB PO SCH (08:11)
[2017-03-31] MEDS: ESCITALOPRAM OXALATE 10 MG TAB (LEXAPRO) PO SCH (08:11)
[2017-03-31] MEDS: DULoxetine 30 MG CAP (CYMBALTA) PO SCH (08:11)
[2017-03-31] MEDS: BACLOFEN 10 MG TAB PO SCH ×3 (08:11→20:49)
[2017-03-31] MEDS: CLOPIDOGREL 75 MG TAB PO SCH (08:12)
[2017-03-31] MEDS: HumaLOG INSULIN (NovoLOG) PER UNIT SC SCH ×4 (08:12→20:49)
--- NOTE | 2017-03-31 11:34 | IPNPDOC ---
[facility] Progress Note DATE OF SERVICE: 03/31/17 DATE OF ADMISSION: Mar 27, 2017 at 14:35 INPATIENT REHABILITATION ADMISSION DAY: #5 SUBJECTIVE: The patient is a 61-year-old right-handed white male who started having trouble with controlling his right side on 03/23/2017 and presented to [facility] Emergency Room and was evaluated for possible transient ischemic attack (TIA) as he was having the right-sided discoordinated movement and weakness, especially the upper, as well as a sense of weakness in both lower extremities, difficulty walking and some slurring of speech. He then developed tingling in his right arm, down the finger and has since developed pain in his right upper extremity, which is of an achy nature. 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 Patient reported sleeping well and having less Right Upper Extremity pain this morning. No complaints today. Happier about the food. ALLERGIES: See Below MEDICATIONS: Reviewed, see below. OBJECTIVE: VITAL SIGNS: Please see below. PHYSICAL EXAMINATION: GENERAL: Somewhat overweight but well-nourished well-developed late middle-age white male in no acute distress, who is alert and well oriented. HEENT: Minimal left facial droop and tongue deviation otherwise normocephalic/ atraumatic. CARDIOVASCULAR: Regular rate and rhythm with normal S1 and S2. 2/4 bilateral radial pulses. LUNGS: All benitez clear to auscultation. ABDOMEN: Obese, soft, nontender with left lower quadrant colostomy and bowel sounds present in all quadrants. Mild tender points of left flank. NEUROLOGICAL: Patient alert and oriented 4. Affect is pleasant and cooperative. Memory is good. Speech is clear coherent and appropriate without any notable dysarthria or sounds of gurgling of secretions. Extraocular ocular motions are intact in vision is conjugate. Good to full motor power in left upper and bilateral lower extremities but some decreased control in the right upper and lower extremity with difficulty planning and placing right upper extremity on ballistic movement. Right lower extremity with good strength. SKIN: Colostomy site intact without any inflammation or irritation findings. No other skin lesions. LABORATORY DATA: Reviewed. Please see below. MICROBIOLOGY: Please see below. IMAGING: No new imaging. DVT prophylaxis ordered?: Aspirin, Plavix and use of LILIBETH hose. ASSESSMENT AND PLAN: 1. 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 Patient tolerating therapy 3 hours per day and showing gains. Focus continues to be on sensory and motor reintegration of the right upper and lower extremities. As he needs to learn to adapt to the disco- ordination as dominant right hand/upper extremity. However, daily improvement in accuracy in Right Upper Extremity placement. 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 Patient needs to work more on balance and safe gaiting, along with NMF of RU&LE to compensate in ballistic activities. Patient status discussed with him and his this morning. Estimated Length of Stay is 15 days to 04/10/17. 2. Leukocytosis: Patient with WBC count of 7.8 thousand which is normal. Uc&s positive and being treated with improved WBC counts. 3. Type 2 diabetes mellitus: Patient with reasonable blood sugars on before meals and at bedtime testing affect fasting load sugar this morning of 122 being maintained on consistent carbohydrate diet and insulin sliding scales before meals and at at bedtime. 4. Colon cancer: Patient doing well with colostomy, except for some left flank/ abdominal cramps. He has no anemia and has normal albumin total protein and liver function tests. I am increasing his Baclofen to 10 mg PO tid. No spasms complaints for 2 days. 5. COPD/RAD: Patient doing well and would like to revert to home use of PRN Albuterol from scheduled. I will change this. 6. Staph. Epi. UTI: Uc&s shows Staph Epi sensitive to Oxacillin, not PCN. Also sensitive to Erythromycin, Gentamicin, Bactrim. Patient on Z-John. He reports having tolerated this before. TIME SPENT: Chart Review, examination and documentation required greater than 25 minutes. Allergies Coded Allergies: Ofloxacin (Verified Allergy, Unknown, 03/27/17) Quinolones (Verified Allergy, Unknown, 09/15/16) Vital Signs Vital Signs Date Time Temp Pulse Resp B/P (MAP) Pulse Ox O2 Delivery O2 Flow Rate FiO2 03/31/17 08:11 133/64 03/31/17 06:00 98.4 75 18 94 Room Air Laboratory Data CBC/BMP Laboratory Tests 03/31/17 06:57 Red Blood Count 4.31, Mean Corpuscular Volume 91.0, Mean Corpuscular Hemoglobin 30.4, Mean Corpuscular Hemoglobin Concent 33.4, Red Cell Distribution Width 12.6 , Calcium Level 8.6 L, Aspartate Amino Transf (AST/SGOT) 30, Alanine Aminotransferase (ALT/SGPT) 50, Alkaline Phosphatase 65, Total Bilirubin 0.5, Total Protein 7.0, Albumin 3.4 Labs 24H Laboratory Tests 2 03/30/17 16:33: Bedside Glucose (Misc Panel) 192H 03/30/17 20:07: Bedside Glucose (Misc Panel) 158H 03/31/17 06:48: Bedside Glucose (Misc Panel) 107 03/31/17 06:57: Anion Gap 3L, Glomerular Filtration Rate > 60.0, Blood Urea Nitrogen 19H, Creatinine 0.92, Sodium Level 134L, Potassium Level 4.4, Chloride Level 99, Carbon Dioxide Level 32, Calcium Level 8.6L, Aspartate Amino Transf (AST/SGOT) 30, Alanine Aminotransferase (ALT/SGPT) 50, Alkaline Phosphatase 65, Total Bilirubin 0.5, Total Protein 7.0, Albumin 3.4, Albumin/Globulin Ratio 0.94L Microbiology Microbiology 03/29/17 Blood Culture - Preliminary, Resulted No growth after 24 hours . All specim... 03/29/17 Blood Culture - Preliminary, Resulted No growth after 24 hours . All specim... 03/28/17 Urine Culture - Final, Complete Staphylococcus Epidermidis Current Medications Current Medications Current Medications Albuterol Sulfate (Proventil, Ventolin Hfa) 2 puff QID INH Last administered on 03/29/17 11:57; Start 03/27/17 at 17:00; Stop 03/29/17 at 12:04; Status DC Albuterol Sulfate (Proventil, Ventolin Hfa) 2 puff QIDP PRN INH dyspnea; Start 03/29/17 at 17:00; Stop 04/26/17 at 16:59 Amlodipine Besylate (Norvasc) 5 mg DAILY@2100 PO Last administered on 20:48; Start 03/29/17 at 21:00; Stop 04/28/17 at 20:59 Aspirin (Ecotrin) 325 mg DAILY PO Last administered on 03/31/17 08:11; Start 03/28/17 at 09:00; Stop 04/27/17 at 08:59 Atorvastatin Calcium (Lipitor) 80 mg QHS PO Last administered on 03/30/17 20: 48; Start 03/27/17 at 21:00; Stop 04/26/17 at 20:59 Azithromycin (Zithromax Tab) 250 mg DAILY PO Last administered on 03/31/17 08: 11; Start 03/31/17 at 09:00; Stop 04/04/17 at 08:59 Baclofen (Lioresal) 10 mg BID PO Last administered on 03/29/17 08:17; Start 03/27/17 at 21:00; Stop 03/29/17 at 12:04; Status DC Baclofen (Lioresal) 10 mg TID PO Last administered on 03/31/17 08:11; Start 03/29/17 at 16:00; Stop 04/26/17 at 20:59 Bisacodyl (Dulcolax Tab) 5 mg DAILYPRN PRN PO CONSTIPATION; Start 03/27/17 at 15:15; Stop 04/26/17 at 15:14 Clopidogrel Bisulfate (PLAVix) 75 mg DAILY PO Last administered on 03/31/17 08 :12; Start 03/28/17 at 09:00; Stop 04/27/17 at 08:59 Dextrose (Dextrose 50%) 25 ml ASDIRECTED PRN IV SEE LABEL COMMENTS; Start 03/27 at 15:15; Stop 04/26/17 at 15:14 Duloxetine HCl (Cymbalta) 60 mg DAILY PO Last administered on 03/31/17 08:11; Start 03/28/17 at 09:00; Stop 04/27/17 at 08:59 Escitalopram Oxalate (Lexapro) 20 mg DAILY PO Last administered on 03/31/17 08 :11; Start 03/28/17 at 09:00; Stop 04/27/17 at 08:59 Glucagon (Glucagon) 1 mg ASDIRECTED PRN SC SEE LABEL COMMENTS; Start 03/27/17 at 15:15; Stop 04/26/17 at 15:14 Glucose (Glucose) 16 GM ASDIRECTED PRN PO SEE LABEL COMMENTS; Start 03/27/17 at 15:15; Stop 04/26/17 at 15:14 Insulin Human Lispro (HumaLOG INSULIN) See Protocol Table AC SC Last administered on 03/31/17 08:12; Start 03/27/17 at 17:30; Stop 04/26/17 at 17:29 Insulin Human Lispro (HumaLOG INSULIN) See Protocol Table QHS SC ; Start at 21:00; Stop 04/26/17 at 20:59 Lisinopril (Prinivil) 20 mg BID PO Last administered on 03/29/17 08:17; Start 03/27/17 at 21:00; Stop 03/29/17 at 12:16; Status DC Lisinopril (Prinivil) 20 mg DAILY PO Last administered on 03/31/17 08:11; Start 03/30/17 at 09:00; Stop 04/29/17 at 08:59 Magnesium Hydroxide (Milk Of Magnesia) 30 ml DAILYPRN PRN PO CONSTIPATION; Start 03/27/17 at 15:15; Stop 04/26/17 at 15:14 Oxycodone/ Acetaminophen (Percocet 5mg/ 325mg Tablet) 1 tab Q4HP PRN PO SEVERE PAIN (PS 8-10); Start 03/27/17 at 15:15; Stop 04/03/17 at 15:14 Salmeterol Xinafoate/ Fluticasone (Advair Hfa 115/ 21) 2 puff BID INH Last administered on 03/31/17 07:12; Start 03/27/17 at 21:00; Stop 04/26/17 at 20:59 Sodium Chloride 1,000 ml @ 100 mls/hr Q10H IV Last administered on 03/29/17 14:03; Start 03/29/17 at 12:06; Stop 03/29/17 at 22:05; Status DC FLAVIO ZAPATA MD Mar 31, 2017 11:34
[2017-03-31 14:00] VITALS: BP 135/64
[2017-03-31 20:00] VITALS: BP 148/68
[2017-03-31] MEDS: ATORVASTATIN 20 MG TAB PO SCH (20:48)
[2017-03-31] MEDS: amLODIPine 5 MG TAB PO SCH (20:49)
[2017-04-01 06:00] VITALS: BP 154/62
[2017-04-01 06:38] LABS: MEAN CORPUSCULAR HGB CONC 33.2 g/dl (32.0-36.5); MEAN CORPUSCULAR VOLUME 90.5 fl (80.0-96.0); RED CELL DISTRIBUTION WIDTH 12.7 % (11.5-14.5); WHITE BLOOD COUNT 7.3 10^3/uL (4.0-10.0)
[2017-04-01 07:00] LABS: ALBUMIN 3.4 GM/DL (3.2-5.2); ALBUMIN/GLOBULIN RATIO 0.97 (1.00-1.93); ALKALINE PHOSPHATASE 67 U/L (45-117); ALT/SGPT 57 U/L (12-78); ANION GAP 7 MEQ/L (8-16); AST/SGOT 37 U/L (15-37); BILIRUBIN,TOTAL 0.5 MG/DL (0.2-1.0); BLOOD UREA NITROGEN 20 MG/DL (7-18); CALCIUM LEVEL 8.6 MG/DL (8.8-10.2); CARBON DIOXIDE LEVEL 29 MEQ/L (21-32); CHLORIDE LEVEL 98 MEQ/L (98-107); CREATININE FOR GFR 1.01 MG/DL (0.70-1.30); GLOMERULAR FILTRATION RATE > 60.0 (>49); GLUCOSE, FASTING 118 MG/DL (80-110); POTASSIUM SERUM 4.6 MEQ/L (3.5-5.1); SODIUM LEVEL 134 MEQ/L (136-145); TOTAL PROTEIN 6.9 GM/DL (6.4-8.2)
[2017-04-01] MEDS: ADVAIR HFA 115/21MCG INHALER INH SCH ×2 (07:25→19:09)
[2017-04-01] MEDS: HumaLOG INSULIN (NovoLOG) PER UNIT SC SCH ×4 (08:14→21:12)
[2017-04-01] MEDS: CLOPIDOGREL 75 MG TAB PO SCH (08:14)
[2017-04-01] MEDS: BACLOFEN 10 MG TAB PO SCH ×3 (08:14→21:17)
[2017-04-01] MEDS: LISINOPRIL 20 MG TAB PO SCH (08:14)
[2017-04-01] MEDS: DULoxetine 30 MG CAP (CYMBALTA) PO SCH (08:15)
[2017-04-01] MEDS: ASPIRIN ENTERIC 325 MG TAB PO SCH (08:15)
[2017-04-01] MEDS: ESCITALOPRAM OXALATE 10 MG TAB (LEXAPRO) PO SCH (08:15)
[2017-04-01] MEDS: AZITHROMYCIN 250 MG TAB PO SCH (08:15)
[2017-04-01 14:00] VITALS: BP 142/56
[2017-04-01 20:00] VITALS: BP 134/63
[2017-04-01] MEDS: ATORVASTATIN 20 MG TAB PO SCH (21:17)
[2017-04-01] MEDS: amLODIPine 5 MG TAB PO SCH (21:17)
[2017-04-02 06:30] VITALS: BP 162/64
[2017-04-02 06:41] LABS: MEAN CORPUSCULAR HEMOGLOBIN 30.4 pg (27.0-33.0); MEAN CORPUSCULAR HGB CONC 33.4 g/dl (32.0-36.5); MEAN CORPUSCULAR VOLUME 90.8 fl (80.0-96.0); RED CELL DISTRIBUTION WIDTH 12.8 % (11.5-14.5); WHITE BLOOD COUNT 6.8 10^3/uL (4.0-10.0)
[2017-04-02 07:07] LABS: ALBUMIN 3.3 GM/DL (3.2-5.2); ALKALINE PHOSPHATASE 62 U/L (45-117); ALT/SGPT 61 U/L (12-78); ANION GAP 5 MEQ/L (8-16); AST/SGOT 34 U/L (15-37); BILIRUBIN,TOTAL 0.4 MG/DL (0.2-1.0); BLOOD UREA NITROGEN 23 MG/DL (7-18); CALCIUM LEVEL 8.9 MG/DL (8.8-10.2); CARBON DIOXIDE LEVEL 29 MEQ/L (21-32); CHLORIDE LEVEL 100 MEQ/L (98-107); CREATININE FOR GFR 0.98 MG/DL (0.70-1.30); GLOMERULAR FILTRATION RATE > 60.0 (>49); GLUCOSE, FASTING 118 MG/DL (80-110); POTASSIUM SERUM 4.5 MEQ/L (3.5-5.1); SODIUM LEVEL 134 MEQ/L (136-145); TOTAL PROTEIN 6.6 GM/DL (6.4-8.2)
[2017-04-02] MEDS: ADVAIR HFA 115/21MCG INHALER INH SCH ×2 (07:30→19:52)
[2017-04-02] MEDS: HumaLOG INSULIN (NovoLOG) PER UNIT SC SCH ×4 (07:41→21:00)
[2017-04-02] MEDS: DULoxetine 30 MG CAP (CYMBALTA) PO SCH (09:15)
[2017-04-02] MEDS: LISINOPRIL 20 MG TAB PO SCH (09:15)
[2017-04-02] MEDS: CLOPIDOGREL 75 MG TAB PO SCH (09:15)
[2017-04-02] MEDS: AZITHROMYCIN 250 MG TAB PO SCH (09:15)
[2017-04-02] MEDS: ASPIRIN ENTERIC 325 MG TAB PO SCH (09:15)
[2017-04-02] MEDS: BACLOFEN 10 MG TAB PO SCH ×3 (09:15→21:33)
[2017-04-02] MEDS: ESCITALOPRAM OXALATE 10 MG TAB (LEXAPRO) PO SCH (09:16)
[2017-04-02 14:00] VITALS: BP 156/62
[2017-04-02 20:00] VITALS: BP 138/68
[2017-04-02] MEDS: ATORVASTATIN 20 MG TAB PO SCH (21:34)
[2017-04-02] MEDS: amLODIPine 5 MG TAB PO SCH (21:34)
[2017-04-03 06:00] VITALS: BP 142/80
[2017-04-03 07:06] LABS: MEAN CORPUSCULAR HGB CONC 32.6 g/dl (32.0-36.5); MEAN CORPUSCULAR VOLUME 91.9 fl (80.0-96.0); RED CELL DISTRIBUTION WIDTH 12.9 % (11.5-14.5); WHITE BLOOD COUNT 7.8 10^3/uL (4.0-10.0)
[2017-04-03 07:24] LABS: ALBUMIN 3.4 GM/DL (3.2-5.2); ALKALINE PHOSPHATASE 69 U/L (45-117); ALT/SGPT 67 U/L (12-78); ANION GAP 5 MEQ/L (8-16); AST/SGOT 36 U/L (15-37); BILIRUBIN,TOTAL 0.4 MG/DL (0.2-1.0); BLOOD UREA NITROGEN 19 MG/DL (7-18); CALCIUM LEVEL 8.7 MG/DL (8.8-10.2); CARBON DIOXIDE LEVEL 29 MEQ/L (21-32); CHLORIDE LEVEL 102 MEQ/L (98-107); CREATININE FOR GFR 0.96 MG/DL (0.70-1.30); GLOMERULAR FILTRATION RATE > 60.0 (>49); GLUCOSE, FASTING 107 MG/DL (80-110); POTASSIUM SERUM 4.4 MEQ/L (3.5-5.1); SODIUM LEVEL 136 MEQ/L (136-145); TOTAL PROTEIN 6.8 GM/DL (6.4-8.2)
[2017-04-03] MEDS: DULoxetine 30 MG CAP (CYMBALTA) PO SCH (08:24)
[2017-04-03] MEDS: ASPIRIN ENTERIC 325 MG TAB PO SCH (08:24)
[2017-04-03] MEDS: LISINOPRIL 20 MG TAB PO SCH (08:24)
[2017-04-03] MEDS: ESCITALOPRAM OXALATE 10 MG TAB (LEXAPRO) PO SCH (08:24)
[2017-04-03] MEDS: HumaLOG INSULIN (NovoLOG) PER UNIT SC SCH ×4 (08:24→20:47)
[2017-04-03] MEDS: CLOPIDOGREL 75 MG TAB PO SCH (08:25)
[2017-04-03] MEDS: BACLOFEN 10 MG TAB PO SCH ×3 (08:25→20:45)
[2017-04-03] MEDS: AZITHROMYCIN 250 MG TAB PO SCH (08:25)
[2017-04-03] MEDS: ADVAIR HFA 115/21MCG INHALER INH SCH ×2 (08:32→20:24)
--- NOTE | 2017-04-03 11:52 | IPNPDOC ---
Date Seen The patient was seen on 04/03/17. Progress Note HPI: This is a 61-year-old male with a pertinent past medical history of colorectal cancer status post radiation and chemotherapy 2012, a current smoker with a [id number], presenting with unilateral weakness and slurred speech. Patient states that when he was going to work on the morning of admission at 7: 40 AM he noticed that his legs were weak. He noticed that his right side was weaker than his left and it was not "working right"" the patient stated that he was able to walk into work still with a little bit of unsteadiness. He then stated 2 hours later he noticed a tingling in his right arm down to his fingers. He stated that he can physically move his fingers but it was "like it wasn't there". Patient stated he then went home and his noticed that he looked disoriented. Patient states that he was speaking funny but he could not elaborate more. He was brought to [facility] on the day of admission 03/24/17. He was found to have acute infarction in the anterior medial left temporal lobe. The patient was seen by neurology during his admission. He was also seen by Dr. Martinez vascular surgery, related to severe carotid stenosis PN not available at this time. He was subsequently transferred to the care of MARIBEL Casillas 03/27/17. Denies any fevers, chills, weakness, fatigue, Headache, Chest Pain, Shortness of breath, cough, palpitations, abdominal pain, N/V/D or changes in bowel or bladder habits. Consultation was requested for medical management. PMHx/PSH: Bradycardia with First degree AV block. Beta lata, atenolol, discontinued during admission. Carotid stenosis Hypertension DM COPD Dyslipidemia Chronic right shoulder/arm pain History of colorectal cancer status post resection/s/p radiation and chemotherapy 2012/Colostomy. History of diverticulitis Tobacco use Depression PE: GEN: 61yoM, appears stated age. Well-nourished, well developed. No acute distress. Alert and oriented x 3. Pleasant, interactive. HEENT: Normocephalic, atraumatic. Sclera are nonicteric. Conjunctiva without injection. Nose midline. No facial asymmetry. Moist mucous membranes. Dentition fair. Pharynx pink and moist, no cobblestoning. Neck supple, trachea midline. CHEST: Regular rate and rhythm, +S1, +S2 LUNGS: Clear to auscultation bilaterally. No wheezes, rales, or rhonchi. Breathing appears symmetric and easy. Patient is speaking in full sentences. No accessory muscle use. ABD: Round, soft, non-tender, non-distended. +Bowel sounds throughout. No rebound or guarding. No costovertebral angle tenderness. Colostomy noted. EXT: Pulses 2+ bilaterally dorsalis pedis and radial. No lower extremity edema appreciated. SKIN: Espy, dry, warm. Capillary refill <2sec. No rashes. NEURO: Alert and oriented x 3. MRI BRAIN (03/24/2017): 1. Acute infarct in the posterior left basal ganglia. No edema or mass effect appreciated. 2. Small acute infarct in the anterior left temporal lobe. 3. Mild chronic small vessel ischemic changes. CT ANGiO head (03/24/2017): 1. There is no aneurysm or arteriovenous malformation. 2. Atherosclerotic disease, as described above. CT ANGIO NECK (03/24/2017): 1. Severe stenosis of 90% of the right internal carotid artery at its origin. 2. Mild stenosis of 25% of the left internal carotid artery at its origin. There is severe stenosis of 80% of the internal carotid artery 8 mm from its origin. Echocardiogram: (03/24/2017) 1. Very mild concentric left ventricular hypertrophy. No regional wall motion abnormalities apparent. Normal LV systolic function. LVEF 65% by visual estimate. Grade 1 LV diastolic dysfunction (impaired relaxation filling pattern). 2. Normal right ventricle size and systolic function. 3. Normal appearing aortic and mitral valves. 4. Technically difficult echocardiogram. CXR 03/29/17 Negative PA and lateral chest. There is no interval change. BC x 2 pending. EKG 03/29/[address] DEVIATION AND MODERATE T-WAVE ABNORMALITY, CONSIDER ANTEROLATERAL ISCHEMIA ST DEVIATION AND MODERATE T-WAVE ABNORMALITY, CONSIDER INFERIOR ISCHEMIA SINCE 03/23/17 STT ABNORMALITIES ARE MUCH MORE APPARENT UC 03/28 Organism 1 STAPHYLOCOCCUS EPIDERMIDIS COLONY COUNT >100,000 CFU/ml A&P: This is a 61-year-old male with a pertinent past medical history of colorectal cancer status post radiation and chemotherapy 2012, a current smoker with a [id number], presenting with unilateral weakness and slurred speech. Patient states that when he was going to work on the morning of admission at 7: 40 AM he noticed that his legs were weak. He noticed that his right side was weaker than his left and it was not "working right"" the patient stated that he was able to walk into work still with a little bit of unsteadiness. He then stated 2 hours later he noticed a tingling in his right arm down to his fingers. He stated that he can physically move his fingers but it was "like it wasn't there". Patient stated he then went home and his noticed that he looked disoriented. Patient states that he was speaking funny but he could not elaborate more. He was brought to [facility] on the day of admission 03/24/17. He was found to have acute infarction in the anterior medial left temporal lobe. The patient was seen by neurology during his admission. He was subsequently transferred to the care of MARIBEL Casillas 03/27/17. 1. Status post CVA. Management as per MARIBEL/Dr Mono. Outpatient follow-up with neurology. Outpatient follow up with vascular surgery. PT/OT as per Dr Moon/MARIBEL. Speech therapy as per Dr Moon/MARIBEL. Pain control as per Dr Moon/MARIBEL Bowel care as per Dr Moon/ MARIBEL. DVT prophylaxis as per MARIBEL/Dr Moon. Continue aspirin 325 mg daily, Plavix 75 mg daily, Lipitor 80 mg daily. 2. Severe carotid stenosis. Note from Vascular surgery not available at this time. Plan is for outpatient follow-up with vascular surgery. Continue aspirin 325 mg daily, Plavix 75 mg daily, Lipitor 80 mg daily. 3. Bradycardia, first-degree AV block. Beta lata discontinued during his admission. Heart rate trends noted 78-117 03/29/17. Noted trend 70s-80s. EKG as above. Pt has been asymptomatic. CIP/Troponin unremarkable. 4. Hypertension. Avoid BB related to above Elevated SCr noted, Reduce lisinopril to 20 mg Daily (previous oupt dose 10mg daily). Norvasc 5 mg daily added 03/29/17. BP 138-142 systolic. 5. DM. Consistent carbohydrate diet. Continue sliding scale insulin. 6. COPD. Continue Advair 115/21 2 puffs twice a day and albuterol HFA 2 puffs every 4 hours as needed. 7. Dyslipidemia. Continue Lipitor 80 mg daily. 8. Chronic right arm/right shoulder pain. Continue Percocet 5/325 every 4 hours as needed, Cymbalta 60 mg daily and baclofen 10 mg twice a day. 9. Depression. Continue Lexapro 20 mg by mouth daily. 10. UTI. Staph epi. Pt completed Zmax as per ARU attending. 11. Hyponatremia. Resolved. Mag, TSH. Ur Na/Osm/Cr WNL. IVF x 1 liter 03/29. VS, I&O, 24H, Fishbone Vital Signs/I&O Vital Signs Date Time Temp Pulse Resp B/P (MAP) Pulse Ox O2 Delivery O2 Flow Rate FiO2 04/03/17 08:24 142/80 04/03/17 06:00 98.3 74 18 94 Room Air I&O- Last 24 Hours up to 6 AM 04/04/17 05:59 Intake Total 120 ml Output Total 240 ml Balance -120 ml Laboratory Data 24H LABS Laboratory Tests 2 04/02/17 16:50: Bedside Glucose (Misc Panel) 186H 04/02/17 21:08: Bedside Glucose (Misc Panel) 135H 04/03/17 06:32: Anion Gap 5L, Glomerular Filtration Rate > 60.0, Blood Urea Nitrogen 19H, Creatinine 0.96, Sodium Level 136, Potassium Level 4.4, Chloride Level 102, Carbon Dioxide Level 29, Calcium Level 8.7L, Aspartate Amino Transf (AST/SGOT) 36, Alanine Aminotransferase (ALT/SGPT) 67, Alkaline Phosphatase 69, Total Bilirubin 0.4, Total Protein 6.8, Albumin 3.4, Albumin/Globulin Ratio 1.00 04/03/17 11:34: Bedside Glucose (Misc Panel) 114 CBC/BMP Laboratory Tests 04/03/17 06:32 Calcium Level 8.7 L, Aspartate Amino Transf (AST/SGOT) 36, Alanine Aminotransferase (ALT/SGPT) 67, Alkaline Phosphatase 69, Total Bilirubin 0.4, Total Protein 6.8, Albumin 3.4 04/03/17 06:33 Red Blood Count 4.07 L, Mean Corpuscular Volume 91.9, Mean Corpuscular Hemoglobin 30.0, Mean Corpuscular Hemoglobin Concent 32.6, Red Cell Distribution Width 12.9 Microbiology Microbiology 03/29/17 Blood Culture - Preliminary, Resulted No Growth after 72 hours. All specime... 03/29/17 Blood Culture - Preliminary, Resulted No Growth after 72 hours. All specime... 03/28/17 Urine Culture - Final, Complete Staphylococcus Epidermidis iVki Valiente Apr 03, 2017 11:52
[2017-04-03 14:00] VITALS: BP 149/66
[2017-04-03 20:00] VITALS: BP 139/77
[2017-04-03] MEDS: ATORVASTATIN 20 MG TAB PO SCH (20:45)
[2017-04-03] MEDS: amLODIPine 5 MG TAB PO SCH (20:45)
[2017-04-04 06:00] VITALS: BP_SYST 160; BP_SYST 164; BP_DIAS 68; BP_DIAS 72
[2017-04-04 06:45] VITALS: BP 172/90
[2017-04-04] MEDS: ADVAIR HFA 115/21MCG INHALER INH SCH ×2 (07:14→19:47)
[2017-04-04] MEDS: BACLOFEN 10 MG TAB PO SCH ×3 (08:02→21:20)
[2017-04-04] MEDS: ASPIRIN ENTERIC 325 MG TAB PO SCH (08:02)
[2017-04-04] MEDS: HumaLOG INSULIN (NovoLOG) PER UNIT SC SCH ×4 (08:02→21:00)
[2017-04-04] MEDS: ESCITALOPRAM OXALATE 10 MG TAB (LEXAPRO) PO SCH (08:02)
[2017-04-04] MEDS: DULoxetine 30 MG CAP (CYMBALTA) PO SCH (08:02)
[2017-04-04] MEDS: LISINOPRIL 20 MG TAB PO SCH (08:02)
[2017-04-04] MEDS: CLOPIDOGREL 75 MG TAB PO SCH (08:02)
[2017-04-04 08:24] VITALS: BP 150/70
[2017-04-04 08:24] LABS: MEAN CORPUSCULAR HEMOGLOBIN 29.8 pg (27.0-33.0); MEAN CORPUSCULAR HGB CONC 32.6 g/dl (32.0-36.5); MEAN CORPUSCULAR VOLUME 91.3 fl (80.0-96.0); RED CELL DISTRIBUTION WIDTH 12.7 % (11.5-14.5); WHITE BLOOD COUNT 8.1 10^3/uL (4.0-10.0)
[2017-04-04 08:39] LABS: ALBUMIN 3.5 GM/DL (3.2-5.2); ALBUMIN/GLOBULIN RATIO 1.17 (1.00-1.93); ALKALINE PHOSPHATASE 56 U/L (45-117); ALT/SGPT 74 U/L (12-78); ANION GAP 7 MEQ/L (8-16); AST/SGOT 34 U/L (15-37); BILIRUBIN,TOTAL 0.4 MG/DL (0.2-1.0); BLOOD UREA NITROGEN 19 MG/DL (7-18); CALCIUM LEVEL 9.3 MG/DL (8.8-10.2); CARBON DIOXIDE LEVEL 29 MEQ/L (21-32); CHLORIDE LEVEL 98 MEQ/L (98-107); GLOMERULAR FILTRATION RATE > 60.0 (>49); GLUCOSE, FASTING 193 MG/DL (80-110); POTASSIUM SERUM 4.3 MEQ/L (3.5-5.1); SODIUM LEVEL 134 MEQ/L (136-145); TOTAL PROTEIN 6.5 GM/DL (6.4-8.2)
--- NOTE | 2017-04-04 11:37 | IPNPDOC ---
Florist Manager Progress Note DATE OF SERVICE: 04/04/17 DATE OF ADMISSION: Mar 27, 2017 at 14:35 INPATIENT REHABILITATION ADMISSION DAY: #9 SUBJECTIVE: The patient is a 61-year-old right-handed white male who started having trouble with controlling his right side on 03/23/[address] [facility] Emergency Room and was evaluated for possible transient ischemic attack (TIA) as he was having the right-sided discoordinated movement and weakness, especially the upper, as well as a sense of weakness in both lower extremities, difficulty walking and some slurring of speech. He then developed tingling in his right arm, down the finger and has since developed pain in his right upper extremity, which is of an achy nature. 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 Patient reported sleeping well with no complaints today. ALLERGIES: See Below MEDICATIONS: Reviewed, see below. OBJECTIVE: VITAL SIGNS: Please see below. PHYSICAL EXAMINATION: GENERAL: Somewhat overweight but well-nourished well-developed late middle-age white male in no acute distress, who is alert and well oriented. HEENT: Minimal left facial droop and tongue deviation otherwise normocephalic/ atraumatic. CARDIOVASCULAR: Regular rate and rhythm with normal S1 and S2. 2/4 bilateral radial pulses. LUNGS: All benitez clear to auscultation. ABDOMEN: Obese, soft, nontender with left lower quadrant colostomy and bowel sounds present in all quadrants. Mild tender points of left flank. NEUROLOGICAL: Patient alert and oriented 4. Affect is pleasant and cooperative. Memory is good. Speech is clear coherent and appropriate without any notable dysarthria or sounds of gurgling of secretions. Extraocular ocular motions are intact in vision is conjugate. Good to full motor power in left upper and bilateral lower extremities but some decreased control in the right upper and lower extremity with difficulty planning and placing right upper extremity on ballistic movement. Right lower extremity with good strength. SKIN: Colostomy site intact without any inflammation or irritation findings. No other skin lesions. LABORATORY DATA: Reviewed. Please see below. MICROBIOLOGY: Please see below. IMAGING: No new imaging. DVT prophylaxis ordered?: Aspirin, Plavix and use of LILIBETH hose. ASSESSMENT AND PLAN: 1. 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 Patient tolerating therapy 3 hours per day and showing gains. Focus continues to be on sensory and motor reintegration of the right upper and lower extremities. As he needs to learn to adapt to the disco- ordination as dominant right hand/upper extremity. However, daily improvement in accuracy in Right Upper Extremity placement. 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 Patient needs to work more on balance and safe gaiting, along with NMF of RU&LE to compensate in ballistic activities. Patient status discussed with him and his this morning. REHAB. TEAM ROUNDS: Patient now Independent in dressing Upper Body and Supervision for dressing Lower body. However, Colostomy management is Mod. Assist due to two hand nature and presence of RUE ataxia affecting fine motor control. RUE gross motor is improved. Ambulation progressing well and patient may transition to a cane vs. aziza-walker. We need to focus on hand function of the dominate Right hand for now. Estimated Discharge Date is 04/10/17. 2. Leukocytosis: Patient with WBC count of 8.1 thousand which is normal. 3. Type 2 diabetes mellitus: Patient with reasonable blood sugars on before meals and at bedtime testing affect fasting load sugar this morning of 193. Generally patient in the 100's and this morning's FBS is high for recent measurements. He is being maintained on consistent carbohydrate diet and insulin sliding scales before meals and at at bedtime. 4. Colon cancer: Patient doing well with colostomy, except for some left flank/ abdominal cramps. He has no anemia and has normal albumin total protein and liver function tests. Baclofen at 10 mg PO tid. No spasms complaints. 5. COPD/RAD: Patient doing well and using PRN Albuterol from scheduled. 6. Staph. Epi. UTI: Patient completed Z-pack and denies any dysuria. He is not having fevers, but has had some urinary incontinence since admission. I will recheck UA if this does not appear to be clearing. Bladder with normal emptying , but some frequency problem, likely bladder spasm. I will try Oxybutynin 5 mg BID. TIME SPENT: Chart Review, examination and documentation required greater than 25 minutes. Allergies Coded Allergies: Ofloxacin (Verified Allergy, Unknown, 03/27/17) Quinolones (Verified Allergy, Unknown, 09/15/16) Vital Signs Vital Signs Date Time Temp Pulse Resp B/P (MAP) Pulse Ox O2 Delivery O2 Flow Rate FiO2 04/04/17 08:24 150/70 (96) 04/04/17 06:00 98.0 74 18 96 Room Air Laboratory Data CBC/BMP Laboratory Tests 04/04/17 08:03 Red Blood Count 4.00 L, Mean Corpuscular Volume 91.3, Mean Corpuscular Hemoglobin 29.8, Mean Corpuscular Hemoglobin Concent 32.6, Red Cell Distribution Width 12.7, Calcium Level 9.3, Aspartate Amino Transf (AST/SGOT) 34 , Alanine Aminotransferase (ALT/SGPT) 74, Alkaline Phosphatase 56, Total Bilirubin 0.4, Total Protein 6.5, Albumin 3.5 Labs 24H Laboratory Tests 2 04/03/17 11:34: Bedside Glucose (Misc Panel) 114 04/03/17 16:16: Bedside Glucose (Misc Panel) 158H 04/03/17 20:14: Bedside Glucose (Misc Panel) 128H 04/04/17 06:39: Bedside Glucose (Misc Panel) 112 04/04/17 08:03: Anion Gap 7L, Glomerular Filtration Rate > 60.0, Blood Urea Nitrogen 19H, Creatinine 1.00, Sodium Level 134L, Potassium Level 4.3, Chloride Level 98, Carbon Dioxide Level 29, Calcium Level 9.3, Aspartate Amino Transf (AST/SGOT) 34 , Alanine Aminotransferase (ALT/SGPT) 74, Alkaline Phosphatase 56, Total Bilirubin 0.4, Total Protein 6.5, Albumin 3.5, Albumin/Globulin Ratio 1.17 Microbiology Microbiology 03/29/17 Blood Culture - Final, Complete NO GROWTH AFTER 5 DAYS 03/29/17 Blood Culture - Final, Complete NO GROWTH AFTER 5 DAYS 03/28/17 Urine Culture - Final, Complete Staphylococcus Epidermidis Current Medications Current Medications Current Medications Albuterol Sulfate (Proventil, Ventolin Hfa) 2 puff QID INH Last administered on 03/29/17t 11:57; Start 03/27/17 at 17:00; Stop 03/29/17 at 12:04; Status DC Albuterol Sulfate (Proventil, Ventolin Hfa) 2 puff QIDP PRN INH dyspnea; Start 03/29/17 at 17:00; Stop 04/26/17 at 16:59 Amlodipine Besylate (Norvasc) 5 mg DAILY@2100 PO Last administered on 20:45; Start 03/29/17 at 21:00; Stop 04/28/17 at 20:59 Aspirin (Ecotrin) 325 mg DAILY PO Last administered on 04/04/17 08:02; Start 03/28/17 at 09:00; Stop 04/27/17 at 08:59 Atorvastatin Calcium (Lipitor) 80 mg QHS PO Last administered on 04/03/17 20: 45; Start 03/27/17 at 21:00; Stop 04/26/17 at 20:59 Azithromycin (Zithromax Tab) 250 mg DAILY PO Last administered on 04/03/17 08: 25; Start 03/31/17 at 09:00; Stop 04/04/17 at 08:59; Status DC Baclofen (Lioresal) 10 mg BID PO Last administered on 03/29/17 08:17; Start 03/27/17 at 21:00; Stop 03/29/17 at 12:04; Status DC Baclofen (Lioresal) 10 mg TID PO Last administered on 04/04/17 08:02; Start 03/29/17 at 16:00; Stop 04/26/17 at 20:59 Bisacodyl (Dulcolax Tab) 5 mg DAILYPRN PRN PO CONSTIPATION; Start 03/27/17 at 15:15; Stop 04/26/17 at 15:14 Clopidogrel Bisulfate (PLAVix) 75 mg DAILY PO Last administered on 04/04/17 08:02; Start 03/28/17 at 09:00; Stop 04/27/17 at 08:59 Dextrose (Dextrose 50%) 25 ml ASDIRECTED PRN IV SEE LABEL COMMENTS; Start 03/27 at 15:15; Stop 04/26/17 at 15:14 Duloxetine HCl (Cymbalta) 60 mg DAILY PO Last administered on 04/04/17 08:02 ; Start 03/28/17 at 09:00; Stop 04/27/17 at 08:59 Escitalopram Oxalate (Lexapro) 20 mg DAILY PO Last administered on 04/04/17 08:02; Start 03/28/17 at 09:00; Stop 04/27/17 at 08:59 Glucagon (Glucagon) 1 mg ASDIRECTED PRN SC SEE LABEL COMMENTS; Start 03/27/17 at 15:15; Stop 04/26/17 at 15:14 Glucose (Glucose) 16 GM ASDIRECTED PRN PO SEE LABEL COMMENTS; Start 03/27/17 at 15:15; Stop 04/26/17 at 15:14 Insulin Human Lispro (HumaLOG INSULIN) See Protocol Table AC SC Last administered on 04/04/17 08:02; Start 03/27/17 at 17:30; Stop 04/26/17 at 17: 29 Insulin Human Lispro (HumaLOG INSULIN) See Protocol Table QHS SC ; Start at 21:00; Stop 04/26/17 at 20:59 Lisinopril (Prinivil) 20 mg BID PO Last administered on 03/29/17 08:17; Start 03/27/17 at 21:00; Stop 03/29/17 at 12:16; Status DC Lisinopril (Prinivil) 20 mg DAILY PO Last administered on 04/04/17 08:02; Start 03/30/17 at 09:00; Stop 04/29/17 at 08:59 Magnesium Hydroxide (Milk Of Magnesia) 30 ml DAILYPRN PRN PO CONSTIPATION; Start 03/27/17 at 15:15; Stop 04/26/17 at 15:14 Oxycodone/ Acetaminophen (Percocet 5mg/ 325mg Tablet) 1 tab Q4HP PRN PO SEVERE PAIN (PS 8-10); Start 03/27/17 at 15:15; Stop 04/10/17 at 15:14 Salmeterol Xinafoate/ Fluticasone (Advair Hfa 115/ 21) 2 puff BID INH Last administered on 04/04/17 07:14; Start 03/27/17 at 21:00; Stop 04/26/17 at 20: 59 Sodium Chloride 1,000 ml @ 100 mls/hr Q10H IV Last administered on 03/29/17 14:03; Start 03/29/17 at 12:06; Stop 03/29/17 at 22:05; Status DC FLAVIO ZAPATA MD Apr 04, 2017 11:37
[2017-04-04 14:00] VITALS: BP 140/60
[2017-04-04 20:00] VITALS: BP 137/67
[2017-04-04] MEDS: ATORVASTATIN 20 MG TAB PO SCH (21:19)
[2017-04-04] MEDS: amLODIPine 5 MG TAB PO SCH (21:19)
[2017-04-04] MEDS: oxyBUTYnin 5 MG TAB PO SCH (21:20)
[2017-04-05 06:00] VITALS: BP 146/82
[2017-04-05] MEDS: ADVAIR HFA 115/21MCG INHALER INH SCH ×2 (07:32→19:35)
[2017-04-05] MEDS: BACLOFEN 10 MG TAB PO SCH ×3 (07:36→20:43)
[2017-04-05] MEDS: DULoxetine 30 MG CAP (CYMBALTA) PO SCH (07:36)
[2017-04-05] MEDS: ASPIRIN ENTERIC 325 MG TAB PO SCH (07:36)
[2017-04-05] MEDS: CLOPIDOGREL 75 MG TAB PO SCH (07:36)
[2017-04-05] MEDS: ESCITALOPRAM OXALATE 10 MG TAB (LEXAPRO) PO SCH (07:36)
[2017-04-05] MEDS: HumaLOG INSULIN (NovoLOG) PER UNIT SC SCH ×4 (07:36→20:44)
[2017-04-05] MEDS: oxyBUTYnin 5 MG TAB PO SCH ×2 (07:36→21:43)
[2017-04-05] MEDS: LISINOPRIL 20 MG TAB PO SCH (07:36)
[2017-04-05 08:13] LABS: MEAN CORPUSCULAR HEMOGLOBIN 30.6 pg (27.0-33.0); MEAN CORPUSCULAR HGB CONC 33.4 g/dl (32.0-36.5); MEAN CORPUSCULAR VOLUME 91.6 fl (80.0-96.0); RED CELL DISTRIBUTION WIDTH 12.8 % (11.5-14.5); WHITE BLOOD COUNT 8.3 10^3/uL (4.0-10.0)
[2017-04-05 09:08] LABS: ALBUMIN 3.7 GM/DL (3.2-5.2); ALBUMIN/GLOBULIN RATIO 1.19 (1.00-1.93); ALKALINE PHOSPHATASE 62 U/L (45-117); ALT/SGPT 71 U/L (12-78); ANION GAP 6 MEQ/L (8-16); AST/SGOT 31 U/L (15-37); BILIRUBIN,TOTAL 0.5 MG/DL (0.2-1.0); BLOOD UREA NITROGEN 23 MG/DL (7-18); CALCIUM LEVEL 8.7 MG/DL (8.8-10.2); CARBON DIOXIDE LEVEL 30 MEQ/L (21-32); CHLORIDE LEVEL 99 MEQ/L (98-107); CREATININE FOR GFR 0.93 MG/DL (0.70-1.30); GLOMERULAR FILTRATION RATE > 60.0 (>49); GLUCOSE, FASTING 107 MG/DL (80-110); POTASSIUM SERUM 4.3 MEQ/L (3.5-5.1); SODIUM LEVEL 135 MEQ/L (136-145); TOTAL PROTEIN 6.8 GM/DL (6.4-8.2)
--- NOTE | 2017-04-05 10:27 | IPNPDOC ---
Food General Manager Progress Note DATE OF SERVICE: 04/05/17 DATE OF ADMISSION: Mar 27, 2017 at 14:35 INPATIENT REHABILITATION ADMISSION DAY: #10 SUBJECTIVE: The patient is a 61-year-old right-handed white male who started having trouble with controlling his right side on 03/23/2017 and presented to [facility] Emergency Room and was evaluated for possible transient ischemic attack (TIA) as he was having the right-sided discoordinated movement and weakness, especially the upper, as well as a sense of weakness in both lower extremities, difficulty walking and some slurring of speech. He then developed tingling in his right arm, down the finger and has since developed pain in his right upper extremity, which is of an achy nature. 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 Patient reported sleeping well with no complaints today. ALLERGIES: See Below MEDICATIONS: Reviewed, see below. OBJECTIVE: VITAL SIGNS: Please see below. PHYSICAL EXAMINATION: GENERAL: Somewhat overweight but well-nourished well-developed late middle-age white male in no acute distress, who is alert and well oriented. HEENT: Minimal left facial droop and tongue deviation otherwise normocephalic/ atraumatic. CARDIOVASCULAR: Regular rate and rhythm with normal S1 and S2. 2/4 bilateral radial pulses. LUNGS: All benitez clear to auscultation. ABDOMEN: Obese, soft, nontender with left lower quadrant colostomy and bowel sounds present in all quadrants. Mild tender points of left flank. NEUROLOGICAL: Patient alert and oriented 4. Affect is pleasant and cooperative. Memory is good. Speech is clear coherent and appropriate without any notable dysarthria or sounds of gurgling of secretions. Extraocular ocular motions are intact in vision is conjugate. Good to full motor power in left upper and bilateral lower extremities but some decreased control in the right upper and lower extremity with less difficulty planning and placing right upper extremity on ballistic movement. Fine motor or RUE is the main problem now with becoming distracted from the RUE and it starts to drift. Right lower extremity with good strength. SKIN: Colostomy site intact without any inflammation or irritation findings. No other skin lesions. LABORATORY DATA: Reviewed. Please see below. MICROBIOLOGY: Please see below. IMAGING: No new imaging. DVT prophylaxis ordered?: Aspirin, Plavix and use of LILIBETH hose. ASSESSMENT AND PLAN: 1. 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 Patient tolerating therapy 3 hours per day and showing gains. Focus continues to be on sensory and motor reintegration of the right upper and lower extremities. As he needs to learn to adapt to the disco- ordination as dominant right hand/upper extremity. However, daily improvement in accuracy in Right Upper Extremity placement. 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 Patient needs to work more on balance and safe gaiting, along with NMF of RU&LE to compensate in ballistic activities. Patient now Independent in dressing Upper Body and Supervision for dressing Lower body. However, Colostomy management is Mod. Assist due to two hand nature and presence of RUE ataxia affecting fine motor control. RUE gross motor is markedly improved till distracted then patient tends to move RUE into mild Abduction, with full extension except for wrist/ finger flexion. Ambulation progressing well and patient may transition to a cane vs. aziza-walker. We need to focus on hand function of the dominate Right hand for now. Estimated Discharge Date is 04/10/17. 2. Leukocytosis: Patient with WBC count of 8.3 thousand which is normal. 3. Type 2 diabetes mellitus: Patient with reasonable blood sugars on before meals and at bedtime testing affect fasting load sugar this morning of 107. Generally patient in the 100's on AC & HS blood glucose fingersticks. He is being maintained on consistent carbohydrate diet and insulin sliding scales before meals and at at bedtime. 4. Colon cancer: Patient doing well with colostomy, except for some left flank/ abdominal cramps. He has no anemia and has normal albumin total protein and liver function tests. Baclofen at 10 mg PO tid. No spasms complaints. 5. COPD/RAD: Patient doing well and using PRN Albuterol from scheduled. 6. Staph. Epi. UTI: Patient completed Z-pack and denies any dysuria. He is not having fevers, but has had some urinary incontinence since admission. Bladder with normal emptying, but some frequency problem, likely bladder spasm. Patient on Oxybutynin 5 mg BID with some incontinence still present. We will watch and maybe up dose and recheck UA. TIME SPENT: Chart Review, examination and documentation required greater than 25 minutes. Allergies Coded Allergies: Ofloxacin (Verified Allergy, Unknown, 03/27/17) Quinolones (Verified Allergy, Unknown, 09/15/16) Vital Signs Vital Signs Date Time Temp Pulse Resp B/P (MAP) Pulse Ox O2 Delivery O2 Flow Rate FiO2 04/05/17 07:36 146/82 04/05/17 06:00 97.5 87 18 99 Room Air Laboratory Data CBC/BMP Laboratory Tests 04/05/17 07:29 Red Blood Count 3.95 L, Mean Corpuscular Volume 91.6, Mean Corpuscular Hemoglobin 30.6, Mean Corpuscular Hemoglobin Concent 33.4, Red Cell Distribution Width 12.8, Calcium Level 8.7 L, Aspartate Amino Transf (AST/SGOT) 31, Alanine Aminotransferase (ALT/SGPT) 71, Alkaline Phosphatase 62, Total Bilirubin 0.5, Total Protein 6.8, Albumin 3.7 Labs 24H Laboratory Tests 2 04/04/17 11:51: Bedside Glucose (Misc Panel) 73L 04/04/17 17:06: Bedside Glucose (Misc Panel) 176H 04/04/17 20:19: Bedside Glucose (Misc Panel) 139H 04/05/17 07:25: Bedside Glucose (Misc Panel) 118H 04/05/17 07:29: Anion Gap 6L, Glomerular Filtration Rate > 60.0, Blood Urea Nitrogen 23H, Creatinine 0.93, Sodium Level 135L, Potassium Level 4.3, Chloride Level 99, Carbon Dioxide Level 30, Calcium Level 8.7L, Aspartate Amino Transf (AST/SGOT) 31, Alanine Aminotransferase (ALT/SGPT) 71, Alkaline Phosphatase 62, Total Bilirubin 0.5, Total Protein 6.8, Albumin 3.7, Albumin/Globulin Ratio 1.19 Microbiology Microbiology 03/29/17 Blood Culture - Final, Complete NO GROWTH AFTER 5 DAYS 03/29/17 Blood Culture - Final, Complete NO GROWTH AFTER 5 DAYS 03/28/17 Urine Culture - Final, Complete Staphylococcus Epidermidis Current Medications Current Medications Current Medications Albuterol Sulfate (Proventil, Ventolin Hfa) 2 puff QID INH Last administered on 03/29/17t 11:57; Start 03/27/17 at 17:00; Stop 03/29/17 at 12:04; Status DC Albuterol Sulfate (Proventil, Ventolin Hfa) 2 puff QIDP PRN INH dyspnea; Start 03/29/17 at 17:00; Stop 04/26/17 at 16:59 Amlodipine Besylate (Norvasc) 5 mg DAILY@2100 PO Last administered on 21:19; Start 03/29/17 at 21:00; Stop 04/28/17 at 20:59 Aspirin (Ecotrin) 325 mg DAILY PO Last administered on 04/05/17 07:36; Start 03/28/17 at 09:00; Stop 04/27/17 at 08:59 Atorvastatin Calcium (Lipitor) 80 mg QHS PO Last administered on 04/04/17 21: 19; Start 03/27/17 at 21:00; Stop 04/26/17 at 20:59 Azithromycin (Zithromax Tab) 250 mg DAILY PO Last administered on 04/03/17 08: 25; Start 03/31/17 at 09:00; Stop 04/04/17 at 08:59; Status DC Baclofen (Lioresal) 10 mg BID PO Last administered on 03/29/17 08:17; Start 03/27/17 at 21:00; Stop 03/29/17 at 12:04; Status DC Baclofen (Lioresal) 10 mg TID PO Last administered on 04/05/17 07:36; Start 03/29/17 at 16:00; Stop 04/26/17 at 20:59 Bisacodyl (Dulcolax Tab) 5 mg DAILYPRN PRN PO CONSTIPATION; Start 03/27/17 at 15:15; Stop 04/26/17 at 15:14 Clopidogrel Bisulfate (PLAVix) 75 mg DAILY PO Last administered on 04/05/17 07:36; Start 03/28/17 at 09:00; Stop 04/27/17 at 08:59 Dextrose (Dextrose 50%) 25 ml ASDIRECTED PRN IV SEE LABEL COMMENTS; Start 03/27 at 15:15; Stop 04/26/17 at 15:14 Duloxetine HCl (Cymbalta) 60 mg DAILY PO Last administered on 04/05/17 07:36 ; Start 03/28/17 at 09:00; Stop 04/27/17 at 08:59 Escitalopram Oxalate (Lexapro) 20 mg DAILY PO Last administered on 04/05/17 07:36; Start 03/28/17 at 09:00; Stop 04/27/17 at 08:59 Glucagon (Glucagon) 1 mg ASDIRECTED PRN SC SEE LABEL COMMENTS; Start 03/27/17 at 15:15; Stop 04/26/17 at 15:14 Glucose (Glucose) 16 GM ASDIRECTED PRN PO SEE LABEL COMMENTS; Start 03/27/17 at 15:15; Stop 04/26/17 at 15:14 Insulin Human Lispro (HumaLOG INSULIN) See Protocol Table AC SC Last administered on 04/05/17 07:36; Start 03/27/17 at 17:30; Stop 04/26/17 at 17: 29 Insulin Human Lispro (HumaLOG INSULIN) See Protocol Table QHS SC ; Start at 21:00; Stop 04/26/17 at 20:59 Lisinopril (Prinivil) 20 mg BID PO Last administered on 03/29/17 08:17; Start 03/27/17 at 21:00; Stop 03/29/17 at 12:16; Status DC Lisinopril (Prinivil) 20 mg DAILY PO Last administered on 04/05/17 07:36; Start 03/30/17 at 09:00; Stop 04/29/17 at 08:59 Magnesium Hydroxide (Milk Of Magnesia) 30 ml DAILYPRN PRN PO CONSTIPATION; Start 03/27/17 at 15:15; Stop 04/26/17 at 15:14 Oxybutynin Chloride (Ditropan) 5 mg BID PO Last administered on 04/05/17 07: 36; Start 04/04/17 at 21:00; Stop 05/04/17 at 20:59 Oxycodone/ Acetaminophen (Percocet 5mg/ 325mg Tablet) 1 tab Q4HP PRN PO SEVERE PAIN (PS 8-10); Start 03/27/17 at 15:15; Stop 04/10/17 at 15:14; Status Cancel Salmeterol Xinafoate/ Fluticasone (Advair Hfa 115/ 21) 2 puff BID INH Last administered on 10/11/17at 07:32; Start 03/27/17 at 21:00; Stop 04/26/17 at 20: 59 Sodium Chloride 1,000 ml @ 100 mls/hr Q10H IV Last administered on 03/29/17t 14:03; Start 03/29/17 at 12:06; Stop 03/29/17 at 22:05; Status DC FLAVIO ZAPAAT MD Apr 05, 2017 10:27
[2017-04-05 14:00] VITALS: BP 129/60
[2017-04-05] MEDS: ATORVASTATIN 20 MG TAB PO SCH (20:43)
[2017-04-05 20:44] VITALS: BP 121/58
[2017-04-05] MEDS: amLODIPine 5 MG TAB PO SCH (20:44)
[2017-04-06 06:00] VITALS: BP 142/70
[2017-04-06] MEDS: ADVAIR HFA 115/21MCG INHALER INH SCH ×2 (07:48→19:53)
[2017-04-06] MEDS: CLOPIDOGREL 75 MG TAB PO SCH (08:37)
[2017-04-06] MEDS: oxyBUTYnin 5 MG TAB PO SCH ×3 (08:37→21:00)
[2017-04-06] MEDS: DULoxetine 30 MG CAP (CYMBALTA) PO SCH (08:37)
[2017-04-06] MEDS: HumaLOG INSULIN (NovoLOG) PER UNIT SC SCH ×4 (08:37→21:00)
[2017-04-06] MEDS: BACLOFEN 10 MG TAB PO SCH ×3 (08:37→21:03)
[2017-04-06] MEDS: LISINOPRIL 20 MG TAB PO SCH (08:37)
[2017-04-06] MEDS: ESCITALOPRAM OXALATE 10 MG TAB (LEXAPRO) PO SCH (08:38)
[2017-04-06] MEDS: ASPIRIN ENTERIC 325 MG TAB PO SCH (11:00)
--- NOTE | 2017-04-06 11:33 | IPNPDOC ---
Office Machine Service Supervisor Progress Note DATE OF SERVICE: 04/06/17 DATE OF ADMISSION: Mar 27, 2017 at 14:35 INPATIENT REHABILITATION ADMISSION DAY: #11 SUBJECTIVE: The patient is a 61-year-old right-handed white male who started having trouble with controlling his right side on 03/23/2017 and presented to [facility] Emergency Room and was evaluated for possible transient ischemic attack (TIA) as he was having the right-sided discoordinated movement and weakness, especially the upper, as well as a sense of weakness in both lower extremities, difficulty walking and some slurring of speech. He then developed tingling in his right arm, down the finger and has since developed pain in his right upper extremity, which is of an achy nature. 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 Patient reported sleeping well with no complaints today. ALLERGIES: See Below MEDICATIONS: Reviewed, see below. OBJECTIVE: VITAL SIGNS: Please see below. PHYSICAL EXAMINATION: GENERAL: Somewhat overweight but well-nourished well-developed late middle-age white male in no acute distress, who is alert and well oriented. HEENT: Minimal left facial droop and tongue deviation otherwise normocephalic/ atraumatic. CARDIOVASCULAR: Regular rate and rhythm with normal S1 and S2. 2/4 bilateral radial pulses. LUNGS: All benitez clear to auscultation. ABDOMEN: Obese, soft, nontender with left lower quadrant colostomy and bowel sounds present in all quadrants. Mild tender points of left flank. NEUROLOGICAL: Patient alert and oriented 4. Affect is pleasant and cooperative. Memory is good. Speech is clear coherent and appropriate without any notable dysarthria or sounds of gurgling of secretions. Extraocular ocular motions are intact in vision is conjugate. Good to full motor power in left upper and bilateral lower extremities but some decreased control in the right upper and lower extremity with less difficulty planning and placing right upper extremity on ballistic movement. Fine motor or RUE is the main problem now with becoming distracted from the RUE and it starts to drift. Right lower extremity with good strength. SKIN: Colostomy site intact without any inflammation or irritation findings. No other skin lesions. LABORATORY DATA: Reviewed. Please see below. MICROBIOLOGY: Please see below. IMAGING: No new imaging. DVT prophylaxis ordered?: Aspirin, Plavix and use of LILIBETH hose. ASSESSMENT AND PLAN: 1. 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 Patient tolerating therapy 3 hours per day and showing gains. Focus continues to be on sensory and motor reintegration of the right upper and lower extremities. As he needs to learn to adapt to the dis- coordination as dominant right hand/upper extremity. However, daily improvement in accuracy in Right Upper Extremity placement. 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 Patient needs to work more on balance and safe gaiting, along with NMF of RU&LE to compensate in ballistic activities. Patient now Independent in dressing Upper Body and Supervision for dressing Lower body. REHAB. TEAM ROUNDS: Patient continues to progress toward discharge goal and plan D/C date of 04/10/17. However, the urinary incontinence while improved is still a problems, so I will increase the Ditropan 10mg to TID. 2. Leukocytosis: Patient with WBC count of 8.3 thousand which is normal. 3. Type 2 diabetes mellitus: Patient with reasonable blood sugars on before meals and at bedtime testing affect fasting load sugar this morning of 107. Generally patient in the 70's to 199 on AC & HS blood glucose fingersticks. He is being maintained on consistent carbohydrate diet and insulin sliding scales before meals and at at bedtime. 4. Colon cancer: Patient doing well with colostomy, except for some left flank/ abdominal cramps. He has no anemia and has normal albumin total protein and liver function tests. Baclofen at 10 mg PO tid. No spasms complaints. 5. COPD/RAD: Patient doing well and using PRN Albuterol from scheduled. 6. Staph. Epi. UTI: Patient completed Z-pack and denies any dysuria. He is not having fevers, but has had some urinary incontinence since admission. Bladder with normal emptying, but some frequency problem, likely bladder spasm. Patient on Oxybutynin 5 mg BID with some incontinence still present but improving to no incontinent voids yesterday and only one this morning. We will watch and maybe up dose and recheck UA. TIME SPENT: Chart Review, examination and documentation required greater than 25 minutes. Allergies Coded Allergies: Ofloxacin (Verified Allergy, Unknown, 03/27/17) Quinolones (Verified Allergy, Unknown, 09/15/16) Vital Signs Vital Signs Date Time Temp Pulse Resp B/P (MAP) Pulse Ox O2 Delivery O2 Flow Rate FiO2 04/06/17 08:37 142/70 04/06/17 06:00 98.2 71 18 97 Room Air Laboratory Data Labs 24H Laboratory Tests 2 04/05/17 12:00: Bedside Glucose (Misc Panel) 95 04/05/17 17:02: Bedside Glucose (Misc Panel) 123H 04/05/17 20:18: Bedside Glucose (Misc Panel) 143H 04/06/17 07:00: Bedside Glucose (Misc Panel) 106 Microbiology Microbiology 03/29/17 Blood Culture - Final, Complete NO GROWTH AFTER 5 DAYS 03/29/17 Blood Culture - Final, Complete NO GROWTH AFTER 5 DAYS 03/28/17 Urine Culture - Final, Complete Staphylococcus Epidermidis Current Medications Current Medications Current Medications Albuterol Sulfate (Proventil, Ventolin Hfa) 2 puff QID INH Last administered on 03/29/17 11:57; Start 03/27/17 at 17:00; Stop 03/29/17 at 12:04; Status DC Albuterol Sulfate (Proventil, Ventolin Hfa) 2 puff QIDP PRN INH dyspnea; Start 03/29/17 at 17:00; Stop 04/26/17 at 16:59 Amlodipine Besylate (Norvasc) 5 mg DAILY@2100 PO Last administered on 20:44; Start 03/29/17 at 21:00; Stop 04/28/17 at 20:59 Aspirin (Ecotrin) 325 mg DAILY PO Last administered on 04/06/17 11:00; Start 03/28/17 at 09:00; Stop 04/27/17 at 08:59 Atorvastatin Calcium (Lipitor) 80 mg QHS PO Last administered on 04/05/17 20: 43; Start 03/27/17 at 21:00; Stop 04/26/17 at 20:59 Azithromycin (Zithromax Tab) 250 mg DAILY PO Last administered on 04/03/17 08: 25; Start 03/31/17 at 09:00; Stop 04/04/17 at 08:59; Status DC Baclofen (Lioresal) 10 mg BID PO Last administered on 03/29/17 08:17; Start 03/27/17 at 21:00; Stop 03/29/17 at 12:04; Status DC Baclofen (Lioresal) 10 mg TID PO Last administered on 04/06/17 08:37; Start 03/29/17 at 16:00; Stop 04/26/17 at 20:59 Bisacodyl (Dulcolax Tab) 5 mg DAILYPRN PRN PO CONSTIPATION; Start 03/27/17 at 15:15; Stop 04/26/17 at 15:14 Clopidogrel Bisulfate (PLAVix) 75 mg DAILY PO Last administered on 04/06/17 08:37; Start 03/28/17 at 09:00; Stop 04/27/17 at 08:59 Dextrose (Dextrose 50%) 25 ml ASDIRECTED PRN IV SEE LABEL COMMENTS; Start 03/27 at 15:15; Stop 04/26/17 at 15:14 Duloxetine HCl (Cymbalta) 60 mg DAILY PO Last administered on 04/06/17 08:37 ; Start 03/28/17 at 09:00; Stop 04/27/17 at 08:59 Escitalopram Oxalate (Lexapro) 20 mg DAILY PO Last administered on 04/06/17 08:38; Start 03/28/17 at 09:00; Stop 04/27/17 at 08:59 Glucagon (Glucagon) 1 mg ASDIRECTED PRN SC SEE LABEL COMMENTS; Start 03/27/17 at 15:15; Stop 04/26/17 at 15:14 Glucose (Glucose) 16 GM ASDIRECTED PRN PO SEE LABEL COMMENTS; Start 03/27/17 at 15:15; Stop 04/26/17 at 15:14 Insulin Human Lispro (HumaLOG INSULIN) See Protocol Table AC SC Last administered on 04/06/17 08:37; Start 03/27/17 at 17:30; Stop 04/26/17 at 17: 29 Insulin Human Lispro (HumaLOG INSULIN) See Protocol Table QHS SC ; Start at 21:00; Stop 04/26/17 at 20:59 Lisinopril (Prinivil) 20 mg BID PO Last administered on 03/29/17 08:17; Start 03/27/17 at 21:00; Stop 03/29/17 at 12:16; Status DC Lisinopril (Prinivil) 20 mg DAILY PO Last administered on 04/06/17 08:37; Start 03/30/17 at 09:00; Stop 04/29/17 at 08:59 Magnesium Hydroxide (Milk Of Magnesia) 30 ml DAILYPRN PRN PO CONSTIPATION; Start 03/27/17 at 15:15; Stop 04/26/17 at 15:14 Oxybutynin Chloride (Ditropan) 5 mg BID PO Last administered on 04/06/17 08: 37; Start 04/04/17 at 21:00; Stop 05/04/17 at 20:59 Oxycodone/ Acetaminophen (Percocet 5mg/ 325mg Tablet) 1 tab Q4HP PRN PO SEVERE PAIN (PS 8-10); Start 03/27/17 at 15:15; Stop 04/10/17 at 15:14; Status Cancel Salmeterol Xinafoate/ Fluticasone (Advair Hfa 115/ 21) 2 puff BID INH Last administered on 04/06/17 07:48; Start 03/27/17 at 21:00; Stop 04/26/17 at 20: 59 Sodium Chloride 1,000 ml @ 100 mls/hr Q10H IV Last administered on 03/29/17 14:03; Start 03/29/17 at 12:06; Stop 03/29/17 at 22:05; Status DC FLAVIO ZAPATA MD Apr 06, 2017 11:33
[2017-04-06 14:00] VITALS: BP 133/66
[2017-04-06] MEDS: amLODIPine 5 MG TAB PO SCH (21:02)
[2017-04-06] MEDS: ATORVASTATIN 20 MG TAB PO SCH (21:03)
[2017-04-06 21:33] VITALS: BP 122/60
[2017-04-07 06:00] VITALS: BP 148/72
[2017-04-07] MEDS: HumaLOG INSULIN (NovoLOG) PER UNIT SC SCH ×4 (07:30→21:00)
[2017-04-07] MEDS: ADVAIR HFA 115/21MCG INHALER INH SCH ×2 (07:37→20:28)
[2017-04-07] MEDS: LISINOPRIL 20 MG TAB PO SCH (08:50)
[2017-04-07] MEDS: BACLOFEN 10 MG TAB PO SCH ×3 (08:50→20:10)
[2017-04-07] MEDS: ESCITALOPRAM OXALATE 10 MG TAB (LEXAPRO) PO SCH (08:50)
[2017-04-07] MEDS: CLOPIDOGREL 75 MG TAB PO SCH (08:50)
[2017-04-07] MEDS: oxyBUTYnin 5 MG TAB PO SCH ×3 (08:50→20:11)
[2017-04-07] MEDS: DULoxetine 30 MG CAP (CYMBALTA) PO SCH (08:50)
[2017-04-07] MEDS: ASPIRIN ENTERIC 325 MG TAB PO SCH (10:50)
--- NOTE | 2017-04-07 13:06 | IPNPDOC ---
PM&R Progress Note Engineering Writer Progress Note DATE OF SERVICE: 04/07/17 DATE OF ADMISSION: Mar 27, 2017 at 14:35 INPATIENT REHABILITATION ADMISSION DAY: #12 SUBJECTIVE: The patient is a 61-year-old right-handed white male who started having trouble with controlling his right side on 03/23/2017 and presented to [facility] Emergency Room and was evaluated for possible transient ischemic attack (TIA) as he was having the right-sided discoordinated movement and weakness, especially the upper, as well as a sense of weakness in both lower extremities, difficulty walking and some slurring of speech. He then developed tingling in his right arm, down the finger and has since developed pain in his right upper extremity, which is of an achy nature. 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 Patient reported sleeping well with no complaints today. ALLERGIES: See Below MEDICATIONS: Reviewed, see below. OBJECTIVE: VITAL SIGNS: Please see below. PHYSICAL EXAMINATION: GENERAL: Somewhat overweight but well-nourished well-developed late middle-age white male in no acute distress, who is alert and well oriented. HEENT: Minimal left facial droop and tongue deviation otherwise normocephalic/ atraumatic. CARDIOVASCULAR: Regular rate and rhythm with normal S1 and S2. 2/4 bilateral radial pulses. LUNGS: All benitez clear to auscultation. ABDOMEN: Obese, soft, nontender with left lower quadrant colostomy and bowel sounds present in all quadrants. Mild tender points of left flank. NEUROLOGICAL: Patient alert and oriented 4. Affect is pleasant and cooperative. Memory is good. Speech is clear coherent and appropriate without any notable dysarthria or sounds of gurgling of secretions. Extraocular ocular motions are intact in vision is conjugate. Good to full motor power in left upper and bilateral lower extremities but some decreased control in the right upper and lower extremity with less difficulty planning and placing right upper extremity on ballistic movement. Fine motor or RUE is the main problem now with becoming distracted from the RUE and it starts to drift. Right lower extremity with good strength. SKIN: Colostomy site intact without any inflammation or irritation findings. No other skin lesions. LABORATORY DATA: Reviewed. Please see below. MICROBIOLOGY: Please see below. IMAGING: No new imaging. DVT prophylaxis ordered?: Aspirin, Plavix and use of LILIBETH hose. ASSESSMENT AND PLAN: 1. 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 Patient tolerating therapy 3 hours per day and showing gains. Focus continues to be on sensory and motor reintegration of the right upper and lower extremities. As he needs to learn to adapt to the dis- coordination as dominant right hand/upper extremity. However, daily improvement in accuracy in Right Upper Extremity placement. 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 Patient needs to work more on balance and safe gaiting, along with NMF of RU&LE to compensate in ballistic activities. Patient now Independent in dressing Upper Body and Supervision for dressing Lower body. Patient continues to progress toward discharge goal and plan D/C date of 04/10/17. 2. Leukocytosis: Patient with WBC count of 8.3 thousand which is normal. 3. Type 2 diabetes mellitus: Patient with reasonable blood sugars on before meals and at bedtime testing affect fasting load sugar this morning of 101. Patient 71 to 146 on AC & HS blood glucose fingersticks in last 48 hours. He is being maintained on consistent carbohydrate diet and insulin sliding scales before meals and at at bedtime. 4. Colon cancer: Patient doing well with colostomy, except for some left flank/ abdominal cramps. He has no anemia and has normal albumin total protein and liver function tests. Baclofen at 10 mg PO tid. No spasms complaints. 5. COPD/RAD: Patient doing well and using PRN Albuterol from scheduled. 6. Staph. Epi. UTI: Patient completed Z-pack and denies any dysuria. He is not having fevers, but has had some urinary incontinence since admission. Bladder with normal emptying, but some frequency problem, likely bladder spasm. Patient on Oxybutynin 5 mg TID with some incontinence still present. We will watch and maybe up dose and recheck UA. TIME SPENT: Chart Review, examination and documentation required greater than 25 minutes. Allergies Coded Allergies: Ofloxacin (Verified Allergy, Unknown, 03/27/17) Quinolones (Verified Allergy, Unknown, 09/15/16) Vital Signs Vital Signs Date Time Temp Pulse Resp B/P (MAP) Pulse Ox O2 Delivery O2 Flow Rate FiO2 04/07/17 08:50 148/72 04/07/17 06:00 97.5 64 18 98 Room Air Laboratory Data Labs 24H Laboratory Tests 2 04/06/17 17:05: Bedside Glucose (Misc Panel) 92 04/06/17 20:36: Bedside Glucose (Misc Panel) 118H 04/07/17 06:56: Bedside Glucose (Misc Panel) 101 04/07/17 11:23: Bedside Glucose (Misc Panel) 102 Microbiology Microbiology 03/29/17 Blood Culture - Final, Complete NO GROWTH AFTER 5 DAYS 03/29/17 Blood Culture - Final, Complete NO GROWTH AFTER 5 DAYS 03/28/17 Urine Culture - Final, Complete Staphylococcus Epidermidis Current Medications Current Medications Current Medications Albuterol Sulfate (Proventil, Ventolin Hfa) 2 puff QID INH Last administered on 03/29/17 11:57; Start 03/27/17 at 17:00; Stop 03/29/17 at 12:04; Status DC Albuterol Sulfate (Proventil, Ventolin Hfa) 2 puff QIDP PRN INH dyspnea; Start 03/29/17 at 17:00; Stop 04/26/17 at 16:59 Amlodipine Besylate (Norvasc) 5 mg DAILY@2100 PO Last administered on 21:02; Start 03/29/17 at 21:00; Stop 04/28/17 at 20:59 Aspirin (Ecotrin) 325 mg DAILY PO Last administered on 04/07/17 10:50; Start 03/28/17 at 09:00; Stop 04/27/17 at 08:59 Atorvastatin Calcium (Lipitor) 80 mg QHS PO Last administered on 04/06/17 21: 03; Start 03/27/17 at 21:00; Stop 04/26/17 at 20:59 Azithromycin (Zithromax Tab) 250 mg DAILY PO Last administered on 04/03/17 08: 25; Start 03/31/17 at 09:00; Stop 04/04/17 at 08:59; Status DC Baclofen (Lioresal) 10 mg BID PO Last administered on 03/29/17 08:17; Start 03/27/17 at 21:00; Stop 03/29/17 at 12:04; Status DC Baclofen (Lioresal) 10 mg TID PO Last administered on 04/07/17 08:50; Start 03/29/17 at 16:00; Stop 04/26/17 at 20:59 Bisacodyl (Dulcolax Tab) 5 mg DAILYPRN PRN PO CONSTIPATION; Start 03/27/17 at 15:15; Stop 04/26/17 at 15:14 Clopidogrel Bisulfate (PLAVix) 75 mg DAILY PO Last administered on 04/07/17 08:50; Start 03/28/17 at 09:00; Stop 04/27/17 at 08:59 Dextrose (Dextrose 50%) 25 ml ASDIRECTED PRN IV SEE LABEL COMMENTS; Start 03/27 at 15:15; Stop 04/26/17 at 15:14 Duloxetine HCl (Cymbalta) 60 mg DAILY PO Last administered on 04/07/17 08:50 ; Start 03/28/17 at 09:00; Stop 04/27/17 at 08:59 Escitalopram Oxalate (Lexapro) 20 mg DAILY PO Last administered on 04/07/17 08:50; Start 03/28/17 at 09:00; Stop 04/27/17 at 08:59 Glucagon (Glucagon) 1 mg ASDIRECTED PRN SC SEE LABEL COMMENTS; Start 03/27/17 at 15:15; Stop 04/26/17 at 15:14 Glucose (Glucose) 16 GM ASDIRECTED PRN PO SEE LABEL COMMENTS; Start 03/27/17 at 15:15; Stop 04/26/17 at 15:14 Insulin Human Lispro (HumaLOG INSULIN) See Protocol Table AC SC Last administered on 04/07/17 12:28; Start 03/27/17 at 17:30; Stop 04/26/17 at 17: 29 Insulin Human Lispro (HumaLOG INSULIN) See Protocol Table QHS SC ; Start at 21:00; Stop 04/26/17 at 20:59 Lisinopril (Prinivil) 20 mg BID PO Last administered on 03/29/17 08:17; Start 03/27/17 at 21:00; Stop 03/29/17 at 12:16; Status DC Lisinopril (Prinivil) 20 mg DAILY PO Last administered on 04/07/17 08:50; Start 03/30/17 at 09:00; Stop 04/29/17 at 08:59 Magnesium Hydroxide (Milk Of Magnesia) 30 ml DAILYPRN PRN PO CONSTIPATION; Start 03/27/17 at 15:15; Stop 04/26/17 at 15:14 Oxybutynin Chloride (Ditropan) 5 mg BID PO Last administered on 04/06/17 08: 37; Start 04/04/17 at 21:00; Stop 04/06/17 at 17:45; Status DC Oxybutynin Chloride (Ditropan) 5 mg TID PO Last administered on 04/07/17 08: 50; Start 04/06/17 at 16:00; Stop 05/04/17 at 15:59 Oxycodone/ Acetaminophen (Percocet 5mg/ 325mg Tablet) 1 tab Q4HP PRN PO SEVERE PAIN (PS 8-10); Start 03/27/17 at 15:15; Stop 04/10/17 at 15:14; Status Cancel Salmeterol Xinafoate/ Fluticasone (Advair Hfa 115/ 21) 2 puff BID INH Last administered on 04/07/17 07:37; Start 03/27/17 at 21:00; Stop 04/26/17 at 20: 59 Sodium Chloride 1,000 ml @ 100 mls/hr Q10H IV Last administered on 03/29/17 14:03; Start 03/29/17 at 12:06; Stop 03/29/17 at 22:05; Status DC FLAVIO ZAPATA MD Apr 07, 2017 13:06
[2017-04-07 14:00] VITALS: BP 125/80
[2017-04-07] MEDS ORDERED: LISI-538 PO (15:57)
[2017-04-07] MEDS ORDERED: DULO30CA PO (15:57)
[2017-04-07] MEDS ORDERED: CLOP75TA2 PO (15:57)
[2017-04-07] MEDS ORDERED: BACL1TAB8 PO (15:57)
[2017-04-07] MEDS ORDERED: OXYB5TAB10 PO (15:57)
[2017-04-07 20:00] VITALS: BP 125/56
[2017-04-07] MEDS: ATORVASTATIN 20 MG TAB PO SCH (20:10)
[2017-04-07] MEDS: amLODIPine 5 MG TAB PO SCH (20:11)
[2017-04-08 06:00] VITALS: BP 135/64
[2017-04-08] MEDS: DULoxetine 30 MG CAP (CYMBALTA) PO SCH (08:34)
[2017-04-08] MEDS: CLOPIDOGREL 75 MG TAB PO SCH (08:34)
[2017-04-08] MEDS: LISINOPRIL 20 MG TAB PO SCH (08:34)
[2017-04-08] MEDS: HumaLOG INSULIN (NovoLOG) PER UNIT SC SCH ×4 (08:34→21:00)
[2017-04-08] MEDS: oxyBUTYnin 5 MG TAB PO SCH ×3 (08:34→20:43)
[2017-04-08] MEDS: BACLOFEN 10 MG TAB PO SCH ×3 (08:34→20:43)
[2017-04-08] MEDS: ESCITALOPRAM OXALATE 10 MG TAB (LEXAPRO) PO SCH (08:34)
[2017-04-08] MEDS: ASPIRIN ENTERIC 325 MG TAB PO SCH (08:34)
[2017-04-08] MEDS: ADVAIR HFA 115/21MCG INHALER INH SCH ×2 (09:02→20:25)
[2017-04-08 14:00] VITALS: BP 130/60
[2017-04-08 20:25] VITALS: BP 116/59
[2017-04-08] MEDS: ATORVASTATIN 20 MG TAB PO SCH (20:43)
[2017-04-08] MEDS: amLODIPine 5 MG TAB PO SCH (20:43)
[2017-04-09 06:00] VITALS: BP 147/67
[2017-04-09] MEDS: HumaLOG INSULIN (NovoLOG) PER UNIT SC SCH ×4 (07:30→20:17)
[2017-04-09] MEDS: ADVAIR HFA 115/21MCG INHALER INH SCH ×2 (08:08→20:14)
[2017-04-09] MEDS: ESCITALOPRAM OXALATE 10 MG TAB (LEXAPRO) PO SCH (08:18)
[2017-04-09] MEDS: oxyBUTYnin 5 MG TAB PO SCH ×3 (08:18→20:15)
[2017-04-09] MEDS: BACLOFEN 10 MG TAB PO SCH ×3 (08:18→20:15)
[2017-04-09] MEDS: ASPIRIN ENTERIC 325 MG TAB PO SCH (08:18)
[2017-04-09] MEDS: LISINOPRIL 20 MG TAB PO SCH (08:18)
[2017-04-09] MEDS: CLOPIDOGREL 75 MG TAB PO SCH (08:18)
[2017-04-09] MEDS: DULoxetine 30 MG CAP (CYMBALTA) PO SCH (08:18)
[2017-04-09 14:00] VITALS: BP 127/59
[2017-04-09 19:51] VITALS: BP 131/58
[2017-04-09] MEDS: ATORVASTATIN 20 MG TAB PO SCH (20:15)
[2017-04-09] MEDS: amLODIPine 5 MG TAB PO SCH (20:17)
[2017-04-10 06:04] VITALS: BP 144/65
[2017-04-10 06:58] LABS: MEAN CORPUSCULAR HGB CONC 32.4 g/dl (32.0-36.5); MEAN CORPUSCULAR VOLUME 92.4 fl (80.0-96.0); RED CELL DISTRIBUTION WIDTH 13.1 % (11.5-14.5); WHITE BLOOD COUNT 8.7 10^3/uL (4.0-10.0)
[2017-04-10 07:25] LABS: ALBUMIN 3.5 GM/DL (3.2-5.2); ALBUMIN/GLOBULIN RATIO 0.97 (1.00-1.93); ALKALINE PHOSPHATASE 66 U/L (45-117); ALT/SGPT 64 U/L (12-78); ANION GAP 4 MEQ/L (8-16); AST/SGOT 28 U/L (15-37); BILIRUBIN,TOTAL 0.4 MG/DL (0.2-1.0); BLOOD UREA NITROGEN 19 MG/DL (7-18); CALCIUM LEVEL 8.9 MG/DL (8.8-10.2); CARBON DIOXIDE LEVEL 30 MEQ/L (21-32); CHLORIDE LEVEL 103 MEQ/L (98-107); CREATININE FOR GFR 0.99 MG/DL (0.70-1.30); GLOMERULAR FILTRATION RATE > 60.0 (>49); GLUCOSE, FASTING 103 MG/DL (80-110); POTASSIUM SERUM 4.1 MEQ/L (3.5-5.1); SODIUM LEVEL 137 MEQ/L (136-145); TOTAL PROTEIN 7.1 GM/DL (6.4-8.2)
[2017-04-10] MEDS: ADVAIR HFA 115/21MCG INHALER INH SCH (08:03)
[2017-04-10] MEDS: DULoxetine 30 MG CAP (CYMBALTA) PO SCH (08:30)
[2017-04-10] MEDS: oxyBUTYnin 5 MG TAB PO SCH (08:30)
[2017-04-10] MEDS: HumaLOG INSULIN (NovoLOG) PER UNIT SC SCH (08:30)
[2017-04-10 08:31] VITALS: BP 144/65
[2017-04-10] MEDS: ASPIRIN ENTERIC 325 MG TAB PO SCH (08:31)
[2017-04-10] MEDS: BACLOFEN 10 MG TAB PO SCH (08:31)
[2017-04-10] MEDS: LISINOPRIL 20 MG TAB PO SCH (08:31)
[2017-04-10] MEDS: ESCITALOPRAM OXALATE 10 MG TAB (LEXAPRO) PO SCH (08:31)
[2017-04-10] MEDS: CLOPIDOGREL 75 MG TAB PO SCH (08:31)
--- NOTE | 2017-04-10 17:44 | PMRDS ---
DATE OF ADMISSION: 03/27/2017 DATE OF DISCHARGE: 04/10/2017 DISCHARGE DIAGNOSIS: Rehabilitation of the left basal ganglia and superior temporal lobe CVAs with right hemisensory deficits, ataxia, and balance deficits impacting activities of daily living and mobility and overall safety. HISTORY: Patient is a 61-year-old white male who started having trouble controlling his right side on 03/23/2017 and presented to the [facility] for evaluation. Showed the discoordination of the right upper and to a lesser degree lower extremities that was affecting walking. Also causing slurring of speech and some sensory deficits in the right body, again greater in the right upper than lower extremity and an elevated blood pressure. On repeated CTs it was found the patient thromboembolic left basal ganglia and left superior temporal lobe CVAs as well as extensive internal carotid stenosis, 90% on the right and 80% in some segments on the left. Patient was initially seen and stabilized including his blood pressure evaluated by Dr. Martinez who felt that the carotid arteries will need treatment but not immediately. Patient was doing well in physical and occupational therapies and was felt to be able to benefit from acute intensive rehabilitation and was transferred to the acute rehabilitation unit on 03/27/2017. PAST MEDICAL HISTORY: 1. Includes colorectal cancer in two sites with two anastomoses and colostomy and one time ileostomy that has been taken down along with radiation and chemotherapy treatments. 2. Atherosclerotic cardiovascular disease with hypertension, hyperlipidemia, 42-pack year smoking history with 5 years with no smoking. 3. Diverticulitis. 4. Chronic obstructive pulmonary disease (COPD) with reactive airway disease component. 5. Type 2 diabetes mellitus. 6 PAST SURGICAL HISTORY: Includes the abdominal surgeries noted above. ALLERGIES: Quinolones. PROCEDURES PERFORMED ON THIS UNIT INCLUDE: Chest x-ray on 03/29/2017 which showed no interval change and blood cultures times two that were negative and urine culture; an abnormal urinalysis (UA) on admission that showed staphylococcus epidermidis that sensitive to levofloxacin and patient was sensitive to erythromycin and patient was treated with a Z-Pack for 5 days. DIAGNOSTIC AND LABORATORY TESTS: Patient with very mild anemia during the course of his admission. Today hemoglobin and hematocrit is 11.0 and 33.9 which is slightly reduced from admission and chemistry show BUN 19 today, otherwise normal electrolytes, creatinine normal at 0.99 with calcium magnesium on last evaluation as normal. Normal liver function test today and albumin normal at 3.5. Patient with elevated blood glucoses throughout the course of admission with one low blood sugar before lunch time of 73 and on the and , on the it was 78, otherwise fairly good blood sugar control. HOSPITAL COURSE: Patient admitted on 03/27/2017 for a course of neurorehabilitation with physical and occupational therapy evaluations and then training performed over the course of admission patient initially with moderate assist transfer, moderate assist toileting and assisted lower dressing with standby assistance and upper body dressing and diminished balance in standing to fair and dynamic sitting to fair plus. Improving to modified independent in transfers, bathing with standby assistance, dressing upper body modified independent, lower body standby assistance, grooming modified independent, toileting minimum assistance and sitting and sitting dynamic balance is of good minus to with initial gaiting 7 feet with a gait belt and not doing stairs, ambulate 150 feet with modified independence using a front wheel walker and able to do 12 steps with or without railing. Patient ataxia in the right upper extremity has shown notable improvement however it does remain limbing fine motor movements much less with gross motor movements at this time. The patient has counseled not to drive and that he needs to re-qualify for a drivers license before returning to that and that he will need to be patient with plans to return to work. 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 DISCHARGE MEDICATIONS: - lisinopril 20 mg daily - oxybutynin 5 mg three times a day for urinary retention - albuterol sulfate HFA inhaler 2 puffs inhaled four times a day as needed shortness of breath or wheezing - aspirin 325 mg enteric coated daily for clot prevention - atorvastatin 80 mg daily - vitamin D 1000 international units daily - Lexapro 20 mg daily for mood - Prevident 5000 1.1-5% 1 dose Monday, twice a day - Advair diskus 1 puff twice a day - Januvia 100 mg by mouth daily - baclofen 10 mg twice a day as needed for spasms - Plavix 75 mg daily for circulation and clot prevention - Cymbalta 60 mg daily DISCHARGE DIAGNOSIS: Type 2 diabetes mellitus Atherosclerotic cardiovascular disease including hypertension, severe carotid stenosis bilaterally and urinary retention. COMPLICATIONS: None. DISCHARGE PLAN INSTRUCTION: Patient to followup with his primary care. Dr. Danyelle Emerson within 1-[address] Martinez within a month at a pre-scheduled appointment to assess for appropriate management of his carotid stenosis bilaterally. Patient will also be seen in outpatient physical and occupational therapy to continue working on the ataxia, balance, ADL's and mobility as well as his overall endurance, the kerns thing being the ataxia effecting the fine motor function of his right upper extremity. TIME SPENT ON DISCHARGE TO HOME: Greater than 3 minutes.
[2017-05-01] MEDS ORDERED: POTA99TA PO (13:42)
[2017-05-01] MEDS ORDERED: MAGN250T9 PO (13:42)
== END 2017-04-10 12:05 | disposition home or self-care (01) | DRG 58 ==
LOC: M PM&R 14:35
PROVIDERS: ADMIT Physical Medicine & Rehabilitation; ATTEND Physical Medicine & Rehabilitation
DX: I69.351 Hemiplegia and hemiparesis following cerebral infarction affecting right dominant side (principal); I10 Essential (primary) hypertension; E87.1 Hypo-osmolality and hyponatremia; N39.0 Urinary tract infection, site not specified; E11.9 Type 2 diabetes mellitus without complications; B95.8 Unspecified staphylococcus as the cause of diseases classified elsewhere; I25.10 Atherosclerotic heart disease of native coronary artery without angina pectoris; I69.322 Dysarthria following cerebral infarction; E78.5 Hyperlipidemia, unspecified; J44.9 Chronic obstructive pulmonary disease, unspecified; F10.21 Alcohol dependence, in remission; D72.829 Elevated white blood cell count, unspecified; R26.81 Unsteadiness on feet; K57.90 Diverticulosis of intestine, part unspecified, without perforation or abscess without bleeding; I65.23 Occlusion and stenosis of bilateral carotid arteries; E66.3 Overweight; F32.9 Major depressive disorder, single episode, unspecified; I44.0 Atrioventricular block, first degree; M79.601 Pain in right arm; Z85.038 Personal history of other malignant neoplasm of large intestine; Z93.3 Colostomy status; Z92.21 Personal history of antineoplastic chemotherapy; Z79.02 Long term (current) use of antithrombotics/antiplatelets; Z88.1 Allergy status to other antibiotic agents; Z92.3 Personal history of irradiation; Z85.048 Personal history of other malignant neoplasm of rectum, rectosigmoid junction, and anus; Z93.2 Ileostomy status; Z68.31 Body mass index [BMI] 31.0-31.9, adult; Z87.891 Personal history of nicotine dependence

== ENCOUNTER → 2017-06-13 | Outpatient (CLI) | payer BC ==
[~2017-06-13] MED LIST changes: +ASPI325T24 PO; +ATOR1TAB21 PO; +BACL1TAB8 PO; +CLOP75TA2 PO; +DULO30CA PO; +LISI-538 PO; +MAGN250T9 PO; +OXYB5TAB10 PO
[2017-06-13 14:02] LABS: ALBUMIN/GLOBULIN RATIO 1.14 (1.00-1.93); ALKALINE PHOSPHATASE 65 U/L (45-117); ALT/SGPT 29 U/L (12-78); ANION GAP 11 MEQ/L (8-16); AST/SGOT 14 U/L (7-37); BILIRUBIN,TOTAL 0.3 MG/DL (0.2-1.0); BLOOD UREA NITROGEN 26 MG/DL (7-18); CALCIUM LEVEL 8.9 MG/DL (8.8-10.2); CARBON DIOXIDE LEVEL 26 MEQ/L (21-32); CHLORIDE LEVEL 99 MEQ/L (98-107); CREATININE FOR GFR 1.12 MG/DL (0.70-1.30); GLOMERULAR FILTRATION RATE > 60.0 (>49); GLUCOSE, FASTING 93 MG/DL (80-110); POTASSIUM SERUM 4.8 MEQ/L (3.5-5.1); SODIUM LEVEL 136 MEQ/L (136-145); TOTAL PROTEIN 7.5 GM/DL (6.4-8.2)
== END ==
LOC: M SMT 09:15
PROVIDERS: ATTEND Physician Assistant Medical
DX: E11.9 Type 2 diabetes mellitus without complications (principal)

== ENCOUNTER 2017-06-30 13:44 | Inpatient (IN) | payer BC ==
[2017-06-30] MEDS: BUPIVACAINE HCL 0.5% 30 ML VIAL As Ordered (13:20)
[2017-06-30] MEDS: LIDOCAINE 1% SDV INJ 30 ML VIAL As Ordered (13:20)
[2017-06-30] MEDS ORDERED: GLYCOPYRROLATE INJ 0.2 MG/ML 2 ML VIAL As Ordered (13:52)
[2017-06-30] MEDS ORDERED: ONDANSETRON 4MG/2ML VIAL (J2405) As Ordered (13:52)
[2017-06-30] MEDS ORDERED: PROPOFOL 200 MG/20 ML VIAL As Ordered (13:52)
[2017-06-30] MEDS ORDERED: LIDOCAINE 2% INJ 100 MG/5 ML SDV (FOR ANES.) As Ordered (13:52)
[2017-06-30] MEDS ORDERED: dexameTHASONE 4 MG/ML 1ML VIAL (J1100) As Ordered (13:52)
[2017-06-30] MEDS ORDERED: HEPARIN SOD (PORCINE) 5000 UNITS/ML VIAL As Ordered (13:52)
[2017-06-30] MEDS ORDERED: NEOSTIGMINE 10 MG/10 ML VIAL (J2710) As Ordered (13:52)
[2017-06-30] MEDS ORDERED: fentaNYL 100 MCG/2 ML INJECTION (J3010) As Ordered ×2 (13:52→16:12)
[2017-06-30] MEDS ORDERED: PHENYLephrine HCL 500 MCG/5 ML (100MCG/ML) SYRINGE (J2370) As Ordered ×2 (13:52→16:52)
[2017-06-30] MEDS ORDERED: ROCURONIUM BROMIDE 50 MG/5 ML VIAL As Ordered (13:52)
[2017-06-30] MEDS ORDERED: MIDAZOLAM INJ 2 MG/2 ML VIAL (J2250) As Ordered (13:53)
[2017-06-30] MEDS: LR 1,000 ML IV ×2 (14:20→18:20)
[2017-06-30] MEDS ORDERED: ceFAZolin 2 GM/D5W 50 ML IV BAG (J0690 PER 500MG) As Ordered (14:37)
[2017-06-30 15:03] LABS: BEDSIDE GLUCOSE 104 MG/DL (80-115)
[2017-06-30] MEDS: HEPARIN SOD (PORCINE) 5000 UNITS/ML VIAL As Ordered (16:22)
[2017-06-30] MEDS: THROMBIN SOLN 20,000 UNITS KIT As Ordered (16:23)
[2017-06-30] MEDS ORDERED: PHENYLEPHRINE INJ 10MG/ML VIAL (J2370) As Ordered (16:52)
[2017-06-30] MEDS ORDERED: LABETALOL HCL 100 MG/20 ML VIAL As Ordered (17:53)
[2017-06-30] MEDS ORDERED: MOM 30ML SUSPENSION UDC PO (18:00)
[2017-06-30] MEDS ORDERED: ALBUTEROL 90 MCG/ACT 8GM HFA INHALER INH (18:00)
[2017-06-30] MEDS ORDERED: ONDANSETRON 4MG/2ML VIAL (J2405) IV (18:00)
[2017-06-30] MEDS ORDERED: BACLOFEN 10 MG TAB PO (18:00)
[2017-06-30] MEDS ORDERED: BISACODYL 10 MG SUPP PR (18:00)
[2017-06-30 18:17] LABS: BEDSIDE GLUCOSE 125 MG/DL (80-115)
[2017-06-30] MEDS: ONDANSETRON 4MG/2ML VIAL (J2405) IV (18:22)
[2017-06-30] MEDS: fentaNYL 100 MCG/2 ML INJECTION (J3010) IV (18:22)
[2017-06-30] MEDS ORDERED: MORPHINE 10 MG/ML 1ML VIAL IV (18:30)
[2017-06-30] MEDS: DOCUSATE SODIUM 100 MG CAP PO (21:32)
[2017-06-30] MEDS: LISINOPRIL 5 MG TAB PO (21:33)
[2017-06-30] MEDS: SENOKOT S TAB PO (21:33)
[2017-06-30] MEDS: ATORVASTATIN 20 MG TAB PO (21:33)
[2017-06-30] MEDS: NORCO, ANEXSIA 5/325MG TABLET (HYDROcodone/ACETAMINOPHEN) PO (23:15)
[2017-07-01] MEDS: ADVAIR HFA 115/21MCG INHALER INH (07:38)
[2017-07-01] MEDS: SENOKOT S TAB PO (09:00)
[2017-07-01] MEDS: SITagliptin 50 MG TAB (JANUVIA) PO (09:00)
[2017-07-01] MEDS: DOCUSATE SODIUM 100 MG CAP PO (09:00)
[2017-07-01] MEDS ORDERED: LISINOPRIL 5 MG TAB PO (09:00)
[2017-07-01] MEDS: VITAMIN D 1,000 INTERNATIONAL UNITS TABLET PO (09:38)
[2017-07-01] MEDS: ESCITALOPRAM OXALATE 10 MG TAB (LEXAPRO) PO (09:39)
[2017-07-01] MEDS: ATENOLOL 25 MG TAB PO (09:39)
[2017-07-01] MEDS: DULoxetine 30 MG CAP (CYMBALTA) PO (09:39)
[2017-07-01] MEDS: ASPIRIN ENTERIC 325 MG TAB PO (09:39)
[2017-07-01] MEDS: CLOPIDOGREL 75 MG TAB PO (09:39)
[2017-07-01] MEDS: NORCO, ANEXSIA 5/325MG TABLET (HYDROcodone/ACETAMINOPHEN) PO ×2 (09:44→15:06)
== END 2017-07-01 16:59 | disposition home or self-care (01) | DRG 24 ==
LOC: M OR 13:44 → M ICU 18:39
PROVIDERS: Surgery Vascular Surgery
PROC: 03CL0ZZ Extirpation of Matter from Left Internal Carotid Artery, Open Approach (ICD-10-PCS; principal; 2017-06-30 15:28)
PROC: 03CJ0Z6 (ICD-10-PCS; 2017-06-30 15:28)
PROC: 03UJ0KZ Supplement Left Common Carotid Artery with Nonautologous Tissue Substitute, Open Approach (ICD-10-PCS; 2017-06-30 15:28)
PROC: 03CY0ZZ Extirpation of Matter from Upper Artery, Open Approach (ICD-10-PCS; 2017-06-30 15:28)
PROC: 03U Upper Arteries, Supplement (ICD-10-PCS; 2017-06-30 15:28)
DX: I65.23 Occlusion and stenosis of bilateral carotid arteries (principal); I10 Essential (primary) hypertension; I69.322 Dysarthria following cerebral infarction; E78.5 Hyperlipidemia, unspecified; F17.210 Nicotine dependence, cigarettes, uncomplicated; J44.9 Chronic obstructive pulmonary disease, unspecified; Z79.899 Other long term (current) drug therapy; Z88.1 Allergy status to other antibiotic agents; Z88.8 Allergy status to other drugs, medicaments and biological substances; Z85.038 Personal history of other malignant neoplasm of large intestine; Z98.49 Cataract extraction status, unspecified eye; Z92.21 Personal history of antineoplastic chemotherapy; Z92.3 Personal history of irradiation

== ENCOUNTER 2017-07-03 13:08 | Inpatient (IN) | payer BC ==
[2017-07-03 14:05] LABS: BASO # 0.1 10^3/uL (0.0-0.2); BASO % 0.4 % (0.0-1.0); EOS # 0.2 10^3/uL (0.0-0.50); EOS % 1.8 % (0.0-3.0); HEMATOCRIT 21.2 % (42.0-52.0); IMMATURE GRANULOCYTE # 0.2 10^3/uL (0-0); IMMATURE GRANULOCYTE % 1.7 % (0-0); LYMPH # 1.3 10^3/uL (1.5-4.5); LYMPH % 12.1 % (24.0-44.0); MEAN CORPUSCULAR HEMOGLOBIN 21.4 pg (27.0-33.0); MEAN CORPUSCULAR HGB CONC 28.3 g/dl (32.0-36.5); MEAN CORPUSCULAR VOLUME 75.7 fl (80.0-96.0); MONO # 1.5 10^3/uL (0.0-0.8); MONO % 13.5 % (0.0-5.0); NEUTROPHILS # 7.8 10^3/uL (1.8-7.7); NEUTROPHILS % 70.5 % (36.0-66.0); PLATELET COUNT, AUTOMATED 342 10^3/uL (150-450); WHITE BLOOD COUNT 11.1 10^3/uL (4.0-10.0)
[2017-07-03 14:16] LABS: INR 1.07; PROTHROMBIN TIME 14.1 SECONDS (12.4-14.5)
[2017-07-03 14:17] LABS: PARTIAL THROMBOPLASTIN TIME 31.9 SECONDS (26.8-37.9)
[2017-07-03 14:29] LABS: LACTIC ACID SEPSIS PROTOCOL 1.3 MMOL/L (0.4-2.0)
[2017-07-03 14:31] LABS: ALBUMIN 3.7 GM/DL (3.2-5.2); ALKALINE PHOSPHATASE 64 U/L (45-117); ALT/SGPT 23 U/L (12-78); ANION GAP 5 MEQ/L (8-16); AST/SGOT 13 U/L (7-37); BILIRUBIN,DIRECT < 0.1 MG/DL (0.0-0.2); BILIRUBIN,TOTAL 0.3 MG/DL (0.2-1.0); BLOOD UREA NITROGEN 26 MG/DL (7-18); CALCIUM LEVEL 8.3 MG/DL (8.8-10.2); CARBON DIOXIDE LEVEL 30 MEQ/L (21-32); CHLORIDE LEVEL 100 MEQ/L (98-107); CPK CREATINE PHOSPHOKINASE 95 U/L (39-308); CREATININE FOR GFR 1.04 MG/DL (0.70-1.30); GLOMERULAR FILTRATION RATE > 60.0 (>49); GLUCOSE, FASTING 86 MG/DL (80-110); LIPASE 198 U/L (73-393); MB/CK RELATIVE INDEX 1.05 (< OR =4); POTASSIUM SERUM 4.3 MEQ/L (3.5-5.1); SODIUM LEVEL 135 MEQ/L (136-145); TOTAL PROTEIN 7.4 GM/DL (6.4-8.2); TROPONIN I < 0.02 NG/ML (< 0.10)
[2017-07-03] MEDS ORDERED: ONDANSETRON 4MG/2ML VIAL (J2405) IV (16:30)
[2017-07-03] MEDS ORDERED: ACETAMINOPHEN TAB 650MG DOSE (2X325MG) PO (16:30)
[2017-07-03] MEDS ORDERED: GLUCOSE 4 GM CHEW TABLET PO (16:45)
[2017-07-03] MEDS ORDERED: GLUCAGON FOR INJ 1 MG VIAL (J1610) SC (16:45)
[2017-07-03] MEDS ORDERED: DEXTROSE 50% 50 ML SYRINGE IV (16:45)
[2017-07-03 17:06] LABS: RETIC HEMOGLOBIN EQUIVALENT 16.6 pg (24-36); RETICULOCYTE # 45.8 10^9/L (17-77); RETICULOCYTE % 1.6 % (0.5-1.5)
[2017-07-03 17:14] LABS: POS COUNT POS FLAG; POSITIVE MORPH POS FLAG
[2017-07-03 17:16] LABS: FERRITIN 6 NG/ML (26-388); IRON (FE) 16 UG/DL (65-175); PERCENT SATURATION 3.5 % (19.7-50.0); TOTAL IRON BINDING CAPACITY 456 UG/DL (250-450)
[2017-07-03] MEDS: HumaLOG INSULIN (NovoLOG) PER UNIT SC ×2 (17:30→21:41)
[2017-07-03] MEDS: PANTOPRAZOLE SODIUM 40 MG in D5W 50 ML IV (20:10)
[2017-07-03 20:46] LABS: BEDSIDE GLUCOSE 111 MG/DL (80-115)
[2017-07-03] MEDS: SUCRALFATE SUSP 1GM/10ML UD PO ×2 (21:41→21:44)
[2017-07-03] MEDS: ATORVASTATIN 20 MG TAB PO (21:44)
[2017-07-03] MEDS: DOCUSATE SODIUM 100 MG CAP PO (21:45)
[2017-07-03] MEDS ORDERED: SLF 3 ML SYR IV (22:00)
[2017-07-03] MEDS: ADVAIR HFA 115/21MCG INHALER INH (22:19)
[2017-07-03 23:49] LABS: HEMATOCRIT 25.1 % (42.0-52.0); HEMOGLOBIN 7.5 g/dl (14.0-18.0)
[2017-07-04 00:16] LABS: CPK CREATINE PHOSPHOKINASE 91 U/L (39-308); TROPONIN I < 0.02 NG/ML (< 0.10)
[2017-07-04 00:17] LABS: MB/CK RELATIVE INDEX 1.09 (< OR =4)
[2017-07-04] MEDS: SLF 3 ML SYR IV ×4 (01:28→20:15)
[2017-07-04] MEDS: PANTOPRAZOLE SODIUM 40 MG in D5W 50 ML IV ×2 (01:28→06:06)
[2017-07-04 05:46] LABS: HEMATOCRIT 25.1 % (42.0-52.0); HEMOGLOBIN 7.5 g/dl (14.0-18.0); MEAN CORPUSCULAR HEMOGLOBIN 22.8 pg (27.0-33.0); MEAN CORPUSCULAR HGB CONC 29.9 g/dl (32.0-36.5); MEAN CORPUSCULAR VOLUME 76.3 fl (80.0-96.0); PLATELET COUNT, AUTOMATED 287 10^3/uL (150-450); RED BLOOD COUNT 3.29 10^6/uL (4.30-6.10); RED CELL DISTRIBUTION WIDTH 17.6 % (11.5-14.5); WHITE BLOOD COUNT 9.4 10^3/uL (4.0-10.0)
[2017-07-04 05:57] LABS: ANION GAP 6 MEQ/L (8-16); BLOOD UREA NITROGEN 17 MG/DL (7-18); CALCIUM LEVEL 8.2 MG/DL (8.8-10.2); CARBON DIOXIDE LEVEL 28 MEQ/L (21-32); CHLORIDE LEVEL 104 MEQ/L (98-107); GLOMERULAR FILTRATION RATE > 60.0 (>49); GLUCOSE, FASTING 95 MG/DL (80-110); MAGNESIUM LEVEL 2.3 MG/DL (1.8-2.4); SODIUM LEVEL 138 MEQ/L (136-145)
[2017-07-04] MEDS: SUCRALFATE SUSP 1GM/10ML UD PO ×4 (06:06→20:14)
[2017-07-04] MEDS: HumaLOG INSULIN (NovoLOG) PER UNIT SC ×4 (07:30→20:22)
[2017-07-04] MEDS: ADVAIR HFA 115/21MCG INHALER INH ×2 (07:40→21:17)
[2017-07-04] MEDS ORDERED: SITagliptin 50 MG TAB (JANUVIA) PO (09:00)
[2017-07-04] MEDS: DOCUSATE SODIUM 100 MG CAP PO ×2 (09:48→20:23)
[2017-07-04] MEDS: CLOPIDOGREL 75 MG TAB PO (09:48)
[2017-07-04] MEDS: ESCITALOPRAM OXALATE 10 MG TAB (LEXAPRO) PO (09:49)
[2017-07-04] MEDS: POTASSIUM CHLORIDE 10 MEQ SR TABLET PO (09:49)
[2017-07-04] MEDS: DULoxetine 30 MG CAP (CYMBALTA) PO (09:49)
[2017-07-04] MEDS: MAGNESIUM OXIDE 400 MG TAB (MAG-OX) PO (09:50)
[2017-07-04] MEDS: VITAMIN D 1,000 INTERNATIONAL UNITS TABLET PO (09:50)
[2017-07-04] MEDS: LISINOPRIL 5 MG TAB PO (09:50)
[2017-07-04] MEDS: ATENOLOL 25 MG TAB PO (09:51)
[2017-07-04 11:01] LABS: HEMATOCRIT 25.8 % (42.0-52.0); HEMOGLOBIN 7.8 g/dl (14.0-18.0)
[2017-07-04 11:29] LABS: BEDSIDE GLUCOSE 108 MG/DL (80-115)
[2017-07-04] MEDS: PANTOPRAZOLE 40MG INJ (PROTONIX) (C9113) IV ×2 (11:31→20:15)
[2017-07-04 12:18] LABS: IMMEDIATE SPIN CROSSMATCH 1 4
[2017-07-04 16:28] LABS: HEMATOCRIT 31.2 % (42.0-52.0); HEMOGLOBIN 9.7 g/dl (14.0-18.0)
[2017-07-04 17:13] LABS: BEDSIDE GLUCOSE 104 MG/DL (80-115)
[2017-07-04] MEDS: ATORVASTATIN 20 MG TAB PO (20:14)
[2017-07-04] MEDS: BACLOFEN 10 MG TAB PO (20:28)
[2017-07-04 20:32] LABS: BEDSIDE GLUCOSE 102 MG/DL (80-115)
[2017-07-05] MEDS: SLF 3 ML SYR IV (04:46)
[2017-07-05] MEDS: SUCRALFATE SUSP 1GM/10ML UD PO ×2 (06:03→11:24)
[2017-07-05 06:24] LABS: HEMATOCRIT 33.2 % (42.0-52.0); HEMOGLOBIN 10.2 g/dl (14.0-18.0); MEAN CORPUSCULAR HEMOGLOBIN 23.9 pg (27.0-33.0); MEAN CORPUSCULAR HGB CONC 30.7 g/dl (32.0-36.5); MEAN CORPUSCULAR VOLUME 77.9 fl (80.0-96.0); PLATELET COUNT, AUTOMATED 305 10^3/uL (150-450); RED BLOOD COUNT 4.26 10^6/uL (4.30-6.10); WHITE BLOOD COUNT 8.6 10^3/uL (4.0-10.0)
[2017-07-05 06:50] LABS: ANION GAP 7 MEQ/L (8-16); BLOOD UREA NITROGEN 15 MG/DL (7-18); CALCIUM LEVEL 9.2 MG/DL (8.8-10.2); CARBON DIOXIDE LEVEL 29 MEQ/L (21-32); CHLORIDE LEVEL 102 MEQ/L (98-107); CREATININE FOR GFR 1.14 MG/DL (0.70-1.30); GLOMERULAR FILTRATION RATE > 60.0 (>49); GLUCOSE, FASTING 100 MG/DL (80-110); POTASSIUM SERUM 3.9 MEQ/L (3.5-5.1); SODIUM LEVEL 138 MEQ/L (136-145)
[2017-07-05] MEDS: ADVAIR HFA 115/21MCG INHALER INH (07:27)
[2017-07-05] MEDS: HumaLOG INSULIN (NovoLOG) PER UNIT SC ×2 (07:30→11:52)
[2017-07-05] MEDS: DOCUSATE SODIUM 100 MG CAP PO ×2 (09:00→09:23)
[2017-07-05] MEDS: DULoxetine 30 MG CAP (CYMBALTA) PO (09:22)
[2017-07-05] MEDS: ESCITALOPRAM OXALATE 10 MG TAB (LEXAPRO) PO (09:22)
[2017-07-05] MEDS: CLOPIDOGREL 75 MG TAB PO (09:22)
[2017-07-05] MEDS: ATENOLOL 25 MG TAB PO (09:23)
[2017-07-05] MEDS: VITAMIN D 1,000 INTERNATIONAL UNITS TABLET PO (09:23)
[2017-07-05] MEDS: POTASSIUM CHLORIDE 10 MEQ SR TABLET PO (09:23)
[2017-07-05] MEDS: PANTOPRAZOLE 40MG INJ (PROTONIX) (C9113) IV (09:24)
[2017-07-05] MEDS: MAGNESIUM OXIDE 400 MG TAB (MAG-OX) PO (09:24)
[2017-07-05] MEDS: LISINOPRIL 5 MG TAB PO (09:24)
[2017-07-05 11:10] LABS: KETONE, URINE AUTO RFX NEGATIVE (NEGATIVE); LEUKOCYTE ESTERASE UR AUTO RFX NEGATIVE (NEGATIVE); NITRITE, URINE AUTO RFX NEGATIVE (NEGATIVE); RBC, URINE AUTO RFX 0 /HPF (0-3); SPECIFIC GRAVITY UR AUTO RFX 1.009 (1.002-1.035); SQUAM EPITHELIAL CELL UR AURFX 0 /HPF (0-6); WBC, URINE AUTO RFX 0 /HPF (0-3)
[2017-07-05 11:53] LABS: BEDSIDE GLUCOSE 147 MG/DL (80-115)
[2017-07-05] MEDS: BACLOFEN 10 MG TAB PO (11:56)
[2017-07-05] MEDS: amLODIPine 5 MG TAB PO (14:02)
== END 2017-07-05 16:34 | disposition home or self-care (01) | DRG 253 ==
LOC: M ED 13:08 → M ED INP 17:03 → M PCU 20:50
PROVIDERS: Pediatrics
PROC: 30253N1 (ICD-10-PCS; principal; 2017-07-03)
DX: K92.2 Gastrointestinal hemorrhage, unspecified (principal); I10 Essential (primary) hypertension; I69.351 Hemiplegia and hemiparesis following cerebral infarction affecting right dominant side; E83.42 Hypomagnesemia; D50.0 Iron deficiency anemia secondary to blood loss (chronic); E11.9 Type 2 diabetes mellitus without complications; G47.33 Obstructive sleep apnea (adult) (pediatric); E87.6 Hypokalemia; J44.9 Chronic obstructive pulmonary disease, unspecified; F32.9 Major depressive disorder, single episode, unspecified; E66.9 Obesity, unspecified; F41.9 Anxiety disorder, unspecified; E78.5 Hyperlipidemia, unspecified; Z87.891 Personal history of nicotine dependence; Z85.038 Personal history of other malignant neoplasm of large intestine; Z90.49 Acquired absence of other specified parts of digestive tract; Z93.3 Colostomy status; Z79.82 Long term (current) use of aspirin; Z79.02 Long term (current) use of antithrombotics/antiplatelets; Z79.899 Other long term (current) drug therapy; Z92.21 Personal history of antineoplastic chemotherapy; Z92.3 Personal history of irradiation; Z79.84 Long term (current) use of oral hypoglycemic drugs; Z68.30 Body mass index [BMI] 30.0-30.9, adult; Z88.8 Allergy status to other drugs, medicaments and biological substances

== ENCOUNTER → 2017-07-03 | Outpatient (CLI) | payer BC ==
[~2017-07-03] MED LIST changes: -/HCTZ25TA PO; -ADV250INH INH; -ADVA250A IN; -ALBU17IN INH; -ALLO100T PO; -ASPI1TAB PO; -ASPI325T24 PO; -ATEN100T PO; -ATOR1TAB21 PO; -AUGM875T27 PO; -BACL1TAB8 PO; -CELE10TA PO; -CLOP75TA2 PO; -DULO30CA PO; -ESCI20TA PO; -FENO145T PO; +GASTROGRAFIN SOLUTION 30ML (Q9963) As Ordered; +ISOVUE-370 76% 100ML VIAL (Q9967) As Ordered; -JANU100T PO; -LISI-538 PO; -LISI-542 PO; -LISI10TA4 PO; -MAGN1TAB25 PO; -MAGN250T9 PO; -MULTCAP PO; -OXYB5TAB10 PO; -PERCOCET PO; -POTA99TA PO; -PRED10TA2 PO; -PREVPST MT; -SIMV40TA2 PO; -VITA100066 PO
[2017-07-03 11:40] LABS: BASO % 0.3 % (0.0-1.0); EOS # 0.2 10^3/uL (0.0-0.50); EOS % 1.7 % (0.0-3.0); HEMATOCRIT 21.4 % (42.0-52.0); IMMATURE GRANULOCYTE # 0.2 10^3/uL (0-0); IMMATURE GRANULOCYTE % 1.2 % (0-0); LYMPH # 1.5 10^3/uL (1.5-4.5); LYMPH % 11.3 % (24.0-44.0); MEAN CORPUSCULAR HEMOGLOBIN 21.3 pg (27.0-33.0); MEAN CORPUSCULAR VOLUME 75.9 fl (80.0-96.0); MONO # 1.7 10^3/uL (0.0-0.8); NEUTROPHILS # 9.4 10^3/uL (1.8-7.7); NEUTROPHILS % 72.5 % (36.0-66.0); PLATELET COUNT, AUTOMATED 367 10^3/uL (150-450); RED BLOOD COUNT 2.82 10^6/uL (4.30-6.10); RED CELL DISTRIBUTION WIDTH 18.3 % (11.5-14.5); WHITE BLOOD COUNT 12.9 10^3/uL (4.0-10.0)
[2017-07-03 12:11] LABS: ALBUMIN 3.5 GM/DL (3.2-5.2); ALBUMIN/GLOBULIN RATIO 1.06 (1.00-1.93); ALKALINE PHOSPHATASE 75 U/L (45-117); ALT/SGPT 22 U/L (12-78); ANION GAP 8 MEQ/L (8-16); AST/SGOT 12 U/L (7-37); BILIRUBIN,TOTAL 0.4 MG/DL (0.2-1.0); BLOOD UREA NITROGEN 24 MG/DL (7-18); CALCIUM LEVEL 8.7 MG/DL (8.8-10.2); CARBON DIOXIDE LEVEL 29 MEQ/L (21-32); CHLORIDE LEVEL 103 MEQ/L (98-107); CREATININE FOR GFR 1.15 MG/DL (0.70-1.30); GLOMERULAR FILTRATION RATE > 60.0 (>49); GLUCOSE, FASTING 60 MG/DL (80-110); POTASSIUM SERUM 4.5 MEQ/L (3.5-5.1); SODIUM LEVEL 140 MEQ/L (136-145); TOTAL PROTEIN 6.8 GM/DL (6.4-8.2)
[2017-07-04 07:17] LABS: CARCINOEMBRYONIC ANTIGEN < 0.5 NG/ML (<2.5)
== END ==
LOC: M RAD 11:02
DX: C18.9 Malignant neoplasm of colon, unspecified (principal)
CPT/HCPCS: Q9963

== ENCOUNTER → 2017-07-12 | Outpatient (CLI) | payer BC ==
[2017-07-12 18:19] LABS: BASO # 0.1 10^3/uL (0.0-0.2); BASO % 0.7 % (0.0-1.0); EOS # 0.2 10^3/uL (0.0-0.50); EOS % 2.3 % (0.0-3.0); HEMATOCRIT 34.2 % (42.0-52.0); HEMOGLOBIN 10.2 g/dl (14.0-18.0); IMMATURE GRANULOCYTE # 0.1 10^3/uL (0-0); IMMATURE GRANULOCYTE % 0.9 % (0-0); LYMPH # 1.5 10^3/uL (1.5-4.5); LYMPH % 16.7 % (24.0-44.0); MEAN CORPUSCULAR HEMOGLOBIN 23.8 pg (27.0-33.0); MEAN CORPUSCULAR HGB CONC 29.8 g/dl (32.0-36.5); MEAN CORPUSCULAR VOLUME 79.9 fl (80.0-96.0); MONO # 0.7 10^3/uL (0.0-0.8); NEUTROPHILS # 6.4 10^3/uL (1.8-7.7); NEUTROPHILS % 71.4 % (36.0-66.0); PLATELET COUNT, AUTOMATED 279 10^3/uL (150-450); RED BLOOD COUNT 4.28 10^6/uL (4.30-6.10); RED CELL DISTRIBUTION WIDTH 19.5 % (11.5-14.5)
[2017-07-12 18:31] LABS: FERRITIN 14 NG/ML (26-388); IRON (FE) 35 UG/DL (65-175); PERCENT SATURATION 8.5 % (19.7-50.0); TOTAL IRON BINDING CAPACITY 410 UG/DL (250-450)
== END ==
LOC: M SMT 14:22
DX: D64.9 Anemia, unspecified (principal)
CPT/HCPCS: 83550

== ENCOUNTER 2017-07-27 11:31 | Outpatient (RCR) | payer BC | END 2017-08-23 | LOC: M OT 08-01 09:59 | DX: Z51.89 Encounter for other specified aftercare (principal); M62.81 Muscle weakness (generalized) | CPT/HCPCS: 97110 ==

== ENCOUNTER → 2017-07-27 | Outpatient (CLI) | payer BC ==
[2017-07-27 15:58] LABS: HEMATOCRIT 36.1 % (42.0-52.0); HEMOGLOBIN 10.6 g/dl (14.0-18.0); MEAN CORPUSCULAR HEMOGLOBIN 24.6 pg (27.0-33.0); MEAN CORPUSCULAR HGB CONC 29.4 g/dl (32.0-36.5); MEAN CORPUSCULAR VOLUME 83.8 fl (80.0-96.0); PLATELET COUNT, AUTOMATED 338 10^3/uL (150-450); RED BLOOD COUNT 4.31 10^6/uL (4.30-6.10); RED CELL DISTRIBUTION WIDTH 23.5 % (11.5-14.5); WHITE BLOOD COUNT 10.7 10^3/uL (4.0-10.0)
== END ==
LOC: M SMT 09:49
DX: D50.9 Iron deficiency anemia, unspecified (principal); E83.42 Hypomagnesemia
CPT/HCPCS: 83735

== ENCOUNTER → 2017-08-07 | Day surgery (SDC) | payer BC ==
[~2017-08-07] MED LIST changes: -GASTROGRAFIN SOLUTION 30ML (Q9963) As Ordered; -ISOVUE-370 76% 100ML VIAL (Q9967) As Ordered; +LIDOCAINE 2% INJ 100 MG/5 ML SDV (FOR ANES.) As Ordered; +PROPOFOL 200 MG/20 ML VIAL As Ordered
[2017-08-07] MEDS: NS 1,000 ML IV (10:00)
== END | disposition home or self-care (01) ==
LOC: M OPP 09:38
DX: Z08 Encounter for follow-up examination after completed treatment for malignant neoplasm (principal); Z85.038 Personal history of other malignant neoplasm of large intestine; Z98.0 Intestinal bypass and anastomosis status; D12.3 Benign neoplasm of transverse colon; Z93.3 Colostomy status; D62 Acute posthemorrhagic anemia; I25.10 Atherosclerotic heart disease of native coronary artery without angina pectoris; I10 Essential (primary) hypertension; E78.5 Hyperlipidemia, unspecified; Z92.21 Personal history of antineoplastic chemotherapy; Z92.3 Personal history of irradiation; E11.9 Type 2 diabetes mellitus without complications; K57.32 Diverticulitis of large intestine without perforation or abscess without bleeding; R12 Heartburn; K21.9 Gastro-esophageal reflux disease without esophagitis; N43.3 Hydrocele, unspecified; M19.90 Unspecified osteoarthritis, unspecified site; F32.9 Major depressive disorder, single episode, unspecified; F41.9 Anxiety disorder, unspecified; G62.9 Polyneuropathy, unspecified; I69.351 Hemiplegia and hemiparesis following cerebral infarction affecting right dominant side; Z90.49 Acquired absence of other specified parts of digestive tract; J44.9 Chronic obstructive pulmonary disease, unspecified; J45.909 Unspecified asthma, uncomplicated; G47.30 Sleep apnea, unspecified; R06.83 Snoring; Z87.891 Personal history of nicotine dependence; Z88.8 Allergy status to other drugs, medicaments and biological substances; Z79.84 Long term (current) use of oral hypoglycemic drugs; Z79.899 Other long term (current) drug therapy; Z80.0 Family history of malignant neoplasm of digestive organs
CPT/HCPCS: 44394

== ENCOUNTER → 2017-08-17 | Outpatient (CLI) | payer BC ==
[~2017-08-17] MED LIST changes: +LIDOCAINE 1% SDV 5 ML VIAL SQ; +LR 1,000 ML IV; +MIDAZOLAM INJ 2 MG/2 ML VIAL (J2250) As Ordered; +ROCURONIUM BROMIDE 50 MG/5 ML VIAL As Ordered; +fentaNYL 250 MCG/5 ML INJECTION (J3010) As Ordered
[2017-08-17 11:18] LABS: HEMATOCRIT 37.6 % (42.0-52.0); HEMOGLOBIN 11.4 g/dl (14.0-18.0); MEAN CORPUSCULAR HEMOGLOBIN 26.3 pg (27.0-33.0); MEAN CORPUSCULAR HGB CONC 30.3 g/dl (32.0-36.5); MEAN CORPUSCULAR VOLUME 86.8 fl (80.0-96.0); PLATELET COUNT, AUTOMATED 285 10^3/uL (150-450); RED BLOOD COUNT 4.33 10^6/uL (4.30-6.10); RED CELL DISTRIBUTION WIDTH 23.3 % (11.5-14.5); WHITE BLOOD COUNT 9.5 10^3/uL (4.0-10.0)
[2017-08-17 11:32] LABS: INR 1.07; PROTHROMBIN TIME 14.1 SECONDS (12.4-14.5)
[2017-08-17 11:33] LABS: PARTIAL THROMBOPLASTIN TIME 32.8 SECONDS (26.8-37.9)
[2017-08-17 11:39] LABS: ALBUMIN 3.9 GM/DL (3.2-5.2); ALBUMIN/GLOBULIN RATIO 1.08 (1.00-1.93); ALKALINE PHOSPHATASE 66 U/L (45-117); ALT/SGPT 30 U/L (12-78); ANION GAP 6 MEQ/L (8-16); AST/SGOT 17 U/L (7-37); BILIRUBIN,DIRECT < 0.1 MG/DL (0.0-0.2); BILIRUBIN,TOTAL 0.3 MG/DL (0.2-1.0); BLOOD UREA NITROGEN 22 MG/DL (7-18); CALCIUM LEVEL 9.1 MG/DL (8.8-10.2); CARBON DIOXIDE LEVEL 33 MEQ/L (21-32); CHLORIDE LEVEL 102 MEQ/L (98-107); CREATININE FOR GFR 1.11 MG/DL (0.70-1.30); GLOMERULAR FILTRATION RATE > 60.0 (>49); GLUCOSE, FASTING 101 MG/DL (70-100); POTASSIUM SERUM 4.3 MEQ/L (3.5-5.1); SODIUM LEVEL 141 MEQ/L (136-145); TOTAL PROTEIN 7.5 GM/DL (6.4-8.2)
[2017-08-17 12:23] LABS: BEDSIDE GLUCOSE 97 MG/DL (80-115)
== END ==
LOC: M OR 10:30 → M SDC 10:30
DX: I65.23 Occlusion and stenosis of bilateral carotid arteries (principal); Z53.8 Procedure and treatment not carried out for other reasons
CPT/HCPCS: 80076

== ENCOUNTER 2017-08-25 10:43 | Inpatient (IN) | payer BC ==
[~2017-08-25 10:43] MED LIST changes: +BUPIVACAINE HCL 0.5% 30 ML VIAL As Ordered; -LIDOCAINE 1% SDV 5 ML VIAL SQ; +LIDOCAINE 1% SDV INJ 30 ML VIAL As Ordered; -LIDOCAINE 2% INJ 100 MG/5 ML SDV (FOR ANES.) As Ordered; -LR 1,000 ML IV; -MIDAZOLAM INJ 2 MG/2 ML VIAL (J2250) As Ordered; -PROPOFOL 200 MG/20 ML VIAL As Ordered; -ROCURONIUM BROMIDE 50 MG/5 ML VIAL As Ordered; -fentaNYL 250 MCG/5 ML INJECTION (J3010) As Ordered
[2017-08-25] MEDS: LIDOCAINE 1% SDV 5 ML VIAL SQ (11:15)
[2017-08-25] MEDS ORDERED: LR 1,000 ML IV (11:15)
[2017-08-25 11:24] LABS: HEMATOCRIT 38.8 % (42.0-52.0); MEAN CORPUSCULAR HEMOGLOBIN 26.4 pg (27.0-33.0); MEAN CORPUSCULAR HGB CONC 30.9 g/dl (32.0-36.5); MEAN CORPUSCULAR VOLUME 85.5 fl (80.0-96.0); PLATELET COUNT, AUTOMATED 297 10^3/uL (150-450); RED BLOOD COUNT 4.54 10^6/uL (4.30-6.10); RED CELL DISTRIBUTION WIDTH 22.6 % (11.5-14.5); WHITE BLOOD COUNT 9.6 10^3/uL (4.0-10.0)
[2017-08-25 11:39] LABS: INR 1.05; PROTHROMBIN TIME 13.8 SECONDS (12.4-14.5)
[2017-08-25 11:40] LABS: PARTIAL THROMBOPLASTIN TIME 34.2 SECONDS (26.8-37.9)
[2017-08-25 11:56] LABS: BEDSIDE GLUCOSE 90 MG/DL (80-115)
[2017-08-25 12:10] LABS: ALBUMIN/GLOBULIN RATIO 1.18 (1.00-1.93); ALKALINE PHOSPHATASE 76 U/L (45-117); ALT/SGPT 25 U/L (12-78); ANION GAP 8 MEQ/L (8-16); AST/SGOT 15 U/L (7-37); BILIRUBIN,DIRECT 0.1 MG/DL (0.0-0.2); BILIRUBIN,TOTAL 0.4 MG/DL (0.2-1.0); BLOOD UREA NITROGEN 25 MG/DL (7-18); CALCIUM LEVEL 8.9 MG/DL (8.8-10.2); CARBON DIOXIDE LEVEL 30 MEQ/L (21-32); CHLORIDE LEVEL 102 MEQ/L (98-107); CREATININE FOR GFR 1.18 MG/DL (0.70-1.30); GLOMERULAR FILTRATION RATE > 60.0 (>49); GLUCOSE, FASTING 91 MG/DL (70-100); POTASSIUM SERUM 4.3 MEQ/L (3.5-5.1); SODIUM LEVEL 140 MEQ/L (136-145); TOTAL PROTEIN 7.4 GM/DL (6.4-8.2)
[2017-08-25] MEDS ORDERED: BISACODYL 10 MG SUPP PR (12:45)
[2017-08-25] MEDS ORDERED: MOM 30ML SUSPENSION UDC PO (12:45)
[2017-08-25] MEDS ORDERED: ePHEDrine INJ 50 MG/ML VIAL As Ordered ×2 (12:54→13:18)
[2017-08-25] MEDS: HEPARIN SOD (PORCINE) 5000 UNITS/ML VIAL As Ordered (13:15)
[2017-08-25] MEDS: THROMBIN SOLN 20,000 UNITS KIT As Ordered (13:16)
[2017-08-25] MEDS ORDERED: HEPARIN SOD (PORCINE) 5000 UNITS/ML VIAL As Ordered ×2 (13:18→13:19)
[2017-08-25] MEDS ORDERED: MIDAZOLAM INJ 2 MG/2 ML VIAL (J2250) As Ordered (13:18)
[2017-08-25] MEDS ORDERED: ONDANSETRON 4MG/2ML VIAL (J2405) As Ordered (13:18)
[2017-08-25] MEDS ORDERED: fentaNYL 250 MCG/5 ML INJECTION (J3010) As Ordered (13:18)
[2017-08-25] MEDS ORDERED: LIDOCAINE 2% INJ 100 MG/5 ML SDV (FOR ANES.) As Ordered (13:18)
[2017-08-25] MEDS ORDERED: PROPOFOL 200 MG/20 ML VIAL As Ordered ×2 (13:18→13:24)
[2017-08-25] MEDS ORDERED: VASOPRESSIN INJ 20 UNITS/ML VIAL As Ordered (13:18)
[2017-08-25] MEDS ORDERED: ROCURONIUM BROMIDE 50 MG/5 ML VIAL As Ordered (13:18)
[2017-08-25] MEDS ORDERED: GLYCOPYRROLATE INJ 0.2 MG/ML 2 ML VIAL As Ordered ×2 (13:33→13:36)
[2017-08-25] MEDS ORDERED: NEOSTIGMINE 10 MG/10 ML VIAL (J2710) As Ordered (13:36)
[2017-08-25] MEDS ORDERED: dexameTHASONE 4 MG/ML 1ML VIAL (J1100) As Ordered (13:46)
[2017-08-25] MEDS ORDERED: PROTAMINE SULF INJ 50 MG/5 ML VIAL (J2720) As Ordered (14:55)
[2017-08-25] MEDS ORDERED: LABETALOL HCL 100 MG/20 ML VIAL As Ordered (15:20)
[2017-08-25] MEDS ORDERED: ONDANSETRON 4MG/2ML VIAL (J2405) IV (16:15)
[2017-08-25] MEDS ORDERED: fentaNYL 100 MCG/2 ML INJECTION (J3010) IV (16:15)
[2017-08-25] MEDS ORDERED: PERCOCET 5MG/325MG TAB PO (16:15)
[2017-08-25] MEDS: LR 1,000 ML IV (16:15)
[2017-08-25] MEDS ORDERED: METOCLOPRAMIDE INJ 10MG/2ML VIAL (J2765) IV (16:15)
[2017-08-25] MEDS: FERROUS SULFATE 325MG TAB PO (17:44)
[2017-08-25] MEDS: LISINOPRIL 5 MG TAB PO (17:45)
[2017-08-25] MEDS: ACETAMINOPHEN TAB 650MG DOSE (2X325MG) PO (17:50)
[2017-08-25] MEDS: DOCUSATE SODIUM 100 MG CAP PO (21:00)
[2017-08-25] MEDS: ADVAIR HFA 115/21MCG INHALER INH (21:00)
[2017-08-25] MEDS: SENOKOT S TAB PO (21:00)
[2017-08-25] MEDS: ATORVASTATIN 20 MG TAB PO (21:08)
[2017-08-26] MEDS: ACETAMINOPHEN TAB 650MG DOSE (2X325MG) PO ×2 (00:28→08:33)
[2017-08-26] MEDS: ADVAIR HFA 115/21MCG INHALER INH (07:38)
[2017-08-26] MEDS: VITAMIN D 1,000 INTERNATIONAL UNITS TABLET PO (08:23)
[2017-08-26] MEDS: ESCITALOPRAM OXALATE 10 MG TAB (LEXAPRO) PO (08:23)
[2017-08-26] MEDS: SITagliptin 50 MG TAB (JANUVIA) PO (08:23)
[2017-08-26] MEDS: PANTOPRAZOLE 40MG TAB (PROTONIX) PO (08:24)
[2017-08-26] MEDS: LISINOPRIL 5 MG TAB PO (08:24)
[2017-08-26] MEDS: CLOPIDOGREL 75 MG TAB PO (08:24)
[2017-08-26] MEDS: ATENOLOL 25 MG TAB PO (08:24)
[2017-08-26] MEDS: amLODIPine 5 MG TAB PO (08:24)
[2017-08-26] MEDS: DULoxetine 30 MG CAP (CYMBALTA) PO (08:25)
[2017-08-26] MEDS: FERROUS SULFATE 325MG TAB PO (08:25)
[2017-08-26] MEDS: DOCUSATE SODIUM 100 MG CAP PO (09:01)
[2017-08-26] MEDS: SENOKOT S TAB PO (09:01)
[2017-08-26] MEDS: BACLOFEN 10 MG TAB PO (12:42)
== END 2017-08-26 16:41 | disposition home or self-care (01) | DRG 24 ==
LOC: M OR 10:43 → M PCU 17:00
PROC: 03CK0ZZ Extirpation of Matter from Right Internal Carotid Artery, Open Approach (ICD-10-PCS; principal; 2017-08-25 12:15)
PROC: 03UK0JZ Supplement Right Internal Carotid Artery with Synthetic Substitute, Open Approach (ICD-10-PCS; 2017-08-25 12:15)
DX: I65.23 Occlusion and stenosis of bilateral carotid arteries (principal); I10 Essential (primary) hypertension; I69.351 Hemiplegia and hemiparesis following cerebral infarction affecting right dominant side; E11.9 Type 2 diabetes mellitus without complications; F32.9 Major depressive disorder, single episode, unspecified; D64.9 Anemia, unspecified; I69.393 Ataxia following cerebral infarction; J45.909 Unspecified asthma, uncomplicated; F17.211 Nicotine dependence, cigarettes, in remission; J44.9 Chronic obstructive pulmonary disease, unspecified; F41.9 Anxiety disorder, unspecified; Z85.038 Personal history of other malignant neoplasm of large intestine; Z79.82 Long term (current) use of aspirin; Z79.84 Long term (current) use of oral hypoglycemic drugs; Z88.8 Allergy status to other drugs, medicaments and biological substances; Z79.899 Other long term (current) drug therapy

== ENCOUNTER 2017-08-31 11:17 | Outpatient (RCR) | payer BC | END 2017-09-23 | LOC: M OT 11:17 | DX: Z51.89 Encounter for other specified aftercare (principal); M62.81 Muscle weakness (generalized) | CPT/HCPCS: 97110 ==

== ENCOUNTER → 2017-09-06 | Outpatient (CLI) | payer BC ==
[2017-09-06 12:15] LABS: BASO # 0.1 10^3/uL (0.0-0.2); BASO % 0.6 % (0.0-1.0); EOS # 0.2 10^3/uL (0.0-0.50); EOS % 1.8 % (0.0-3.0); HEMATOCRIT 35.9 % (42.0-52.0); HEMOGLOBIN 11.2 g/dl (14.0-18.0); LYMPH # 1.3 10^3/uL (1.5-4.5); LYMPH % 14.7 % (24.0-44.0); MEAN CORPUSCULAR HEMOGLOBIN 26.8 pg (27.0-33.0); MEAN CORPUSCULAR HGB CONC 31.2 g/dl (32.0-36.5); MEAN CORPUSCULAR VOLUME 85.9 fl (80.0-96.0); MONO # 0.7 10^3/uL (0.0-0.8); MONO % 8.1 % (0.0-5.0); NEUTROPHILS # 6.6 10^3/uL (1.8-7.7); NEUTROPHILS % 72.8 % (36.0-66.0); PLATELET COUNT, AUTOMATED 262 10^3/uL (150-450); RED BLOOD COUNT 4.18 10^6/uL (4.30-6.10); RED CELL DISTRIBUTION WIDTH 21.7 % (11.5-14.5); WHITE BLOOD COUNT 9.1 10^3/uL (4.0-10.0)
[2017-09-06 13:11] LABS: ALBUMIN 3.9 GM/DL (3.2-5.2); ALBUMIN/GLOBULIN RATIO 1.18 (1.00-1.93); ALKALINE PHOSPHATASE 70 U/L (45-117); ALT/SGPT 31 U/L (12-78); ANION GAP 8 MEQ/L (8-16); AST/SGOT 14 U/L (7-37); BILIRUBIN,TOTAL 0.3 MG/DL (0.2-1.0); BLOOD UREA NITROGEN 24 MG/DL (7-18); CALCIUM LEVEL 8.8 MG/DL (8.8-10.2); CARBON DIOXIDE LEVEL 30 MEQ/L (21-32); CHLORIDE LEVEL 99 MEQ/L (98-107); CHOLESTEROL LEVEL 139 MG/DL (<200); CHOLESTEROL RISK RATIO 3.088 (<5); CREATININE FOR GFR 0.99 MG/DL (0.70-1.30); GLOMERULAR FILTRATION RATE > 60.0 (>49); GLUCOSE, FASTING 102 MG/DL (70-100); HDL CHOLESTEROL 45 MG/DL (>40); LDL CHOLESTEROL 53.2 MG/DL (<100); NON-HDL-C 94 MG/DL; POTASSIUM SERUM 4.6 MEQ/L (3.5-5.1); SODIUM LEVEL 137 MEQ/L (136-145); TOTAL PROTEIN 7.2 GM/DL (6.4-8.2); TRIGLYCERIDES LEVEL 204 MG/DL (<150)
[2017-09-06 13:17] LABS: CREATININE, URINE 91.6 MG/DL; MALB URINE SIEMENS 5.4 MG/L; MAU/CREAT RATIO 5.8 MCG/MG (0.0-30.0)
[2017-09-06 14:18] LABS: ESTIMATED AVERAGE GLUCOSE 108 MG/DL (60-110); HEMOGLOBIN A1c 5.4 %
== END ==
LOC: M LAB 11:34
DX: E11.59 Type 2 diabetes mellitus with other circulatory complications (principal); E78.2 Mixed hyperlipidemia

== ENCOUNTER → 2017-09-25 | Outpatient (CLI) | payer BC ==
[2017-09-25 19:08] LABS: ANION GAP 5 MEQ/L (8-16); BLOOD UREA NITROGEN 22 MG/DL (7-18); CALCIUM LEVEL 8.8 MG/DL (8.8-10.2); CARBON DIOXIDE LEVEL 32 MEQ/L (21-32); CHLORIDE LEVEL 103 MEQ/L (98-107); CREATININE FOR GFR 1.39 MG/DL (0.70-1.30); GLOMERULAR FILTRATION RATE 54.9 (>49); GLUCOSE, FASTING 126 MG/DL (70-100); POTASSIUM SERUM 4.5 MEQ/L (3.5-5.1); SODIUM LEVEL 140 MEQ/L (136-145)
[2017-09-25 19:27] LABS: BASO # 0.1 10^3/uL (0.0-0.2); BASO % 0.7 % (0.0-1.0); EOS # 0.1 10^3/uL (0.0-0.50); EOS % 1.9 % (0.0-3.0); HEMATOCRIT 33.9 % (42.0-52.0); HEMOGLOBIN 10.5 g/dl (13.5-17.5); IMMATURE GRANULOCYTE % 1.5 % (0-3.0); LYMPH # 1.1 10^3/uL (1.5-4.5); LYMPH % 14.8 % (24.0-44.0); MEAN CORPUSCULAR HEMOGLOBIN 28.4 pg (27.0-33.0); MEAN CORPUSCULAR VOLUME 91.6 fl (80.0-96.0); MONO # 0.7 10^3/uL (0.0-0.8); MONO % 9.6 % (0.0-5.0); NEUTROPHILS # 5.4 10^3/uL (1.8-7.7); NEUTROPHILS % 71.5 % (36.0-66.0); PLATELET COUNT, AUTOMATED 266 10^3/uL (150-450); RED CELL DISTRIBUTION WIDTH 19.9 % (11.5-14.5); WHITE BLOOD COUNT 7.5 10^3/uL (4.0-10.0)
== END ==
LOC: M SMT 13:21
DX: D64.9 Anemia, unspecified (principal)
CPT/HCPCS: 80048

== ENCOUNTER 2017-09-26 14:26 | Outpatient (RCR) | payer BC | END 2017-10-23 | LOC: M OT 09-28 11:15 | DX: Z51.89 Encounter for other specified aftercare (principal); R53.1 Weakness | CPT/HCPCS: 97110 ==

== ENCOUNTER → 2017-12-07 | Outpatient (CLI) | payer BC ==
[2017-12-07 13:37] LABS: BASO # 0.1 10^3/uL (0.0-0.2); BASO % 0.5 % (0.0-1.0); EOS # 0.1 10^3/uL (0.0-0.50); EOS % 1.2 % (0.0-3.0); HEMATOCRIT 41.9 % (42.0-52.0); HEMOGLOBIN 13.2 g/dl (13.5-17.5); LYMPH # 1.3 10^3/uL (1.5-4.5); LYMPH % 12.7 % (24.0-44.0); MEAN CORPUSCULAR HEMOGLOBIN 29.5 pg (27.0-33.0); MEAN CORPUSCULAR HGB CONC 31.5 g/dl (32.0-36.5); MEAN CORPUSCULAR VOLUME 93.7 fl (80.0-96.0); MONO # 0.9 10^3/uL (0.0-0.8); MONO % 8.6 % (0.0-5.0); NEUTROPHILS # 7.8 10^3/uL (1.8-7.7); PLATELET COUNT, AUTOMATED 263 10^3/uL (150-450); RED BLOOD COUNT 4.47 10^6/uL (4.30-6.10); WHITE BLOOD COUNT 10.2 10^3/uL (4.0-10.0)
[2017-12-07 14:05] LABS: ANION GAP 6 MEQ/L (8-16); BLOOD UREA NITROGEN 23 MG/DL (7-18); CALCIUM LEVEL 9.2 MG/DL (8.8-10.2); CARBON DIOXIDE LEVEL 31 MEQ/L (21-32); CHLORIDE LEVEL 101 MEQ/L (98-107); CREATININE FOR GFR 1.14 MG/DL (0.70-1.30); GLOMERULAR FILTRATION RATE > 60.0 (>49); GLUCOSE, FASTING 93 MG/DL (70-100); POTASSIUM SERUM 4.4 MEQ/L (3.5-5.1); SODIUM LEVEL 138 MEQ/L (136-145)
[2017-12-07 14:10] LABS: ESTIMATED AVERAGE GLUCOSE 108 MG/DL (60-110); HEMOGLOBIN A1c 5.4 %
[2017-12-09 15:11] LABS: PSA TOTAL 0.2 ng/mL (0.0-4.0)
== END ==
LOC: M SMT 09:56
DX: E11.9 Type 2 diabetes mellitus without complications (principal); I63.033 Cerebral infarction due to thrombosis of bilateral carotid arteries; R39.12 Poor urinary stream

== ENCOUNTER → 2018-01-11 | Outpatient (REF) | payer BC ==
[2018-01-11 19:26] LABS: APPEARANCE, URINE CLEAR (CLEAR); BACTERIA, URINE AUTO NEGATIVE (NEGATIVE); BILIRUBIN, URINE AUTO NEGATIVE (NEGATIVE); BLOOD, URINE BLOOD NEGATIVE (NEGATIVE); COLOR, URINE YELLOW (YELLOW); GLUCOSE, URINE (UA) AUTO NEGATIVE (NEGATIVE); KETONE, URINE AUTO NEGATIVE (NEGATIVE); LEUKOCYTE ESTERASE, URINE AUTO TRACE (NEGATIVE); MUCUS, URINE SMALL (NEGATIVE); NITRITE, URINE AUTO NEGATIVE (NEGATIVE); PROTEIN, URINE AUTO NEGATIVE (NEGATIVE); RBC, URINE AUTO 0 /HPF (0-3); SPECIFIC GRAVITY URINE AUTO 1.019 (1.002-1.035); SQUAMOUS EPITHELIAL CELL UR AU 0 /HPF (0-6); WBC, URINE AUTO 4 /HPF (0-3)
== END ==
LOC: M SMT 16:58
DX: R39.15 Urgency of urination (principal)
CPT/HCPCS: 81001

== ENCOUNTER → 2018-03-15 | Outpatient (REF) | payer BC ==
[2018-03-15 13:33] LABS: BASO # 0.1 10^3/uL (0.0-0.2); BASO % 0.5 % (0.0-1.0); EOS # 0.2 10^3/uL (0.0-0.50); EOS % 1.7 % (0.0-3.0); HEMOGLOBIN 14.2 g/dl (13.5-17.5); IMMATURE GRANULOCYTE % 1.3 % (0-3.0); LYMPH # 1.1 10^3/uL (1.5-4.5); LYMPH % 9.8 % (24.0-44.0); MEAN CORPUSCULAR HEMOGLOBIN 29.6 pg (27.0-33.0); MEAN CORPUSCULAR HGB CONC 32.3 g/dl (32.0-36.5); MEAN CORPUSCULAR VOLUME 91.7 fl (80.0-96.0); MONO # 0.9 10^3/uL (0.0-0.8); MONO % 8.2 % (0.0-5.0); NEUTROPHILS # 8.8 10^3/uL (1.8-7.7); NEUTROPHILS % 78.5 % (36.0-66.0); PLATELET COUNT, AUTOMATED 264 10^3/uL (150-450); RED CELL DISTRIBUTION WIDTH 14.4 % (11.5-14.5); WHITE BLOOD COUNT 11.3 10^3/uL (4.0-10.0)
[2018-03-15 14:18] LABS: CHOLESTEROL LEVEL 121 MG/DL (<200); CHOLESTEROL RISK RATIO 3.102 (<5); FERRITIN 18 NG/ML (26-388); HDL CHOLESTEROL 39 MG/DL (>40); IRON (FE) 219 UG/DL (65-175); LDL CHOLESTEROL 45 MG/DL (<100); NON-HDL-C 82 MG/DL; PERCENT SATURATION 57.5 % (19.7-50.0); TOTAL IRON BINDING CAPACITY 381 UG/DL (250-450); TRIGLYCERIDES LEVEL 186 MG/DL (<150)
[2018-03-15 15:32] LABS: ESTIMATED AVERAGE GLUCOSE 123 MG/DL (60-110); HEMOGLOBIN A1c 5.9 %
[2018-03-15 15:39] LABS: MALB URINE SIEMENS 8.3 MG/L
[2018-03-15 16:14] LABS: MAU/CREAT RATIO 7.4 MCG/MG (0.0-30.0)
== END ==
LOC: M LAB REF 13:06
DX: E11.59 Type 2 diabetes mellitus with other circulatory complications (principal); E78.2 Mixed hyperlipidemia; D50.9 Iron deficiency anemia, unspecified
CPT/HCPCS: 83550

== ENCOUNTER → 2018-04-28 | Outpatient (REF) | payer BC ==
[2018-04-28 11:43] LABS: APPEARANCE, URINE CLEAR (CLEAR); BACTERIA, URINE AUTO NEGATIVE (NEGATIVE); BILIRUBIN, URINE AUTO NEGATIVE (NEGATIVE); BLOOD, URINE BLOOD NEGATIVE (NEGATIVE); COLOR, URINE STRAW (YELLOW); GLUCOSE, URINE (UA) AUTO NEGATIVE (NEGATIVE); KETONE, URINE AUTO NEGATIVE (NEGATIVE); LEUKOCYTE ESTERASE, URINE AUTO NEGATIVE (NEGATIVE); NITRITE, URINE AUTO NEGATIVE (NEGATIVE); PROTEIN, URINE AUTO NEGATIVE (NEGATIVE); RBC, URINE AUTO 1 /HPF (0-3); SPECIFIC GRAVITY URINE AUTO 1.009 (1.002-1.035); SQUAMOUS EPITHELIAL CELL UR AU 0 /HPF (0-6); UROBILINOGEN, URINE AUTO 0.2 mg/dL (0.0-2.0); WBC, URINE AUTO 1 /HPF (0-3)
== END ==
LOC: M LAB REF 11:06
DX: R36.9 Urethral discharge, unspecified (principal)
CPT/HCPCS: 81001

== ENCOUNTER → 2018-05-30 | Outpatient (CLI) | payer BC | LOC: M RAD 14:50 | DX: I65.23 Occlusion and stenosis of bilateral carotid arteries (principal) | CPT/HCPCS: 93880 ==

== ENCOUNTER → 2018-09-26 | Outpatient (CLI) | payer BC ==
[~2018-09-26] MED LIST changes: +ADV250INH INH; +ADVA250A IN; +ALBU17IN INH; +ALLO100T PO; +ASPI-1 PO; +ASPI-255 PO; +ASPI81TA26 PO; +ATEN100T PO; +ATEN25TA PO; +ATOR1TAB21 PO; +ATOR80TA59 PO; +AUGM875T27 PO; +BACL10TA2 PO; +BACL1TAB8 PO; -BUPIVACAINE HCL 0.5% 30 ML VIAL As Ordered; +CELE10TA PO; +CLOP75TA2 PO; +DULO30CA9 PO; +ESCI20TA PO; +FENO145T13 PO; +FERR325T3 PO; +HYDR-3644 PO; +HYDR-3715 PO; +JANU100T PO; -LIDOCAINE 1% SDV INJ 30 ML VIAL As Ordered; +LISI-538 PO; +LISI-542 PO; +LISI10TA4 PO; +MAGN1TAB26 PO; +MAGN250T14 PO; +MAGN250T9 PO; +MULTCAP PO; +NORV5TAB PO; +OXYB10TA PO; +OXYB5TAB10 PO; +OXYC1TAB23 PO; +POTA99TA PO; +PRED10TA2 PO; +PREVPST MT; +PROT1TAB2 PO; +SIMV40TA2 PO; +VITA100066 PO
[2018-09-26 16:58] LABS: BASO # 0.1 10^3/uL (0.0-0.2); BASO % 0.5 % (0.0-1.0); EOS # 0.1 10^3/uL (0.0-0.50); EOS % 1.3 % (0.0-3.0); HEMATOCRIT 42.4 % (42.0-52.0); HEMOGLOBIN 13.6 g/dl (13.5-17.5); LYMPH % 9.4 % (24.0-44.0); MEAN CORPUSCULAR HGB CONC 32.1 g/dl (32.0-36.5); MEAN CORPUSCULAR VOLUME 93.6 fl (80.0-96.0); MONO # 0.9 10^3/uL (0.0-0.8); MONO % 8.2 % (0.0-5.0); NEUTROPHILS # 8.7 10^3/uL (1.8-7.7); NEUTROPHILS % 79.7 % (36.0-66.0); PLATELET COUNT, AUTOMATED 224 10^3/uL (150-450); RED BLOOD COUNT 4.53 10^6/uL (4.30-6.10); WHITE BLOOD COUNT 10.9 10^3/uL (4.0-10.0)
[2018-09-26 17:10] LABS: MALB URINE SIEMENS 6.4 MG/L; MAU/CREAT RATIO 4.7 MCG/MG (0.0-30.0)
[2018-09-26 17:12] LABS: CHOLESTEROL RISK RATIO 2.523 (<5); FREE T4 1.38 NG/DL (0.76-1.46); PERCENT SATURATION 16.4 % (19.7-50.0); THYROID STIMULATING HORMONE 0.739 uIU/ML (0.358-3.740)
[2018-09-26 17:16] LABS: HEMOGLOBIN A1c 6.1 %
== END ==
LOC: M LRY 10:45
PROVIDERS: ATTEND Family Medicine
DX: E78.2 Mixed hyperlipidemia (principal); D50.9 Iron deficiency anemia, unspecified; E11.59 Type 2 diabetes mellitus with other circulatory complications

== ENCOUNTER → 2018-12-31 | Outpatient (CLI) | payer BC ==
[2018-12-31 11:56] LABS: BASO # 0.1 10^3/uL (0.0-0.2); BASO % 0.7 % (0.0-1.0); EOS # 0.1 10^3/uL (0.0-0.50); EOS % 1.4 % (0.0-3.0); HEMATOCRIT 44.9 % (42.0-52.0); HEMOGLOBIN 14.4 g/dl (13.5-17.5); LYMPH # 1.2 10^3/uL (1.5-4.5); LYMPH % 14.1 % (24.0-44.0); MEAN CORPUSCULAR HEMOGLOBIN 30.4 pg (27.0-33.0); MEAN CORPUSCULAR HGB CONC 32.1 g/dl (32.0-36.5); MEAN CORPUSCULAR VOLUME 94.7 fl (80.0-96.0); MONO # 0.8 10^3/uL (0.0-0.8); MONO % 9.1 % (0.0-5.0); NEUTROPHILS # 6.2 10^3/uL (1.8-7.7); PLATELET COUNT, AUTOMATED 207 10^3/uL (150-450); RED BLOOD COUNT 4.74 10^6/uL (4.30-6.10); WHITE BLOOD COUNT 8.4 10^3/uL (4.0-10.0)
[2018-12-31 12:18] LABS: HEMOGLOBIN A1c 5.8 %
[2018-12-31 12:28] LABS: ALBUMIN 3.7 GM/DL (3.2-5.2); ALT/SGPT 22 U/L (12-78); BILIRUBIN,TOTAL 0.3 MG/DL (0.2-1.0); BLOOD UREA NITROGEN 26 MG/DL (7-18); CALCIUM LEVEL 8.1 MG/DL (8.8-10.2); CARBON DIOXIDE LEVEL 30 MEQ/L (21-32); CHLORIDE LEVEL 103 MEQ/L (98-107); CREATININE FOR GFR 1.17 MG/DL (0.70-1.30); GLOMERULAR FILTRATION RATE > 60.0 (>49); GLUCOSE, FASTING 80 MG/DL (70-100); POTASSIUM SERUM 4.5 MEQ/L (3.5-5.1); SODIUM LEVEL 139 MEQ/L (136-145); TOTAL PROTEIN 6.8 GM/DL (6.4-8.2)
== END ==
LOC: M LRY 09:51
PROVIDERS: ATTEND Family Medicine
DX: E11.59 Type 2 diabetes mellitus with other circulatory complications (principal)

== ENCOUNTER → 2019-04-04 | Outpatient (CLI) | payer BC ==
[~2019-04-04] MED LIST changes: -OXYB10TA PO; +OXYB10TA2 PO
[2019-04-04 12:31] LABS: HEMOGLOBIN A1c 6.9 %
[2019-04-04 12:52] LABS: BLOOD UREA NITROGEN 20 MG/DL (7-18); CALCIUM LEVEL 9.1 MG/DL (8.8-10.2); CARBON DIOXIDE LEVEL 32 MEQ/L (21-32); CHLORIDE LEVEL 99 MEQ/L (98-107); CHOLESTEROL LEVEL 130 MG/DL (<200); CREATININE FOR GFR 1.11 MG/DL (0.70-1.30); FREE T4 1.36 NG/DL (0.76-1.46); GLOMERULAR FILTRATION RATE > 60.0 (>49); GLUCOSE, FASTING 101 MG/DL (70-100); HDL CHOLESTEROL 52 MG/DL (>40); LDL CHOLESTEROL 55 MG/DL (<100); NON-HDL-C 78 MG/DL; POTASSIUM SERUM 4.3 MEQ/L (3.5-5.1); SODIUM LEVEL 137 MEQ/L (136-145); TRIGLYCERIDES LEVEL 115 MG/DL (<150)
== END ==
LOC: M LRY 10:00
PROVIDERS: ATTEND Family Medicine
DX: E11.59 Type 2 diabetes mellitus with other circulatory complications (principal); I10 Essential (primary) hypertension; E78.2 Mixed hyperlipidemia

== ENCOUNTER → 2019-05-06 | Outpatient (CLI) | payer MEDICARE ==
[2019-05-06 16:59] LABS: BLOOD UREA NITROGEN 24 MG/DL (7-18); CALCIUM LEVEL 8.9 MG/DL (8.8-10.2); CARBON DIOXIDE LEVEL 33 MEQ/L (21-32); CHLORIDE LEVEL 100 MEQ/L (98-107); CREATININE FOR GFR 1.14 MG/DL (0.70-1.30); GLOMERULAR FILTRATION RATE > 60.0 (>49); GLUCOSE, FASTING 81 MG/DL (70-100); POTASSIUM SERUM 4.8 MEQ/L (3.5-5.1); SODIUM LEVEL 137 MEQ/L (136-145)
== END ==
LOC: M LRY 10:27
PROVIDERS: ATTEND Family Medicine
DX: Z00.00 Encounter for general adult medical examination without abnormal findings (principal)

== ENCOUNTER → 2019-05-31 | Outpatient (CLI) | payer MEDICARE ==
[~2019-05-31] MED LIST changes: -SIMV40TA2 PO; +SIMV40TA20 PO
--- NOTE | 2019-05-31 13:26 | REP ---
Clinical: History of bilateral endarterectomy . Technique: Hart scale and color Doppler evaluation using linear high frequency transducer Findings: Two-dimensional hart scale and color images demonstrate smooth intimal thickening and small amounts of mixed plaque material with essentially normal laminar flow and no appreciable narrowing. Color Doppler interrogation demonstrates normal arterial wave patterns and velocities with no significant spectral broadening. Normal flow direction is appreciated in the bilateral vertebral arteries. RIGHT (cm/s) LEFT (cm/s) ICA peak systolic velocity 99.5 95.4 ICA diastolic velocity 30.8 33.0 ECA peak systolic velocity 136.0 121.0 CCA peak systolic velocity 101.0 117.0 ICA/CCA ratio 0.99 0.82 Impression: No hemodynamically significant areas of narrowing or stenosis appreciated. Based on set standards narrowing falls within the less than 50% range. Electronically Signed by Timmy Briggs MD 05/31/2019 01:17 P
== END ==
LOC: M RAD 11:34
PROVIDERS: ATTEND Physician Assistant
DX: I65.23 Occlusion and stenosis of bilateral carotid arteries (principal)

== ENCOUNTER → 2019-06-13 | Outpatient (CLI) | payer MEDICARE ==
--- NOTE | 2019-06-13 19:08 | REP ---
Bilateral lower extremity arterial Doppler ultrasound: History: Nicotine dependence. Pain in the leg with exertion. Sonographic findings: Ankle brachial indices are measured at 0.7 on the right and 0.8 eight on the left. Calcific plaquing is observed bilaterally. Stenotic flow velocities are observed in the proximal SFA on the right. 351 cm/sec. Biphasic waveforms are noted throughout the lower extremities bilaterally. Otherwise unremarkable. Doppler velocity chart right lower extremity arteries: Right CF A 169 cm/S Profunda 218 Proximal SFA 351/167 Mid SFA 145 Distal SFA 100 Popliteal 68 Proximal AT A 40 four Tibioperoneal trunk 87 Proximal BROKE MAN 73 Distal BROKE MAN 43 Distal AT A 52 Doppler velocity chart left lower extremity arteries: Left CF A 165 cm/S Profunda 202 Proximal SFA 198 Mid SFA 105 Distal SFA 118 Popliteal 109 Proximal AT A 33 Tibioperoneal trunk 89 Proximal BROKE MAN 67 Distal BROKE MAN 52 Distal AT A 43 Electronically Signed by Michele Al MD 06/13/2019 03:45 P
== END ==
LOC: M RAD 13:17
PROVIDERS: ATTEND Physician Assistant
DX: I70.213 Atherosclerosis of native arteries of extremities with intermittent claudication, bilateral legs (principal); F17.218 Nicotine dependence, cigarettes, with other nicotine-induced disorders

== ENCOUNTER → 2019-07-11 | Outpatient (CLI) | payer MEDICARE ==
[~2019-07-11] MED LIST changes: -FENO145T13 PO; +FENO145T7 PO; -OXYB10TA2 PO; +OXYB10TA23 PO
[2019-07-11 11:51] LABS: BASO % 0.5 % (0.0-1.0); EOS # 0.1 10^3/uL (0.0-0.5); EOS % 1.2 % (0.0-3.0); HEMATOCRIT 45.2 % (42.0-52.0); HEMOGLOBIN 14.2 g/dl (13.5-17.5); LYMPH # 1.2 10^3/uL (1.5-5.0); LYMPH % 13.4 % (24.0-44.0); MEAN CORPUSCULAR HEMOGLOBIN 30.3 pg (27.0-33.0); MEAN CORPUSCULAR HGB CONC 31.4 g/dl (32.0-36.5); MEAN CORPUSCULAR VOLUME 96.6 fl (80.0-96.0); MONO # 0.8 10^3/uL (0.0-0.8); NEUTROPHILS # 6.5 10^3/uL (1.5-8.5); NEUTROPHILS % 75.2 % (36.0-66.0); PLATELET COUNT, AUTOMATED 211 10^3/uL (150-450); RED BLOOD COUNT 4.68 10^6/uL (4.30-6.10); WHITE BLOOD COUNT 8.7 10^3/uL (4.0-10.0)
[2019-07-11 12:18] LABS: ALT/SGPT 21 U/L (12-78); BILIRUBIN,TOTAL 0.7 MG/DL (0.2-1.0); BLOOD UREA NITROGEN 25 MG/DL (7-18); CARBON DIOXIDE LEVEL 29 MEQ/L (21-32); CHLORIDE LEVEL 101 MEQ/L (98-107); CHOLESTEROL LEVEL 102 MG/DL (<200); CHOLESTEROL RISK RATIO 2.318 (<5); CREATININE FOR GFR 1.13 MG/DL (0.70-1.30); GLOMERULAR FILTRATION RATE > 60.0 (>49); GLUCOSE, FASTING 84 MG/DL (70-100); HDL CHOLESTEROL 44 MG/DL (>40); LDL CHOLESTEROL 40 MG/DL (<100); NON-HDL-C 58 MG/DL; POTASSIUM SERUM 4.6 MEQ/L (3.5-5.1); SODIUM LEVEL 137 MEQ/L (136-145); TRIGLYCERIDES LEVEL 91 MG/DL (<150)
[2019-07-11 12:27] LABS: MALB URINE SIEMENS 8.8 MG/L; MAU/CREAT RATIO 8.6 MCG/MG (0.0-30.0)
== END ==
LOC: M LRY 09:37
PROVIDERS: ATTEND Family Medicine
DX: I65.23 Occlusion and stenosis of bilateral carotid arteries (principal); F17.218 Nicotine dependence, cigarettes, with other nicotine-induced disorders; Z86.73 Personal history of transient ischemic attack (TIA), and cerebral infarction without residual deficits

== ENCOUNTER → 2019-08-20 | Outpatient (CLI) | payer MEDICARE ==
[~2019-08-20] MED LIST changes: +ACETAMINOPHEN 325 MG TAB PO PRN; +CLOPIDOGREL 75 MG TAB As Ordered ONE; +ESSE250T PO; +HEPARIN 1,000 UNITS/ML 10ML VIAL (FOR RADIOLOGY& DIALYSIS ONLY)(J1644-10) As Ordered ONE; +ISOVUE-300 61% 50ML VIAL (Q9967) As Ordered ONE; +LIDOCAINE 1% MDV 20ML VIAL As Ordered ONE; +MIDAZOLAM INJ 2 MG/2 ML VIAL (J2250) As Ordered ONE; +NS 1,000 ML IV SCH; +TAMS1CAP17 PO; +VITA500T PO; +VITAMIN D; +fentaNYL 100 MCG/2 ML INJECTION (J3010) As Ordered ONE
[2019-08-20 09:14] LABS: HEMATOCRIT 44.8 % (42.0-52.0); HEMOGLOBIN 14.7 g/dl (13.5-17.5); MEAN CORPUSCULAR HEMOGLOBIN 31.2 pg (27.0-33.0); MEAN CORPUSCULAR HGB CONC 32.8 g/dl (32.0-36.5); MEAN CORPUSCULAR VOLUME 95.1 fl (80.0-96.0); PLATELET COUNT, AUTOMATED 227 10^3/uL (150-450); RED BLOOD COUNT 4.71 10^6/uL (4.30-6.10); WHITE BLOOD COUNT 9.7 10^3/uL (4.0-10.0)
[2019-08-20 09:43] LABS: ALT/SGPT 30 U/L (12-78); BILIRUBIN,TOTAL 0.4 MG/DL (0.2-1.0); BLOOD UREA NITROGEN 24 MG/DL (7-18); CALCIUM LEVEL 8.6 MG/DL (8.8-10.2); CARBON DIOXIDE LEVEL 32 MEQ/L (21-32); CHLORIDE LEVEL 105 MEQ/L (98-107); CREATININE FOR GFR 1.17 MG/DL (0.70-1.30); GLOMERULAR FILTRATION RATE > 60.0 (>49); GLUCOSE, FASTING 116 MG/DL (70-100); POTASSIUM SERUM 4.4 MEQ/L (3.5-5.1); SODIUM LEVEL 140 MEQ/L (136-145); TOTAL PROTEIN 7.3 GM/DL (6.4-8.2)
--- NOTE | 2019-08-20 12:00 | ROOPDOC ---
[facility] Report Of Operation Report of Operation DATE OF PROCEDURE: 08/20/19 PREPROCEDURE DIAGNOSES: Atherosclerosis of the [place] arteries with lifestyle limiting claudication POSTPROCEDURE DIAGNOSES: Same PROCEDURE: 1. US guided access left and right common femoral arteries 2. Aortoiliofemoral arteriogram 3. Selection right common femoral artery and superficial femoral artery with right lower extremity runoff 4. Left lower extremity runoff from existing left common femoral artery sheath 5. Angioplasty right proximal SFA and common femoral artery with 6 x 100 Dequincy balloon 6. Angioplasty right common iliac artery with 9 x 40 Dequincy balloon 7. Common iliac artery proximal stents: 9 x 37 express stents bilateral 8. Extension of right iliac stents with a 9 x 57 express stent and a 8 x 37 express stent in the external iliac artery 9. Extension of the left iliac stents with a 9 x 27, 8 x 57, and 8 x 27 express stents into the external iliac artery 10. Post-dilation iliac stents with 9 x 40 Dequincy balloon and completion arteriograms 11. Mynx closure bilateral common femoral arteries SURGEON: Emeli Gaitan MD ANESTHESIA: Local anesthesia 14 mL lidocaine. Moderate intravenous conscious sedation was supervised by Dr. Gaitan. The patient was independently monitored by registered nurse assigned to the Department of radiology using automated blood pressure, EKG, and pulse oximetry. The detailed sedation record is probably stored in the hospital information system. The following is a brief sedation record: Start time 09:49, stop time 11:19, Versed 2 mg IV, fentanyl 100 g IV, heparin 4000 units IV. CONTRAST: 110 mL Isovue-300. INDICATION FOR PROCEDURE: This is a very pleasant 64-year-old gentleman with atherosclerosis the moapa vessels and lifestyle limiting claudication. We discussed the risks benefits and alternatives to an arteriogram potential intervention. He was agreeable to proceed and informed consent was obtained. INTERPRETATION: 1. The patient has significant iliac disease bilaterally. Although the distal aorta is patent it is also calcified, and there is a bulky plaque at the origin of the right common iliac artery with about a 50% stenosis, and ectatic plaque throughout the left common iliac artery with 30-40% intermittent stenoses. Both hypogastrics are ectatic and intermittently occluded but do have flow distally, in both external iliac arteries have about 50% diffuse narrowing due to heavy plaque with some focal areas of 60% stenosis. The bilateral common femoral arteries have heavy plaque with 60% narrowing bilaterally. Both profundus are widely patent however. This plaque was also noted on ultrasound during femoral access. 2. On the right, the proximal SFA has an 80% stenosis due to heavy plaque extending down from the common femoral artery. Distal to this, the SFA is widely patent with good flow through widely patent popliteal artery and 3 vessel runoff. 3. On the left, the SFA is widely patent but there is some calcified ectatic disease in the popliteal artery at is mildly flow-limiting. Distal to this, the patient has good two-vessel runoff through the anterior tibial and peroneal artery. The peroneal collateralizes to the distal posterior tibial artery and retrograde fills. But the posterior tibial artery occludes in the mid calf. The tibial flow to the foot however is rapid and well compensated despite the occlusion in the posterior tibial artery. 4. After angioplasty of the right common femoral artery and origin of the SFA with a 6 x 100 Dequincy balloon, no significant improvement was noted. There is still bulky plaque and 40-50% luminal compromise despite angioplasty. This will definitely benefit more from an open procedure, common femoral endarterectomy with extension for proximal SFA endarterectomy and patch angioplasty. 5. After angioplasty of the right common iliac artery with a 9 x 40 Dequincy balloon, there was not a great deal of improvement either. However, after common iliac artery stents were placed to the origin of the bilateral arteries, there w as marked improvement through the inflow. Still flow limitation was noted distally and stents were built down to the mid external iliac artery bilaterally, and after stenting, there was widely patent flow through both iliac vessels with no embolization, no extravasation, and no dissections noted. No significant flow limitations were noted bilaterally. REPORT OF OPERATION: The patient was brought to the angiographic suite in stable condition and placed supine on the fluoroscopic table. His bilateral groins were prepped and draped in a sterile fashion. A timeout was performed. Sedation was administered without complication. Local anesthesia was administered to the skin and subcutaneous tissue over the left common femoral artery. A microneedle was used to access left common femoral artery under ultrasound guidance. Significant bulky calcified plaque was noted within the luminal wall and was avoided to make sheath placement safer. A wire was passed through this access and a micro-sheath was placed. A Glidewire was advanced through this access under fluoroscopic guidance into the aorta and the sheath was exchanged for 6 [place]aur[place] sheath and flushed with saline. We then advanced an OmNi flush catheter into the distal aorta and aortoiliofemoral arteriograms were performed. Please see interpretation above. We then went up and over the bifurcation with the Omni flushed catheter and Glidewire and selected the right common femoral artery and SFA. Runoff of the right lower extremity was performed. Please see interpretation above. We then navigated the Glidewire into the distal SFA and angioplasty to cross the proximal SFA and common femoral artery with a 6 x 100 Dequincy balloon for three-minute inflations. Unfortunately, due to the bulky calcified nature the plaque, this did not provide much improvement and there was still residual of about 40-50% stenosis. We plan to do a right common femoral endarterectomy with extension onto the SFA in the future if symptoms do not improve with inflow treatment. We then attempted to angioplasty the inflow to the common iliac artery with a 9 x 40 Dequincy balloon but this also provided limited improvement. I was not sure if we had distal disease on the left that would require us to preserve the up and over ability in the iliac vessels, and I did not want to place kissing stents if we might need future intervention distally on the left. Therefore, I performed a quick runoff of the left lower extremity through the existing sheath, please see interpretation above. After seeing the disease and the popliteal artery and the left, I decided it would be best if possible to preserve our up and over ability for future interventions. Therefore, in order to adequately treat the inflow, we will place stents up to but not through the common iliac arteries and see if this would provide adequate inflow while treating the tight stenosis and bulky plaque at the origin. We therefore gained access to the right common femoral artery under ultrasound guidance in a similar fashion to the left and a 7 [place]auruan sheath was placed and flushed with saline. We exchange the sheath on the left for 7 Nauruan sheath and flushed sheath with saline. A Glidewire was advanced through the right common femoral artery under fluoroscopic guidance into the aorta. We then placed 9 x 37 express stents up to but not through the origin of the bilateral common iliac arteries. These were deployed simultaneously and arteriogram following this showed them to be in excellent position, no extravasation embolization or dissection, and preservation of our up and over ability for future procedures. We then extended the left common iliac stent down to the mid external iliac with a 9 x 27 express stent, 8 x 57 express stent, and 8 x 27 express stent. These were postdilated with a 9 x 40 Dequincy balloon and there was excellent flow through the iliac system with no flow limitation after stenting. We then extended the right common iliac stent to the mid external iliac artery with a 9 x 57 express stent in 8 x 37 express stent. These were postdilated with a 9 x 40 Dequincy balloon and there was no flow limitation completion arteriogram after stenting. The inflow was widely patent. We then did platelet Mynx closure devices in both common femoral arteries with good hemostasis and pressure was held for 10 minutes. Sterile dressings were applied and the patient was taken to recovery in stable condition. There were no complications and he tolerated the procedure well, and tolerated the sedation well. ESTIMATED BLOOD LOSS: Approximately 10 mL. COMPLICATIONS: None. PLAN: We will restart the patient on Plavix postprocedure and he will need to be on this a minimum of 60 days uninterrupted for stent placement if possible. Okay to resume home medications and diet. We'll see him back in clinic a week to check his groin access sites. I am hopeful that improving his inflow will improve his claudication symptoms. I believe if he quit smoking and ambulates daily, he will likely improve significantly. He definitely would benefit from bilateral common femoral endarterectomies, with an extension of the endarterectomy onto the proximal SFA on the right. He also has some left popliteal disease that may eventually require intervention, and we did maintain the ability to go up and over the bifurcation by avoiding kissing stents today. However, this popliteal disease is not severe enough to treat urgently. I would like the patient to quit smoking and try walking program for a few months before considering endarterectomies. EMELI GIATAN MD Aug 20, 2019 12:00
[2019-08-20] MEDS: CLOPIDOGREL 75 MG TAB PO ONE (12:04)
[2019-08-20 15:28] VITALS: BP 189/87
== END ==
LOC: M IRPRO 08:44
PROVIDERS: ATTEND Surgery Vascular Surgery
DX: I70.213 Atherosclerosis of native arteries of extremities with intermittent claudication, bilateral legs (principal); I65.23 Occlusion and stenosis of bilateral carotid arteries; I10 Essential (primary) hypertension; E11.9 Type 2 diabetes mellitus without complications; J45.909 Unspecified asthma, uncomplicated; J44.9 Chronic obstructive pulmonary disease, unspecified; F17.218 Nicotine dependence, cigarettes, with other nicotine-induced disorders; F32.9 Major depressive disorder, single episode, unspecified; F41.9 Anxiety disorder, unspecified; D64.9 Anemia, unspecified; Z79.01 Long term (current) use of anticoagulants; Z79.899 Other long term (current) drug therapy; Z85.038 Personal history of other malignant neoplasm of large intestine; Z86.73 Personal history of transient ischemic attack (TIA), and cerebral infarction without residual deficits

== ENCOUNTER → 2019-09-12 | Outpatient (CLI) | payer MEDICARE ==
[~2019-09-12] MED LIST changes: -ACETAMINOPHEN 325 MG TAB PO PRN; -CLOPIDOGREL 75 MG TAB As Ordered ONE; -HEPARIN 1,000 UNITS/ML 10ML VIAL (FOR RADIOLOGY& DIALYSIS ONLY)(J1644-10) As Ordered ONE; -ISOVUE-300 61% 50ML VIAL (Q9967) As Ordered ONE; -LIDOCAINE 1% MDV 20ML VIAL As Ordered ONE; -MIDAZOLAM INJ 2 MG/2 ML VIAL (J2250) As Ordered ONE; -NS 1,000 ML IV SCH; -fentaNYL 100 MCG/2 ML INJECTION (J3010) As Ordered ONE
--- NOTE | 2019-09-12 15:07 | REP ---
CT CHEST WITHOUT CONTRAST: LOW-DOSE SCREENING EXAM. HISTORY: Nicotine dependence. Multiple comparison chest CT studies are reviewed, the most recent of which is from October 23, 2018 and the most remote of which is from May 19, 2014. FINDINGS: There is a stable irregularly marginated part solid nodule in the left upper lobe on page 43 of 114 in series 201 of today's study. This is entirely unchanged from studies dating back to 2013. There are scattered areas of minimal fibrosis and there are tiny foci of pleural calcification which are also unchanged. No new pulmonary nodule is appreciated. No lung mass lesion is seen. Vascular calcification is observed. IMPRESSION: Lung-RADS category 1 findings. Repeat screening study suggested in 1 year. Electronically Signed by Michele Al MD 09/12/2019 03:17 P
== END ==
LOC: M RAD 13:38
PROVIDERS: ATTEND Internal Medicine Hematology & Oncology
DX: Z12.2 Encounter for screening for malignant neoplasm of respiratory organs (principal); Z87.891 Personal history of nicotine dependence

== ENCOUNTER → 2019-09-26 | Outpatient (CLI) | payer MEDICARE ==
--- NOTE | 2019-09-26 16:36 | REP ---
BILATERAL LOWER EXTREMITY DUPLEX DOPPLER ARTERIAL ULTRASOUND: Real-time ultrasound evaluation and duplex Doppler interrogation of bilateral lower extremity arterial systems is performed. Comparison made with prior study of 06/13/2019. Since the prior exam there appears to be progression of atherosclerotic plaquing and narrowing. SOCO right is 0.89 and left 0.96. Significant plaquing is seen bilaterally. Waveforms bilaterally were diffusely biphasic on prior study. There are now monophasic waveforms seen in the distal right superficial femoral artery and distal to that with drop in flow velocity in the distal right SFA from 107 cm/s to 31 cm/s consistent with stenosis in that region. There is mild stenosis of the proximal superficial femoral artery in the range of about 50%. On the left there appears to be significant stenosis due to atherosclerotic plaquing at the bifurcation of the common femoral artery. There is about 40% stenosis of the profunda. There is loss of visualization of the posterior tibial artery in the proximal left calf with the dominant flow to the left foot via the anterior tibial artery. PEAK SYSTOLIC VELOCITY RIGHT LEFT Common femoral artery 182.0 cm/s 370.0 cm/s Profunda 225.0 274.0 Proximal SFA 231.0 137.0 Superficial femoral artery mid 117.0 106.0 Superficial femoral artery distal 31.0 112.0 Popliteal 68.0 98.0 Proximal anterior tibial artery 64.0 61.0 Tibioperoneal trunk 32.0 61.0 Proximal posterior tibial artery 43.0 6.0 Distal posterior tibial artery 66.0 not seen Distal anterior tibial artery 74.0 56.0 IMPRESSION: Progressive narrowing of bilateral lower extremity arterial systems as discussed in detail above. Electronically Signed by Manuel Hart MD 09/26/2019 04:47 P
== END ==
LOC: M RAD 12:45
PROVIDERS: ATTEND Physician Assistant
DX: I70.213 Atherosclerosis of native arteries of extremities with intermittent claudication, bilateral legs (principal)

== ENCOUNTER → 2019-10-11 | Outpatient (CLI) | payer MEDICARE ==
[~2019-10-11] MED LIST changes: +VITA-243 PO; -VITA500T PO
[2019-10-11 17:00] LABS: BLOOD UREA NITROGEN 24 MG/DL (7-18); CALCIUM LEVEL 8.6 MG/DL (8.8-10.2); CARBON DIOXIDE LEVEL 33 MEQ/L (21-32); CHLORIDE LEVEL 103 MEQ/L (98-107); CREATININE FOR GFR 1.22 MG/DL (0.70-1.30); GLOMERULAR FILTRATION RATE > 60.0 (>49); GLUCOSE, FASTING 107 MG/DL (70-100); POTASSIUM SERUM 4.7 MEQ/L (3.5-5.1); SODIUM LEVEL 140 MEQ/L (136-145)
[2019-10-11 17:22] LABS: HEMOGLOBIN A1c 6.4 %
== END ==
LOC: M LRY 11:30
PROVIDERS: ATTEND Physician Assistant
DX: I10 Essential (primary) hypertension (principal); E11.59 Type 2 diabetes mellitus with other circulatory complications

== ENCOUNTER → 2019-11-01 | Outpatient (CLI) | payer MEDICARE ==
--- NOTE | 2019-11-02 10:20 | REP ---
TWO-VIEW CHEST: REASON FOR EXAM: Dyspnea. COMPARISON: No priors. FINDINGS: The superior mediastinal structures are midline. The cardiac silhouette is unremarkable in size, shape, and position. The diaphragmatic surfaces of the lungs are regular, and the costophrenic angles are clear. The pulmonary benitez are clear. The imaged osseous structures are intact. IMPRESSION: There is no acute cardiopulmonary disease. Electronically Signed by Jose J Bradford DO 11/02/2019 10:56 A
== END ==
LOC: M LRY 14:07
PROVIDERS: ATTEND Family Medicine
DX: R60.0 Localized edema (principal); R06.02 Shortness of breath

== ENCOUNTER → 2019-11-12 | Outpatient (CLI) | payer MEDICARE ==
[2019-11-12 18:23] LABS: CALCIUM LEVEL 8.7 MG/DL (8.8-10.2); CREATININE FOR GFR 1.78 MG/DL (0.70-1.30); MAGNESIUM LEVEL 2.2 MG/DL (1.8-2.4); POTASSIUM SERUM 4.7 MEQ/L (3.5-5.1)
== END ==
LOC: M LRY 15:55
PROVIDERS: ATTEND Family Medicine
DX: I11.9 Hypertensive heart disease without heart failure (principal); G47.62 Sleep related leg cramps

== ENCOUNTER → 2020-01-07 | Outpatient (CLI) | payer MEDICARE ==
[~2020-01-07] MED LIST changes: +BACT800T5 PO; +XARE2.5T PO
[2020-01-07 19:59] LABS: BASO # 0.1 10^3/uL (0.0-0.2); BASO % 0.6 % (0.0-1.0); EOS # 0.1 10^3/uL (0.0-0.5); EOS % 1.5 % (0.0-3.0); HEMATOCRIT 43.2 % (42.0-52.0); HEMOGLOBIN 13.7 g/dl (13.5-17.5); LYMPH # 1.4 10^3/uL (1.5-5.0); MEAN CORPUSCULAR HEMOGLOBIN 29.9 pg (27.0-33.0); MEAN CORPUSCULAR HGB CONC 31.7 g/dl (32.0-36.5); MEAN CORPUSCULAR VOLUME 94.3 fl (80.0-96.0); MONO # 0.8 10^3/uL (0.0-0.8); NEUTROPHILS # 6.4 10^3/uL (1.5-8.5); NEUTROPHILS % 71.3 % (36.0-66.0); PLATELET COUNT, AUTOMATED 198 10^3/uL (150-450); RED BLOOD COUNT 4.58 10^6/uL (4.30-6.10)
[2020-01-07 20:17] LABS: ALBUMIN 3.8 GM/DL (3.2-5.2); BILIRUBIN,TOTAL 0.6 MG/DL (0.2-1.0); CALCIUM LEVEL 8.9 MG/DL (8.8-10.2); CHOLESTEROL RISK RATIO 2.511 (<5); CREATININE FOR GFR 1.33 MG/DL (0.70-1.30); GLOMERULAR FILTRATION RATE 57.4 (>49); PERCENT SATURATION 28.3 % (19.7-50.0); POTASSIUM SERUM 4.8 MEQ/L (3.5-5.1); TOTAL PROTEIN 7.1 GM/DL (6.4-8.2)
[2020-01-07 20:24] LABS: CREATININE, URINE 40.6 MG/DL; MALB URINE SIEMENS < 5.0 MG/L; MAU/CREAT RATIO 12.3 MCG/MG (0.0-30.0)
[2020-01-09 23:07] LABS: PSA TOTAL <0.1 ng/mL (0.0-4.0)
== END ==
LOC: M LRY 14:06
PROVIDERS: ATTEND Family Medicine
DX: E78.2 Mixed hyperlipidemia (principal); I10 Essential (primary) hypertension; E11.59 Type 2 diabetes mellitus with other circulatory complications; D50.9 Iron deficiency anemia, unspecified; N40.1 Benign prostatic hyperplasia with lower urinary tract symptoms

== ENCOUNTER → 2020-02-06 | Outpatient (CLI) | payer MEDICARE ==
--- NOTE | 2020-04-04 10:44 | REP ---
CHEST X-RAY: 2-VIEWS COMPARISON: 11/01/19 FINDINGS: 2-views of the chest are performed. There is no acute infiltrate. The lungs are clear. The heart is normal in size. Mediastinal silhouette is unremarkable and unchanged. IMPRESSION: No active pulmonary disease. MTDD
== END ==
LOC: M WUC 14:41
PROVIDERS: ATTEND Urology
DX: N35.911 Unspecified urethral stricture, male, meatal (principal)

== ENCOUNTER → 2020-02-06 | Outpatient (REF) | payer MEDICARE ==
[2020-04-06 12:06] LABS: BASO # 0.1 10^3/uL (0.0-0.2); BASO % 0.5 % (0.0-1.0); EOS # 0.2 10^3/uL (0.0-0.5); EOS % 1.8 % (0.0-3.0); HEMATOCRIT 41.3 % (42.0-52.0); HEMOGLOBIN 13.3 g/dl (13.5-17.5); LYMPH # 1.4 10^3/uL (1.5-5.0); LYMPH % 14.9 % (24.0-44.0); MEAN CORPUSCULAR HEMOGLOBIN 30.7 pg (27.0-33.0); MEAN CORPUSCULAR HGB CONC 32.2 g/dl (32.0-36.5); MEAN CORPUSCULAR VOLUME 95.4 fl (80.0-96.0); MONO # 0.7 10^3/uL (0.0-0.8); MONO % 7.6 % (0.0-5.0); NEUTROPHILS # 6.9 10^3/uL (1.5-8.5); NEUTROPHILS % 73.4 % (36.0-66.0); PLATELET COUNT, AUTOMATED 202 10^3/uL (150-450); RED BLOOD COUNT 4.33 10^6/uL (4.30-6.10); WHITE BLOOD COUNT 9.4 10^3/uL (4.0-10.0)
[2020-04-13 10:17] LABS: CALCIUM LEVEL 8.8 MG/DL (8.8-10.2); CREATININE FOR GFR 2.04 MG/DL (0.70-1.30); GLOMERULAR FILTRATION RATE 35.1 (>49); POTASSIUM SERUM 4.8 MEQ/L (3.5-5.1)
== END ==
LOC: M LAB REF 11:53
PROVIDERS: ATTEND Urology
DX: N35.914 Unspecified anterior urethral stricture, male (principal); Z79.899 Other long term (current) drug therapy

== ENCOUNTER → 2020-02-11 | Outpatient (CLI) | payer MEDICARE ==
--- NOTE | 2020-03-20 07:18 | REP ---
BILATERAL LOWER EXTREMITY ARTERIAL DOPPLER ULTRASOUND HISTORY: Atherosclerosis of the [place] arteries with intermittent claudication. FINDINGS: Ankle brachial indices are relatively normal at 0.9 on the right and 1.0 on the left. Severe plaquing is seen bilaterally in the common femoral arteries. There is evidence of stenosis in the left common femoral artery with elevated velocities of both profunda femoral arteries. Mild narrowing of the SFA on the right is seen proximally. Biphasic waveforms are noted throughout the lower extremities. Some improvement compared to the prior study. BILATERAL LOWER EXTREMITY VELOCITY CHART PSV RIGHT (cm/s) PSV LEFT (cm/s) PROVIDER RELATIONS COORDINATOR 199 182/490/219 Profunda 224 214 Proximal SFA 214/158 192 Mid-SFA 154 144 Distal SFA 116 144 Popliteal 107 110 Proximal SUNI 75 103 Tibioperoneal trunk 65 54 Proximal JIG AND FIXTURE BUILDER APPRENTICE 65 55 Distal JIG AND FIXTURE BUILDER APPRENTICE 46 58 Distal SUNI 71 68 Dorsalis Pedis Artery 41 73 MTDD
== END ==
LOC: M RAD 10:00
PROVIDERS: ATTEND Surgery Vascular Surgery
DX: I70.213 Atherosclerosis of native arteries of extremities with intermittent claudication, bilateral legs (principal)

== ENCOUNTER 2020-02-12 09:03 | Day surgery (SDC) | payer MEDICARE ==
[~2020-02-12] VITALS: Ht 177.8 cm; Wt 98.9 kg
[~2020-02-12 09:03] MED LIST changes: -BACT800T5 PO; +LIDOCAINE 2% 100MG/5ML SDV (FOR ANES.) As Ordered ONE; +MIDAZOLAM INJ 2MG/2ML VIAL (J2250 PER 1MG) As Ordered ONE; +ONDANSETRON 4MG/2ML VIAL As Ordered ONE; -XARE2.5T PO; +fentaNYL 100 MCG/2 ML INJECTION (J3010) As Ordered ONE; +propofoL 200 MG/20 ML VIAL As Ordered ONE
[2020-02-12] MEDS ORDERED: XARE2.5T PO (09:28)
[2020-02-12] MEDS ORDERED: ceFAZolin 2 GM/D5W 50 ML IV BAG (J0690 PER 500MG) As Ordered ONE (09:42)
[2020-02-12] MEDS: ceFAZolin 2 GM/D5W 50 ML IV BAG (J0690 PER 500MG) IV ONE ×2 (10:17→10:33)
[2020-02-12] MEDS ORDERED: BACT800T5 PO (11:07)
[2020-02-12] MEDS ORDERED: ONDANSETRON 4MG/2ML VIAL IV PRN (11:15)
[2020-02-12] MEDS ORDERED: LR 1,000 ML IV SCH (11:15)
[2020-02-12] MEDS ORDERED: oxyCODONE 5MG TAB PO PRN (11:15)
[2020-02-12] MEDS ORDERED: ACETAMINOPHEN TAB 650MG DOSE (2X325MG) PO PRN (11:15)
[2020-02-12] MEDS ORDERED: fentaNYL 100 MCG/2 ML INJECTION (J3010) IV PRN (11:15)
[2020-02-12 13:35] VITALS: BP 124/58
--- NOTE | 2020-04-02 08:50 | RO ---
DATE OF OPERATION: February 12, 2020 PRE-PROCEDURE DIAGNOSIS: Urethral stricture. POST-PROCEDURE DIAGNOSIS: Urethral stricture. PROCEDURES: * Cystoscopy. * Direct vision internal urethrotomy. SURGEON: Zack Sherwood MD. WOOL FLEECE GRADER: None. ANESTHESIA: General. OPERATIVE INDICATIONS: This is a 64-year-old male with urethral stricture who was brought to the operating room today for treatment. DESCRIPTION OF PROCEDURE: The patient was brought to the operating room and general anesthesia was induced. Prophylactic antibiotics were infused. He was then placed in the dorsal lithotomy position, prepped, and draped in the usual sterile fashion. At this point, a urethrotome was inserted in the urethral meatus and advanced towards the bladder. At the level of the bulbar urethra, there was a very narrow stricture. I then utilized a cold knife to incise his stricture at 12:00 o'clock and I kept doing this until I was able to get the scope into the bladder. Of note, the stricture appeared to be about at least 2-3 cm in length. When I incised, I incised until there was bleeding seen indicating that I had gotten to healthy tissue. Once the scope was inside the bladder, I advanced a guidewire into the bladder. Of note, the patient did have bilobar benign prostatic hyperplasia with mild occlusion. Once the wire was inside the bladder, the urethrotome was removed and then an 18-[place] tip catheter was advanced over the wire and into the bladder. A balloon was filled with 10 mL of sterile water and then the wire was removed. The catheter was connected to gravity drainage. This marked the conclusion of the procedure. The patient was taken out of the dorsal lithotomy position, awakened from anesthesia, and transferred to the recovery room in stable condition. ESTIMATED BLOOD LOSS: 5 mL. COMPLICATIONS: None. SPECIMEN: None. PLAN: The patient will follow up in the clinic in about 5-7 days for catheter removal and a voiding trial. PENNY
== END 2020-02-12 13:50 | disposition home or self-care (01) ==
LOC: M SDC 09:03
PROVIDERS: ATTEND Urology
DX: N35.819 Other urethral stricture, male, unspecified site (principal); I10 Essential (primary) hypertension; E78.5 Hyperlipidemia, unspecified; J44.9 Chronic obstructive pulmonary disease, unspecified; E11.9 Type 2 diabetes mellitus without complications; Z86.73 Personal history of transient ischemic attack (TIA), and cerebral infarction without residual deficits; Z79.01 Long term (current) use of anticoagulants; Z79.899 Other long term (current) drug therapy; Z88.1 Allergy status to other antibiotic agents; Z85.038 Personal history of other malignant neoplasm of large intestine; F17.218 Nicotine dependence, cigarettes, with other nicotine-induced disorders
CPT/HCPCS: 52276; C1769; J0690; J2250; J2405; J3010

== ENCOUNTER → 2020-02-23 | Outpatient (REF) | payer MEDICARE ==
[~2020-02-23] MED LIST changes: +BACT800T5 PO; -LIDOCAINE 2% 100MG/5ML SDV (FOR ANES.) As Ordered ONE; -MIDAZOLAM INJ 2MG/2ML VIAL (J2250 PER 1MG) As Ordered ONE; -ONDANSETRON 4MG/2ML VIAL As Ordered ONE; +XARE2.5T PO; -fentaNYL 100 MCG/2 ML INJECTION (J3010) As Ordered ONE; -propofoL 200 MG/20 ML VIAL As Ordered ONE
== END ==
LOC: M SMT 13:45
PROVIDERS: ATTEND Urology
DX: N35.919 Unspecified urethral stricture, male, unspecified site (principal); Z79.899 Other long term (current) drug therapy

== ENCOUNTER → 2020-03-31 | Outpatient (CLI) | payer MEDICARE ==
[2020-03-31 16:49] LABS: BLOOD UREA NITROGEN 25 MG/DL (7-18); CALCIUM LEVEL 9.1 MG/DL (8.8-10.2); CARBON DIOXIDE LEVEL 30 MEQ/L (21-32); CHLORIDE LEVEL 101 MEQ/L (98-107); CREATININE FOR GFR 1.38 MG/DL (0.70-1.30); GLOMERULAR FILTRATION RATE 55.1 (>49); GLUCOSE, FASTING 93 MG/DL (70-100); POTASSIUM SERUM 4.6 MEQ/L (3.5-5.1); SODIUM LEVEL 136 MEQ/L (136-145)
[2020-03-31 17:42] LABS: HIV 1&2 SCREEN CENTAUR NEGATIVE (NEGATIVE)
[2020-03-31 17:52] LABS: HEMOGLOBIN A1c 6.1 %
== END ==
LOC: M WUC 14:04
PROVIDERS: ATTEND Physician Assistant
DX: E11.59 Type 2 diabetes mellitus with other circulatory complications (principal); Z11.3 Encounter for screening for infections with a predominantly sexual mode of transmission
CPT/HCPCS: 36415; 80048; 83036; 87389; G0472

== ENCOUNTER → 2020-07-10 | Outpatient (CLI) | payer MEDICARE ==
[~2020-07-10] MED LIST changes: -ESCI20TA PO; +ESCI20TA16 PO; -LISI-538 PO; -LISI-542 PO; +LISI-898 PO; +LISI10TA22 PO; -LISI10TA4 PO; +LISI20TA33 PO
--- NOTE | 2020-07-10 15:41 | REP ---
INDICATION: Assess stenosis TECHNIQUE: Carotid ultrasonography was performed bilaterally FINDINGS: Right: CCA systolic: 79.5 centimeters/second CCA diastolic: 12.9 centimeters/second ICA systolic: 98.5 centimeters/second ICA diastolic: 26.2 centimeters/seconds ICA CCA ratio: 2.03 Left: CCA systolic: 98.2 centimeters/second CCA diastolic: 13.4 centimeters/second ICA systolic: 80.4 centimeters/second ICA diastolic: 20.4 centimeters/second ICA CCA ratio: 1.52 Vertebral artery: Right: Not seen left: Not seen Mild patchy echogenic material is seen along the carotid arterial torres bilaterally. IMPRESSION: According to the SRU criteria there is less than 50% stenosis of the internal carotid artery bilaterally <Electronically signed by Jose J Bradford > 07/10/20 1530
== END ==
LOC: M RAD 13:28
PROVIDERS: ATTEND Physician Assistant
DX: I65.23 Occlusion and stenosis of bilateral carotid arteries (principal)

== ENCOUNTER → 2020-07-13 | Outpatient (CLI) | payer MEDICARE ==
[2020-07-13 16:55] LABS: BASO # 0.1 10^3/uL (0.0-0.2); BASO % 0.6 % (0.0-1.0); EOS # 0.1 10^3/uL (0.0-0.5); EOS % 1.2 % (0.0-3.0); HEMATOCRIT 38.6 % (42.0-52.0); HEMOGLOBIN 11.7 g/dl (13.5-17.5); LYMPH # 1.4 10^3/uL (1.5-5.0); LYMPH % 14.4 % (24.0-44.0); MEAN CORPUSCULAR HEMOGLOBIN 27.9 pg (27.0-33.0); MEAN CORPUSCULAR HGB CONC 30.3 g/dl (32.0-36.5); MEAN CORPUSCULAR VOLUME 92.1 fl (80.0-96.0); MONO # 0.8 10^3/uL (0.0-0.8); MONO % 8.5 % (0.0-5.0); NEUTROPHILS # 7.1 10^3/uL (1.5-8.5); NEUTROPHILS % 73.5 % (36.0-66.0); PLATELET COUNT, AUTOMATED 272 10^3/uL (150-450); RED BLOOD COUNT 4.19 10^6/uL (4.30-6.10); WHITE BLOOD COUNT 9.7 10^3/uL (4.0-10.0)
[2020-07-13 17:16] LABS: ALBUMIN 3.6 GM/DL (3.2-5.2); ALT/SGPT 34 U/L (12-78); BILIRUBIN,TOTAL 0.5 MG/DL (0.2-1.0); BLOOD UREA NITROGEN 18 MG/DL (7-18); CALCIUM LEVEL 9.1 MG/DL (8.8-10.2); CARBON DIOXIDE LEVEL 31 MEQ/L (21-32); CHLORIDE LEVEL 99 MEQ/L (98-107); CHOLESTEROL LEVEL 93 MG/DL (<200); CHOLESTEROL RISK RATIO 1.978 (<5); CREATININE FOR GFR 1.17 MG/DL (0.70-1.30); GLOMERULAR FILTRATION RATE > 60.0 (>49); GLUCOSE, FASTING 82 MG/DL (70-100); HDL CHOLESTEROL 47 MG/DL (>40); LDL CHOLESTEROL 30 MG/DL (<100); NON-HDL-C 46 MG/DL; POTASSIUM SERUM 4.4 MEQ/L (3.5-5.1); SODIUM LEVEL 135 MEQ/L (136-145); TOTAL PROTEIN 6.9 GM/DL (6.4-8.2); TRIGLYCERIDES LEVEL 82 MG/DL (<150)
[2020-07-13 17:50] LABS: HEMOGLOBIN A1c 6.5 %
== END ==
LOC: M WUC 14:02
PROVIDERS: ATTEND Family Medicine
DX: E11.59 Type 2 diabetes mellitus with other circulatory complications (principal); E78.2 Mixed hyperlipidemia; D50.9 Iron deficiency anemia, unspecified

== ENCOUNTER → 2020-07-30 | Outpatient (CLI) | payer MEDICARE ==
[~2020-07-30] MED LIST changes: +LISI-538 PO; +LISI-542 PO; -LISI-898 PO; -LISI10TA22 PO; +LISI10TA4 PO; -LISI20TA33 PO
[2020-07-30 21:24] LABS: BASO # 0.1 10^3/uL (0.0-0.2); BASO % 0.6 % (0.0-1.0); EOS # 0.1 10^3/uL (0.0-0.5); EOS % 1.4 % (0.0-3.0); HEMATOCRIT 35.8 % (42.0-52.0); HEMOGLOBIN 10.6 g/dl (13.5-17.5); LYMPH # 1.2 10^3/uL (1.5-5.0); LYMPH % 12.5 % (24.0-44.0); MEAN CORPUSCULAR HEMOGLOBIN 26.8 pg (27.0-33.0); MEAN CORPUSCULAR HGB CONC 29.6 g/dl (32.0-36.5); MEAN CORPUSCULAR VOLUME 90.4 fl (80.0-96.0); MONO # 0.9 10^3/uL (0.0-0.8); MONO % 9.4 % (0.0-5.0); NEUTROPHILS # 7.3 10^3/uL (1.5-8.5); NEUTROPHILS % 74.9 % (36.0-66.0); PLATELET COUNT, AUTOMATED 234 10^3/uL (150-450); RED BLOOD COUNT 3.96 10^6/uL (4.30-6.10); WHITE BLOOD COUNT 9.8 10^3/uL (4.0-10.0)
== END ==
LOC: M WUC 15:31
PROVIDERS: ATTEND Physician Assistant Medical
DX: K92.1 Melena (principal)

== ENCOUNTER 2020-08-01 08:06 | Emergency (ER) | payer MEDICARE ==
[~2020-08-01] VITALS: Ht 177.8 cm; Wt 102.2 kg
[~2020-08-01 08:06] MED LIST changes: -LISI-538 PO; -LISI-542 PO; +LISI-898 PO; +LISI10TA22 PO; -LISI10TA4 PO; +LISI20TA33 PO
[2020-08-01] MEDS ORDERED: PANTOPRAZOLE 40MG VIAL (C9113 PER 1) IV ONE (08:45)
[2020-08-01 09:08] LABS: BASO # 0.1 10^3/uL (0.0-0.2); BASO % 0.7 % (0.0-1.0); EOS # 0.1 10^3/uL (0.0-0.5); EOS % 1.5 % (0.0-3.0); HEMATOCRIT 36.7 % (42.0-52.0); HEMOGLOBIN 11.2 g/dl (13.5-17.5); LYMPH # 1.1 10^3/uL (1.5-5.0); LYMPH % 12.4 % (24.0-44.0); MEAN CORPUSCULAR HEMOGLOBIN 27.5 pg (27.0-33.0); MEAN CORPUSCULAR HGB CONC 30.5 g/dl (32.0-36.5); MONO # 0.9 10^3/uL (0.0-0.8); NEUTROPHILS # 6.6 10^3/uL (1.5-8.5); NEUTROPHILS % 73.3 % (36.0-66.0); PLATELET COUNT, AUTOMATED 228 10^3/uL (150-450); RED BLOOD COUNT 4.08 10^6/uL (4.30-6.10)
[2020-08-01] MEDS: GASTROGRAFIN SOLUTION 30ML (Q9963) PO SCH ×2 (09:22→10:08)
[2020-08-01 09:26] LABS: INR 1.02; PROTHROMBIN TIME 13.6 SECONDS (12.5-14.3)
[2020-08-01 09:27] LABS: BLOOD UREA NITROGEN 22 MG/DL (7-18); CALCIUM LEVEL 8.7 MG/DL (8.8-10.2); CARBON DIOXIDE LEVEL 31 MEQ/L (21-32); CHLORIDE LEVEL 101 MEQ/L (98-107); CREATININE FOR GFR 1.27 MG/DL (0.70-1.30); GLOMERULAR FILTRATION RATE > 60.0 (>49); GLUCOSE, FASTING 119 MG/DL (70-100); PARTIAL THROMBOPLASTIN TIME 32.6 SECONDS (24.2-38.5); POTASSIUM SERUM 4.3 MEQ/L (3.5-5.1); SODIUM LEVEL 137 MEQ/L (136-145)
[2020-08-01] MEDS ORDERED: ISOVUE-370 76% 100ML VIAL As Ordered ONE (11:02)
--- NOTE | 2020-08-01 11:50 | REP ---
INDICATION: dark/tarry stools COMPARISON: 07/03/2017. TECHNIQUE: CT Scan of the abdomen and pelvis was performed with intravenous administration of 100 cc of Isovue 370, and oral contrast. FINDINGS: Lung bases: Unremarkable. Liver: Normal Gallbladder: There is a 9 mm gallstone in the gallbladder without evidence of gallbladder wall edema. There is no biliary dilatation. Spleen: Normal. Adrenals: Normal. Pancreas: Normal. Kidneys: Normal. Small and large bowel: There is a left lower quadrant colostomy again noted. The patient is status post abdominoperineal resection. No gross bowel wall abnormality is seen. 2 Free fluid: None. Abdominal aorta: No aneurysm or dissection. Adenopathy: None. Osseous structures: Unremarkable. Pelvis: Linear fibrotic change in the posteroinferior pelvis is stable. IMPRESSION: Stable postsurgical changes. Gallstone again seen in the gallbladder without gallbladder wall edema or biliary dilatation. No acute findings. <Electronically signed by Manuel Hart > 08/01/20 1143
[2020-08-01 12:35] VITALS: BP 153/68
== END 2020-08-01 13:07 | disposition home or self-care (01) ==
LOC: M ED 08:06
DX: K92.1 Melena (principal); R19.5 Other fecal abnormalities; Z85.038 Personal history of other malignant neoplasm of large intestine; E11.9 Type 2 diabetes mellitus without complications; I10 Essential (primary) hypertension; E78.5 Hyperlipidemia, unspecified; J44.9 Chronic obstructive pulmonary disease, unspecified; Z86.73 Personal history of transient ischemic attack (TIA), and cerebral infarction without residual deficits; G47.30 Sleep apnea, unspecified; F41.9 Anxiety disorder, unspecified; F32.9 Major depressive disorder, single episode, unspecified; Z90.49 Acquired absence of other specified parts of digestive tract; Z92.21 Personal history of antineoplastic chemotherapy; M54.30 Sciatica, unspecified side; Z87.891 Personal history of nicotine dependence; Z79.899 Other long term (current) drug therapy; Z88.8 Allergy status to other drugs, medicaments and biological substances
CPT/HCPCS: 74177; 80048; 85025; 85610; 85730; 86850; 86900; 86901; 96374; 99284; C9113; Q9967

== ENCOUNTER → 2020-08-13 | Outpatient (CLI) | payer MEDICARE ==
[~2020-08-13] MED LIST changes: +AMLO1TAB24 PO; +HM P99TA PO; +LEXA1TAB2 PO; +VITATAB73 PO
== END ==
LOC: M LABSMTC 12:06
PROVIDERS: ATTEND Anesthesiology
DX: Z01.812 Encounter for preprocedural laboratory examination (principal); Z20.822 Contact with and (suspected) exposure to COVID-19

== ENCOUNTER 2020-08-18 08:31 | Day surgery (SDC) | payer MEDICARE ==
[~2020-08-18] VITALS: Ht 177.8 cm; Wt 100.6 kg
--- OUTSIDE RECORDS SUMMARY | 2020-08-18 08:36 | CCD | Continuity of Care Document ---
Author Author Zack DOW MD Organization Unknown Address [address] [place] [id number] Phone [phone] Care Team Providers Care Family Consultant Name Role Phone [facility] AUTM [phone] Danyelle Guzman D.O. AUTM Annie Puentes MD AUT[facility] [phone] Problems Active Problems Provider Date Digestive symptom Peter Dow MD Onset: 04/10/2013 Benign neoplasm of colon Peter Dow MD Onset: 04/10/20 13 Neoplasm of digestive system Peter Dow MD Onset: 03/26 Malignant tumor of rectum Peter Dow MD Onset: 013 Disorder of rectum Peter Dow MD Onset: 04/10/2013 Stenosis of rectum and anus Peter Dow MD Onset: 04/10 Anal and rectal polyp Petre Dow MD Onset: 04/10/2013 Weight decreased Peter Dow MD Onset: 04/10/2013 Chronic obstructive lung disease Everett Randhawa MD Onset: 04/02/2015 Body mass index 30+ - obesity Everett Randhawa MD Onset: Obesity Everett Randhawa MD Onset: 06/13/2013 Cough Everett Randhawa MD Onset: 06/13/2013 Allergic rhinitis Everett Randhawa MD Onset: 12/05/2011 Emphysematous bronchitis Everett Randhawa MD Onset: 09/01/19 11 Tobacco user Everett Randhawa MD Onset: 08/31/2010 Acute maxillary sinusitis Everett Randhawa MD Onset: 011 Social History Type Date Description Comments Sex Unknown ETOH Use Denies alcohol use Recreational Drug Use Denies Drug Use Tobacco Use Start: 06/26/70 Patient is a current smoker, smo kes every day currently smokes 1 pack per day Smoking Status Reviewed: 07/23/20 Patient is a current smoker, smokes every day currently smokes 1 pack per day Allergies, Adverse Reactions, Alerts Active Allergies Reaction Severity Comments Date Floxin RASH, HIVES 02/01/2012 Medications Active Medications SIG Qnty Indications Ordering Provide r Date Suprep Bowel Prep Kit 17.5-3.13-1.6GM/177ML Solution take per doctor's bowel prep instructions. 354ml D50.9 Peter Dow MD 07/28/2020 Proair HFA 108(90Base) mcg/Act Aer osol 2 puffs four times a day as needed 25.5gm Everett Randhawa MD 10/18/2019 Nebulizer Kit/Tubing/Mouthpiece K it use with nebulizer as directed dx: J44.9 2units Everett hoover MD 04/10/2018 Iron 325(65Fe) mg Tablets take 1 tablet by mouth daily. Unknown Tamsulosin HCL 0.4mg Capsules every day Unknown Oxybutynin Chloride ER 10mg Tablets ER 24HR by mouth every day Unknown 0 Albuterol Sulfate (2 .5mg/3ML) 0.083% Nebulizer 1 vial four times a day as needed dx: J44.9 360ml Everett Randhawa MD Pantoprazole Sodium 40mg Tablets DR daily 30tabs Jaden Medina DO Amlodipine Besylate 5mg Tablets every day 90tabs Jaden Medina DO Vitamin C 500mg Tablets daily Unknown Magnesium 250mg Tablets by mouth every day Unknown Atenolol 25mg Tablets 1 by mouth every day Unknown Potassium 99mg Tablets 1 ever y day Unknown Escitalopram Oxalate 20mg Tablets 1 by mouth every day Unknown Vitamin D 1000Unit Tablets 1 by mouth every day Unknown Lisinopril 20mg Tablets once a day Unknown Clopidogrel Bisulfate 75mg Tablets 1 by mouth every day Unknown Baclofen 10mg Tablets thre e times a day Unknown Atorvastatin Calcium 80mg Tablets 1 by mouth every day Unknown Cymbalta 30mg Caps DR Part twice a day Unknown Januvia 100mg Tablets once a day Unknown Immunizations CPT Code Status Date Vaccine Lot # 22072 Given Unknown Pneumococcal PPSV23 06242 Given Unknown Influenza Virus Split 3 Yrs And Above For Intramuscular Use 60078 Refused 04/10/2018 Influenza Virus Vaccine, Quadrivalent, Slit Virus, [place] Use [address] Refused 04/02/2015 Influenza Virus Split 3 Yrs And Above For Intramuscular Use Vital Signs Date Vital Result Comment 07/28/2020 2:41pm BP Systolic 124 mmHg BP Diastolic 62 mmHg Height 70 inches 5'10" Weight 223.00 lb BMI (Body Mass Index) 32.0 kg/m2 [place] Body Weight 166 lb Weight 101.153 kg BSA (Body Surface Area) 2.19 m2 07/23/2020 11:56am BP Systolic 148 mmHg BP Diastolic 54 mmHg Height 70 inches 5'10" Weight 226.00 lb BMI (Body Mass Index) 32.4 kg/m2 [place] Body Weight 166 lb Weight 102.514 kg BSA (Body Surface Area) 2.20 m2 Results Test Acquired Date Facility Test Result H/L Range Note CBC With Differential 07/30/2020 [facility] [address] [place] [phone] White Blood Count 9.8 10 Normal 4.0-10.0 Red Blood Count 3.96 10 Low 4.30-6.10 Hemoglobin 10.6 g/dL Low 13.5-17.5 Hematocrit 35.8 % Low 42.0-52.0 Mean Corpuscular Volume 90.4 fl Normal 80.0-96.0 Mean Corpuscular Hemoglobin 26.8 pg Low 27.0-33.0 Mean Corpuscular HGB Conc 29.6 g/dL Low 32.0-36.5 Red Cell Distribution Width 15.1 % High 11.5-14.5 Platelet Count, Automated 234 10 Normal 150-450 Neutrophils % 74.9 % High 36.0-66.0 Lymph % 12.5 % Low 24.0-44.0 Hale % 9.4 % High 0.0-5.0 Eos % 1.4 % Normal 0.0-3.0 Baso % 0.6 % Normal 0.0-1.0 Immature Granulocyte % 1.2 % Normal 0-3.0 Nucleated Red Blood Cell % 0.0 % Normal 0-0 Neutrophils # 7.3 10 Normal 1.5-8.5 Lymph # 1.2 10 Low 1.5-5.0 Hale # 0.9 10 High 0.0-0.8 Eos # 0.1 10 Normal 0.0-0.5 Baso # 0.1 10 Normal 0.0-0.2 1 1 07/31/20 (MonJul 31) 04:41 P M GLORIA POWELLBORODRIGO Anemia has worsened. Patient informed. See triage. Procedures Date Code Description Status 04/20/2020 64055 Spirometry Completed Medical Devices Description No Information Available Encounters Type Date Location Provider Dx Diagnosis Office Visit 07/23/2020 11:30a [facility] JORDYN Ruiz I65.23 Occlusion and stenosis of bilateral lr tid arteries I70.213 [place] arteries of ex trm w intrmt malia, bi legs F17.210 Nicotine dependence, cigaret sheryl, uncomplicated Office Visit 04/20/2020 1:00p [facility] Lawrenc bartolo Randhawa MD J44.9 Chronic obstructive pulmonary disease, u nspecified R91.8 Other nonspecific abnormal f inding of lung field F17.218 Nicotine dependence, cigaret sheryl, w oth disorders Office Visit 02/25/2020 9:00a [facility] JORDYN Ruiz I70.213 [place] arteries of extrm w intrmt malia, bi legs I65.23 Occlusion and stenosis of bi lateral carotid arteries F17.218 Nicotine dependence, cigaret sheryl, w oth disorders Assessments Date Code Description Provider 07/28/2020 K92.1 Melena Gloria A Arthur travis, RAAD-C 07/28/2020 R10.9 Unspecified abdominal pain Lida sa A Иринаleborodrigo, RAAD-C 07/28/2020 D50.9 Iron deficiency anemia, unspecif ied Gloria A Иринаlebois, RAAD-C 07/23/2020 I65.23 Occlusion and stenosis of bilate ral carotid arteries JORDYN Bryan 07/23/2020 I70.213 Atherosclerosis of n ative arteries of extremities with intermittent claudication, bilateral legs JORDYN Bryan 07/23/2020 F17.210 Nicotine dependence, cigarettes, uncomplicated JORDYN Bryan 04/20/2020 J44.9 Chronic obstructive pulmonary di sease, unspecified Everett Randhawa MD 04/20/2020 R91.8 Other nonspecific abnormal findi ng of lung field Everett Randhawa MD 04/20/2020 F17.218 Nicotine dependence, cigarettes, with other nicotine-induced Everett Randhawa MD 02/25/2020 I70.213 Atherosclerosis of n ative arteries of extremities with intermittent claudication, bilateral legs JORDYN Bryan 02/25/2020 I65.23 Occlusion and stenosis of bilate ral carotid arteries JORYDN Bryan 02/25/2020 F17.218 Nicotine dependence, cigarettes, with other nicotine-induced disorders JORDYN Bryan Plan of Treatment Future Appointment(s):* 08/18/2020 4:00 am - Peter Dow MD at [facility] * 09/21/2020 2:30 pm - Everett Randhawa MD at [facility] Pulmonary[facility]Th[facility]acic 07/28/2020 - Gloria Love RPA-C* K92.1 Melena * R10.9 Unspecified abdominal pain * D50.9 Iron deficiency anemia, unspecified * * New Orders:* Endoscopy, Ordered: 07/28/20 * Colonoscopy, Ordered: 07/28/20 * Comments:* Will arrange for upper endoscopy and colonoscopy. Reviewed risks and benefits of the procedures, as well as other options, with the patient. Prep for this procedure was discussed with patient, including risks and side effects associated with the prep. A letter will be sent to his PCP requesting a medical clearance and permission for him to hold Plavix prior to the procedures. Patient verbalized understanding of all of the above and is in agreement to proceed. I explained to the patient that if he has return of black, tarry stool, abdominal pain, or other acute issues arise, then he should seek immediate medical attention in the ED. He verbalized understanding. Will monitor. * Follow up:* 2 weeks after procedures, sooner if needed. Functional Status Description No Information Available Mental Status Description No Information Available Referrals Description No Information Available
--- OUTSIDE RECORDS SUMMARY | 2020-08-18 08:36 | CCD | Continuity of Care Document ---
Author Author Zack ALBA [place] Organization Unknown Address [address] [place] [address] [address] [place] [address] Phone [phone] Care Team Providers Care Product Management Intern Name Role Phone Danyelle Guzman D.O. AUTM Problems Active Problems Provider Date Pure hyperglyceridemia Danyelle Guzman D.O. Onset: 07/2016 Chronic obstructive lung disease Danyelle Guzman D.O. Onset: 11/25/2016 Type 2 diabetes mellitus Danyelle Guzman D.O. Onset: 0 11/25/2016 Electrocardiogram abnormal Danyelle Guzman D.O. Onset: 11/25/2016 Colostomy present Danyelle Guzman D.O. Onset: 2016 History of malignant neoplasm of colon Danyelle Guzman D.O. Onset: 11/25/2016 Nicotine dependence, cigarettes, with other nicotine-i nduced disorders Danyelle Guzman D.O. Onset: 11/25/2016 Acute renal failure syndrome Danyelle Guzman D.O. Onse t: 12/09/2016 Generalized anxiety disorder Danyelle Guzman D.O. Onse t: 12/09/2016 Senile hyperkeratosis Danyelle Guzman D.O. Onset: 11/24 Mixed hyperlipidemia Danyelle Guzman D.O. Onset: 01/13 Cerebral infarction due to internal carotid artery occ lusion Danyelle Arana D.O. Onset: 04/17/2017 Peripheral vascular disorder due to diabetes mellitus Danyelle Guzman D.O. 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 Onset: 06/16/2017 Ex-smoker Danyelle Guzman D.O. Onset: 2016 Essential hypertension Danyelle Guzman D.O. Onset: Iron deficiency anemia Danyelle Guzman D.O. Onset: Social History Type Date Description Comments Sex Unknown Tobacco Use Start: Unknown Heavy tobacco smoker (more than 10 cigarettes/day) ETOH Use Denies alcohol use ETOH Use Previous problem with alcohol Recreational Drug Use Denies Drug Use Tobacco Use Start: Unknown Patient is a current smoker, smo kes every day Smoking Status Reviewed: 08/04/20 Patient is a current smoker, smokes every day Exercise Type/Frequency Does not exercise Sun Exposure Does not use sunscreen Seat Belt/Car Seat Always uses seat belt Allergies, Adverse Reactions, Alerts Active Allergies Reaction Severity Comments Date Floxin Urticaria 11/17/2016 Medications Active Medications SIG Qnty Indications Ordering Provide r Date Pneumovax 23 25mcg/0.5ML Injection administer 1 injection intramuscular .500ml Ladan Jung.OCherry 04/20/2020 Prodigy No Coding Strips Use as Directed To Test Blood Sugar Twice Daily 150units Ladan Valiente.O. 03/16/2020 Lisinopril 20mg Tablets Take 1 Tablet By Mouth Daily 90tabs Ladan Huthcinson.OCherry 04/10 Ostomy Pouches #[id number] use as directed 20units Z93.2 Ladan Rodriguez.OCherry 11/01/2018 Atorvastatin Calcium 80mg Tablets Take 1 Tablet By Mouth Every Night 90tabs Danyelle Guzmán r, D.OCherry 10/16/2018 Franky Adhesive Remvr Wipe Use One Wipe as Needed To Remove Adhesive From Skin 50units Ladan Hutchinson.OCherry 05/15/2018 Franky Adhesive Remover Wipes Mi ut use 1 wipe as needed to remove adhesives from skin. 1Box Ladan Ny.O. 01/09/2018 Allkare Protect Barrier Wipe use one wipe as needed to protect skin 50units Ladan Hutchinson.O. 01/09/2018 Onetouch Ultra Blue Strips test blood sugars two times a day as directed 150units Ladan Solomon.O. 01/09/2018 Vitamin C 500mg Capsules 1 by mouth every day 30caps Ladan Hutchinson.O. 07/13 PT And OT Please evaluate and treat Dx: i69.351 I6 9.351 Ladan Hutchinson.O. 06/16/2017 Escitalopram Oxalate 20mg Tablets Take 1 Tablet By Mouth Daily 90tabs F41.1 Ladan Hutchinson.O . 12/09/2016 Blood Sugar 360 360 Capsules Unknown Potassium 99mg Tablets 1 by mouth every day Unknown Magnesium 400mg Tablets take one tablet by mouth before bed. Unknown Vitamin B Complex Tablets 1 by mouth every day Unknown Tamsulosin HCL 0.4mg Capsules Take 1 Capsule By Mouth Daily as Needed 90caps Danyelle Arana D.O. Pantoprazole Sodium 40mg Tablets D R Take 1 Tablet By Mouth Daily 90tabs Ladan Hutchinson.O . Amlodipine Besylate 5mg Tablets Take 1 Tablet By Mouth Daily Hold If SBP Is Less Than 120 mm HG 90tabs Ladan Hutchinson.O. Januvia 100mg Tablets Take 1 Tablet By Mouth Daily 90tabs Ladan Hutchinson.O. Clopidogrel Bisulfate 75mg Tablets Take 1 Tablet By Mouth Daily 90tabs Ladan Hutchinson.O . Baclofen 10mg Tablets take 1 tablet by mouth 3 times daily as needed 270tabs Danyelle Cordova er, D.O. Oxybutynin Chloride ER 10mg Tablets ER 24HR Take 1 Tablet By Mouth Daily as Needed 90tabs Zhang FowlerOCherry Atenolol 25mg Tablets Take 1 Tablet By Mouth Once Daily 90tabs Zhang HutchinsonO. Duloxetine HCL 30mg Caps DR Part Take 2 Capsules By Mouth Daily 180caps Ladan Hutchinson .O. Proair HFA 108(90Base) mcg/Act Aer osol 2 puffs as needed Unknown Advair Diskus 250-50mcg/Dose Aeros ol inhale one puff by mouth twice daily (30 day supply) Unknown Medications Administered in Office Medication SIG Qnty Indications Ordering Provider Date Immunization Administration Single Or Co mbination Injection JORDYN Pierre Immunization Administration Single Or Co mbination Injection JORDYN Pierre Immunizations CPT Code Status Date Vaccine Lot # [id number] Given 01/16/2020 Pneumococcal Con jugate Vaccine 13 Valent For Intramuscular Use [id number] U-Flu Given 07/28/2019 Influenza,Unspecified [id number] Given 07/12/2017 Pneumococcal Con jugate Vaccine 13 Valent For Intramuscular Use [id number] Vital Signs Date Vital Result Comment 08/04/2020 1:30pm BP Systolic 130 mmHg BP Diastolic 64 mmHg Height 68 inches 5'8" Weight 223.38 lb BMI (Body Mass Index) 34.0 kg/m2 Heart Rate 93 /min Respiratory Rate 18 /min Body Temperature 97.8 F O2 % BldC Oximetry 98 % [place] Body Weight 154 lb 07/21/2020 1:09pm BP Systolic 164 mmHg 126/54 rechec k BP Diastolic 70 mmHg 126/54 recheck Height 68 inches 5'8" Weight 225.38 lb BMI (Body Mass Index) 34.3 kg/m2 Heart Rate 69 /min Respiratory Rate 16 /min Body Temperature 97.8 F O2 % BldC Oximetry 93 % [place] Body Weight 154 lb Results Test Acquired Date Facility Test Result H/L Range Note CBC With Differential 08/01/2020 [facility] Outpatient Sheryl ting (Registration) [address] [place] [address] [phone] White Blood Count 9.0 10 Normal 4.0-10.0 Red Blood Count 4.08 10 Low 4.30-6.10 Hemoglobin 11.2 g/dL Low 13.5-17.5 Hematocrit 36.7 % Low 42.0-52.0 Mean Corpuscular Volume 90.0 fl Normal 80.0-96.0 Mean Corpuscular Hemoglobin 27.5 pg Normal 27.0-33.0 Mean Corpuscular HGB Conc 30.5 g/dL Low 32.0-36.5 Red Cell Distribution Width 15.6 % High 11.5-14.5 Platelet Count, Automated 228 10 Normal 150-450 Neutrophils % 73.3 % High 36.0-66.0 Lymph % 12.4 % Low 24.0-44.0 [place] % 10.0 % High 0.0-5.0 Eos % 1.5 % Normal 0.0-3.0 Baso % 0.7 % Normal 0.0-1.0 Immature Granulocyte % 2.1 % Normal 0-3.0 Nucleated Red Blood Cell % 0.0 % Normal 0-0 Neutrophils # 6.6 10 Normal 1.5-8.5 Lymph # 1.1 10 Low 1.5-5.0 [place] # 0.9 10 High 0.0-0.8 Eos # 0.1 10 Normal 0.0-0.5 Baso # 0.1 10 Normal 0.0-0.2 Basic Metabolic Profile 08/01/2020 [facility] Outpatient T esting (Registration) [address] [place] [address] [phone] Glucose, Fasting 119 mg/dL High 70-100 Blood Urea Nitrogen 22 mg/dL High 7-18 Creatinine For GFR 1.27 mg/dL Normal 0.70-1.30 Glomerular Filtration Rate > 60.0 Normal >49 1 Sodium Level 137 mEq/L Normal 136-145 Potassium Serum 4.3 mEq/L Normal 3.5-5.1 Chloride Level 101 mEq/L Normal 98-107 Carbon Dioxide Level 31 mEq/L Normal 21-32 Anion Gap 5 mEq/L Low 8-16 Calcium Level 8.7 mg/dL Low 8.8-10.2 Prothrombin Time/Inr 08/01/2020 [facility] Outpatient Test ing (Registration) [address] [place] [address] [phone] Prothrombin Time 13.6 seconds Normal 12.5-14.3 Inr 1.02 Normal 2 Laboratory test finding 08/01/2020 [facility] Outpatient T esting (Registration) [address] [place] [address] [phone] Partial Thromboplastin Time 32.6 seconds Normal 24 .2-38.5 Type & Screen -Incl Blood Type,Giles,AB SC 08/01/2020 [facility] Outpatient Testing (Registration) [address] [place] [address] [phone] Blood Type O POSITIVE Normal AB Screen (Indirect Veronica)Vis NEGATIVE Normal Hemoglobin A1c 07/13/2020 [facility] nter [address] [place] [address] [phone] Hemoglobin A1c 6.5 % Normal 3 Estimated Average Glucose 140 mg/dL High 60-110 Comprehensive Metabolic Profil 07/13/[address] [address] [phone] Glucose, Fasting 82 mg/dL Normal 70-100 Blood Urea Nitrogen 18 mg/dL Normal 7-18 Creatinine For GFR 1.17 mg/dL Normal 0.70-1.30 Glomerular Filtration Rate > 60.0 Normal >49 4 Sodium Level 135 mEq/L Low 136-145 Potassium Serum 4.4 mEq/L Normal 3.5-5.1 Chloride Level 99 mEq/L Normal 98-107 Carbon Dioxide Level 31 mEq/L Normal 21-32 Anion Gap 5 mEq/L Low 8-16 Calcium Level 9.1 mg/dL Normal 8.8-10.2 Ast/Sgot 17 U/L Normal 7-37 Alt/SGPT 34 U/L Normal 12-78 Alkaline Phosphatase 66 U/L Normal 45-117 Bilirubin,Total 0.5 mg/dL Normal 0.2-1.0 Total Protein 6.9 GM/DL Normal 6.4-8.2 Albumin 3.6 GM/DL Normal 3.2-5.2 Albumin/Globulin Ratio 1.1 Normal Lipid Panel 07/13/2020 [facility]ter [address] [place] [address] [phone] Triglycerides Level 82 mg/dL Normal <150 Cholesterol Level 93 mg/dL Normal <200 HDL Cholesterol 47 mg/dL Normal >40 LDL Cholesterol 30 mg/dL Normal <100 Non-HDL-C 46 mg/dL Normal Cholesterol Risk Ratio 1.978 Normal <5 CBC With Differential 07/13/[address] [address] [phone] White Blood Count 9.7 10 Normal 4.0-10.0 Red Blood Count 4.19 10 Low 4.30-6.10 Hemoglobin 11.7 g/dL Low 13.5-17.5 Hematocrit 38.6 % Low 42.0-52.0 Mean Corpuscular Volume 92.1 fl Normal 80.0-96.0 Mean Corpuscular Hemoglobin 27.9 pg Normal 27.0-33.0 Mean Corpuscular HGB Conc 30.3 g/dL Low 32.0-36.5 Red Cell Distribution Width 14.2 % Normal 11.5-14.5 Platelet Count, Automated 272 10 Normal 150-450 Neutrophils % 73.5 % High 36.0-66.0 Lymph % 14.4 % Low 24.0-44.0 [place] % 8.5 % High 0.0-5.0 Eos % 1.2 % Normal 0.0-3.0 Baso % 0.6 % Normal 0.0-1.0 Immature Granulocyte % 1.8 % Normal 0-3.0 Nucleated Red Blood Cell % 0.0 % Normal 0-0 Neutrophils # 7.1 10 Normal 1.5-8.5 Lymph # 1.4 10 Low 1.5-5.0 [place] # 0.8 10 Normal 0.0-0.8 Eos # 0.1 10 Normal 0.0-0.5 Baso # 0.1 10 Normal 0.0-0.2 Basic Metabolic Profile 03/31/2020 [facility] Outpatient Lee higuera (Registration) [address] [place] [address] [phone] Glucose, Fasting 93 mg/dL Normal 70-100 Blood Urea Nitrogen 25 mg/dL High 7-18 Creatinine For GFR 1.38 mg/dL High 0.70-1.30 Glomerular Filtration Rate 55.1 Normal >49 5 Sodium Level 136 mEq/L Normal 136-145 Potassium Serum 4.6 mEq/L Normal 3.5-5.1 Chloride Level 101 mEq/L Normal 98-107 Carbon Dioxide Level 30 mEq/L Normal 21-32 Anion Gap 5 mEq/L Low 8-16 Calcium Level 9.1 mg/dL Normal 8.8-10.2 Hemoglobin A1c 03/31/2020 [facility] Outpatient Testi ng (Registration) [address] [place] [address] [phone] Hemoglobin A1c 6.1 % Normal 6 Estimated Average Glucose 128 mg/dL High 60-110 Laboratory test finding 03/31/2020 [facility] Outpatient T esting (Registration) [address] [place] [address] [phone] HIV 1&2 Screen [facility] NEGATIVE Normal Negative 7 Hep C Virus AB Screen Medicare 0.1 INDEX Normal <0.8 8 1 Units are mL/min/1.73 m2 Chronic Kidney Disease Staging per NKF: Stage I & II GFR >=60 Normal to Mildly Decreased Stage III GFR 30-59 Moderately Decreased Stage IV GFR 15-29 Severely Decreased Stage V GFR <15 Very Little GFR Left ESRD GFR <15 on SUPERMARK[employer] MANAGER 2 THERAPUTIC HUMAN INR VALUES INDICATIONS NORMAL RANGES PROPHYLAXIS/TREATMENT OF: VENOUS THROMBOSIS 2.0-3.0 PULMONARY EMBOLISM 2.0-3.0 PREVENTION OF SYSTEMIC EMBOLISM FROM: TISSUE HEART VALVES 2.0-3.0 ACUTE MYOCARDIAL INFARCTION 2.0-3.0 VALVULAR HEART DISEASE 2.0-3.0 ATRIAL FIBRILLATION 2.0-3.0 MECHANICAL VALVES(HIGH RISK) 2.5-3.5 RECURRENT MYOCARDIAL INFARCTION 2.5-3.5 3 REFERENCE RANGES: <=5.6% NORMAL 5.7-6.4% SUGGESTS IMPAIRED GLUCOSE META BOLISM/PREDIABETIC >= 6.5% ABNORMAL 4 Units are mL/min/1.73 m2 Chronic Kidney Disease Staging per NKF: Stage I & II GFR >=60 Normal to Mildly Decreased Stage III GFR 30-59 Moderately Decreased Stage IV GFR 15-29 Severely Decreased Stage V GFR <15 Very Little GFR Left ESRD GFR <15 on SUPERMARKET MANAGER 5 Units are mL/min/1.73 m2 Chronic Kidney Disease Staging per NKF: Stage I & II GFR >=60 Normal to Mildly Decreased Stage III GFR 30-59 Moderately Decreased Stage IV GFR 15-29 Severely Decreased Stage V GFR <15 Very Little GFR Left ESRD GFR <15 on SUPERMARKET MANAGER 6 REFERENCE RANGES: <=5.6% NORMAL 5.7-6.4% SUGGESTS IMPAIRED GLUCOSE META BOLISM/PREDIABETIC >= 6.5% ABNORMAL 7 This assay was performed uti lizing a chemiluminescent principle technique for the simultaneous qualitative detection of HIV-1 p24 antigen & antibodies to HIV-1 (including group O) & HIV-2 using the [employer] system. The estimated 95% confidence interval for sensitivity of this antigen/antibody combination assay for HIV-1&2 antibodies is 99.7-100% and HIV p24 antigen is 89.4-99.9%. The estimated 95% confidence interval for specificity of this antigen/antibody combination in low risk populations is 99.6-99.8%. 8 Negative Not infected with HCV, unless recent infection is suspected or other evidence exists to indicate HCV infection. Procedures Description No Information Available Medical Devices Description No Information Available Encounters Type Date Location Provider Dx Diagnosis Office Visit 08/04/2020 1:20p [facility] JORDYN Doyle Z01.818 Encounter for other preproce dural examination K92.1 Melena Office Visit 07/21/2020 1:00p [facility] JORDYN Pierre 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 I11.9 Hypertensive heart disease w [facility] heart failure E78.2 Mixed hyperlipidemia J44.9 Chronic obstructive pulmonar y disease, unspecified F17.210 Nicotine dependence, cigaret sheryl, uncomplicated F33.1 Major depressive disorder, r ecurrent, moderate D50.9 Iron deficiency anemia, unsp ecified I69.351 Hemiplga following cerebral infrc aff right dominant side N18.30 Chronic kidney disease, stag e 3 unspecified Office Visit 04/20/2020 2:30p [facility] Jake Guzmna D.O. 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 I11.9 [facility] E78.2 Mixed hyperlipidemia J44.9 Chronic obstructive pulmonar y disease, unspecified F17.210 Nicotine dependence, cigaret sheryl, uncomplicated F33.1 Major depressive disorder, r ecurrent, moderate D50.9 Iron deficiency anemia, unsp ecified I69.351 Hemiplga following cerebral infrc aff right dominant side N18.30 Chronic kidney disease, stag e 3 unspecified Office Visit 02/05/2020 10:40a [facility] JORDYN Doyle Z01.818 Encounter for other preproce dural examination N35.819 Other urethral stricture, ma le, unspecified site Assessments Date Code Description Provider 08/04/2020 Z01.818 Encounter for other preprocedura l examination JORDYN Pierre 08/04/2020 K92.1 Shauna JORDYN Pierre 07/21/2020 E11.59 Type 2 diabetes mellitus with ot her circulatory complication JORDYN Pierre 07/21/2020 I11.9 Hypertensive heart disease witho ut heart failure JORDYN Pierre 07/21/2020 E78.2 Mixed hyperlipidemia Brayan benoit, JORDYN 07/21/2020 J44.9 Chronic obstructive pulmonary di sease, unspecified Brayan Alba, JORDYN 07/21/2020 F17.210 Nicotine dependence, cigarettes, uncomplicated Brayan Alba, JORDYN 07/21/2020 F33.1 Major depressive disorder, recur rent, moderate Brayan Alba, JORDYN 07/21/2020 D50.9 Iron deficiency anemia, unspecif ied Brayan Alba, JORDYN 07/21/2020 I69.351 Hemiplegia and hemiparesis follo wing cerebral infarction aff JORDYN Pierre 07/21/2020 N18.30 Chronic kidney disease, stage 3 unspecified JORDYN Pierre 04/20/2020 E11.59 Type 2 diabetes mellitus with ot her circulatory complication Danyelle Guzman, D.O. 04/20/2020 I11.9 Hypertensive heart disease witho ut heart failure Danyelle Arana, D.O. 04/20/2020 E78.2 Mixed hyperlipidemia Danyelle Leoea no-Sumit, D.O. 04/20/2020 J44.9 Chronic obstructive pulmonary di sease, unspecified Danyelle Correano-Sumit, D.O. 04/20/2020 F17.210 Nicotine dependence, cigarettes, uncomplicated Danyelle Correano- Sumit, D.O. 04/20/2020 F33.1 Major depressive disorder, recur rent, moderate Danyelle Correano- Sumit, D.O. 04/20/2020 D50.9 Iron deficiency anemia, unspecif ied Danyelle FatimaMike Morelos 04/20/2020 I69.351 Hemiplegia and hemiparesis follo wing cerebral infarction aff Danyelle Guzman D.O. 04/20/2020 N18.30 Chronic kidney disease, stage 3 unspecified Danyelle Arana D.O. 02/05/2020 Z01.818 Encounter for other preprocedura l examination JORDYN Pierre 02/05/2020 N35.819 Other urethral stricture, male, unspecified site JORDYN Pierre Plan of Treatment Future Appointment(s):* 10/19/2020 2:30 pm - Danyelle Guzman D.O. at [facility] 08/04/2020 - JORDYN Pierre* Z01.818 Encounter for other preprocedural examination* Comments:* You are deemed medically optimized for your upcoming procedure. Stop your plavix 5 days prior to your procedure, and take xarelto 2.5mg twice daily until 48 hours prior to your procedure. Call for any concerns. Otherwise take your medications as prescribed. You should start your plavix as soon as possible after your procedure. * Follow up:* As already scheduled. * K92.1 Melena Functional Status Description No Information Available Mental Status Description No Information Available Referrals Description No Information Available
--- OUTSIDE RECORDS SUMMARY | 2020-08-18 08:36 | CCD | Continuity of Care Document ---
Author Author Zack [facility] [place] Organization Unknown Address [address] [place] [address] 6 [address] [place] [address] Phone [phone] Care Team Providers Care Contract Administration Manager Name Role Phone Danyelle Guzman D.O. AUTM [...] smo kes every day Smoking Status Reviewed: 07/21/20 Patient is a current smoker, smokes every [...] To Test Blood Sugar Twice Daily 150units Danyelle milan D.O. 03/16/2020 Lisinopril 20mg Tablets Take 1 Tablet By Mouth Daily 90tabs Ladan Hutchinson.OCherry 04/10 Ostomy Pouches #[id number] use as directed 20units Z93.2 Ladan Rodriguez.OCherry 11/01/2018 Atorvastatin Calcium 80mg Tablets Take 1 Tablet By Mouth Every Night 90tabs Danyelle Guzmán r, D.OCherry 10/16/2018 Franky Adhesive Remvr Wipe Use One Wipe as Needed To Remove Adhesive From Skin 50units Ladan Hutchinson.OCherry 05/15/2018 Franky Adhesive Remover Wipes Mi ia use 1 wipe as needed to remove [...] CPT Code Status Date Vaccine Lot # 21616 Given 01/16/2020 Pneumococcal Con jugate Vaccine 13 Valent For Intramuscular Use [id number] U-Flu Given 07/28/2019 Influenza,Unspecified 00469 Given 07/12/2017 Pneumococcal Con jugate Vaccine 13 Valent For Intramuscular Use [id number] Vital Signs Date Vital Result Comment 08/04/2020 1:30pm BP Systolic 130 mmHg BP Diastolic 64 mmHg Height 68 inches 5'8" Weight 223.38 lb BMI (Body Mass Index) 34.0 kg/m2 Heart Rate 93 /min Respiratory Rate 18 /min Body Temperature 97.8 F O2 % BldC Oximetry 98 % [place] Body Weight 154 lb 07/21/2020 1:09pm BP Systolic 164 mmHg 126/54 rechec k BP Diastolic 70 mmHg 126/54 recheck Height 68 inches 5'8" Weight 225.38 lb BMI (Body Mass Index) 34.3 kg/m2 Heart Rate 69 /min Respiratory Rate 16 /min Body Temperature 97.8 F O2 % BldC Oximetry 93 % [place] Body Weight 154 lb Results Test Acquired Date Facility Test Result H/L Range Note CBC With Differential 08/01/2020 [facility] Outpatient Sheryl ting (Registration) [address] [place] [address] [phone] White Blood Count 9.0 10 Normal 4.0-10.0 [...] 36.0-66.0 Lymph % 12.4 % Low 24.0-44.0 [place] % 10.0 % High 0.0-5.0 Eos % 1.5 % Normal 0.0-3.0 Baso % 0.7 % Normal 0.0-1.0 Immature Granulocyte % 2.1 % Normal 0-3.0 Nucleated Red Blood Cell % 0.0 % Normal 0-0 Neutrophils # 6.6 10 Normal 1.5-8.5 Lymph # 1.1 10 Low 1.5-5.0 [place] # 0.9 10 High 0.0-0.8 Eos # 0.1 10 Normal 0.0-0.5 Baso # 0.1 10 Normal 0.0-0.2 Basic Metabolic Profile 08/01/2020 [facility] Outpatient T esting (Registration) [address] [place] [address] [phone] Glucose, Fasting 119 mg/dL High 70-100 Blood [...] 8.7 mg/dL Low 8.8-10.2 Prothrombin Time/Inr 08/01/2020 [facility] Outpatient Test ing (Registration) [address] [place] [address] [phone] Prothrombin Time 13.6 seconds Normal 12.5-14.3 Inr 1.02 Normal 2 Laboratory test finding 08/01/2020 [facility] Outpatient T esting (Registration) [address] [place] [address] [phone] Partial Thromboplastin Time 32.6 seconds Normal 24 .2-38.5 Type & Screen -Incl Blood Type,Giles,AB SC 08/01/2020 [facility] Outpatient Testing (Registration) [address] [place] [address] [phone] Blood Type O POSITIVE Normal AB Screen (Indirect Veronica)Vis NEGATIVE Normal Hemoglobin A1c 07/13/2020 [facility] nter [address] [place] [address] [phone] Hemoglobin A1c 6.5 % Normal 3 Estimated Average Glucose 140 mg/dL High 60-110 Comprehensive Metabolic Profil 07/13/[address] [address] [phone] Glucose, Fasting 82 mg/dL Normal 70-100 Blood [...] Albumin/Globulin Ratio 1.1 Normal Lipid Panel 07/13/2020 [facility] nter [address] [place] [address] [phone] Triglycerides Level 82 mg/dL Normal <150 Cholesterol Level 93 mg/dL Normal <200 HDL Cholesterol 47 mg/dL Normal >40 LDL Cholesterol 30 mg/dL Normal <100 Non-HDL-C 46 mg/dL Normal Cholesterol Risk Ratio 1.978 Normal <5 CBC With Differential 07/13/[address] [address] [phone] White Blood Count 9.7 10 Normal 4.0-10.0 [...] 36.0-66.0 Lymph % 14.4 % Low 24.0-44.0 [place] % 8.5 % High 0.0-5.0 Eos % 1.2 % Normal 0.0-3.0 Baso % 0.6 % Normal 0.0-1.0 Immature Granulocyte % 1.8 % Normal 0-3.0 Nucleated Red Blood Cell % 0.0 % Normal 0-0 Neutrophils # 7.1 10 Normal 1.5-8.5 Lymph # 1.4 10 Low 1.5-5.0 [place] # 0.8 10 Normal 0.0-0.8 Eos # 0.1 10 Normal 0.0-0.5 Baso # 0.1 10 Normal 0.0-0.2 Basic Metabolic Profile 03/31/2020 [facility] Outpatient Lee higuera (Registration) [address] [place] [address] [phone] Glucose, Fasting 93 mg/dL Normal 70-100 Blood [...] 9.1 mg/dL Normal 8.8-10.2 Hemoglobin A1c 03/31/2020 [facility] Outpatient Testi ng (Registration) [address] [place] [address] [phone] Hemoglobin A1c 6.1 % Normal 6 Estimated Average Glucose 128 mg/dL High 60-110 Laboratory test finding 03/31/2020 [facility] Outpatient T esting (Registration) [address] [place] [address] [phone] HIV 1&2 Screen Centaur NEGATIVE Normal Negative [...] Little GFR Left ESRD GFR <15 on WEB PRESS ROLL TENDER 2 THERAPUTIC HUMAN INR VALUES INDICATIONS NORMAL [...] Little GFR Left ESRD GFR <15 on WEB PRESS ROLL TENDER 5 Units are mL/min/1.73 m2 Chronic Kidney Disease Staging per NKF: Stage I & II GFR >=60 Normal to Mildly Decreased Stage III GFR 30-59 Moderately Decreased Stage IV GFR 15-29 Severely Decreased Stage V GFR <15 Very Little GFR Left ESRD GFR <15 on WEB PRESS ROLL TENDER 6 REFERENCE RANGES: <=5.6% NORMAL 5.7-6.4% SUGGESTS IMPAIRED GLUCOSE META BOLISM/PREDIABETIC >= 6.5% ABNORMAL 7 This assay was performed uti lizing a chemiluminescent principle technique for the simultaneous qualitative detection of HIV-1 p24 antigen & antibodies to HIV-1 (including group O) & HIV-2 using the i'mma system. 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 I11.9 Hypertensive heart disease w [facility] heart failure E78.2 Mixed hyperlipidemia J44.9 Chronic obstructive pulmonar y disease, unspecified F17.210 Nicotine dependence, cigaret sheryl, uncomplicated F33.1 Major depressive disorder, r ecurrent, moderate D50.9 Iron deficiency anemia, unsp ecified I69.351 Hemiplga following cerebral infrc aff right dominant side N18.30 Chronic kidney disease, stag e 3 unspecified Office Visit 02/05/2020 10:40a [facility] JORDYN Pierre Z01.818 Encounter for other preproce dural examination N35.819 Other urethral stricture, ma le, unspecified site Assessments Date Code Description Provider 08/04/2020 Z01.818 Encounter for other preprocedura l examination Brayan Alba, JORDYN 08/04/2020 K92.1 Shauna Brayan Alba , JORDYN 07/21/2020 E11.59 Type 2 diabetes mellitus with ot her circulatory complication Brayan Alba, JORDYN 07/21/2020 I11.9 Hypertensive heart disease witho ut heart failure Brayan Alba, JORDYN 07/21/2020 E78.2 Mixed hyperlipidemia Brayan benoit, JORDYN 07/21/2020 J44.9 Chronic obstructive pulmonary di sease, unspecified Brayan Alba, [place] 07/21/2020 F17.210 Nicotine dependence, cigarettes, uncomplicated Brayan Alba, JORDYN 07/21/2020 F33.1 Major depressive disorder, recur rent, moderate Brayan Alba, JORDYN 07/21/2020 D50.9 Iron deficiency anemia, unspecif ied Brayan Alba, JORDYN 07/21/2020 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 04/20/2020 I11.9 Hypertensive heart disease witho ut heart failure Danyelle Arana, D.O. 04/20/2020 E78.2 Mixed hyperlipidemia Danyelle Saini, D.O. 04/20/2020 J44.9 Chronic obstructive pulmonary di sease, unspecified Danyelle Fatima-Sumit, D.O. 04/20/2020 F17.210 Nicotine dependence, cigarettes, uncomplicated Danyelle Fatima- Sumit, D.O. 04/20/2020 F33.1 Major depressive disorder, recur rent, moderate Danyelle Fatima- Sumit, D.O. 04/20/2020 D50.9 Iron deficiency anemia, unspecif ied Danyelle Fatima-Sumit, D.O. 04/20/2020 I69.351 Hemiplegia and hemiparesis follo wing cerebral infarction aff Danyelle Guzman, D.O. 04/20/2020 N18.30 Chronic kidney disease, stage 3 unspecified Danyelle Arana D.O. 02/05/2020 Z01.818 Encounter for other preprocedura l examination JORDYN Pierre 02/05/2020 N35.819 Other urethral stricture, male, unspecified site JORDYN Pierre Plan of Treatment Future Appointment(s):* 10/19/2020 2:30 pm - Danyelle Guzman D.O. at [facility] 08/04/2020 - JORDYN Pierre* Z01.818 Encounter for [...]
--- OUTSIDE RECORDS SUMMARY | 2020-08-18 08:36 | CCD | Continuity of Care Document ---
Author Author Zack GUZMAN D.O. Organization Unknown Address [address] [place] [address] Phone [phone] Care Team Providers Care Working Supervisor Name Role Phone Danyelle Guzman D.O. AUTM [...] Onset: 11/25/2016 Acute renal failure syndrome Danyelle Gumzan D.O. Onse t: 12/09/2016 Generalized anxiety disorder [...] 25mcg/0.5ML Injection administer 1 injection intramuscular .500ml Zhang JungOCherry 04/20/2020 Prodigy No Coding Strips Use as Directed To Test Blood Sugar Twice Daily 150units Danyelle milan D.O. 03/16/2020 Lisinopril 20mg Tablets Take 1 Tablet By Mouth Daily 90tabs Ladan Hutchinson.OCherry 04/10 Ostomy Pouches #[id number] use as directed 20units Z93.2 Ladan Rodriguez.OCherry 11/01/2018 Atorvastatin Calcium 80mg Tablets Take 1 Tablet By Mouth Every Night 90tabs Danyelle Guzmán r, D.O. 10/16/2018 Franky Adhesive Remvr Wipe Use One Wipe as Needed To Remove Adhesive From Skin 50units Zhang HutchinsonO. 05/15/2018 Franky Adhesive Remover Wipes Mi ms use 1 wipe as needed to remove adhesives from skin. 1Box Zhang NyOCherry 01/09/2018 Allkare Protect Barrier Wipe use one wipe as needed to protect skin 50units Zhang HutchinsonO. 01/09/2018 Onetouch Ultra Blue Strips test blood sugars two times a day as directed 150units Zhang SolomonOCherry 01/09/2018 Vitamin C 500mg Capsules 1 by mouth every day 30caps Zhang HutchinsonO. 07/13 PT And OT Please evaluate and treat Dx: i69.351 I6 9.351 Zhang HutchinsonOCherry 06/16/2017 Escitalopram Oxalate 20mg Tablets Take 1 Tablet By Mouth Daily 90tabs F41.1 Zhang HutchinsonO Cherry 12/09/2016 Blood Sugar 360 360 Capsules Unknown Potassium 99mg Tablets 1 by mouth every day Unknown Magnesium 400mg Tablets take one tablet by mouth before bed. Unknown Vitamin B Complex Tablets 1 by mouth every day Unknown Tamsulosin HCL 0.4mg Capsules Take 1 Capsule By Mouth Daily as Needed 90caps Zhang AtkinsonO. Pantoprazole Sodium 40mg Tablets D R Take 1 Tablet By Mouth Daily 90tabs Zhang HutchinsonO Cherry Amlodipine Besylate 5mg Tablets Take 1 Tablet [...] 1 Tablet By Mouth Once Daily 90tabs Danyelle Guzman D.O. Duloxetine HCL 30mg Caps DR Part Take 2 Capsules By Mouth Daily 180caps Ladan HutchinsonO. Proair HFA 108(90Base) mcg/Act Aer osol 2 [...] CPT Code Status Date Vaccine Lot # 14495 Given 01/16/2020 Pneumococcal Con jugate Vaccine 13 Valent For Intramuscular Use [id number] U-Flu Given 07/28/2019 Influenza,Unspecified 35789 Given 07/12/2017 Pneumococcal Con jugate Vaccine 13 Valent For Intramuscular Use [id number] Vital Signs Date Vital Result Comment 07/21/2020 1:09pm BP Systolic 164 mmHg 126/54 rechec k BP Diastolic 70 mmHg 126/54 recheck Height 68 inches 5'8" Weight 225.38 lb BMI (Body Mass Index) 34.3 kg/m2 Heart Rate 69 /min Respiratory Rate 16 /min Body Temperature 97.8 F O2 % BldC Oximetry 93 % [place] Body Weight 154 lb 04/20/2020 2:26pm BP Systolic 132 mmHg BP Diastolic 78 mmHg Height 68 inches 5'8" Weight 225.19 lb BMI (Body Mass Index) 34.2 kg/m2 Heart Rate 78 /min Respiratory Rate 16 /min Body Temperature 97.6 F O2 % BldC Oximetry 94 % [place] Body Weight 154 lb Results Test Acquired Date Facility Test Result H/L Range Note CBC With Differential 08/01/2020 [facility] Outpatient Sheryl durbin (Registration) [address] [place] [address] [phone] White Blood Count 9.0 10 Normal 4.0-10.0 [...] 36.0-66.0 Lymph % 12.4 % Low 24.0-44.0 [place] % 10.0 % High 0.0-5.0 Eos % 1.5 % Normal 0.0-3.0 Baso % 0.7 % Normal 0.0-1.0 Immature Granulocyte % 2.1 % Normal 0-3.0 Nucleated Red Blood Cell % 0.0 % Normal 0-0 Neutrophils # 6.6 10 Normal 1.5-8.5 Lymph # 1.1 10 Low 1.5-5.0 [place] # 0.9 10 High 0.0-0.8 Eos # 0.1 10 Normal 0.0-0.5 Baso # 0.1 10 Normal 0.0-0.2 Basic Metabolic Profile 08/01/2020 [facility] Outpatient T esting (Registration) [address] [place] [address] [phone] Glucose, Fasting 119 mg/dL High 70-100 Blood [...] 8.7 mg/dL Low 8.8-10.2 Prothrombin Time/Inr 08/01/2020 [facility] Outpatient Test ing (Registration) [address] [place] [address] [phone] Prothrombin Time 13.6 seconds Normal 12.5-14.3 Inr 1.02 Normal 2 Laboratory test finding 08/01/2020 [facility] Outpatient T esting (Registration) [address] [place] [address] [phone] Partial Thromboplastin Time 32.6 seconds Normal 24 .2-38.5 Type & Screen -Incl Blood Type,Giles,AB SC 08/01/2020 [facility] Outpatient Testing (Registration) [address] [place] [address] [phone] Blood Type O POSITIVE Normal AB Screen (Indirect Veronica)Vis NEGATIVE Normal Hemoglobin A1c 07/13/2020 [facility] nter [address] [place] [address] [phone] Hemoglobin A1c 6.5 % Normal 3 Estimated Average Glucose 140 mg/dL High 60-110 Comprehensive Metabolic Profil 07/13/[address] [address] [phone] Glucose, Fasting 82 mg/dL Normal 70-100 Blood [...] Albumin/Globulin Ratio 1.1 Normal Lipid Panel 07/13/2020 [facility] nter [address] [place] [address] [phone] Triglycerides Level 82 mg/dL Normal <150 Cholesterol Level 93 mg/dL Normal <200 HDL Cholesterol 47 mg/dL Normal >40 LDL Cholesterol 30 mg/dL Normal <100 Non-HDL-C 46 mg/dL Normal Cholesterol Risk Ratio 1.978 Normal <5 CBC With Differential 07/13/[address] [address] [phone] White Blood Count 9.7 10 Normal 4.0-10.0 [...] 36.0-66.0 Lymph % 14.4 % Low 24.0-44.0 [place] % 8.5 % High 0.0-5.0 Eos % 1.2 % Normal 0.0-3.0 Baso % 0.6 % Normal 0.0-1.0 Immature Granulocyte % 1.8 % Normal 0-3.0 Nucleated Red Blood Cell % 0.0 % Normal 0-0 Neutrophils # 7.1 10 Normal 1.5-8.5 Lymph # 1.4 10 Low 1.5-5.0 [place] # 0.8 10 Normal 0.0-0.8 Eos # 0.1 10 Normal 0.0-0.5 Baso # 0.1 10 Normal 0.0-0.2 Basic Metabolic Profile 03/31/2020 [facility] Outpatient Lee higuera (Registration) [address] [place] [address] [phone] Glucose, Fasting 93 mg/dL Normal 70-100 Blood [...] 9.1 mg/dL Normal 8.8-10.2 Hemoglobin A1c 03/31/2020 [facility] Outpatient Testi ng (Registration) [address] [place] [address] [phone] Hemoglobin A1c 6.1 % Normal 6 Estimated Average Glucose 128 mg/dL High 60-110 Laboratory test finding 03/31/2020 [facility] Outpatient T esting (Registration) [address] [place] [address] [phone] HIV 1&2 Screen Centaur NEGATIVE Normal Negative [...] Little GFR Left ESRD GFR <15 on SUPERVISOR LOCOMOTIVE 2 THERAPUTIC HUMAN INR VALUES INDICATIONS NORMAL [...] Little GFR Left ESRD GFR <15 on SUPERVISOR LOCOMOTIVE 5 Units are mL/min/1.73 m2 Chronic Kidney Disease Staging per NKF: Stage I & II GFR >=60 Normal to Mildly Decreased Stage III GFR 30-59 Moderately Decreased Stage IV GFR 15-29 Severely Decreased Stage V GFR <15 Very Little GFR Left ESRD GFR <15 on SUPERVISOR LOCOMOTIVE 6 REFERENCE RANGES: <=5.6% NORMAL 5.7-6.4% SUGGESTS IMPAIRED GLUCOSE META BOLISM/PREDIABETIC >= 6.5% ABNORMAL 7 This assay was performed uti lizing a chemiluminescent principle technique for the simultaneous qualitative detection of HIV-1 p24 antigen & antibodies to HIV-1 (including group O) & HIV-2 using the [employer] system. 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819 Other urethral stricture, nelson kessler, unspecified site Assessments Date Code Description Provider 07/21/2020 E11.59 Type 2 diabetes mellitus with ot her circulatory complication Brayan Alba, PA 07/21/2020 I11.9 Hypertensive heart disease witho ut heart failure Brayan Alba, PA 07/21/2020 E78.2 Mixed hyperlipidemia Brayan benoit, PA 07/21/2020 J44.9 Chronic obstructive pulmonary di sease, unspecified Brayan Alba, PA 07/21/2020 F17.210 Nicotine dependence, cigarettes, uncomplicated Brayan Alba, PA 07/21/2020 F33.1 Major depressive disorder, recur rent, moderate Brayan Alba, PA 07/21/2020 D50.9 Iron deficiency anemia, unspecif ied Brayan Alba, PA 07/21/2020 I69.351 Hemiplegia and hemiparesis follo wing cerebral infarction aff Brayan Alba, PA 07/21/2020 N18.30 Chronic kidney disease, stage 3 unspecified Brayan Alba, PA 04/20/2020 E11.59 Type 2 diabetes mellitus with ot her circulatory complication Danyelle Fatima-Sumit, D.O. 04/20/2020 I11.9 Hypertensive heart disease witho ut heart failure Danyelle Fatima- Sumit, D.O. 04/20/2020 E78.2 Mixed hyperlipidemia Danyelle Correa no-Sumit, D.O. 04/20/2020 J44.9 Chronic obstructive pulmonary di sease, unspecified Danyelle Kushal-Sumit, D.O. 04/20/2020 F17.210 Nicotine dependence, cigarettes, uncomplicated Danyelle Correano- Sumit, D.O. 04/20/2020 F33.1 Major depressive disorder, recur rent, moderate Danyelle Kushal- Sumit, D.O. 04/20/2020 D50.9 Iron deficiency anemia, unspecif ied Danyelle Fatima-Sumit, D.O. 04/20/2020 I69.351 Hemiplegia and hemiparesis follo wing cerebral infarction aff Danyelle Fatima-Sumit, D.O. 04/20/2020 N18.30 Chronic kidney disease, stage 3 unspecified Danyelle Correano- Sumit, D.O. 02/05/2020 Z01.818 Encounter for other preprocedura l examination JORDYN Pierre 02/05/2020 N35.819 Other urethral stricture, male, unspecified site JORDYN Pierre Plan of Treatment Future Appointment(s):* 10/19/2020 2:30 pm - Danyelle Guzman D.O. at [facility] 07/21/2020 - JORDYN Pierre* E11.59 Type 2 diabetes mellitus with other circulatory complication* New Labs:* Hemoglobin A1c, Scheduled: 10/19/20 * Comments:* Blood sugars are worse than they had been previously. * Follow up:* [address] Fatima. * I11.9 Hypertensive heart disease without heart failure* Comments:* Well compensated currently. Continue with the recommendations of cardiology. * E78.2 Mixed hyperlipidemia* Comments:* Continue atorvastatin as prescribed, your blood cholesterol numbers are where we would like them to be. * J44.9 Chronic obstructive pulmonary disease, unspecified* Comments:* Stable. Keep in mind that smoking makes your lung function worse. * F17.210 Nicotine dependence, cigarettes, uncomplicated* Comments:* Smoking is bad for your health. Really bad in your case. Let us know if there is anything we can do to help you quit. * F33.1 Major depressive disorder, recurrent, moderate* Comments:* Mood stabe currently with your current management regimen. * D50.9 Iron deficiency anemia, unspecified* New Labs:* Comprehensive Metabolic Profil, Scheduled: 10/19/20 * Total Iron Binding Capacit, Scheduled: 10/19/20 * Ferritin, Scheduled: 10/19/20 * Vitamin B12 & Folate, Scheduled: 10/19/20 * Erythropoietin, Scheduled: 10/19/20 * Retic (Reticulocyte Count), Scheduled: 10/19/20 * Comments:* Your blood counts are down compared with last time. We will check labs before you return to evaluate further. 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 * N18.30 Chronic kidney disease, stage 3 unspecified* Comments:* Stable. Functional Status Description No Information Available Mental Status Description No Information Available Referrals Description No Information Available
--- OUTSIDE RECORDS SUMMARY | 2020-08-18 08:37 | CCD | Continuity of Care Document ---
Author Author Zack GUZMAN D.O. Organization Unknown Address [address] [place] [address] Phone [phone] Care Team Providers Care Logger Name Role Phone Danyelle Guzman D.O. AUTM [phone] Problems Active Problems Provider Date Pure hyperglyceridemia [...] smo kes every day Smoking Status Reviewed: 04/20/20 Patient is a current smoker, smokes every [...] Daily 90tabs Ladan Hutchinson.OCherry 04/10 Ostomy Pouches #409773 use as directed 20units Z93.2 Ladan Rodriguez.O. 11/01/2018 Atorvastatin Calcium 80mg Tablets Take 1 Tablet By Mouth Every Night 90tabs Danyelle Guzmán r, D.O. 10/16/2018 Franky Adhesive Remvr Wipe Use One Wipe as Needed To Remove Adhesive From Skin 50units Zhang HutchinsonO. 05/15/2018 Franky Adhesive Remover Wipes [place] use 1 wipe as needed to remove [...] Capsule By Mouth Daily as Needed 90caps Ladan Atkinson.O. Pantoprazole Sodium 40mg Tablets D R Take 1 Tablet By Mouth Daily 90tabs Ladan Hutchinson.O . Amlodipine Besylate 5mg Tablets take one tablet by mouth every day hold if sbp is less than 120mm hg 90tabs Ladan Hutchinson.O. Januvia 100mg Tablets Take 1 Tablet By Mouth Daily 90tabs Ladan Hutchinson.O. Clopidogrel Bisulfate 75mg Tablets Take 1 Tablet By Mouth Daily 90tabs Ladan Hutchinson.O . Baclofen 10mg Tablets take 1 tablet by mouth 3 times daily as needed 270tabs Danyelle Cordova er, D.O. Oxybutynin Chloride ER 10mg Tablets ER 24HR Take 1 Tablet By Mouth Daily as Needed 90tabs Marc Guzman D.O. Atenolol 25mg Tablets Take 1 Tablet By Mouth Once Daily 90tabs Danyelle Guzman D.O. Duloxetine HCL 30mg Caps DR Hema take two capsules by mouth every day 180caps Zhang HutchinsonO. Proair HFA 108(90Base) mcg/Act Aer osol [...] CPT Code Status Date Vaccine Lot # [id number] Given 01/16/2020 Pneumococcal Con jugate Vaccine 13 Valent For Intramuscular Use [id number] U-Flu Given 07/28/2019 Influenza,Unspecified 39865 Given 07/12/2017 Pneumococcal Con jugate Vaccine 13 Valent For Intramuscular Use [id number] Vital Signs Date Vital Result Comment 04/20/2020 2:26pm BP Systolic 132 mmHg BP Diastolic 78 mmHg Height 68 inches 5'8" Weight 225.19 lb BMI (Body Mass Index) 34.2 kg/m2 Heart Rate 78 /min Respiratory Rate 16 /min Body Temperature 97.6 F O2 % BldC Oximetry 94 % [place] Body Weight 154 lb 02/05/2020 10:45am BP Systolic 130 mmHg BP Diastolic 70 mmHg Height 68 inches 5'8" Weight 219.00 lb BMI (Body Mass Index) 33.3 kg/m2 Heart Rate 65 /min Respiratory Rate 20 /min Body Temperature 97.1 F O2 % BldC Oximetry 95 % [place] Body Weight 154 lb Results Test Acquired Date Facility Test Result H/L Range Note Hemoglobin A1c 07/13/2020 [facility] nter [address] [place] [address] [id number] [phone] Hemoglobin A1c 6.5 % Normal 1 Estimated Average Glucose 140 mg/dL High 60-110 Comprehensive Metabolic Profil 07/13/[address] [id number] [phone] Glucose, Fasting 82 mg/dL Normal 70-100 Blood Urea Nitrogen 18 mg/dL Normal 7-18 Creatinine For GFR 1.17 mg/dL Normal 0.70-1.30 Glomerular Filtration Rate > 60.0 Normal >49 2 Sodium Level 135 mEq/L Low 136-145 Potassium [...] Albumin/Globulin Ratio 1.1 Normal Lipid Panel 07/13/2020 [facility] nter [address] [place] [address] [phone] Triglycerides Level 82 mg/dL Normal <150 Cholesterol Level 93 mg/dL Normal <200 HDL Cholesterol 47 mg/dL Normal >40 LDL Cholesterol 30 mg/dL Normal <100 Non-HDL-C 46 mg/dL Normal Cholesterol Risk Ratio 1.978 Normal <5 CBC With Differential 07/13/[address] [address] [phone] White Blood Count 9.7 10 Normal 4.0-10.0 [...] 36.0-66.0 Lymph % 14.4 % Low 24.0-44.0 [place] % 8.5 % High 0.0-5.0 Eos % 1.2 % Normal 0.0-3.0 Baso % 0.6 % Normal 0.0-1.0 Immature Granulocyte % 1.8 % Normal 0-3.0 Nucleated Red Blood Cell % 0.0 % Normal 0-0 Neutrophils # 7.1 10 Normal 1.5-8.5 Lymph # 1.4 10 Low 1.5-5.0 [place] # 0.8 10 Normal 0.0-0.8 Eos # 0.1 10 Normal 0.0-0.5 Baso # 0.1 10 Normal 0.0-0.2 Basic Metabolic Profile 03/31/2020 [facility] Outpatient T esting (Registration) [address] [place] [address] [phone] Glucose, Fasting 93 mg/dL Normal 70-100 Blood Urea Nitrogen 25 mg/dL High 7-18 Creatinine For GFR 1.38 mg/dL High 0.70-1.30 Glomerular Filtration Rate 55.1 Normal >49 3 Sodium Level 136 mEq/L Normal 136-145 Potassium Serum 4.6 mEq/L Normal 3.5-5.1 Chloride Level 101 mEq/L Normal 98-107 Carbon Dioxide Level 30 mEq/L Normal 21-32 Anion Gap 5 mEq/L Low 8-16 Calcium Level 9.1 mg/dL Normal 8.8-10.2 Hemoglobin A1c 03/31/2020 [facility] Outpatient Testi ng (Registration) [address] [place] [address] [phone] Hemoglobin A1c 6.1 % Normal 4 Estimated Average Glucose 128 mg/dL High 60-110 Laboratory test finding 03/31/2020 [facility] Outpatient T esting (Registration) [address] [place] [address] [phone] HIV 1&2 Screen Centaur NEGATIVE Normal Negative 5 Hep C Virus AB Screen Medicare 0.1 INDEX Normal <0.8 6 Order 01/16/2020 In House Orders EKG see report 1 REFERENCE RANGES: <=5.6% NORMAL 5.7-6.4% SUGGESTS IMPAIRED GLUCOSE META BOLISM/PREDIABETIC >= 6.5% ABNORMAL 2 Units are mL/min/1.73 m2 Chronic Kidney Disease Staging per NKF: Stage I & II GFR >=60 Normal to Mildly Decreased Stage III GFR 30-59 Moderately Decreased Stage IV GFR 15-29 Severely Decreased Stage V GFR <15 Very Little GFR Left ESRD GFR <15 on DEMAND INSPECTOR 3 Units are mL/min/1.73 m2 Chronic Kidney Disease Staging per NKF: Stage I & II GFR >=60 Normal to Mildly Decreased Stage III GFR 30-59 Moderately Decreased Stage IV GFR 15-29 Severely Decreased Stage V GFR <15 Very Little GFR Left ESRD GFR <15 on DEMAND INSPECTOR 4 REFERENCE RANGES: <=5.6% NORMAL 5.7-6.4% SUGGESTS IMPAIRED GLUCOSE META BOLISM/PREDIABETIC >= 6.5% ABNORMAL 5 This assay was performed uti lizing a chemiluminescent principle technique for the simultaneous qualitative detection of HIV-1 p24 antigen & antibodies to HIV-1 (including group O) & HIV-2 using the [employer] system. The estimated 95% confidence interval for sensitivity of this antigen/antibody combination assay for HIV-1&2 antibodies is 99.7-100% and HIV p24 antigen is 89.4-99.9%. The estimated 95% confidence interval for specificity of this antigen/antibody combination in low risk populations is 99.6-99.8%. 6 Negative Not infected with HCV, unless recent infection is suspected or other evidence exists to indicate HCV infection. Procedures Description No Information Available Medical Devices Description No Information Available Encounters Type Date Location Provider Dx Diagnosis Office Visit 04/20/2020 2:30p [facility] Danyelle Guzman D.O. 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 I11.9 Hypertensive heart disease w [facility] heart failure E78.2 Mixed hyperlipidemia J44.9 Chronic obstructive pulmonar y disease, unspecified F17.210 Nicotine dependence, cigaret sheryl, uncomplicated F33.1 Major depressive disorder, r ecurrent, moderate D50.9 Iron deficiency anemia, unsp ecified I69.351 Hemiplga following cerebral infrc aff right dominant side N18.30 Chronic kidney disease, stag e 3 unspecified Office Visit 02/05/2020 10:40a [facility] JORDYN Doyle Z01.818 Encounter for other preproce dural examination N35.819 Other urethral stricture, nelson kessler unspecified site Office Visit 01/16/2020 2:20p 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 04/20/2020 I11.9 Hypertensive heart disease witho ut heart failure Danyelle Arana D.O. 04/20/2020 E78.2 Mixed hyperlipidemia Danyelle Saini, D.O. 04/20/2020 J44.9 Chronic obstructive pulmonary di sease, unspecified Danyelle Guzman, D.O. 04/20/2020 F17.210 Nicotine dependence, cigarettes, uncomplicated Danyelle Arana, D.O. 04/20/2020 F33.1 Major depressive disorder, recur rent, moderate Danyelle Arana, D.O. 04/20/2020 D50.9 Iron deficiency anemia, unspecif ied Danyelle Guzman D.O. 04/20/2020 I69.351 Hemiplegia and hemiparesis follo wing cerebral infarction aff Danyelle Guzman D.O. 04/20/2020 N18.30 Chronic kidney disease, stage 3 unspecified Danyelle Arana, D.O. 02/05/2020 Z01.818 Encounter for other preprocedura l examination JORDYN Pierre 02/05/2020 N35.819 Other urethral stricture, male, unspecified site JORDYN Pierre 01/16/2020 Z00.00 Encounter for genera l adult medical examination without abnormal findings JORDYN Pierre 01/16/2020 I11.9 Hypertensive heart disease witho ut heart failure JORDYN Pierre 01/16/2020 E11.59 Type 2 diabetes mellitus with ot her circulatory complication JORDYN Pierre 01/16/2020 E78.2 Mixed hyperlipidemia JORDYN Pierre 01/16/2020 J44.9 Chronic obstructive pulmonary di sease, unspecified JORDYN Pierre 01/16/2020 F17.210 Nicotine dependence, cigarettes, uncomplicated JORDYN Pierre 01/16/2020 I63.033 Cerebral infarction due to throm bosis of bilateral carotid a JORDYN Pierre 01/16/2020 I10 Essential (primary) hypertension JORDYN Pierre 01/16/2020 F33.1 Major depressive disorder, recur rent, moderate JORDYN Pierre 01/16/2020 Z23 Encounter for immunization JORDYN Henderson Plan of Treatment Future Appointment(s):* 07/21/2020 1:00 pm - JORDYN Pierre at [facility] Functional Status Description No Information Available Mental Status Description No Information Available Referrals Description No Information Available
--- OUTSIDE RECORDS SUMMARY | 2020-08-18 08:37 | CCD | Continuity of Care Document ---
Author Author Zack SIMPSON PA Organization Unknown Address [address], [address] [place] [address] Phone [phone] Care Team Providers Care Oil Change Technician Name Role Phone [facility] AUTM [phone] Danyelle Guzman D.O. 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 Peter Dow MD Onset: 03/26 Malignant tumor of rectum Peter Dow MD Onset: 013 Disorder of rectum Peter Dow MD Onset: 04/10/2013 Stenosis of rectum and anus Peter Dow MD Onset: 04/10 Anal and rectal polyp Peter Dow MD Onset: 04/10/2013 Weight decreased Peter [...] smoker, smo kes every day currently smokes 1/2-1 pack per day Smoking Status Reviewed: 04/20/20 Patient is a current smoker, smokes every day currently smokes 1/2-1 pack per day Allergies, Adverse Reactions, Alerts Active Allergies Reaction Severity Comments Date Floxin RASH, HIVES 02/01/2012 Medications Active Medications SIG Qnty Indications Ordering Provide r Date Proair HFA 108(90Base) mcg/Act Aer osol 2 puffs four times a day as needed 25.5gm Everett Randhawa MD 10/18/2019 Nebulizer Kit/Tubing/Mouthpiece K it use with nebulizer as directed dx: J44.9 2units Everett hoover MD 04/10/2018 Tamsulosin HCL 0.4mg Capsules every day Unknown Oxybutynin Chloride ER 10mg Tablets ER 24HR by mouth every day Unknown 0 Albuterol Sulfate (2 .5mg/3ML) 0.083% Nebulizer 1 vial four times a day as needed dx: J44.9 360ml Everett Randhawa MD Pantoprazole Sodium 40mg Tablets DR daily 30tabs Jaden Medina DO Amlodipine Besylate 5mg Tablets every day 90tabs Jaden Mdeina DO Vitamin C 500mg Tablets daily Unknown [...] CPT Code Status Date Vaccine Lot # 27424 Given Unknown Pneumococcal PPSV23 00190 Given Unknown Influenza Virus Split 3 Yrs And Above For Intramuscular Use 77315 Refused 04/10/2018 Influenza Virus Vaccine, Quadrivalent, [place] Use [address] Refused 04/02/2015 Influenza Virus Split 3 Yrs And Above For Intramuscular Use Vital Signs Date Vital Result Comment 07/23/2020 11:56am BP Systolic 148 mmHg BP Diastolic 54 mmHg Height 70 inches 5'10" Weight 226.00 lb BMI (Body Mass Index) 32.4 kg/m2 [place] Body Weight 166 lb Weight 102.514 kg BSA (Body Surface Area) 2.20 m2 04/20/2020 1:16pm BP Systolic 134 mmHg BP Diastolic 74 mmHg Heart Rate 78 /min O2 % BldC Oximetry 95 % Room Air Height 70 inches 5'10" Weight 226.00 lb BMI (Body Mass Index) 32.4 kg/m2 [place] Body Weight 166 lb Weight 102.514 kg BSA (Body Surface Area) 2.20 m2 Results Description No Information Available Procedures Date Code Description Status 04/20/2020 88268 Spirometry Completed Medical Devices Description No Information Available Encounters Type Date Location Provider Dx Diagnosis Office Visit 04/20/2020 1:00p [facility]Thoracic Lawrenc bartolo Randhawa MD J44.9 Chronic obstructive pulmonary disease, u nspecified R91.8 Other nonspecific abnormal f inding of lung field F17.218 Nicotine dependence, cigaret sheryl, w oth disorders Office Visit 02/25/2020 9:00a [facility] JORDYN Ruiz I70.213 Athscl [place] arteries of extrm w intrmt [place], bi legs I65.23 Occlusion and stenosis of bi lateral carotid arteries F17.218 Nicotine dependence, cigaret sheryl, w oth disorders Assessments Date Code Description Provider 04/20/2020 J44.9 Chronic obstructive pulmonary di sease, unspecified Everett Randhawa MD 04/20/2020 R91.8 Other nonspecific abnormal findi ng of lung field Everett Randhawa MD 04/20/2020 F17.218 Nicotine dependence, cigarettes, with other nicotine-induced Everett Randhawa MD 02/25/2020 I70.213 Atherosclerosis of n ative arteries of extremities with intermittent claudication, bilateral legs JORDYN Bryan 02/25/2020 I65.23 Occlusion and stenosis of bilate ral carotid arteries JORDYN Bryan 02/25/2020 F17.218 Nicotine dependence, cigarettes, with other nicotine-induced disorders JORDYN Bryan Plan of Treatment Future Appointment(s):* 07/31/2020 11:15 am - MICHELE Adames at [facility] * 09/21/2020 2:30 pm - Everett Randhawa MD at [facility]Th[facility] Functional Status Description No Information Available Mental Status Description No Information Available Referrals Description No Information Available
--- OUTSIDE RECORDS SUMMARY | 2020-08-18 08:37 | CCD | Continuity of Care Document ---
Author Author Zack ALBA CA Organization Unknown Address [address] [place] [address] 6 [address] [place] [address] Phone [phone] Care Team Providers Care Senior Test Analyst Name Role Phone Danyelle Gzuman D.O. AUTM Problems Active Problems Provider Date [...] Daily 90tabs Ladan Hutchinson.OCherry 04/10 Ostomy Pouches #077352 use as directed 20units Z93.2 Ladan Rodriguez.OCherry 11/01/2018 Atorvastatin Calcium 80mg Tablets Take 1 Tablet By Mouth Every Night 90tabs Danyelle Guzmán r, D.OCherry 10/16/2018 Franky Adhesive Remvr Wipe Use One Wipe as Needed To Remove Adhesive From Skin 50units Ladan Hutchinson.OCherry 05/15/2018 Franky Adhesive Remover Wipes Mi tn use 1 wipe as needed to remove [...] CPT Code Status Date Vaccine Lot # 84734 Given 01/16/2020 Pneumococcal Con jugate Vaccine 13 Valent For Intramuscular Use [id number] U-Flu Given 07/28/2019 Influenza,Unspecified 53416 Given 07/12/2017 Pneumococcal Con jugate Vaccine 13 Valent For Intramuscular Use [id number] Vital Signs Date Vital Result Comment 07/21/2020 1:09pm BP Systolic 164 mmHg 126/54 rechec k BP Diastolic 70 mmHg 126/54 recheck Height 68 inches 5'8" Weight 225.38 lb BMI (Body Mass Index) 34.3 kg/m2 Heart Rate 69 /min Respiratory Rate 16 /min Body Temperature 97.8 F O2 % BldC Oximetry 93 % [place] Body Weight 154 lb 04/20/2020 2:26pm BP Systolic 132 mmHg BP Diastolic 78 mmHg Height 68 inches 5'8" Weight 225.19 lb BMI (Body Mass Index) 34.2 kg/m2 Heart Rate 78 /min Respiratory Rate 16 /min Body Temperature 97.6 F O2 % BldC Oximetry 94 % [place] Body Weight 154 lb Results Test Acquired Date Facility Test Result H/L Range Note Hemoglobin A1c 07/13/2020 [facility] nter [address] [place], [place] [id number] [phone] Hemoglobin A1c 6.5 % Normal 1 Estimated Average Glucose 140 mg/dL High 60-110 Comprehensive Metabolic Profil 07/13/[address] [address] [phone] Glucose, Fasting 82 mg/dL Normal 70-100 Blood [...] Albumin/Globulin Ratio 1.1 Normal Lipid Panel 07/13/2020 [facility] nter [address] [place] [address] [phone] Triglycerides Level 82 mg/dL Normal <150 Cholesterol Level 93 mg/dL Normal <200 HDL Cholesterol 47 mg/dL Normal >40 LDL Cholesterol 30 mg/dL Normal <100 Non-HDL-C 46 mg/dL Normal Cholesterol Risk Ratio 1.978 Normal <5 CBC With Differential 07/13/[address] [address] [phone] White Blood Count 9.7 10 Normal 4.0-10.0 [...] 36.0-66.0 Lymph % 14.4 % Low 24.0-44.0 [place] % 8.5 % High 0.0-5.0 Eos % 1.2 % Normal 0.0-3.0 Baso % 0.6 % Normal 0.0-1.0 Immature Granulocyte % 1.8 % Normal 0-3.0 Nucleated Red Blood Cell % 0.0 % Normal 0-0 Neutrophils # 7.1 10 Normal 1.5-8.5 Lymph # 1.4 10 Low 1.5-5.0 [place] # 0.8 10 Normal 0.0-0.8 Eos # 0.1 10 Normal 0.0-0.5 Baso # 0.1 10 Normal 0.0-0.2 Basic Metabolic Profile 03/31/2020 [facility] Outpatient T esting (Registration) [address] [place] [address] [phone] Glucose, Fasting 93 mg/dL Normal 70-100 Blood [...] [facility] Outpatient Testi ng (Registration) [address] [place] [address] [phone] Hemoglobin A1c 6.1 % Normal 4 Estimated Average Glucose 128 mg/dL High 60-110 Laboratory test finding 03/31/2020 [facility] Outpatient T esting (Registration) [address] [place] [address] [phone] HIV 1&2 Screen [facility] NEGATIVE Normal Negative 5 Hep C Virus AB Screen Medicare 0.1 INDEX Normal <0.8 6 1 REFERENCE RANGES: <=5.6% NORMAL 5.7-6.4% SUGGESTS IMPAIRED GLUCOSE META BOLISM/PREDIABETIC >= 6.5% ABNORMAL 2 Units are mL/min/1.73 m2 Chronic Kidney Disease Staging per NKF: Stage I & II GFR >=60 Normal to Mildly Decreased Stage III GFR 30-59 Moderately Decreased Stage IV GFR 15-29 Severely Decreased Stage V GFR <15 Very Little GFR Left ESRD GFR <15 on ACCESS REP 3 Units are mL/min/1.73 m2 Chronic Kidney Disease Staging per NKF: Stage I & II GFR >=60 Normal to Mildly Decreased Stage III GFR 30-59 Moderately Decreased Stage IV GFR 15-29 Severely Decreased Stage V GFR <15 Very Little GFR Left ESRD GFR <15 on ACCESS REP 4 REFERENCE RANGES: <=5.6% NORMAL 5.7-6.4% SUGGESTS IMPAIRED GLUCOSE META BOLISM/PREDIABETIC >= 6.5% ABNORMAL 5 This assay was performed uti lizing a chemiluminescent principle technique for the simultaneous qualitative detection of HIV-1 p24 antigen & antibodies to HIV-1 (including group O) & HIV-2 using the [employer] system. The estimated 95% confidence interval for [...] Provider Dx Diagnosis Office Visit 04/20/2020 2:30p [facility] Jake Guzman D.O. 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 JORDYN Doyle Z01.818 Encounter for other preproce [...] Arana, D.O. 04/20/2020 E78.2 Mixed hyperlipidemia Danyelle Correa [...] Chronic kidney disease, stage 3 unspecified Danyelle Fatima- Sumit, D.O. 02/05/2020 Z01.818 Encounter for other preprocedura l examination JORDYN Pierre 02/05/2020 N35.819 Other urethral stricture, male, unspecified site JORDYN Pierre Plan of Treatment Future Appointment(s):* 10/19/2020 2:30 pm - Danyelle Guzman D.O. at [facility] 07/21/2020 - JORDYN Pierre* E11.59 Type 2 [...]
--- OUTSIDE RECORDS SUMMARY | 2020-08-18 08:37 | CCD | Continuity of Care Document ---
Author Author Zack [facility] Organization Unknown Address [address] [place] [address], [address] [place] [address] Phone [phone] Care Team Providers Care Pressing Machine Tender Name Role Phone [facility] AUTM [phone] Danyelle Guzman D.O. AUTM Annie Puentes MD AUTM [phone] Problems Active Problems Provider Date Digestive symptom [...] CPT Code Status Date Vaccine Lot # 41806 Given Unknown Pneumococcal PPSV23 12748 Given Unknown Influenza Virus Split 3 Yrs And Above For Intramuscular Use 92584 Refused 04/10/2018 Influenza Virus Vaccine, Quadrivalent, [place], [place] Use 43805 Refused 04/02/2015 Influenza Virus Split 3 Yrs And Above For Intramuscular Use Vital Signs Date Vital Result Comment 07/28/2020 2:41pm BP Systolic 124 mmHg BP Diastolic 62 mmHg Height 70 inches 5'10" Weight 223.00 lb BMI (Body Mass Index) 32.0 kg/m2 [place] Body Weight 166 lb Weight 101.153 kg BSA (Body Surface Area) 2.19 m2 07/23/2020 11:56am BP Systolic 148 mmHg BP Diastolic 54 mmHg Height 70 inches 5'10" Weight 226.00 lb BMI (Body Mass Index) 32.4 kg/m2 [place] Body Weight 166 lb Weight 102.514 kg BSA (Body Surface Area) 2.20 m2 Results Description No Information Available Procedures Date Code Description Status 04/20/2020 00021 Spirometry Completed Medical Devices Description No Information Available Encounters Type Date Location Provider Dx Diagnosis Office Visit 04/20/2020 1:00p [facility] Pulmonary/Thoracic Lawrdennis Randhawa MD J44.9 Chronic obstructive pulmonary disease, u nspecified R91.8 Other nonspecific abnormal f inding of lung field F17.218 Nicotine dependence, cigaret sheryl, w oth disorders Office Visit 02/25/2020 9:00a [facility] JORDYN Ruiz I70.213 Athscl [place] arteries of extrm w intrmt [place], bi legs I65.23 Occlusion and stenosis of bi lateral carotid arteries F17.218 Nicotine dependence, cigaret sheryl, w oth disorders Assessments Date Code Description Provider 07/28/2020 K92.1 Melena Gloria A MICHELE Taveras 07/28/2020 R10.9 Unspecified abdominal pain Lida sa MICHELE Anderson 07/28/2020 D50.9 Iron deficiency anemia, unspecif ied Gloriasanti Acosta RPA-C 07/23/2020 I65.23 Occlusion and stenosis of bilate [...] JORDYN Bryan Plan of Treatment Future Appointment(s):* 09/21/2020 2:30 pm - Everett Randhawa MD at [facility] Pulmonary/Thoracic 07/28/2020 - Gloria Acosta RPA-C* K92.1 Melena * R10.9 Unspecified abdominal pain * D50.9 Iron deficiency anemia, unspecified * * New Labs:* CBC With Differential, Ordered: 07/28/20 * New Orders:* Endoscopy, Ordered: 07/28/20 * Colonoscopy, Ordered: 07/28/20 * Comments:* Need medical clearance from PCP and Plavix hold. Need old EKGs. * Follow up:* 2 weeks after procedures, sooner if needed. Functional Status Description No Information Available Mental Status Description No Information Available Referrals Description No Information Available
--- OUTSIDE RECORDS SUMMARY | 2020-08-18 08:37 | CCD | Continuity of Care Document ---
Author Author Zack LOWERY [place] Organization Unknown Address [address] [place] [address] 6 [address] [place] [address] Phone [phone] Care Team Providers Care Nanotechnology Technician Name Role Phone Danyelle Guzman D.O. AUTM [phone] Problems Active Problems Provider Date Pure hyperglyceridemia [...] Daily 90tabs Ladan Hutchinson.OCherry 04/10 Ostomy Pouches #[id number] use as directed 20units Z93.2 Ladan Rodriguez.OCherry 11/01/2018 Atorvastatin Calcium 80mg Tablets Take 1 Tablet By Mouth Every Night 90tabs Danyelle Guzmán r, D.OCherry 10/16/2018 Franky Adhesive Remvr Wipe Use One Wipe as Needed To Remove Adhesive From Skin 50units Ladan Hutchinson.OCherry 05/15/2018 Franky Adhesive Remover Wipes Mi sd use 1 wipe as needed to remove [...] CPT Code Status Date Vaccine Lot # [id number] Given 01/16/2020 Pneumococcal Con jugate Vaccine 13 Valent For Intramuscular Use [id number] U-Flu Given 07/28/2019 Influenza,Unspecified [id number] Given 07/12/2017 Pneumococcal Con jugate Vaccine 13 Valent For Intramuscular Use [id number] Vital Signs Date Vital Result Comment 07/21/2020 1:09pm BP Systolic 164 mmHg 126/54 rechec k BP Diastolic 70 mmHg 126/54 recheck Height 68 inches 5'8" Weight 225.38 lb BMI (Body Mass Index) 34.3 kg/m2 Heart Rate 69 /min Respiratory Rate 16 /min Body Temperature 97.8 F O2 % BldC Oximetry 93 % [place] Body Weight 154 lb 04/20/2020 2:26pm BP Systolic 132 mmHg BP Diastolic 78 mmHg Height 68 inches 5'8" Weight 225.19 lb BMI (Body Mass Index) 34.2 kg/m2 Heart Rate 78 /min Respiratory Rate 16 /min Body Temperature 97.6 F O2 % BldC Oximetry 94 % [place] Body Weight 154 lb Results Test Acquired Date Facility Test Result H/L Range Note Hemoglobin A1c 07/13/2020 [facility] nter [address] [place], [place] [id number] [phone] Hemoglobin A1c 6.5 % Normal 1 Estimated Average Glucose 140 mg/dL High 60-110 Comprehensive Metabolic Profil 07/13/[address] [address] [phone] Glucose, Fasting 82 mg/dL Normal 70-100 Blood [...] Albumin/Globulin Ratio 1.1 Normal Lipid Panel 07/13/2020 [facility] [address] [place] [address] [phone] Triglycerides Level 82 mg/dL Normal <150 Cholesterol Level 93 mg/dL Normal <200 HDL Cholesterol 47 mg/dL Normal >40 LDL Cholesterol 30 mg/dL Normal <100 Non-HDL-C 46 mg/dL Normal Cholesterol Risk Ratio 1.978 Normal <5 CBC With Differential 07/13/[address] [address] [phone] White Blood Count 9.7 10 Normal 4.0-10.0 [...] 36.0-66.0 Lymph % 14.4 % Low 24.0-44.0 Baker % 8.5 % High 0.0-5.0 Eos % 1.2 % Normal 0.0-3.0 Baso % 0.6 % Normal 0.0-1.0 Immature Granulocyte % 1.8 % Normal 0-3.0 Nucleated Red Blood Cell % 0.0 % Normal 0-0 Neutrophils # 7.1 10 Normal 1.5-8.5 Lymph # 1.4 10 Low 1.5-5.0 Baker # 0.8 10 Normal 0.0-0.8 Eos # 0.1 10 Normal 0.0-0.5 Baso # 0.1 10 Normal 0.0-0.2 Basic Metabolic Profile 03/31/2020 [facility] (Registration) [address] [place] [address] [phone] Glucose, Fasting 93 mg/dL Normal 70-100 Blood [...] 9.1 mg/dL Normal 8.8-10.2 Hemoglobin A1c 03/31/2020 [facility] (Registration) [address] [place] [address] [phone] Hemoglobin A1c 6.1 % Normal 4 Estimated Average Glucose 128 mg/dL High 60-110 Laboratory test finding 03/31/2020 [facility] (Registration) [address] [place] [address] [phone] HIV 1&2 Screen [facility] NEGATIVE Normal Negative [...] GFR Left ESRD GFR <15 on [employer] 3 Units are mL/min/1.73 m2 Chronic Kidney Disease Staging per NKF: Stage I & II GFR >=60 Normal to Mildly Decreased Stage III GFR 30-59 Moderately Decreased Stage IV GFR 15-29 Severely Decreased Stage V GFR <15 Very Little GFR Left ESRD GFR <15 on [employer] 4 REFERENCE RANGES: <=5.6% NORMAL 5.7-6.4% SUGGESTS IMPAIRED GLUCOSE META BOLISM/PREDIABETIC >= 6.5% ABNORMAL 5 This assay was performed uti lizing a chemiluminescent principle technique for the simultaneous qualitative detection of HIV-1 p24 antigen & antibodies to HIV-1 (including group O) & HIV-2 using the [employer] system. 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 I11.9 Hypertensive heart disease w ithout heart failure E78.2 Mixed hyperlipidemia J44.9 Chronic obstructive pulmonar y disease, unspecified F17.210 Nicotine dependence, cigaret sheryl, uncomplicated F33.1 Major depressive disorder, r ecurrent, moderate D50.9 Iron deficiency anemia, unsp ecified I69.351 Hemiplga following cerebral infrc aff right dominant side N18.30 Chronic kidney disease, stag e 3 unspecified Office Visit 02/05/2020 10:40a [facility] JORDYN Pierre Z01.818 Encounter for other preproce dural examination N35.819 Other urethral stricture, ma checo, unspecified site Assessments Date Code Description Provider 07/21/2020 E11.59 Type 2 diabetes mellitus with ot her circulatory complication JORDYN Pierre 07/21/2020 I11.9 Hypertensive heart disease witho ut heart failure JORDYN Pierre 07/21/2020 E78.2 Mixed hyperlipidemia JORDYN Pierre 07/21/2020 J44.9 Chronic obstructive pulmonary di sease, unspecified JORDYN Pierre 07/21/2020 F17.210 Nicotine dependence, cigarettes, uncomplicated JORDYN Pierre 07/21/2020 F33.1 Major depressive disorder, recur rent, moderate JORDYN Pierre 07/21/2020 D50.9 Iron deficiency anemia, unspecif ied JORDYN Pierre 07/21/2020 I69.351 Hemiplegia and hemiparesis follo wing [...] D.O. 04/20/2020 F17.210 Nicotine dependence, cigarettes, uncomplicated Ladan Atkinson.OCherry 04/20/2020 F33.1 Major depressive disorder, recur rent, moderate Ladan Atkinson.OCherry 04/20/2020 D50.9 Iron deficiency anemia, unspecif ied Ladan Hutchinson.O. 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
--- OUTSIDE RECORDS SUMMARY | 2020-08-18 08:38 | CCD ---
Author Author [facility] Organization [facility] Address Unknown Phone Unavailable Care Team Providers Care Street Light Servicer Supervisor Name Role Phone Wendie Gaitan MD Unavailable Unavailable CederstrandWendie MD Unavailable Unavailable ElisatranWendie joyce MD Unavailable Unavailable ElisatranWendie joyce MD Unavailable Unavailable ElisatranWendie joyce MD Unavailable Unavailable Wendie Gaitan MD Unavailable Unavailable Wendie Gaitan MD Unavailable Unavailable Wendie Gaitan MD Unavailable Unavailable Wendie Gaitan MD Unavailable Unavailable Wendie Gaitan MD Unavailable Unavailable Wendie Gaitan MD Unavailable Unavailable Wendie Gaitan MD Unavailable Unavailable Cederstrand, Wendie Daigle MD Unavailable Unavailable Cederstrand, Wendie Daigle MD Unavailable Unavailable Cederstrand, Wendie Daigle MD Unavailable Unavailable Anjali, Brayan PA Unavailable Unavailable Anjali, Brayan PA Unavailable Unavailable Anjali, Brayan PA Unavailable Unavailable Anjali, Brayan PA Unavailable Unavailable Anjali, Brayan PA Unavailable Unavailable Anjali, Brayan PA Unavailable Unavailable Anjali, Brayna PA Unavailable Unavailable Anjali, Brayan PA Unavailable Unavailable Anjali, Brayan PA Unavailable Unavailable Anjali, Brayan PA Unavailable Unavailable Anjali, Brayan PA Unavailable Unavailable Anjali, Brayan PA Unavailable Unavailable Anjali, Brayan PA Unavailable Unavailable Anjali, Brayan PA Unavailable Unavailable Anjali, Brayan PA Unavailable Unavailable Anjali, Brayan PA Unavailable Unavailable Anjali, Brayan PA Unavailable Unavailable Anjali, Brayan PA Unavailable Unavailable Anjali, Brayan PA Unavailable Unavailable Anjali, Brayan PA Unavailable Unavailable Anjali, Brayan PA Unavailable Unavailable Anjali, Brayan PA Unavailable Unavailable Anjali, Brayan PA Unavailable Unavailable Anjali, Brayan PA Unavailable Unavailable Anjali, Brayan PA Unavailable Unavailable Anjali, Brayan PA Unavailable Unavailable Anjali, Brayan PA Unavailable Unavailable Anjali, Brayan PA Unavailable Unavailable Anjali, Brayan PA Unavailable Unavailable Anjali, Brayan PA Unavailable Unavailable Anjali, Brayan PA Unavailable Unavailable Anjali, Brayan PA Unavailable Unavailable Anjali, Brayan PA Unavailable Unavailable Anjali, Brayan PA Unavailable Unavailable Anjali, Brayan PA Unavailable Unavailable Anjali, Brayan PA Unavailable Unavailable Anjali, Brayan PA Unavailable Unavailable Anjali, Brayan PA Unavailable Unavailable Anjali, Brayan PA Unavailable Unavailable Anjali, Brayan PA Unavailable Unavailable Anjali, Brayan PA Unavailable Unavailable Anjali, Brayan PA Unavailable Unavailable Anjali, Brayan PA Unavailable Unavailable Anjali, Brayan PA Unavailable Unavailable Anjali, Brayan PA Unavailable Unavailable Anjali, Brayan PA Unavailable Unavailable Anjali, Brayan PA Unavailable Unavailable Anjali, Brayan PA Unavailable Unavailable Anjali, Brayan PA Unavailable Unavailable Valiente, L Viki RPA Unavailable Unavailable Valiente, L Viki RPA Unavailable Unavailable Valiente, L Viki RPA Unavailable Unavailable Valiente, L Viki RPA Unavailable Unavailable Valiente, L Viki RPA Unavailable Unavailable Valiente, L Viki RPA Unavailable Unavailable Valiente, L Viki RPA Unavailable Unavailable Valiente, L Viki RPA Unavailable Unavailable Valiente, L Viki RPA Unavailable Unavailable Valiente, L Viki RPA Unavailable Unavailable Valiente, L Viki RPA Unavailable Unavailable Valiente, L Viki RPA Unavailable Unavailable Valiente, L Viki RPA Unavailable Unavailable Valiente, L Viki RPA Unavailable Unavailable Valiente, L Viki RPA Unavailable Unavailable Valiente, L Viki RPA Unavailable Unavailable Valiente, L Viki RPA Unavailable Unavailable Valiente, L Viki RPA Unavailable Unavailable Valiente, L Viki RPA Unavailable Unavailable Valiente, L Viki RPA Unavailable Unavailable Valiente, L Viki RPA Unavailable Unavailable Valiente, L Viki RPA Unavailable Unavailable Valiente, L Viki RPA Unavailable Unavailable Valiente, L Viki RPA Unavailable Unavailable Valiente, L Viki RPA Unavailable Unavailable Valiente, L Viki RPA Unavailable Unavailable Valiente, L Viki RPA Unavailable Unavailable Valiente, L Viki RPA Unavailable Unavailable Valiente, L Viki RPA Unavailable Unavailable Valiente, L Viki RPA Unavailable Unavailable Valiente, L Viki RPA Unavailable Unavailable Valiente, L Viki RPA Unavailable Unavailable PETE-BIANCA, LUCIE DO Unavailable Unavailable PETE-BIANCA, LUCIE DO Unavailable Unavailable PETE-BIANCA, LUCIE DO Unavailable Unavailable PETE-BIANCA, LUCIE DO Unavailable Unavailable PETE-BIANCA, LUCIE DO Unavailable Unavailable PETE-BIANCA, LUCIE DO Unavailable Unavailable PETE-BIANCA, LUCIE DO Unavailable Unavailable PETE-BIANCA, LUCIE DO Unavailable Unavailable PETE-BIANCA, LUCIE DO Unavailable Unavailable PETE-BIANCA, LUCIE DO Unavailable Unavailable PETE-BIANCA, LUCIE DO Unavailable Unavailable PETE-BIANCA, LUCIE DO Unavailable Unavailable PETE-BIANCA, LUCIE DO Unavailable Unavailable PETE-BIANCA, LUCIE DO Unavailable Unavailable PETE-BIANCA, LUCIE DO Unavailable Unavailable PETE-BIANCA, LUCIE DO Unavailable Unavailable PETE-BIANCA, LUCIE DO Unavailable Unavailable PETE-BIANCA, LUCIE DO Unavailable Unavailable PETE-BIANCA, LUCIE DO Unavailable Unavailable PETE-BIANCA, LUCIE DO Unavailable Unavailable PETE-BIANCA, LUCIE DO Unavailable Unavailable PETE-BIANCA, LUCIE DO Unavailable Unavailable PETE-BIANCA, LUCIE DO Unavailable Unavailable PETE-BIANCA, LUCIE DO Unavailable Unavailable PETE-BIANCA, LUCIE DO Unavailable Unavailable PETE-BIANCA, LUCIE DO Unavailable Unavailable PETE-BIANCA, LUCIE DO Unavailable Unavailable PETE-BIANCA, LUCIE DO Unavailable Unavailable PETE-BIANCA, LUCIE DO Unavailable Unavailable PETE-BIANCA, LUCIE DO Unavailable Unavailable PETE-BIANCA, LUCIE DO Unavailable Unavailable PETE-BIANCA, LUCIE DO Unavailable Unavailable PETE-BIANCA, LUCIE DO Unavailable Unavailable PETE-BIANCA, LUCIE DO Unavailable Unavailable PETE-BIANCA, LUCIE DO Unavailable Unavailable PETE-BIANCA, LUCIE DO Unavailable Unavailable PETE-BIANCA, LUCIE DO Unavailable Unavailable PETE-BIANCA, LUCIE DO Unavailable Unavailable PETE-BIANCA, LUCIE DO Unavailable Unavailable PETE-BIANCA, LUCIE DO Unavailable Unavailable PETE-BIANCA, LUCIE DO Unavailable Unavailable PETE-BIANCA, LUCIE DO Unavailable Unavailable PETE-BIANCA, LUCIE DO Unavailable Unavailable PETE-BIANCA, LUCIE DO Unavailable Unavailable PETE-BIANCA, LUCIE DO Unavailable Unavailable PETE-BIANCA, LUCIE DO Unavailable Unavailable PETE-BIANCA, LUCIE DO Unavailable Unavailable PETE-BIANCA, LUCIE DO Unavailable Unavailable PETE-BIANCA, LUCIE DO Unavailable Unavailable PETE-BIANCA, LUCIE DO Unavailable Unavailable PETE-BIANCA, LUCIE DO Unavailable Unavailable PETE-BIANCA, LUCIE DO Unavailable Unavailable PETE-BIANCA, LUCIE DO Unavailable Unavailable PETE-BIANCA, LUCIE DO Unavailable Unavailable PETE-BIANCA, LUCIE DO Unavailable Unavailable PETE-BIANCA, LUCIE DO Unavailable Unavailable PETE-BIANCA, LUCIE DO Unavailable Unavailable PETE-BIANCA, LUCIE DO Unavailable Unavailable PETE-BIANCA, LUCIE DO Unavailable Unavailable PETE-BIANCA, LUCIE DO Unavailable Unavailable PETE-BIANCA, LUCIE DO Unavailable Unavailable PETE-BIANCA, LUCIE DO Unavailable Unavailable PETE-BIANCA, LUCIE DO Unavailable Unavailable PETE-BIANCA, LUCIE DO Unavailable Unavailable PETE-BIANCA, LUCIE DO Unavailable Unavailable PETE-BIANCA, LUCIE DO Unavailable Unavailable PETE-BIANCA, LUCIE DO Unavailable Unavailable PETE-BIANCA, LUCIE DO Unavailable Unavailable PETE-BIANCA, LUCIE DO Unavailable Unavailable PETE-BIANCA, LUCIE DO Unavailable Unavailable PETE-BIANCA, LUCIE DO Unavailable Unavailable PETE-BIANCA, LUCIE DO Unavailable Unavailable PETE-BIANCA, LUCIE DO Unavailable Unavailable PETE-BIANCA, LUCIE DO Unavailable Unavailable PETE-BIANCA, LUCIE DO Unavailable Unavailable PETE-BIANCA, LUCIE DO Unavailable Unavailable PETE-BIANCA, LUCIE DO Unavailable Unavailable PETE-BIANCA, LUCIE DO Unavailable Unavailable PETE-BIANCA, LUCIE DO Unavailable Unavailable PETE-BIANCA, LUCIE DO Unavailable Unavailable PETE-BIANCA, LUCIE DO Unavailable Unavailable PETE-BIANCA, LUCIE DO Unavailable Unavailable Dowd, Dnaa FIELD SERVICER Unavailable Unavailable Dowd, Dana FIELD SERVICER Unavailable Unavailable Dowd, Dana FIELD SERVICER Unavailable Unavailable Dowd, Dana FIELD SERVICER Unavailable Unavailable Dowd, Dana FIELD SERVICER Unavailable Unavailable Dowd, Dana FIELD SERVICER Unavailable Unavailable Dowd, Dana FIELD SERVICER Unavailable Unavailable Dowd, Dana FIELD SERVICER Unavailable Unavailable Dowd, Dana FIELD SERVICER Unavailable Unavailable Dowd, Dana FIELD SERVICER Unavailable Unavailable Dowd, Dana FIELD SERVICER Unavailable Unavailable Dowd, Dana FIELD SERVICER Unavailable Unavailable Dowd, Dana FIELD SERVICER Unavailable Unavailable Dowd, Dana FIELD SERVICER Unavailable Unavailable Dowd, Dana FIELD SERVICER Unavailable Unavailable Dowd, Dana FIELD SERVICER Unavailable Unavailable Dowd, Dana FIELD SERVICER Unavailable Unavailable Dowd, Daan FIELD SERVICER Unavailable Unavailable Dowd, Dana FIELD SERVICER Unavailable Unavailable Dowd, Dana FIELD SERVICER Unavailable Unavailable Dowd, Dana FIELD SERVICER Unavailable Unavailable Dowd, Dana FIELD SERVICER Unavailable Unavailable Dowd, Dana FIELD SERVICER Unavailable Unavailable Dowd, Dana FIELD SERVICER Unavailable Unavailable Dowd, Dana FIELD SERVICER Unavailable Unavailable Dowd, Dana FIELD SERVICER Unavailable Unavailable Dowd, Dana FIELD SERVICER Unavailable Unavailable Dowd, Dana FIELD SERVICER Unavailable Unavailable Dowd, Dana FIELD SERVICER Unavailable Unavailable Dowd, Dana FIELD SERVICER Unavailable Unavailable Dowd, Dana FIELD SERVICER Unavailable Unavailable Dowd, Dana FIELD SERVICER Unavailable Unavailable Dowd, Dana FIELD SERVICER Unavailable Unavailable Dowd, Dana FIELD SERVICER Unavailable Unavailable Dowd, Dana FIELD SERVICER Unavailable Unavailable Dowd, Dana FIELD SERVICER Unavailable Unavailable Dowd, Dana FIELD SERVICER Unavailable Unavailable Dowd, Dana FIELD SERVICER Unavailable Unavailable Dowd, Dana FIELD SERVICER Unavailable Unavailable Dowd, Dana FIELD SERVICER Unavailable Unavailable Dowd, Dana FIELD SERVICER Unavailable Unavailable Dowd, Dana FIELD SERVICER Unavailable Unavailable Dowd, Dana FIELD SERVICER Unavailable Unavailable Dowd, Dana FIELD SERVICER Unavailable Unavailable Dowd, Dana FIELD SERVICER Unavailable Unavailable Dowd, Dana FIELD SERVICER Unavailable Unavailable Dowd, Dana FIELD SERVICER Unavailable Unavailable Dowd, Dana FIELD SERVICER Unavailable Unavailable Dowd, Dana FIELD SERVICER Unavailable Unavailable Dowd, Dana FIELD SERVICER Unavailable Unavailable Dowd, Dana FIELD SERVICER Unavailable Unavailable Dowd, Dana FIELD SERVICER Unavailable Unavailable Dowd, Dana FIELD SERVICER Unavailable Unavailable Dowd, Dana FIELD SERVICER Unavailable Unavailable Dowd, Dana FIELD SERVICER Unavailable Unavailable Dowd, Dana FIELD SERVICER Unavailable Unavailable Dowd, Dana FIELD SERVICER Unavailable Unavailable Dowd, Dana FIELD SERVICER Unavailable Unavailable Dowd, Dana FIELD SERVICER Unavailable Unavailable Dowd, Dana FIELD SERVICER Unavailable Unavailable Dowd, Dana FIELD SERVICER Unavailable Unavailable Dowd, Dana FIELD SERVICER Unavailable Unavailable Dowd, Dana FIELD SERVICER Unavailable Unavailable Dowd, Dana FIELD SERVICER Unavailable Unavailable Dowd, Dana FIELD SERVICER Unavailable Unavailable Dowd, Dana FIELD SERVICER Unavailable Unavailable Dowd, Dana FIELD SERVICER Unavailable Unavailable Dowd, Dana FIELD SERVICER Unavailable Unavailable Dowd, Dana FIELD SERVICER Unavailable Unavailable Dowd, Dana FIELD SERVICER Unavailable Unavailable Dowd, Dana FIELD SERVICER Unavailable Unavailable Dowd, Dana FIELD SERVICER Unavailable Unavailable Dowd, Adna FIELD SERVICER Unavailable Unavailable Dowd, Dana FIELD SERVICER Unavailable Unavailable Dowd, Dana FIELD SERVICER Unavailable Unavailable Dowd, Dana FIELD SERVICER Unavailable Unavailable Dowd, Dana FIELD SERVICER Unavailable Unavailable Dowd, Dana FIELD SERVICER Unavailable Unavailable Dowd, Dana FIELD SERVICER Unavailable Unavailable Dowd, Dana FIELD SERVICER Unavailable Unavailable Dowd, Dana FIELD SERVICER Unavailable Unavailable Dowd, Dana FIELD SERVICER Unavailable Unavailable Dowd, Dana FIELD SERVICER Unavailable Unavailable Dowd, Dana FIELD SERVICER Unavailable Unavailable Dowd, Dana FIELD SERVICER Unavailable Unavailable Dowd, Dana FIELD SERVICER Unavailable Unavailable Dowd, Dana FIELD SERVICER Unavailable Unavailable Dowd, Dana FIELD SERVICER Unavailable Unavailable Dowd, Dana FIELD SERVICER Unavailable Unavailable Dowd, Dana FIELD SERVICER Unavailable Unavailable Dowd, Dana FIELD SERVICER Unavailable Unavailable Dowd, Dana FIELD SERVICER Unavailable Unavailable Dowd, Dana FIELD SERVICER Unavailable Unavailable Dowd, Dana FIELD SERVICER Unavailable Unavailable Dowd, Dana FIELD SERVICER Unavailable Unavailable Dowd, Dana FIELD SERVICER Unavailable Unavailable Dowd, Dana FIELD SERVICER Unavailable Unavailable Dowd, Dana FIELD SERVICER Unavailable Unavailable Dowd, Dana FIELD SERVICER Unavailable Unavailable Dowd, Dana FIELD SERVICER Unavailable Unavailable Dowd, Dana FIELD SERVICER Unavailable Unavailable Dowd, Dana FIELD SERVICER Unavailable Unavailable Dowd, Dana FIELD SERVICER Unavailable Unavailable Dowd, Dana FIELD SERVICER Unavailable Unavailable Dowd, Dana FIELD SERVICER Unavailable Unavailable Dowd, Dana FIELD SERVICER Unavailable Unavailable Dowd, Dana FIELD SERVICER Unavailable Unavailable Dowd, Dana FIELD SERVICER Unavailable Unavailable Dowd, Dana FIELD SERVICER Unavailable Unavailable Dowd, Dana FIELD SERVICER Unavailable Unavailable Dowd, Dana FIELD SERVICER Unavailable Unavailable Dowd, Dana FIELD SERVICER Unavailable Unavailable Dowd, Dana FIELD SERVICER Unavailable Unavailable Dowd, Dana FIELD SERVICER Unavailable Unavailable Dowd, Dana FIELD SERVICER Unavailable Unavailable Dowd, Dana FIELD SERVICER Unavailable Unavailable Dowd, Dana FIELD SERVICER Unavailable Unavailable Dowd, Dana FIELD SERVICER Unavailable Unavailable Dowd, Dana FIELD SERVICER Unavailable Unavailable Dowd, Dana FIELD SERVICER Unavailable Unavailable Dowd, Dana FIELD SERVICER Unavailable Unavailable Dowd, Dana FIELD SERVICER Unavailable Unavailable Dowd, Dana FIELD SERVICER Unavailable Unavailable Dowd, Dana FIELD SERVICER Unavailable Unavailable Dowd, Dana FIELD SERVICER Unavailable Unavailable Dowd, Dana FIELD SERVICER Unavailable Unavailable Dowd, Dana FIELD SERVICER Unavailable Unavailable Dowd, Dana FIELD SERVICER Unavailable Unavailable Dowd, Dana FIELD SERVICER Unavailable Unavailable Dowd, Dana FIELD SERVICER Unavailable Unavailable Dowd, Dana FIELD SERVICER Unavailable Unavailable Dowd, Dana FIELD SERVICER Unavailable Unavailable Dowd, Dana FIELD SERVICER Unavailable Unavailable Dowd, Dana FIELD SERVICER Unavailable Unavailable Dowd, Dana FIELD SERVICER Unavailable Unavailable Dowd, Dana FIELD SERVICER Unavailable Unavailable Herbert Randhawa MD Unavailable Unavailable Herbert Randhawa MD Unavailable Unavailable Herbert Randhawa MD Unavailable Unavailable Herbert Randhawa MD Unavailable Unavailable Herbert Randhawa MD Unavailable Unavailable Herbert Randhawa MD Unavailable Unavailable Herbert Randhawa MD Unavailable Unavailable Herbert Randhawa MD Unavailable Unavailable Herbert Randhawa MD Unavailable Unavailable Herbert Randhawa MD Unavailable Unavailable Herbert Randhawa MD Unavailable Unavailable RandhawaHerbert MD Unavailable Unavailable RandhawaHerbert MD Unavailable Unavailable Randhawa, Herbert Floyd MD Unavailable Unavailable RandhawaHerbert MD Unavailable Unavailable RandhawaHerbert MD Unavailable Unavailable Randhawa, Herbert Floyd MD Unavailable Unavailable Randhawa, Herbert Floyd MD Unavailable Unavailable Randhawa, Herbert Floyd MD Unavailable Unavailable RandhawaHerbert MD Unavailable Unavailable RandhawaHerbert MD Unavailable Unavailable RandhawaHerbert MD Unavailable Unavailable Randhawa, Herbert Floyd MD Unavailable Unavailable Randhawa, Herbert Floyd MD Unavailable Unavailable Randhawa, Herbert Floyd MD Unavailable Unavailable Randhawa, Herbert Floyd MD Unavailable Unavailable Randhawa, Herbert Floyd MD Unavailable Unavailable Randhawa, Herbert Floyd MD Unavailable Unavailable Randhawa, Herbert Floyd MD Unavailable Unavailable Randhawa, Herbert Floyd MD Unavailable Unavailable Randhawa, Herbert Floyd MD Unavailable Unavailable Randhawa, Herbert Floyd MD Unavailable Unavailable Randhawa, Herbert Floyd MD Unavailable Unavailable Randhawa, Herbert Floyd MD Unavailable Unavailable Randhawa, Herbert Floyd MD Unavailable Unavailable Randhawa, Herbert Floyd MD Unavailable Unavailable Randhawa, Herbert Floyd MD Unavailable Unavailable RandhawaHerbert MD Unavailable Unavailable Herbert Randhawa MD Unavailable Unavailable RandhawaHerbert MD Unavailable Unavailable RandhawaHerbert MD Unavailable Unavailable RandhawaHerbert MD Unavailable Unavailable RandhawaHerbert MD Unavailable Unavailable RandhawaHerbert MD Unavailable Unavailable RandhawaHerbert MD Unavailable Unavailable RandhawaHerbert MD Unavailable Unavailable RandhawaHerbert MD Unavailable Unavailable Herbert Randhawa MD Unavailable Unavailable Herbert Randhawa MD Unavailable Unavailable RandhawaHerbert MD Unavailable Unavailable RandhawaHerbert MD Unavailable Unavailable RandhawaHerbert MD Unavailable Unavailable RandhawaHerbert MD Unavailable Unavailable RandhawaHerbert MD Unavailable Unavailable Herbert Randhawa MD Unavailable Unavailable Herbert Randhawa MD Unavailable Unavailable Herbert Randhawa MD Unavailable Unavailable Herbert Randhawa MD Unavailable Unavailable Herbert Randhawa MD Unavailable Unavailable RandhawaHerbert MD Unavailable Unavailable RandhawaHerbert MD Unavailable Unavailable RandhawaHerbert MD Unavailable Unavailable RandhawaHerbert MD Unavailable Unavailable RandhawaHerbert MD Unavailable Unavailable RandhawaHerbert MD Unavailable Unavailable Herbert Randhawa MD Unavailable Unavailable Herbert Randhawa MD Unavailable Unavailable RandhawaHerbert MD Unavailable Unavailable Herbert Randhawa MD Unavailable Unavailable RandhawaHerbert MD Unavailable Unavailable RandhawaHerbert MD Unavailable Unavailable RandhawaHerbert MD Unavailable Unavailable RandhawaHerbert MD Unavailable Unavailable RandhawaHerbert MD Unavailable Unavailable RandhawaHerbert MD Unavailable Unavailable Herbert Randhawa MD Unavailable Unavailable Herbert Randhawa MD Unavailable Unavailable Herbert Randhawa MD Unavailable Unavailable RandhawaHerbert MD Unavailable Unavailable RandhawaHerbert MD Unavailable Unavailable RandhawaHerbert MD Unavailable Unavailable Randhawa, Herbert Everett MD Unavailable Unavailable Randhawa, Herbert Floyd MD Unavailable Unavailable Randhawa, Herbert Floyd MD Unavailable Unavailable Randhawa, Herbert Floyd MD Unavailable Unavailable Randhawa, Herbert Floyd MD Unavailable Unavailable Randhawa, Herbert Floyd MD Unavailable Unavailable Randhawa, Herbert Floyd MD Unavailable Unavailable Randhawa, Herbert Everett MD Unavailable Unavailable Randhawa, Herbert Everett MD Unavailable Unavailable Randhawa, Herbert Floyd MD Unavailable Unavailable Randhawa, Herbert Floyd MD Unavailable Unavailable Randhawa, Herbert Floyd MD Unavailable Unavailable Randhawa, Herbert Floyd MD Unavailable Unavailable Randhawa, Herbert Everett MD Unavailable Unavailable Randhawa, Herbert Floyd MD Unavailable Unavailable Randhawa, Herbert Floyd MD Unavailable Unavailable Randhawa, Herbert Everett MD Unavailable Unavailable Randhawa, Herbert Everett MD Unavailable Unavailable Randhawa, Herbert Everett MD Unavailable Unavailable Randhawa, Herbert Floyd MD Unavailable Unavailable Randhawa, Herbert Floyd MD Unavailable Unavailable Re-disclosure Warning The records that you are about to access may contain information from federally-assisted alcohol or drug abuse programs. If such information is present, then the following federally mandated warning applies: This information has been disclosed to you from records protected by federal confidentiality rules (42 CFR part 2). The federal rules prohibit you from making any further disclosure of this information unless further disclosure is expressly permitted by the written consent of the person to whom it pertains or as otherwise permitted by 42 CFR part 2. A general authorization for the release of medical or other information is NOT sufficient for this purpose. The Federal rules restrict any use of the information to criminally investigate or prosecute any alcohol or drug abuse patient.The records that you are about to access may contain highly sensitive health information, the redisclosure of which is protected by Article 27-F of the [facility] Public Health law. If you continue you may have access to information: Regarding HIV / AIDS; Provided by facilities licensed or operated by the [facility] Office of Mental Health; or Provided by the [facility] Office for People With Developmental Disabilities. If such information is present, then the following [facility] mandated warning applies: This information has been disclosed to you from confidential records which are protected by state law. State law prohibits you from making any further disclosure of this information without the specific written consent of the person to whom it pertains, or as otherwise permitted by law. Any unauthorized further disclosure in violation of state law may result in a fine or mcfp sentence or both. A general authorization for the release of medical or other information is NOT sufficient authorization for further disc losure. Family History Family Member Name Family Member Gender Family Member Status Date o f Status Description Data Source(s) Unknown Unknown Problem [facility] ([facility]) Unknown Male Problem [facility] ([facility] () Unknown Male Problem [facility] ([facility]) age 82 Unknown Male Problem [facility] ([facility]) Encounters Encounter Providers Location Date Indications Data Source(s ) Outpatient Attender: Brayan COBB [facility] 08/04/2020 12:20:00 PM EST [facility] ([facility]) Outpatient Attender: Viki Fox[place] 07/23/2020 10:30:00 AM EST [facility] ([facility] Outpatient Attender: Brayan COBB [facility] 07/21/2020 12:00:00 PM EST [facility] ([facility]) Outpatient Attender: LUCIE MANUEL DO [facility] 04/20/2020 02:30:00 PM EDT [facility] ([facility]) Outpatient Attender: Everett Davila/[place] 04/20/2020 01:00:00 PM EDT [facility] ([facility] Outpatient [id number] [facility] [id number] 03/25/2020 12:00:00 AM EDT eCW1 ([facility]) Outpatient Attender: Viki Foxang/[place] 02/25/2020 09:00:00 AM EDT [facility] ([facility] Outpatient Attender: Brayan COBB [facility] 02/05/2020 10:40:00 AM EDT [facility] ([facility]) Outpatient [id number] [facility] [id number] 01/17/2020 12:00:00 AM EDT eCW1 ([facility]) Office Visit Attender: Brayan COBB [facility] 01/16/2020 02:20:00 PM EDT [facility] ([facility]) Outpatient Attender: Viki Valiente RPA [place] 01/15/2020 11:15:00 AM EDT [facility] ([facility]) Outpatient Attender: Oxana Gaitan MD 01/03/2020 10:00: 00 AM [facility] Outpatient Attender: Dana Dowd [facility] 12/03/2019 07:34:53 PM EDT [facility] Outpatient Attender: Dana Dowd [facility] 11/23/2019 12:09:56 AM EDT [facility] [facility]: LUCIE MANUEL [facility] 11/14/2019 01:30:00 PM EDT [facility] ([facility]) Outpatient Attender: LUCIE MANUEL [facility] 10/31/2019 03:40:00 PM EDT [facility] ([facility]) Outpatient Attender: LUCIE MANUEL [facility] 10/17/2019 02:30:00 PM EDT [facility] ([facility]) Outpatient Attender: Everett Davila/Quan/Zeyad/R eindl 10/16/2019 01:45:00 PM EDT [facility] ([facility] Outpatient Attender: Viki Foxang/[place]/Zeyad/R eindl 10/03/2019 11:00:00 AM EDT [facility] ([facility]) Outpatient Referrer: Everett Randhawa MD 09/24/2019 12:54:0 0 PM EDT [facility] Outpatient Referrer: Everett Randhawa MD 09/06/2019 10:39:0 0 AM EDT [facility] Outpatient Referrer: Everett Randhawa MD 08/28/2019 10:04:0 0 AM EST [facility] Outpatient Attender: Viki Foxang/[place]/Zeyad/R eindl 08/26/2019 08:30:00 AM EST [facility] ([facility]) Outpatient Attender: Brayan COBB [facility] 07/17/2019 12:40:00 PM EST MED[facility] ([facility]) Outpatient Attender: Viki Davila/Quan/Zeyad/Karen dangelo 07/04/2019 08:30:00 AM EST [facility] ([facility] Outpatient Attender: Dana Dowd NP 01/06/2014 04:40:00 PM EDT [facility] Immunizations Vaccine Date Status Description Data Source(s) Pneumococcal conjugate PCV 13 01/16/2020 03:12:00 PM EDT completed MEDENT ([facility]) This CVX code allows reporting of a vacc ination when formulation is unknown (for example, when recording a Influenza vaccination when noted on a vaccination card) 07/28/2019 03:24:00 PM EST completed MEDEN T ([facility]) INFLUENZA VIRUS VACCINE TRIVAL SPLIT (65 YR U P)/PF 07/28/2019 12:00:00 AM EST completed [facility] Medications Medication Brand Name Start Date Product Form Dose Route Admi nistrative Instructions Pharmacy Instructions Status Indications Reaction Description Data Source(s) Suprep Bowel Prep Kit Suprep Bowel Prep Kit 07/28/2020 12:00:00 AM EST active [facility] ([facility]) 0.5 ML pneumococcal capsular polysacchar wilma type 1 vaccine 0.05 MG/ML / pneumococcal capsular polysaccharide type 10A vaccine 0.05 MG/ML / pneumococcal capsular polysaccharide type 11A vaccine 0.05 MG/ML / pneumococcal capsular polysaccharide type 12F vac Pneumovax 23 04/20/2020 12:00:00 AM EDT active MEDENT ([facility]) Prodigy No Coding 03/16/2020 12:00:00 AM EDT active MED[facility] ([facility]) 800-160 mg 02/12/2020 12:00:00 AM EDT tablet 7 TAKE ONE TABLET BY MOUTH EVERY DAY FOR 7 DAYS TAKE ONE TABLET BY MOUTH EVERY DAY FOR 7 DAYS SOLD: 02/13/2020 [facility] Sulfamethoxazole 800 MG / Trimethoprim 1 60 MG Oral Tablet Sulfamethoxazole- Trimethoprim 800-160 MG Sulfamethoxazole-Trimethoprim 800-160 MG 01/17/2020 12:00:00 AM EDT suspended Sulfamethoxazole-Trimethoprim 800-160 MG eCW1 ([facility]) Sulfamethoxazole 800 MG / Trimethoprim 1 60 MG Oral Tablet Sulfamethoxazole- Trimethoprim 800-160 MG Sulfamethoxazole-Trimethoprim 800-160 MG 01/17/2020 12:00:00 AM EDT suspended Sulfamethoxazole-Trimethoprim 800-160 MG eCW1 ([facility]) Immunization Administration Single Or Combination 01/16/2020 12:00:00 AM EDT completed MED[facility] ([facility]) Medication administered onsite Furosemide 20 MG Oral Tablet Furosemide 10/31/2019 12:00:00 AM EDT ORAL completed [facility] ([facility]) Potassium Chloride 10 MEQ Extended Release Oral Tablet Potassium Chloride [facility] 10/31/2019 12:00:00 AM EDT ORAL completed [facility] ([facility]) 200 ACTUAT Albuterol 0.09 MG/ACTUAT Metered Dose Inhaler [Pr oAir] Proair HFA 10/18/2019 12:00:00 AM EDT RESPIRATORY active [facility] ([facility] 100 mg 06/17/2019 12:00:00 AM EST tablet 30 TAKE ONE TABLET BY MOUTH EVERY DAY TAKE ONE TABLET BY MOUTH EVERY DAY SOLD: 06/21/2019 [facility] 30 mg 04/15/2019 12:00:00 AM EDT capsule,delayed release (DR/EC) 180 TAKE TWO CAPSULES BY MOUTH EVERY DAY TAKE TWO CAPSULES BY MOUTH EVERY DAY SOLD: 07/16/2019 [facility] 80 mg 04/15/2019 12:00:00 AM EDT tablet 90 TAKE ONE TABLET BY MOUTH EVERY NIGHT TAKE ONE TABLET BY MOUTH EVERY NIGHT SOLD: 07/28/2019 [facility] Insurance Providers Payer name Policy type / Coverage type Policy ID Covered libertarian ID Covered libertarian's relationship to ortiz Policy Ortiz Plan Information [facility] OPTIONS [id number] SP [id number] MEDICARE [id number] SP [id number] UPSTATE MEDICARE DIVISION [id number] S [id number] [place]IC[place] - [place] [id number] [facility] OPTIONS [id number] S [id number] UPSTATE MEDICARE DIVISION [id number] S [id number] [place]IC[place] [id number] S [id number] [place]BS [place] [id number] S VYS Excellus BCBS P [id number] S VYS AARP O [id number] S [id number] MEDICARE C [id number] S [id number] [place] PPO 302/307 [id number] SP [id number] [place] P[place] 302/307 [id number] SP [id number] BCBS of [facility] Other 0 Self 0 [employer] U/W Commercial [id number] Self [id number] Excell[employer] BCBS Medigap Part B [id number] Self [id number] Excell[employer] BCBS Health Maintenance Organization (HMO) [id number] Self [id number] Ghi Medigap Part B [id number] Self [id number] [employer] U/W Commercial [id number] Self [id number] ANSI-Commercial [id number] ANSI-Commercial [id number] BCBS of [facility] Other 0 Self [address] [facility] Other 0 Self [address] [facility] Other 0 Self [address] [facility] Other 0 Self 0 [address] Other 0 Self 0 [facility] Other 0 Self [address] [facility] Other 0 Self [address] [facility] Other 0 Self [address] [facility] Other 0 Self 0 ANSI-Commercial [id number] ANSI-Commercial [id number] [facility] [id number] Self [id number] ANSI-Commercial [id number] ANSI-Commercial [id number] EXCELLUS BCBS B [id number] S [id number] [place]BS [place] PPO 302/307 [id number] SP [id number] [place]BS [place] PPO 302/307 [id number] SP [id number] ANSI-Commercial [id number] ANSI-Commercial [id number] ANSI-Commercial [id number] ANSI-Commercial [id number] ANSI-Commercial [id number] ANSI-Commercial [id number] ANSI-Commercial [id number] ANSI-Commercial [id number] ANSI-Commercial [id number] ANSI-Commercial [id number] ANSI-Commercial [id number] ANSI-Commercial [id number] [facility] Part B [id number] Self [id number] [facility] Health Maintenance Organization (HMO) [id number] Self [id number] [facility] Commercial [id number] Self [id number] ANSI-Commercial [id number] ANSI-Commercial [id number] BCBS [place]AT[place] PPO 302/307 [id number] SP [id number] [employer] U/W Commercial [id number] Self [id number] BCBS [place]AT[place] PPO 302/307 [id number] SP [id number] [employer] U/W Commercial [id number] Self [id number] BCBS [place]AT[place] PPO 302/307 [id number] SP [id number] [employer] U/W Commercial [id number] Self [id number] BCBS [place] PPO 302/307 [id number] SP [id number] Ghi Emblem Medigap Part B [id number] Self [id number] BCBS Ppo Commercial [id number] Self [id number] Excell[employer] BCBS Medigap Part B [id number] Self [id number] Excell[employer] BCBS Health Maintenance Organization (HMO) [id number] Self [id number] [employer] U/W Commercial [id number] Self [id number] BCBS [place] WAT[place] PPO 302/307 [id number] SP [id number] [employer] U/W Commercial [id number] Self [id number] BCBS Excell[employer] Ppo U/W Commercial [id number] Self [id number] [employer] U/W Commercial [id number] Self [id number] [employer] U/W Commercial [id number] Self [id number] BCBS [place]AT[place] PPO 302/307 [id number] SP [id number] [employer] U/W Commercial [id number] Self [id number] BCBS [place] PPO 302/307 [id number] SP [id number] [employer] U/W Commercial [id number] Self [id number] [employer] U/W Commercial [id number] Self [id number] BCBS [place]AT[place] PPO 302/307 [id number] SP [id number] EXCELLUS BCBS B [id number] S VYS BCBS [place] PPO 302/307 [id number] SP [id number] EXCELLUS BCBS [id number] Mar[place] VYS [id number] EXCELLUS BCBS [id number] Mariluz VYS [id number] BCBS [place] WAT[place] PPO 302/307 [id number] SP [id number] [employer] U/W Commercial [id number] Self [id number] EXCELLUS BCBS P [id number] S [id number] EXCELLUS H [id number] Self [id number] Excell[employer] BCYO P [id number] S [id number] Problems, Conditions, and Diagnoses Code Display Name Description Problem Type Effective Dates Data Source(s) 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 Urethral str icture due to infection Problem 03/25/2020 12:00:00 AM EDT eCW1 ([facility]) 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, bilateral legs ATHSCL [place] ARTERIES OF EXTRM W INTRMT BENNY, BI LEGS Diagnosis 01/03/2020 10:00:00 AM EDT [facility] Surgeries/Procedures Procedure Description Date Indications Data Source(s) Spirometry 04/20/2020 12:00:00 AM EDT [place] AMOR ([facility], ) uro PVR (Post Voiding Residual) Bladder Scan 0 12:00:00 AM EDT eCW1 ([facility]) uro PVR (Post Voiding Residual) Bladder Scan 0 12:00:00 AM EDT eC ([facility]) Electrocardiogram Complete 01/16/2020 12:00:00 AM EDT MEDMATTHIEU ([facility]) Revascularization,Endovascular,Transluminal Stent Placement 08/20/2019 12:00:00 AM EST [facility] ([facility] ) REVASCULARIZATION ILIAC ART ANGIOP EA IPSI VSL 020 12:00:00 AM EST MED[facility] ([facility], ) REVSC OPN/PRQ FEM/POP W/STNT/ANGIOP SM VSL 08/20/2019 12:00:00 AM EST [facility] ([facility], ) Angiography Extremity Unilateral 08/20/2019 12:00:00 A M EST [facility] ([facility], ) Moderate Sedation Services; Same Phys Intl 15 Mins; PT >= 5 Years 08/20/2019 12:00:00 AM EST [facility] ([facility] ) Results ID Date Data Source [id number] 08/13/2020 11:00:00 AM EST [facility] Name Value Range Interpretation Code Description Data Dorothy rce(s) Supporting Document(s) SARS coronavirus 2 RNA Not Detected [facility] [place] This lab was ordered by [facility] and reported by [facility]. ID Date Data Source [id number] 08/01/2020 08:50:00 AM EST MEDENT ([facility]) Name Value Range Interpretation Code Description Data Dorothy rce(s) Supporting Document(s) AB Screen (Indirect Veronica)Vis Laboratory test result Normal (applies to non- numeric results) [facility] ([facility]) Blood Type Laboratory test result Normal (applies to non-n umeric results) [facility] ([facility]) ID Date Data Source [id number] 08/01/2020 08:50:00 AM EST [facility] ([facility]) Name Value Range Interpretation Code Description Data Dorothy rce(s) Supporting Document(s) aPTT in Platelet poor plasma by Coagulation assay 32.6 s 24.2-38.5 Normal (applies to non-numeric results) [facility] ([facility]) ID Date Data Source [id number] 08/01/2020 08:50:00 AM EST [facility] ([facility]) Name Value Range Interpretation Code Description Data Dorothy rce(s) Supporting Document(s) Prothrombin Time 13.6 s 12.5-14.3 Normal (applies to non-numeric results) [facility] ([facility]) Inr 1.02 Normal (applies to non-numeric resul ts) [facility] ([facility]) THERAPUTIC HUMAN INR VALUES INDICATIONS NORMAL RANGES PROPHYLAXIS/TREATMENT OF: VENOUS THROMBOSIS 2.0-3.0 PULMONARY EMBOLISM 2.0-3.0 PREVENTION OF SYSTEMIC EMBOLISM FROM: TISSUE HEART VALVES 2.0-3.0 ACUTE MYOCARDIAL INFARCTION 2.0-3.0 VALVULAR HEART DISEASE 2.0-3.0 ATRIAL FIBRILLATION 2.0-3.0 MECHANICAL VALVES(HIGH RISK) 2.5-3.5 RECURRENT MYOCARDIAL INFARCTION 2.5-3.5 ID Date Data Source [id number] 08/01/2020 08:50:00 AM EST [facility] ([facility]) Name Value Range Interpretation Code Description Data Dorothy rce(s) Supporting Document(s) Creatinine For GFR 1.27 mg/dL 0.70-1.30 Normal (applies to non -numeric results) [facility] ([facility]) Blood Urea Nitrogen 22 mg/dL 7-18 Above high normal [facility] ([facility]) Glucose, Fasting 119 mg/dL 70-100 Above high normal [facility]) Glomerular Filtration Rate Laboratory test result Normal (applies to non- numeric results) [facility] ([facility]) <content>Units are mL/min/1.73 m2</content>
<content></content>
<content>Chronic Kidney Disease Staging per NKF:</content>
<content></content>
<content>Stage I & II GFR >=60 Normal to Mildly Decreased</content>
<content>Stage III GFR 30- 59 Moderately Decreased</content>
<content>Stage IV GFR 15-29 Severely Decreased</content>
<content>Stage V GFR <15 Very Little GFR Left</content>
<content>ESRD GFR <15 on AIRPORT GUIDE</content>
<content></content> Potassium Serum 4.3 meq/L 3.5-5.1 Normal (applies to non-numeric results) [facility] ([facility]) Sodium Level 137 meq/L 136-145 Normal (applies to non-numeric res ults) [facility] ([facility]) Anion Gap 5 meq/L 8-16 Below low normal [facility] ( [facility]) Carbon Dioxide Level 31 meq/L 21-32 Normal (applies to non-num rosita results) [facility] ([facility]) Chloride Level 101 meq/L 98-107 Normal (applies to non-numeric r esults) [facility] ([facility]) Calcium Level 8.7 mg/dL 8.8-10.2 Below low normal MEDEN T ([facility]) ID Date Data Source [id number] 08/01/2020 08:50:00 AM EST [facility] ([facility]) Name Value Range Interpretation Code Description Data Dorothy rce(s) Supporting Document(s) White Blood Count 9.0 10 4.0-10.0 Normal (applies to non-numeri c results) [facility] ([facility]) Hemoglobin 11.2 g/dL 13.5-17.5 Below low normal [facility] ( [facility]) Red Blood Count 4.08 10 4.30-6.10 Below low normal [facility] ([facility]) Mean Corpuscular Hemoglobin 27.5 pg 27.0-33.0 Norm al (applies to non-numeric results) [facility] ([facility]) Mean Corpuscular Volume 90.0 fl 80.0-96.0 Normal ( applies to non-numeric results) [facility] ([facility]) Hematocrit 36.7 % 42.0-52.0 Below low normal [facility] ( [facility]) Mean Corpuscular HGB Conc 30.5 g/dL 32.0-36.5 Below low normal [facility] ([facility]) Red Cell Distribution Width 15.6 % 11.5-14.5 Above high normal [facility] ([facility]) Platelet Count, Automated 228 10 150-450 Normal (applies to non-numeric results) [facility] ([facility]) Neutrophils % 73.3 % 36.0-66.0 Above high normal MEDE NT ([facility]) Lymph % 12.4 % 24.0-44.0 Below low normal [facility] ( [facility]) Bradley % 10.0 % 0.0-5.0 Above high normal [facility] ([facility]) Eos % 1.5 % 0.0-3.0 Normal (applies to non-numeric resul ts) [facility] ([facility]) Baso % 0.7 % 0.0-1.0 Normal (applies to non-numeric resul ts) [facility] ([facility]) Nucleated Red Blood Cell % 0.0 % 0-0 Normal (applies to n on-numeric results) [facility] ([facility]) Immature Granulocyte % 2.1 % 0-3.0 Normal (applies to non-n umeric results) [facility] ([facility]) Neutrophils # 6.6 10 1.5-8.5 Normal (applies to non-numeric re sults) [facility] ([facility]) Bradley # 0.9 10 0.0-0.8 Above high normal [facility] ([facility]) Lymph # 1.1 10 1.5-5.0 Below low normal [facility] ( [facility]) Eos # 0.1 10 0.0-0.5 Normal (applies to non-numeric resul ts) [facility] ([facility]) Baso # 0.1 10 0.0-0.2 Normal (applies to non-numeric resul ts) [facility] ([facility]) ID Date Data Source [id number] 07/30/2020 03:33:00 PM EST MED[facility] ([facility] ) Name Value Range Interpretation Code Description Data Dorothy rce(s) Supporting Document(s) White Blood Count 9.8 10 4.0-10.0 Normal (applies to non-numeri c results) [facility] ([facility], ) Hemoglobin 10.6 g/dL 13.5-17.5 Below low normal MED[facility] ( [facility], ) Red Blood Count 3.96 10 4.30-6.10 Below low normal MED ENT ([facility]) Hematocrit 35.8 % 42.0-52.0 Below low normal [facility] ( [facility]) Mean Corpuscular HGB Conc 29.6 g/dL 32.0-36.5 Below low normal [facility] Mean Corpuscular Volume 90.4 fl 80.0-96.0 Normal ( applies to non-numeric results) [facility] ([facility] ) Mean Corpuscular Hemoglobin 26.8 pg 27.0-33.0 Below low normal [facility] ([facility]) Platelet Count, Automated 234 10 150-450 Normal (applies to non-numeric results) [facility] ([facility]) Red Cell Distribution Width 15.1 % 11.5-14.5 Above high normal [facility] ([facility]) Neutrophils % 74.9 % 36.0-66.0 Above high normal MEDE NT ([facility]) Bradley % 9.4 % 0.0-5.0 Above high normal [facility] ([facility]) Lymph % 12.5 % 24.0-44.0 Below low normal [facility] ( [facility]) Eos % 1.4 % 0.0-3.0 Normal (applies to non-numeric resul ts) [facility] ([facility]) Immature Granulocyte % 1.2 % 0-3.0 Normal (applies to non-n umeric results) [facility] ([facility]) Baso % 0.6 % 0.0-1.0 Normal (applies to non-numeric resul ts) [facility] ([facility]) Nucleated Red Blood Cell % 0.0 % 0-0 Normal (applies to n on-numeric results) [facility] ([facility]) Neutrophils # 7.3 10 1.5-8.5 Normal (applies to non-numeric re sults) [facility] ([facility]) Lymph # 1.2 10 1.5-5.0 Below low normal [facility] ( [facility]) Eos # 0.1 10 0.0-0.5 Normal (applies to non-numeric resul ts) [facility] ([facility]) Bradley # 0.9 10 0.0-0.8 Above high normal [facility] ([facility]) Baso # 0.1 10 0.0-0.2 Normal (applies to non-numeric resul ts) [facility] ([facility]) 07/31/20 (MonJul 31) 04:41 PM ANGELINA C HARLEBOIS Anemia has worsened. Patient informed. See triage. ID Date Data Source [id number] 07/13/2020 02:04:00 PM EST [facility] ([facility]) Name Value Range Interpretation Code Description Data Dorothy rce(s) Supporting Document(s) Red Blood Count 4.19 10 4.30-6.10 Below low normal [facility] E[facility] ([facility]) White Blood Count 9.7 10 4.0-10.0 Normal (applies to non-numeri c results) [facility] ([facility]) Hemoglobin 11.7 g/dL 13.5-17.5 Below low normal [facility] ( [facility]) Mean Corpuscular Volume 92.1 fl 80.0-96.0 Normal ( applies to non-numeric results) [facility] ([facility]) Hematocrit 38.6 % 42.0-52.0 Below low normal [facility] ( [facility]) Red Cell Distribution Width 14.2 % 11.5-14.5 Norm al (applies to non-numeric results) [facility] ([facility]) Mean Corpuscular HGB Conc 30.3 g/dL 32.0-36.5 Below low normal [facility] ([facility]) Mean Corpuscular Hemoglobin 27.9 pg 27.0-33.0 Norm al (applies to non-numeric results) [facility] ([facility]) Platelet Count, Automated 272 10 150-450 Normal (applies to non-numeric results) [facility] ([facility]) Neutrophils % 73.5 % 36.0-66.0 Above high normal MEDE NT ([facility]) Lymph % 14.4 % 24.0-44.0 Below low normal [facility] ( [facility]) Eos % 1.2 % 0.0-3.0 Normal (applies to non-numeric resul ts) [facility] ([facility]) Bradley % 8.5 % 0.0-5.0 Above high normal [facility] ([facility]) Baso % 0.6 % 0.0-1.0 Normal (applies to non-numeric resul ts) [facility] ([facility]) Nucleated Red Blood Cell % 0.0 % 0-0 Normal (applies to n on-numeric results) [facility] ([facility]) Immature Granulocyte % 1.8 % 0-3.0 Normal (applies to non-n umeric results) [facility] ([facility]) Lymph # 1.4 10 1.5-5.0 Below low normal [facility] ( [facility]) Neutrophils # 7.1 10 1.5-8.5 Normal (applies to non-numeric re sults) [facility] ([facility]) Bradley # 0.8 10 0.0-0.8 Normal (applies to non-numeric resul ts) [facility] ([facility]) Eos # 0.1 10 0.0-0.5 Normal (applies to non-numeric resul ts) [facility] ([facility]) Baso # 0.1 10 0.0-0.2 Normal (applies to non-numeric resul ts) [facility] ([facility]) ID Date Data Source [id number] 07/13/2020 02:04:00 PM EST [facility] ([facility]) Name Value Range Interpretation Code Description Data Dorothy rce(s) Supporting Document(s) Triglycerides Level 82 mg/dL Normal (applies to non-nume delilah results) [facility] ([facility]) HDL Cholesterol 47 mg/dL Normal (applies to non-numeric results) [facility] ([facility]) Cholesterol Level 93 mg/dL Normal (applies to non-numeri c results) [facility] ([facility]) LDL Cholesterol 30 mg/dL Normal (applies to non-numeric results) [facility] ([facility]) Cholesterol Risk Ratio 1.978 Normal (applies to non-n umeric results) [facility] ([facility]) Non-HDL-C 46 mg/dL Normal (applies to non-numeric resul ts) [facility] ([facility]) ID Date Data Source [id number] 07/13/2020 02:04:00 PM EST [facility] ([facility]) Name Value Range Interpretation Code Description Data Dorothy rce(s) Supporting Document(s) Glucose, Fasting 82 mg/dL 70-100 Normal (applies to non-numeric results) [facility] ([facility]) Blood Urea Nitrogen 18 mg/dL 7-18 Normal (applies to non-nume delilah results) [facility] ([facility]) Sodium Level 135 meq/L 136-145 Below low normal [facility] ([facility]) Glomerular Filtration Rate Laboratory test result Normal (applies to non- numeric results) [facility] ([facility]) <content>Units are mL/min/1.73 m2</content>
<content></content>
<content>Chronic Kidney Disease Staging per NKF:</content>
<content></content>
<content>Stage I & II GFR >=60 Normal to Mildly Decreased</content>
<content>Stage III GFR 30- 59 Moderately Decreased</content>
<content>Stage IV GFR 15-29 Severely Decreased</content>
<content>Stage V GFR <15 Very Little GFR Left</content>
<content>ESRD GFR <15 on AIRPORT GUIDE</content>
<content></content> Creatinine For GFR 1.17 mg/dL 0.70-1.30 Normal (applies to non -numeric results) [facility] ([facility]) Carbon Dioxide Level 31 meq/L 21-32 Normal (applies to non-num rosita results) [facility] ([facility]) Potassium Serum 4.4 meq/L 3.5-5.1 Normal (applies to non-numeric results) [facility] ([facility]) Chloride Level 99 meq/L 98-107 Normal (applies to non-numeric r esults) [facility] ([facility]) Calcium Level 9.1 mg/dL 8.8-10.2 Normal (applies to non-numeric re sults) [facility] ([facility]) Anion Gap 5 meq/L 8-16 Below low normal [facility] Ast/Sgot 17 U/L 7-37 Normal (applies to non-numeric resul ts) [facility] ([facility]) Alkaline Phosphatase 66 U/L 45-117 Normal (applies to non-num rosita results) [facility] ([facility]) Alt/SGPT 34 U/L 12-78 Normal (applies to non-numeric resul ts) [facility] ([facility]) Bilirubin,Total 0.5 mg/dL 0.2-1.0 Normal (applies to non-numeric results) [facility] ([facility]) Albumin 3.6 GM/DL 3.2-5.2 Normal (applies to non-numeric resul ts) [facility] ([facility]) Total Protein 6.9 GM/DL 6.4-8.2 Normal (applies to non-numeric re sults) [facility] ([facility]) Albumin/Globulin Ratio 1.1 Normal (applies to non-n umeric results) [facility] ([facility]) ID Date Data Source [id number] 07/13/2020 02:04:00 PM EST [facility] ([facility]) Name Value Range Interpretation Code Description Data Dorothy rce(s) Supporting Document(s) Estimated Average Glucose 140 mg/dL 60-110 Above high normal [facility] ([facility]) Hemoglobin A1c 6.5 % Normal (applies to non-numeric r esults) [facility] ([facility]) <content>REFERENCE RANGES:</content><br/ ><content></content>
<content><=5.6% NORMAL</content>
<content>5.7-6.4% SUGGESTS IMPAIRED GLUCOSE METABOLISM/PREDIABETIC</content>
<content>>= 6.5% ABNORMAL</content>
<content></content> ID Date Data Source [id number] 03/31/2020 02:06:00 PM EDT [facility] ([facility]) Name Value Range Interpretation Code Description Data Dorothy rce(s) Supporting Document(s) Hepatitis C virus Ab [Presence] in Serum 0.1 INDEX Normal (applies to non- numeric results) [facility] ([facility]) Negative Not infected with HCV, unless recent infection is suspected or other evidence exists to indicate HCV infection. HIV 1+2 Ab [Presence] in Serum Laboratory test result Normal (applies to non- numeric results) [facility] ([facility]) <content>This assay was performed utiliz ing a chemiluminescent</content>
<content>principle technique for the simultaneous qualitative</content>
<content>detection of HIV-1 p24 antigen & antibodies to HIV-1</content>
<content>(including group O) & HIV-2 using the Siemens Centaur XP</content>
<content>system.</content>
<content>The estimated 95% confidence interval for sensitivity of</content>
<content>this antigen/antibody combination assay for HIV-1&2</content>
<content>antibodies is 99.7-100% and HIV p24 antigen is 89.4-99.9%.</content>
<content>The estimated 95% confidence interval for specificity of</content>
<content>this antigen/antibody combination in low risk populations is</content>
<content>99.6-99.8%.</content>
<content></content> ID Date Data Source [id number] 03/31/2020 02:06:00 PM EDT [facility] ([facility]) Name Value Range Interpretation Code Description Data Dorothy rce(s) Supporting Document(s) Hemoglobin A1c 6.1 % Normal (applies to non-numeric r esults) [facility] ([facility]) <content>REFERENCE RANGES:</content><br/ ><content></content>
<content><=5.6% NORMAL</content>
<content>5.7-6.4% SUGGESTS IMPAIRED GLUCOSE METABOLISM/PREDIABETIC</content>
<content>>= 6.5% ABNORMAL</content>
<content></content> Estimated Average Glucose 128 mg/dL 60-110 Above high normal [facility] ([facility]) ID Date Data Source [id number] 03/31/2020 02:06:00 PM EDT [facility]) Name Value Range Interpretation Code Description Data Dorothy rce(s) Supporting Document(s) Glucose, Fasting 93 mg/dL 70-100 Normal (applies to non-numeric results) [facility] ([facility]) Glomerular Filtration Rate 55.1 Normal (applies to n on-numeric results) [facility] ([facility]) <content>Units are mL/min/1.73 m2</content>
<content></content>
<content>Chronic Kidney Disease Staging per NKF:</content>
<content></content>
<content>Stage I & II GFR >=60 Normal to Mildly Decreased</content>
<content>Stage III GFR 30- 59 Moderately Decreased</content>
<content>Stage IV GFR 15-29 Severely Decreased</content>
<content>Stage V GFR <15 Very Little GFR Left</content>
<content>ESRD GFR <15 on AIRPORT GUIDE</content>
<content></content> Blood Urea Nitrogen 25 mg/dL 7-18 Above high normal [facility] ([facility]) Creatinine For GFR 1.38 mg/dL 0.70-1.30 Above high normal [facility] ([facility]) Sodium Level 136 meq/L 136-145 Normal (applies to non-numeric res ults) [facility] ([facility]) Potassium Serum 4.6 meq/L 3.5-5.1 Normal (applies to non-numeric results) [facility] ([facility]) Anion Gap 5 meq/L 8-16 Below low normal [facility] Carbon Dioxide Level 30 meq/L 21-32 Normal (applies to non-num rosita results) [facility] ([facility]) Chloride Level 101 meq/L 98-107 Normal (applies to non-numeric r esults) [facility] ([facility]) Calcium Level 9.1 mg/dL 8.8-10.2 Normal (applies to non-numeric re sults) [facility] ([facility]) ID Date Data Source [id number] 01/16/2020 02:48:00 PM EDT [facility] ([facility]) Name Value Range Interpretation Code Description Data Dorothy rce(s) Supporting Document(s) EKG Laboratory test result [facility] ([facility]) ID Date Data Source [id number] 01/07/2020 02:18:00 PM EDT [facility] ([facility]) Name Value Range Interpretation Code Description Data Dorothy rce(s) Supporting Document(s) PSA Total Laboratory test result 0.0-4.0 Normal (a pplies to non-numeric results) [facility] ([facility]) Chyna ECLIA methodology. . According to the [employer] [employer], Serum PSA should decrease and remain at undetectable levels after radical prostatectomy. The AUA defines biochemical recurrence as an initial PSA value 0.2 ng/mL or greater followed by a subsequent confirmatory PSA value 0.2 ng/mL or greater. Values obtained with different assay methods or kits cannot be used interchangeably. Results cannot be interpreted as absolute evidence of the presence or absence of malignant disease. PSA Comment Laboratory test result Normal (applies to non- numeric results) [facility] ([facility]) . The percent free PSA is performed on a reflex basis only when the total PSA is between 4.0 and 10.0 ng/mL. Performed at: - [facility] [id number] Loan Auditor: Kimberley Michael MD, Phone: [phone] ID Date Data Source [id number] 01/07/2020 02:18:00 PM EDT [facility] ([facility]) Name Value Range Interpretation Code Description Data Dorothy rce(s) Supporting Document(s) Iron (Fe) 104 ug/dL 65-175 Normal (applies to non-numeric resul ts) [facility] ([facility]) Percent Saturation 28.3 % 19.7-50.0 Normal (applies to non-numer ic results) [facility] ([facility]) Total Iron Binding Capacity 367 ug/dL 250-450 Norm al (applies to non-numeric results) [facility] ([facility]) ID Date Data Source [id number] 01/07/2020 02:18:00 PM EDT [facility] ([facility]) Name Value Range Interpretation Code Description Data Dorothy rce(s) Supporting Document(s) Ferritin [Mass/volume] in Serum or Plasma 18 ng/mL 26-388 Below low normal [facility] ([facility]) ID Date Data Source [id number] 01/07/2020 02:18:00 PM EDT [facility] ([facility]) Name Value Range Interpretation Code Description Data Dorothy rce(s) Supporting Document(s) Red Blood Count 4.58 10 4.30-6.10 Normal (applies to non-numeric results) [facility] ([facility]) White Blood Count 9.0 10 4.0-10.0 Normal (applies to non-numeri c results) [facility] ([facility]) Hemoglobin 13.7 g/dL 13.5-17.5 Normal (applies to non-numeric resul ts) [facility] ([facility]) Mean Corpuscular Hemoglobin 29.9 pg 27.0-33.0 Norm al (applies to non-numeric results) [facility] ([facility]) Mean Corpuscular Volume 94.3 fl 80.0-96.0 Normal ( applies to non-numeric results) [facility] ([facility]) Hematocrit 43.2 % 42.0-52.0 Normal (applies to non-numeric resul ts) [facility] ([facility]) Red Cell Distribution Width 13.2 % 11.5-14.5 Norm al (applies to non-numeric results) [facility] ([facility]) Mean Corpuscular HGB Conc 31.7 g/dL 32.0-36.5 Below low normal [facility] ([facility]) Platelet Count, Automated 198 10 150-450 Normal (applies to non-numeric results) [facility] ([facility]) Lymph % 16.0 % 24.0-44.0 Below low normal [facility] ( [facility]) Neutrophils % 71.3 % 36.0-66.0 Above high normal [facility] ([facility]) Bradley % 9.0 % 0.0-5.0 Above high normal [facility] ([facility]) Eos % 1.5 % 0.0-3.0 Normal (applies to non-numeric resul ts) [facility] ([facility]) Immature Granulocyte % 1.6 % 0-3.0 Normal (applies to non-n umeric results) [facility] ([facility]) Baso % 0.6 % 0.0-1.0 Normal (applies to non-numeric resul ts) [facility] ([facility]) Nucleated Red Blood Cell % 0.0 % 0-0 Normal (applies to n on-numeric results) [facility] ([facility]) Lymph # 1.4 10 1.5-5.0 Below low normal [facility] ( [facility]) Neutrophils # 6.4 10 1.5-8.5 Normal (applies to non-numeric re sults) [facility] ([facility]) Bradley # 0.8 10 0.0-0.8 Normal (applies to non-numeric resul ts) [facility] ([facility]) Baso # 0.1 10 0.0-0.2 Normal (applies to non-numeric resul ts) [facility] ([facility]) Eos # 0.1 10 0.0-0.5 Normal (applies to non-numeric resul ts) [facility] ([facility]) ID Date Data Source [id number] 01/07/2020 02:18:00 PM EDT [facility] ([facility]) Name Value Range Interpretation Code Description Data Dorothy rce(s) Supporting Document(s) Malb Urine Siemens Laboratory test result Normal (applies to non-numeric results) [facility] ([facility]) Tulio/Creat Ratio 12.3 MCG/MG 0.0-30.0 Normal (applies to non-numeric results) [facility] ([facility]) THE [employer] STATES THAT MICROALBUMINURIA IS PRESENT IF THE MICROALBUMIN/CREATININE RATIO EXCEEDS 30 MCG/MG. THE THRESHOLD FOR CLINICAL ALBUMINURIA IS REACHED AT 300 MCG/MG. THE CLASSIFICATION OF A PATIENT SHOULD BE BASED UPON AT LEAST 2 OF 3 ABNORMAL RESULTS ON SPECIMENS COLLECTED WITHIN A 3 TO 6 MONTH TIME FRAME. Creatinine, Urine 40.6 mg/dL Normal (applies to non-numeri c results) [facility] ([facility]) ID Date Data Source [id number] 01/07/2020 02:18:00 PM EDT [facility] ([facility]) Name Value Range Interpretation Code Description Data Dorothy rce(s) Supporting Document(s) Cholesterol Level 108 mg/dL Normal (applies to non-numeri c results) [facility] ([facility]) Triglycerides Level 89 mg/dL Normal (applies to non-nume delilah results) [facility] ([facility]) Non-HDL-C 65 mg/dL Normal (applies to non-numeric resul ts) [facility] ([facility]) HDL Cholesterol 43 mg/dL Normal (applies to non-numeric results) [facility] ([facility]) LDL Cholesterol 47 mg/dL Normal (applies to non-numeric results) [facility] ([facility]) Cholesterol Risk Ratio 2.511 Normal (applies to non-n umeric results) [facility] ([facility]) ID Date Data Source [id number] 01/07/2020 02:18:00 PM EDT [facility] ([facility]) Name Value Range Interpretation Code Description Data Dorothy rce(s) Supporting Document(s) Hemoglobin A1c 6.0 % Normal (applies to non-numeric r esults) [facility] ([facility]) <content>REFERENCE RANGES:</content><br/ ><content></content>
<content><=5.6% NORMAL</content>
<content>5.7-6.4% SUGGESTS IMPAIRED GLUCOSE METABOLISM/PREDIABETIC</content>
<content>>= 6.5% ABNORMAL</content>
<content></content> Estimated Average Glucose 126 mg/dL 60-110 Above high normal [facility] ([facility]) ID Date Data Source [id number] 01/07/2020 02:18:00 PM EDT [facility] ([facility]) Name Value Range Interpretation Code Description Data Dorothy rce(s) Supporting Document(s) Glucose, Fasting 74 mg/dL 70-100 Normal (applies to non-numeric results) [facility] ([facility]) Blood Urea Nitrogen 25 mg/dL 7-18 Above high normal [facility] ([facility]) Sodium Level 137 meq/L 136-145 Normal (applies to non-numeric res ults) [facility] ([facility]) Glomerular Filtration Rate 57.4 Normal (applies to n on-numeric results) [facility] ([facility]) <content>Units are mL/min/1.73 m2</content>
<content></content>
<content>Chronic Kidney Disease Staging per NKF:</content>
<content></content>
<content>Stage I & II GFR >=60 Normal to Mildly Decreased</content>
<content>Stage III GFR 30- 59 Moderately Decreased</content>
<content>Stage IV GFR 15-29 Severely Decreased</content>
<content>Stage V GFR <15 Very Little GFR Left</content>
<content>ESRD GFR <15 on AIRPORT GUIDE</content>
<content></content> Creatinine For GFR 1.33 mg/dL 0.70-1.30 Above high normal [facility] ([facility]) Chloride Level 101 meq/L 98-107 Normal (applies to non-numeric r esults) [facility] ([facility]) Carbon Dioxide Level 29 meq/L 21-32 Normal (applies to non-num rosita results) [facility] ([facility]) Potassium Serum 4.8 meq/L 3.5-5.1 Normal (applies to non-numeric results) [facility] ([facility]) Calcium Level 8.9 mg/dL 8.8-10.2 Normal (applies to non-numeric re sults) [facility] ([facility]) Anion Gap 7 meq/L 8-16 Below low normal [facility]) Ast/Sgot 14 U/L 7-37 Normal (applies to non-numeric resul ts) [facility] ([facility]) Alkaline Phosphatase 59 U/L 45-117 Normal (applies to non-num rosita results) [facility] ([facility]) Alt/SGPT 24 U/L 12-78 Normal (applies to non-numeric resul ts) [facility] ([facility]) Bilirubin,Total 0.6 mg/dL 0.2-1.0 Normal (applies to non-numeric results) [facility] Total Protein 7.1 GM/DL 6.4-8.2 Normal (applies to non-numeric re sults) [facility] ([facility]) Albumin/Globulin Ratio 1.2 Normal (applies to non-n umeric results) [facility] ([facility]) Albumin 3.8 GM/DL 3.2-5.2 Normal (applies to non-numeric resul ts) [facility] ([facility]) ID Date Data Source [id number] 01/03/2020 11:13:00 AM EDT [facility] DATE OF EXAMINATION: 01/03/2020 10:03 EDT DOPPLER ARTERIAL SINGLE LEVEL HISTORY: Peripheral vascular disease Duplex scan was performed using B-mode/cunningham scale imaging and Doppler spectralanalysis and color flow. SOCO RIGHT LOWER EXTREMITY: Ankle brachial indices of the right lower extremity were performed. There is a bi-phasic waveform in the distal right posterior tibial artery. TheABI is 0.84. There is a mono-phasic waveform in the distal right dorsalis pedisartery. The SOCO is 0.63. IMPRESSION: Mild to moderately stenotic plaque formation SOCO LEFT LOWER EXTREMITY: Ankle brachial indices of the left lower extremity were performed. There is a bi-phasic waveform in the distal left posterior tibial artery. TheABI is 1. There is a bi-phasic waveform in the distal left dorsalis pedisartery. The SOCO is 1.05. IMPRESSION: Unremarkable SOCO Electronically signed in [id number] by: Emiliano Becerra M.D. 01/03/2020 11:08 EDT Name Value Range Interpretation Code Description Data Dorothy rce(s) Supporting Document(s) ID Date Data Source [id number] 01/03/2020 11:12:00 AM EDT [facility] DATE OF EXAMINATION: 01/03/2020 10:03 EDT ART DOPPLER VANNESA LOWER EXTREM HISTORY: Peripheral vascular disease. Atherosclerosis. Duplex scan was performed using B- mode/cunningham scale imaging and Doppler spectralanalysis and color flow. RIGHT LOWER EXTREMITY: Model and biphasic waveform is noted. Moderate to severe calcified plaqueformation with multifocal stenosis is noted. There is no complete occlusion. IMPRESSION: Moderate to severe plaque formation with multifocal stenosis LEFT LOWER EXTREMITY: Biphasic waveform is noted throughout. Moderate to severe plaque formation isseen mainly in the common femoral and superficial femoral artery with multifocalstenoses. There is no occlusion IMPRESSION: Moderate to severe calcified plaque formation with multifocal stenoses. Electronically signed in [id number] by: Emiliano Becerra M.D. 01/03/2020 11:07 EDT Name Value Range Interpretation Code Description Data Dorothy rce(s) Supporting Document(s) ID Date Data Source [id number] 11/12/2019 03:51:00 PM EDT [facility] ([facility]) Name Value Range Interpretation Code Description Data Dorothy rce(s) Supporting Document(s) Magnesium [Mass/volume] in Serum or Plasma 2.2 mg/dL 1.8-2 .4 Normal (applies to non-numeric results) [facility] ([facility]) ID Date Data Source [id number] 11/12/2019 03:51:00 PM EDT [facility] ([facility]) Name Value Range Interpretation Code Description Data Dorothy rce(s) Supporting Document(s) Blood Urea Nitrogen 28 mg/dL 7-18 Above high normal [facility] Glucose, Fasting 102 mg/dL 70-100 Above high normal [facility] ([facility]) Creatinine For GFR 1.78 mg/dL 0.70-1.30 Above high normal [facility]) Glomerular Filtration Rate 41.0 Below low normal [facility] ([facility]) <content>Units are mL/min/1.73 m2</content>
<content></content>
<content>Chronic Kidney Disease Staging per NKF:</content>
<content></content>
<content>Stage I & II GFR >=60 Normal to Mildly Decreased</content>
<content>Stage III GFR 30- 59 Moderately Decreased</content>
<content>Stage IV GFR 15-29 Severely Decreased</content>
<content>Stage V GFR <15 Very Little GFR Left</content>
<content>ESRD GFR <15 on AIRPORT GUIDE</content>
<content></content> Potassium Serum 4.7 meq/L 3.5-5.1 Normal (applies to non-numeric results) [facility] ([facility]) Sodium Level 137 meq/L 136-145 Normal (applies to non-numeric res ults) [facility] ([facility]) Carbon Dioxide Level 31 meq/L 21-32 Normal (applies to non-num rosita results) [facility] Chloride Level 102 meq/L 98-107 Normal (applies to non-numeric r esults) [facility] ([facility]) Anion Gap 4 meq/L 8-16 Below low normal [facility]) Calcium Level 8.7 mg/dL 8.8-10.2 Below low normal [facility] ([facility]) ID Date Data Source [id number] 11/01/2019 04:00:00 PM EDT [facility] ([facility]) Name Value Range Interpretation Code Description Data Dorothy rce(s) Supporting Document(s) Natriuretic peptide.B prohormone N-Terminal [Mass/volu me] in Serum or Plasma 106 pg/mL Normal (applies to non-numeric results) [facility] ([facility]) ID Date Data Source [id number] 10/11/2019 11:48:00 AM EDT [facility] ([facility]) Name Value Range Interpretation Code Description Data Dorothy rce(s) Supporting Document(s) Hemoglobin A1c 6.4 % Normal (applies to non-numeric r esults) [facility] ([facility]) REFERENCE RANGES: 4.5-5.6% NORMAL 5.7-6.4% SUGGESTS IMPAIRED GLUCOSE META BOLISM >= 6.5% ABNORMAL Estimated Average Glucose 137 mg/dL 60-110 Above high normal [facility] ([facility]) ID Date Data Source [id number] 10/11/2019 11:48:00 AM EDT [facility] ([facility]) Name Value Range Interpretation Code Description Data Dorothy rce(s) Supporting Document(s) Glucose, Fasting 107 mg/dL 70-100 Above high normal [facility] Blood Urea Nitrogen 24 mg/dL 7-18 Above high normal [facility] ([facility]) Creatinine For GFR 1.22 mg/dL 0.70-1.30 Normal (applies to non -numeric results) [facility] ([facility]) Sodium Level 140 meq/L 136-145 Normal (applies to non-numeric res ults) [facility] ([facility]) Glomerular Filtration Rate Laboratory test result Normal (applies to non- numeric results) [facility] ([facility]) <content>Units are mL/min/1.73 m2</content>
<content></content>
<content>Chronic Kidney Disease Staging per NKF:</content>
<content></content>
<content>Stage I & II GFR >=60 Normal to Mildly Decreased</content>
<content>Stage III GFR 30- 59 Moderately Decreased</content>
<content>Stage IV GFR 15-29 Severely Decreased</content>
<content>Stage V GFR <15 Very Little GFR Left</content>
<content>ESRD GFR <15 on AIRPORT GUIDE</content>
<content></content> Potassium Serum 4.7 meq/L 3.5-5.1 Normal (applies to non-numeric results) [facility] ([facility]) Carbon Dioxide Level 33 meq/L 21-32 Above high normal [facility] ([facility]) Calcium Level 8.6 mg/dL 8.8-10.2 Below low normal [facility] ([facility]) Chloride Level 103 meq/L 98-107 Normal (applies to non-numeric r esults) [facility] Anion Gap 4 meq/L 8-16 Below low normal [facility] ID Date Data Source [id number] 08/20/2019 08:50:00 AM EST [facility] ([facility]) Name Value Range Interpretation Code Description Data Dorothy rce(s) Supporting Document(s) Glucose, Fasting 116 mg/dL 70-100 Above high normal [facility] ([facility]) Creatinine For GFR 1.17 mg/dL 0.70-1.30 Normal (applies to non -numeric results) [facility] ([facility]) Blood Urea Nitrogen 24 mg/dL 7-18 Above high normal [facility] Glomerular Filtration Rate Laboratory test result Normal (applies to non- numeric results) [facility] ([facility]) <content>Units are mL/min/1.73 m2</content>
<content></content>
<content>Chronic Kidney Disease Staging per NKF:</content>
<content></content>
<content>Stage I & II GFR >=60 Normal to Mildly Decreased</content>
<content>Stage III GFR 30- 59 Moderately Decreased</content>
<content>Stage IV GFR 15-29 Severely Decreased</content>
<content>Stage V GFR <15 Very Little GFR Left</content>
<content>ESRD GFR <15 on AIRPORT GUIDE</content>
<content></content> Chloride Level 105 meq/L 98-107 Normal (applies to non-numeric r esults) [facility] ([facility]) Sodium Level 140 meq/L 136-145 Normal (applies to non-numeric res ults) [facility] ([facility]) Potassium Serum 4.4 meq/L 3.5-5.1 Normal (applies to non-numeric results) [facility] ([facility]) Anion Gap 3 meq/L 8-16 Below low normal [facility]) Calcium Level 8.6 mg/dL 8.8-10.2 Below low normal [facility] ([facility]) Ast/Sgot 17 U/L 7-37 Normal (applies to non-numeric resul ts) [facility] ([facility]) Carbon Dioxide Level 32 meq/L 21-32 Normal (applies to non-num rosita results) [facility] ([facility]) Bilirubin,Total 0.4 mg/dL 0.2-1.0 Normal (applies to non-numeric results) [facility] ([facility]) Alt/SGPT 30 U/L 12-78 Normal (applies to non-numeric resul ts) [facility] ([facility]) Alkaline Phosphatase 69 U/L 45-117 Normal (applies to non-num rosita results) [facility] ([facility]) Albumin 4.0 GM/DL 3.2-5.2 Normal (applies to non-numeric resul ts) [facility] ([facility]) Total Protein 7.3 GM/DL 6.4-8.2 Normal (applies to non-numeric re sults) [facility] ([facility]) Albumin/Globulin Ratio 1.21 1.00-1.93 Normal (applies to non-numeric results) [facility] ([facility]) ID Date Data Source [id number] 08/20/2019 08:50:00 AM EST [facility] ([facility]) Name Value Range Interpretation Code Description Data Dorothy rce(s) Supporting Document(s) Hemoglobin 14.7 g/dL 13.5-17.5 Normal (applies to non-numeric resul ts) [facility] ([facility]) Red Blood Count 4.71 10 4.30-6.10 Normal (applies to non-numeric results) [facility] ([facility]) White Blood Count 9.7 10 4.0-10.0 Normal (applies to non-numeri c results) [facility] ([facility]) Mean Corpuscular Volume 95.1 fl 80.0-96.0 Normal ( applies to non-numeric results) [facility] ([facility]) Hematocrit 44.8 % 42.0-52.0 Normal (applies to non-numeric resul ts) [facility] ([facility]) Mean Corpuscular Hemoglobin 31.2 pg 27.0-33.0 Norm al (applies to non-numeric results) [facility] ([facility]) Mean Corpuscular HGB Conc 32.8 g/dL 32.0-36.5 Normal (applies to non-numeric results) [facility] ([facility]) Platelet Count, Automated 227 10 150-450 Normal (applies to non-numeric results) [facility] ([facility]) Red Cell Distribution Width 13.2 % 11.5-14.5 Norm al (applies to non-numeric results) [facility] ([facility]) Nucleated Red Blood Cell % 0.0 % 0-0 Normal (applies to n on-numeric results) [facility] ([facility]) ID Date Data Source [id number] 08/20/2019 08:50:00 AM EST [facility] Name Value Range Interpretation Code Description Data Dorothy rce(s) Supporting Document(s) Glucose, Fasting 116 mg/dL 70-100 Above high normal [facility] ([facility], ) Glomerular Filtration Rate Laboratory test result Normal (applies to non- numeric results) [facility] ) <content>Units are mL/min/1.73 m2</content>
<content></content>
<content>Chronic Kidney Disease Staging per NKF:</content>
<content></content>
<content>Stage I & II GFR >=60 Normal to Mildly Decreased</content>
<content>Stage III GFR 30- 59 Moderately Decreased</content>
<content>Stage IV GFR 15-29 Severely Decreased</content>
<content>Stage V GFR <15 Very Little GFR Left</content>
<content>ESRD GFR <15 on AIRPORT GUIDE</content>
<content></content> Blood Urea Nitrogen 24 mg/dL 7-18 Above high normal [facility] ([facility], ) Creatinine For GFR 1.17 mg/dL 0.70-1.30 Normal (applies to non -numeric results) [facility] ([facility], ) Potassium Serum 4.4 meq/L 3.5-5.1 Normal (applies to non-numeric results) [facility] ([facility], ) Chloride Level 105 meq/L 98-107 Normal (applies to non-numeric r esults) [facility] ([facility], ) Sodium Level 140 meq/L 136-145 Normal (applies to non-numeric res ults) [facility] ([facility], ) Calcium Level 8.6 mg/dL 8.8-10.2 Below low normal [facility] ([facility], ) Carbon Dioxide Level 32 meq/L 21-32 Normal (applies to non-num rosita results) [facility] ([facility]) Anion Gap 3 meq/L 8-16 Below low normal [facility] ( [facility], ) Ast/Sgot 17 U/L 7-37 Normal (applies to non-numeric resul ts) [facility] ([facility], ) Alkaline Phosphatase 69 U/L 45-117 Normal (applies to non-num rosita results) [facility] ([facility], ) Alt/SGPT 30 U/L 12-78 Normal (applies to non-numeric resul ts) [facility]) Bilirubin,Total 0.4 mg/dL 0.2-1.0 Normal (applies to non-numeric results) [facility]) Total Protein 7.3 GM/DL 6.4-8.2 Normal (applies to non-numeric re sults) [facility]) Albumin 4.0 GM/DL 3.2-5.2 Normal (applies to non-numeric resul ts) [facility]) Albumin/Globulin Ratio 1.21 1.00-1.93 Normal (applies to non-numeric results) [facility]) ID Date Data Source [id number] 08/20/2019 08:50:00 AM EST [facility]) Name Value Range Interpretation Code Description Data Dorothy rce(s) Supporting Document(s) Red Blood Count 4.71 10 4.30-6.10 Normal (applies to non-numeric results) [facility]) White Blood Count 9.7 10 4.0-10.0 Normal (applies to non-numeri c results) [facility]) Hemoglobin 14.7 g/dL 13.5-17.5 Normal (applies to non-numeric resul ts) [facility]) Mean Corpuscular Volume 95.1 fl 80.0-96.0 Normal ( applies to non-numeric results) [facility]) Hematocrit 44.8 % 42.0-52.0 Normal (applies to non-numeric resul ts) [facility]) Mean Corpuscular Hemoglobin 31.2 pg 27.0-33.0 Norm al (applies to non-numeric results) [facility]) Platelet Count, Automated 227 10 150-450 Normal (applies to non-numeric results) [facility]) Red Cell Distribution Width 13.2 % 11.5-14.5 Norm al (applies to non-numeric results) [facility]) Mean Corpuscular HGB Conc 32.8 g/dL 32.0-36.5 Normal (applies to non-numeric results) [facility] ([facility], ) Nucleated Red Blood Cell % 0.0 % 0-0 Normal (applies to n on-numeric results) [facility] ([facility], ) ID Date Data Source [id number] 07/17/2019 11:51:00 AM EST [facility]) Name Value Range Interpretation Code Description Data Dorothy rce(s) Supporting Document(s) Intrinsic factor blocking Ab [Units/volume] in Serum 1.1 AU/mL 0.0-1.1 Normal (applies to non-numeric results) [facility] ([facility]) Performed at: - [facility] [address] [id number] Loan Auditor: Kimberley Michael MD, Phone: [phone] Performed at: - [facility] [address] [id number] Loan Auditor: Navjot Arias MD, Phone: [phone] Parietal cell Ab [Units/volume] in Serum 6.0 units 0.0-20. 0 Normal (applies to non-numeric results) [facility] ([facility]) Negative 0.0 - 20.0 Equivocal 20.1 - 24.9 Positive >24.9 . Parietal Cell Antibodies are found in 90% of patients with pernicious anemia and 30% of first degree relatives with pernicious anemia. ID Date Data Source [id number] 07/17/2019 10:27:00 AM EST [facility] ([facility]) Name Value Range Interpretation Code Description Data Dorothy rce(s) Supporting Document(s) Folate Laboratory test result Normal (applies to non-n umeric results) [facility] ([facility]) FOLATE NORMAL RANGE NORMAL GREATER THAN 5.4 NG/ML INDETERMINATE 3.4-5.4 NG/ML DEFICIENT LESS THAN 3.4 NG/ML Vitamin B12 Level 652 pg/mL Normal (applies to non-numeri c results) [facility] ([facility]) VITAMIN B12 NORMAL RANGE NORMAL 247 - 911 PG/ML INDETERMINATE 211 - 246 PG/ML DEFICIENT LESS THAN 211 PG/ML ID Date Data Source [id number] 07/17/2019 10:27:00 AM EST [facility] ([facility]) Name Value Range Interpretation Code Description Data Dorothy rce(s) Supporting Document(s) Creatinine For GFR 1.16 mg/dL 0.70-1.30 Normal (applies to non -numeric results) [facility] ([facility]) Blood Urea Nitrogen 19 mg/dL 7-18 Above high normal [facility] ([facility]) Glucose, Fasting 100 mg/dL 70-100 Normal (applies to non-numeric results) [facility] ([facility]) Glomerular Filtration Rate Laboratory test result Normal (applies to non- numeric results) [facility] ([facility]) <content>Units are mL/min/1.73 m2</content>
<content></content>
<content>Chronic Kidney Disease Staging per NKF:</content>
<content></content>
<content>Stage I & II GFR >=60 Normal to Mildly Decreased</content>
<content>Stage III GFR 30- 59 Moderately Decreased</content>
<content>Stage IV GFR 15-29 Severely Decreased</content>
<content>Stage V GFR <15 Very Little GFR Left</content>
<content>ESRD GFR <15 on AIRPORT GUIDE</content>
<content></content> Sodium Level 136 meq/L 136-145 Normal (applies to non-numeric res ults) [facility] ([facility]) Potassium Serum 4.4 meq/L 3.5-5.1 Normal (applies to non-numeric results) [facility] ([facility]) Carbon Dioxide Level 31 meq/L 21-32 Normal (applies to non-num rosita results) [facility] ([facility]) Chloride Level 99 meq/L 98-107 Normal (applies to non-numeric r esults) [facility] ([facility]) Anion Gap 6 meq/L 8-16 Below low normal [facility] ( [facility]) Calcium Level 8.8 mg/dL 8.8-10.2 Normal (applies to non-numeric re sults) [facility] ([facility]) Ast/Sgot 13 U/L 7-37 Normal (applies to non-numeric resul ts) [facility] ([facility]) Alkaline Phosphatase 58 U/L 45-117 Normal (applies to non-num rosita results) [facility] ([facility]) Alt/SGPT 25 U/L 12-78 Normal (applies to non-numeric resul ts) [facility] ([facility]) Total Protein 7.2 GM/DL 6.4-8.2 Normal (applies to non-numeric re sults) [facility] ([facility]) Bilirubin,Total 0.5 mg/dL 0.2-1.0 Normal (applies to non-numeric results) [facility] ([facility]) Albumin/Globulin Ratio 1.12 1.00-1.93 Normal (applies to non-numeric results) [facility] ([facility]) Albumin 3.8 GM/DL 3.2-5.2 Normal (applies to non-numeric resul ts) [facility] ([facility]) ID Date Data Source [id number] 07/17/2019 10:27:00 AM EST [facility] ([facility]) Name Value Range Interpretation Code Description Data Dorothy rce(s) Supporting Document(s) Neutrophils % 73.5 % 36.0-66.0 Above high normal [facility] ([facility]) Bradley % 8.4 % 0.0-5.0 Above high normal [facility] ([facility]) Lymph % 15.5 % 24.0-44.0 Below low normal [facility] ( [facility]) Eos % 1.6 % 0.0-3.0 Normal (applies to non-numeric resul ts) [facility] ([facility]) Neutrophils # 5.9 10 1.5-8.5 Normal (applies to non-numeric re sults) [facility] ([facility]) Baso % 0.5 % 0.0-1.0 Normal (applies to non-numeric resul ts) [facility] ([facility]) Immature Granulocyte % 0.5 % 0-3.0 Normal (applies to non-n umeric results) [facility] ([facility]) Lymph # 1.2 10 1.5-5.0 Below low normal [facility] ( [facility]) Baso # 0.0 10 0.0-0.2 Normal (applies to non-numeric resul ts) [facility] ([facility]) Eos # 0.1 10 0.0-0.5 Normal (applies to non-numeric resul ts) [facility] ([facility]) Bradley # 0.7 10 0.0-0.8 Normal (applies to non-numeric resul ts) [facility] ([facility]) ID Date Data Source [id number] 07/17/2019 10:27:00 AM EST [facility] ([facility]) Name Value Range Interpretation Code Description Data Dorothy rce(s) Supporting Document(s) Red Blood Count 4.52 10 4.30-6.10 Normal (applies to non-numeric results) [facility] ([facility]) White Blood Count 8.0 10 4.0-10.0 Normal (applies to non-numeri c results) [facility] ([facility]) Hemoglobin 14.0 g/dL 13.5-17.5 Normal (applies to non-numeric resul ts) [facility] ([facility]) Mean Corpuscular Volume 96.5 fl 80.0-96.0 Above high normal [facility] ([facility]) Hematocrit 43.6 % 42.0-52.0 Normal (applies to non-numeric resul ts) [facility] ([facility]) Mean Corpuscular HGB Conc 32.1 g/dL 32.0-36.5 Normal (applies to non-numeric results) [facility] ([facility]) Red Cell Distribution Width 13.2 % 11.5-14.5 Norm al (applies to non-numeric results) [facility] ([facility]) Mean Corpuscular Hemoglobin 31.0 pg 27.0-33.0 Norm al (applies to non-numeric results) [facility] ([facility]) Platelet Count, Automated 210 10 150-450 Normal (applies to non-numeric results) [facility] ([facility]) Nucleated Red Blood Cell % 0.0 % 0-0 Normal (applies to n on-numeric results) [facility] ([facility]) ID Date Data Source [id number] 07/11/2019 09:50:00 AM EST [facility] ([facility]) Name Value Range Interpretation Code Description Data Dorothy rce(s) Supporting Document(s) Cholesterol Level 102 mg/dL Normal (applies to non-numeri c results) [facility] ([facility]) HDL Cholesterol 44 mg/dL Normal (applies to non-numeric results) [facility] ([facility]) Triglycerides Level 91 mg/dL Normal (applies to non-nume delilah results) [facility] ([facility]) LDL Cholesterol 40 mg/dL Normal (applies to non-numeric results) [facility] ([facility]) Non-HDL-C 58 mg/dL Normal (applies to non-numeric resul ts) [facility] ([facility]) Cholesterol Risk Ratio 2.318 Normal (applies to non-n umeric results) [facility] ([facility]) ID Date Data Source [id number] 07/11/2019 09:50:00 AM EST [facility] ([facility]) Name Value Range Interpretation Code Description Data Dorothy rce(s) Supporting Document(s) Creatinine, Urine 102.0 mg/dL Normal (applies to non-numer ic results) [facility] ([facility]) Tulio/Creat Ratio 8.6 MCG/MG 0.0-30.0 Normal (applies to non-numeric results) [facility] ([facility]) THE [employer] STATES THAT MICROALBUMINURIA IS PRESENT IF THE MICROALBUMIN/CREATININE RATIO EXCEEDS 30 MCG/MG. THE THRESHOLD FOR CLINICAL ALBUMINURIA IS REACHED AT 300 MCG/MG. THE CLASSIFICATION OF A PATIENT SHOULD BE BASED UPON AT LEAST 2 OF 3 ABNORMAL RESULTS ON SPECIMENS COLLECTED WITHIN A 3 TO 6 MONTH TIME FRAME. Malb Urine Siemens 8.8 mg/L Normal (applies to non-numer ic results) [facility] ([facility]) ID Date Data Source [id number] 07/11/2019 09:50:00 AM EST [facility] ([facility]) Name Value Range Interpretation Code Description Data Dorothy rce(s) Supporting Document(s) Glucose, Fasting 84 mg/dL 70-100 Normal (applies to non-numeric results) [facility] ([facility]) Glomerular Filtration Rate Laboratory test result Normal (applies to non- numeric results) [facility] ([facility]) <content>Units are mL/min/1.73 m2</content>
<content></content>
<content>Chronic Kidney Disease Staging per NKF:</content>
<content></content>
<content>Stage I & II GFR >=60 Normal to Mildly Decreased</content>
<content>Stage III GFR 30- 59 Moderately Decreased</content>
<content>Stage IV GFR 15-29 Severely Decreased</content>
<content>Stage V GFR <15 Very Little GFR Left</content>
<content>ESRD GFR <15 on AIRPORT GUIDE</content>
<content></content> Blood Urea Nitrogen 25 mg/dL 7-18 Above high normal [facility] Creatinine For GFR 1.13 mg/dL 0.70-1.30 Normal (applies to non -numeric results) [facility] ([facility]) Potassium Serum 4.6 meq/L 3.5-5.1 Normal (applies to non-numeric results) [facility] ([facility]) Sodium Level 137 meq/L 136-145 Normal (applies to non-numeric res ults) [facility] ([facility]) Chloride Level 101 meq/L 98-107 Normal (applies to non-numeric r esults) [facility] ([facility]) Calcium Level 9.0 mg/dL 8.8-10.2 Normal (applies to non-numeric re sults) [facility] ([facility]) Carbon Dioxide Level 29 meq/L 21-32 Normal (applies to non-num rosita results) [facility] ([facility]) Anion Gap 7 meq/L 8-16 Below low normal [facility]) Ast/Sgot 14 U/L 7-37 Normal (applies to non-numeric resul ts) [facility] ([facility]) Alkaline Phosphatase 56 U/L 45-117 Normal (applies to non-num rosita results) [facility] ([facility]) Alt/SGPT 21 U/L 12-78 Normal (applies to non-numeric resul ts) [facility] ([facility]) Bilirubin,Total 0.7 mg/dL 0.2-1.0 Normal (applies to non-numeric results) [facility] ([facility]) Albumin 4.0 GM/DL 3.2-5.2 Normal (applies to non-numeric resul ts) [facility] ([facility]) Total Protein 7.0 GM/DL 6.4-8.2 Normal (applies to non-numeric re sults) [facility] ([facility]) Albumin/Globulin Ratio 1.33 1.00-1.93 Normal (applies to non-numeric results) [facility] ([facility]) ID Date Data Source [id number] 07/11/2019 09:50:00 AM EST [facility] ([facility]) Name Value Range Interpretation Code Description Data Dorothy rce(s) Supporting Document(s) White Blood Count 8.7 10 4.0-10.0 Normal (applies to non-numeri c results) [facility] ([facility]) Mean Corpuscular Volume 96.6 fl 80.0-96.0 Above high normal [facility] ([facility]) Hemoglobin 14.2 g/dL 13.5-17.5 Normal (applies to non-numeric resul ts) [facility] ([facility]) Red Blood Count 4.68 10 4.30-6.10 Normal (applies to non-numeric results) [facility] ([facility]) Hematocrit 45.2 % 42.0-52.0 Normal (applies to non-numeric resul ts) [facility] ([facility]) Mean Corpuscular HGB Conc 31.4 g/dL 32.0-36.5 Below low normal [facility] ([facility]) Red Cell Distribution Width 13.2 % 11.5-14.5 Norm al (applies to non-numeric results) [facility] ([facility]) Mean Corpuscular Hemoglobin 30.3 pg 27.0-33.0 Norm al (applies to non-numeric results) [facility] ([facility]) Neutrophils % 75.2 % 36.0-66.0 Above high normal [facility] ([facility]) Lymph % 13.4 % 24.0-44.0 Below low normal [facility] ( [facility]) Platelet Count, Automated 211 10 150-450 Normal (applies to non-numeric results) [facility] ([facility]) Eos % 1.2 % 0.0-3.0 Normal (applies to non-numeric resul ts) [facility] ([facility]) Baso % 0.5 % 0.0-1.0 Normal (applies to non-numeric resul ts) [facility] ([facility]) Bradley % 9.0 % 0.0-5.0 Above high normal [facility] ([facility]) Immature Granulocyte % 0.7 % 0-3.0 Normal (applies to non-n umeric results) [facility] ([facility]) Neutrophils # 6.5 10 1.5-8.5 Normal (applies to non-numeric re sults) [facility] ([facility]) Nucleated Red Blood Cell % 0.0 % 0-0 Normal (applies to n on-numeric results) [facility] ([facility]) Eos # 0.1 10 0.0-0.5 Normal (applies to non-numeric resul ts) [facility] ([facility]) Bradley # 0.8 10 0.0-0.8 Normal (applies to non-numeric resul ts) [facility] ([facility]) Lymph # 1.2 10 1.5-5.0 Below low normal [facility] ( [facility]) Baso # 0.0 10 0.0-0.2 Normal (applies to non-numeric resul ts) [facility] ([facility]) ID Date Data Source [id number] 07/11/2019 09:50:00 AM EST [facility] ([facility]) Name Value Range Interpretation Code Description Data Dorothy rce(s) Supporting Document(s) Estimated Average Glucose 126 mg/dL 60-110 Above high normal [facility] ([facility]) Hemoglobin A1c 6.0 % Normal (applies to non-numeric r esults) [facility] ([facility]) REFERENCE RANGES: 4.5-5.6% NORMAL 5.7-6.4% SUGGESTS IMPAIRED GLUCOSE META BOLISM >= 6.5% ABNORMAL ID Date Data Source [id number] 07/11/2019 09:41:00 AM EST [facility] ([facility]) Name Value Range Interpretation Code Description Data Dorothy rce(s) Supporting Document(s) Glucose, Fasting 82 mg/dL 70-100 Normal (applies to non-numeric results) [facility] ([facility]) Blood Urea Nitrogen 25 mg/dL 7-18 Above high normal [facility] ([facility]) Glomerular Filtration Rate Laboratory test result Normal (applies to non- numeric results) [facility] ([facility]) <content>Units are mL/min/1.73 m2</content>
<content></content>
<content>Chronic Kidney Disease Staging per NKF:</content>
<content></content>
<content>Stage I & II GFR >=60 Normal to Mildly Decreased</content>
<content>Stage III GFR 30- 59 Moderately Decreased</content>
<content>Stage IV GFR 15-29 Severely Decreased</content>
<content>Stage V GFR <15 Very Little GFR Left</content>
<content>ESRD GFR <15 on AIRPORT GUIDE</content>
<content></content> Creatinine For GFR 1.09 mg/dL 0.70-1.30 Normal (applies to non -numeric results) [facility] ([facility]) Chloride Level 100 meq/L 98-107 Normal (applies to non-numeric r esults) [facility] ([facility]) Potassium Serum 4.5 meq/L 3.5-5.1 Normal (applies to non-numeric results) [facility] ([facility]) Sodium Level 136 meq/L 136-145 Normal (applies to non-numeric res ults) [facility]) Anion Gap 7 meq/L 8-16 Below low normal [facility] ( [facility]) Calcium Level 8.8 mg/dL 8.8-10.2 Normal (applies to non-numeric re sults) [facility]) Carbon Dioxide Level 29 meq/L 21-32 Normal (applies to non-num rosita results) [facility] ([facility]) ID Date Data Source [id number] 07/11/2019 09:41:00 AM EST [facility] ([facility]) Name Value Range Interpretation Code Description Data Dorothy rce(s) Supporting Document(s) White Blood Count 8.7 10 4.0-10.0 Normal (applies to non-numeri c results) [facility] ([facility]) Red Blood Count 4.68 10 4.30-6.10 Normal (applies to non-numeric results) [facility] ([facility]) Hemoglobin 14.4 g/dL 13.5-17.5 Normal (applies to non-numeric resul ts) [facility]) Mean Corpuscular Volume 96.6 fl 80.0-96.0 Above high normal [facility] ([facility]) Hematocrit 45.2 % 42.0-52.0 Normal (applies to non-numeric resul ts) [facility] ([facility]) Red Cell Distribution Width 13.2 % 11.5-14.5 Norm al (applies to non-numeric results) [facility] ([facility]) Mean Corpuscular Hemoglobin 30.8 pg 27.0-33.0 Norm al (applies to non-numeric results) [facility] ([facility]) Mean Corpuscular HGB Conc 31.9 g/dL 32.0-36.5 Below low normal [facility] ([facility]) Nucleated Red Blood Cell % 0.0 % 0-0 Normal (applies to n on-numeric results) [facility] ([facility]) Platelet Count, Automated 206 10 150-450 Normal (applies to non-numeric results) [facility] ([facility]) Procedure Social History Code Duration Value Status Description Data Source(s ) Smoking 03/25/2020 12:00:00 AM EDT Current Smoker completed Curre nt Smoker eCW1 ([facility]) Smoking 03/25/2020 12:00:00 AM EDT Current Smoker completed Curre nt Smoker eCW1 ([facility]) Vital Signs ID Date Data Source UNK Name Value Range Interpretation Code Description Data Source(s) Britt body weight 154 [lb_av] 154 [lb_av] [facility] T ([facility]) Oxygen saturation in Arterial blood by Pulse oximetry 98 % 98 % [facility] ([facility]) Body temperature 97.8 [degF] 97.8 [degF] [facility] ([facility]) Respiratory rate 18 /min 18 /min [facility] ( [facility]) Heart rate 93 /min 93 /min [facility] ([facility]) Body mass index (BMI) [Ratio] 34.0 kg/m2 34.0 k g/m2 [facility] ([facility]) Body weight 223.38 [lb_av] 223.38 [lb_av] [facility] T ([facility]) Body height 68 [in_i] 68 [in_i] [facility] ([facility]) 5'8" Diastolic blood pressure 64 mm[Hg] 64 mm[Hg] [facility] ([facility]) Systolic blood pressure 130 mm[Hg] 130 mm[Hg] [facility] ([facility]) Body surface area Derived from formula 2.19 m2 2.19 m2 [facility] ([facility]) Body weight 101.153 kg 101.153 kg [facility] ([facility]) Britt body weight 166 [lb_av] 166 [lb_av] [facility] ([facility]) Body mass index (BMI) [Ratio] 32.0 kg/m2 32.0 k g/m2 [facility] ([facility]) Body weight 223.00 [lb_av] 223.00 [lb_av] [facility] Body height 70 [in_i] 70 [in_i] [facility] ([facility]) 5'10" Diastolic blood pressure 62 mm[Hg] 62 mm[Hg] [facility] ([facility]) Systolic blood pressure 124 mm[Hg] 124 mm[Hg] [facility] ([facility]) Body surface area Derived from formula 2.20 m2 2.20 m2 [facility] ([facility]) Body weight 102.514 kg 102.514 kg [facility] ([facility]) Britt body weight 166 [lb_av] 166 [lb_av] [facility] ([facility]) Body mass index (BMI) [Ratio] 32.4 kg/m2 32.4 k g/m2 [facility] ([facility]) Body weight 226.00 [lb_av] 226.00 [lb_av] [facility] ([facility]) Body height 70 [in_i] 70 [in_i] [facility] ([facility]) 5'10" Diastolic blood pressure 54 mm[Hg] 54 mm[Hg] [facility] ([facility]) Systolic blood pressure 148 mm[Hg] 148 mm[Hg] [facility] ([facility]) Britt body weight 154 [lb_av] 154 [lb_av] [facility] T ([facility]) Oxygen saturation in Arterial blood by Pulse oximetry 93 % 93 % [facility] ([facility]) Body temperature 97.8 [degF] 97.8 [degF] [facility] ([facility]) Respiratory rate 16 /min 16 /min [facility] ( [facility]) Heart rate 69 /min 69 /min [facility] ([facility]) Body mass index (BMI) [Ratio] 34.3 kg/m2 34.3 k g/m2 [facility] ([facility]) Body weight 225.38 [lb_av] 225.38 [lb_av] [facility] ([facility]) Body height 68 [in_i] 68 [in_i] [facility] ([facility]) 5'8" Diastolic blood pressure 70 mm[Hg] 70 mm[Hg] [facility] ([facility]) 126/54 recheck Systolic blood pressure 164 mm[Hg] 164 mm[Hg] [facility] ([facility]) 126/54 recheck Britt body weight 154 [lb_av] 154 [lb_av] [facility] T ([facility]) Oxygen saturation in Arterial blood by Pulse oximetry 94 % 94 % [facility] ([facility]) Body temperature 97.6 [degF] 97.6 [degF] [facility] ([facility]) Respiratory rate 16 /min 16 /min [facility] ( [facility]) Heart rate 78 /min 78 /min [facility] ([facility]) Body mass index (BMI) [Ratio] 34.2 kg/m2 34.2 k g/m2 [facility] ([facility]) Body weight 225.19 [lb_av] 225.19 [lb_av] [facility] ([facility]) Body height 68 [in_i] 68 [in_i] [facility] ([facility] 5'8" Diastolic blood pressure 78 mm[Hg] 78 mm[Hg] [facility] ([facility]) Systolic blood pressure 132 mm[Hg] 132 mm[Hg] [facility]) Body surface area Derived from formula 2.20 m2 2.20 m2 [facility] ([facility], ) Body weight 102.514 kg 102.514 kg [facility] ([facility]) Britt body weight 166 [lb_av] 166 [lb_av] [facility] T ([facility]) Body mass index (BMI) [Ratio] 32.4 kg/m2 32.4 k g/m2 [facility] ([facility]) Body weight 226.00 [lb_av] 226.00 [lb_av] [facility] Body height 70 [in_i] 70 [in_i] [facility] ([facility]) 5'10" Oxygen saturation in Arterial blood by Pulse oximetry 95 % 95 % [facility] ([facility]) Room Air Heart rate 78 /min 78 /min [facility] ([facility]) Diastolic blood pressure 74 mm[Hg] 74 mm[Hg] [facility] ([facility]) Systolic blood pressure 134 mm[Hg] 134 mm[Hg] M [facility] ([facility]) Diastolic blood pressure mm[Hg] eCW1 ([facility]) Systolic blood pressure 118 mm[Hg] 118 mm[Hg] e CW1 ([facility]) Body temperature 97.4 [degF] 97.4 [degF] eCW1 ( [facility]) Respiratory rate 17 /min 17 /min eCW1 ([facility]) Heart rate 67 /min 67 /min eCW1 ([facility]) Body mass index (BMI) [Ratio] 32.28 kg/m2 32.28 kg/m2 eCW1 ([facility]) Body height 70 [in_i] 70 [in_i] eCW1 ([facility]) Body weight 225 [lb_av] 225 [lb_av] eCW1 ([facility]) Body weight 100.869 kg 100.869 kg [facility] ([facility] ) Britt body weight 166 [lb_av] 166 [lb_av] [facility] T ([facility]) Body mass index (BMI) [Ratio] 31.9 kg/m2 31.9 k g/m2 [facility] ([facility]) Body weight 222.38 [lb_av] 222.38 [lb_av] [facility] T ([facility]) Body height 70 [in_i] 70 [in_i] [facility] ([facility]) 5'10" Diastolic blood pressure 66 mm[Hg] 66 mm[Hg] [facility] ([facility]) Systolic blood pressure 132 mm[Hg] 132 mm[Hg] M [facility] ([facility]) Britt body weight 154 [lb_av] 154 [lb_av] [facility] T ([facility]) Oxygen saturation in Arterial blood by Pulse oximetry 95 % 95 % [facility] ([facility]) Body temperature 97.1 [degF] 97.1 [degF] [facility] ([facility]) Respiratory rate 20 /min 20 /min [facility] ( [facility]) Heart rate 65 /min 65 /min [facility] ([facility]) Body mass index (BMI) [Ratio] 33.3 kg/m2 33.3 k g/m2 [facility] ([facility]) Body weight 219.00 [lb_av] 219.00 [lb_av] [facility] T ([facility]) Body height 68 [in_i] 68 [in_i] [facility] ([facility]) 5'8" Diastolic blood pressure 70 mm[Hg] 70 mm[Hg] [facility] ([facility]) Systolic blood pressure 130 mm[Hg] 130 mm[Hg] M [facility] ([facility]) Diastolic blood pressure 64 mm[Hg] 64 mm[Hg] eCW1 ([facility]) Systolic blood pressure 128 mm[Hg] 128 mm[Hg] e CW1 ([facility]) Body temperature 98.8 [degF] 98.8 [degF] eCW1 ( [facility]) Respiratory rate 18 /min 18 /min eCW1 ([facility]) Heart rate 78 /min 78 /min eCW1 ([facility]) Body mass index (BMI) [Ratio] 31.71 kg/m2 31.71 kg/m2 eCW1 ([facility]) Body height [in_i] eCW1 ([facility]) Body weight 221 [lb_av] 221 [lb_av] eCW1 ([facility]) Body height 68 [in_i] 68 [in_i] [facility] ([facility]) 5'8" Diastolic blood pressure 64 mm[Hg] 64 mm[Hg] [facility] ([facility]) Systolic blood pressure 120 mm[Hg] 120 mm[Hg] M [facility] ([facility]) Oxygen saturation in Arterial blood by Pulse oximetry 92 % 92 % [facility] ([facility]) Body temperature 98.6 [degF] 98.6 [degF] [facility] ([facility]) Respiratory rate 18 /min 18 /min [facility] ( [facility]) Heart rate 83 /min 83 /min [facility] ([facility]) Body mass index (BMI) [Ratio] 33.8 kg/m2 33.8 k g/m2 [facility] ([facility]) Body weight 222.00 [lb_av] 222.00 [lb_av] [facility] T ([facility]) Body weight 99.452 kg 99.452 kg [facility] ([facility]) Body mass index (BMI) [Ratio] 31.5 kg/m2 31.5 k g/m2 [facility] ([facility]) Body weight 219.25 [lb_av] 219.25 [lb_av] [facility] T ([facility]) Body height 70 [in_i] 70 [in_i] [facility] ([facility]) 5'10" Diastolic blood pressure 60 mm[Hg] 60 mm[Hg] [facility] ([facility]) Systolic blood pressure 134 mm[Hg] 134 mm[Hg] [facility] ([facility]) Body weight 101.606 kg 101.606 kg [facility] ([facility]) Body mass index (BMI) [Ratio] 32.1 kg/m2 32.1 k g/m2 [facility] ([facility]) Body weight 224.00 [lb_av] 224.00 [lb_av] [facility] Body height 70 [in_i] 70 [in_i] [facility] ([facility]) 5'10" Body temperature 99.7 [degF] 99.7 [degF] [facility] ([facility]) Diastolic blood pressure 64 mm[Hg] 64 mm[Hg] [facility] ([facility]) Systolic blood pressure 144 mm[Hg] 144 mm[Hg] [facility] ([facility]) Oxygen saturation in Arterial blood by Pulse oximetry 97 % 97 % [facility] ([facility]) Body temperature 97.3 [degF] 97.3 [degF] [facility] ([facility]) Respiratory rate 18 /min 18 /min [facility] ( [facility]) Heart rate 85 /min 85 /min [facility] ([facility]) Body mass index (BMI) [Ratio] 33.7 kg/m2 33.7 k g/m2 [facility] ([facility]) Body weight 221.50 [lb_av] 221.50 [lb_av] [facility] T ([facility]) Body height 68 [in_i] 68 [in_i] [facility] ([facility]) 5'8" Diastolic blood pressure 79 mm[Hg] 79 mm[Hg] [facility] ([facility]) Systolic blood pressure 118 mm[Hg] 118 mm[Hg] M [facility] ([facility]) Oxygen saturation in Arterial blood by Pulse oximetry 96 % 96 % [facility] ([facility]) Body temperature 97.5 [degF] 97.5 [degF] [facility] ([facility]) Respiratory rate 18 /min 18 /min [facility] ( [facility]) Heart rate 72 /min 72 /min [facility] ([facility]) Body mass index (BMI) [Ratio] 34.3 kg/m2 34.3 k g/m2 [facility] ([facility]) Body weight 225.38 [lb_av] 225.38 [lb_av] [facility] T ([facility]) Body height 68 [in_i] 68 [in_i] [facility] ([facility]) 5'8" Diastolic blood pressure 88 mm[Hg] 88 mm[Hg] [facility] ([facility]) Systolic blood pressure 140 mm[Hg] 140 mm[Hg] M [facility] ([facility]) Oxygen saturation in Arterial blood by Pulse oximetry 94 % 94 % [facility] ([facility]) Body temperature 97.6 [degF] 97.6 [degF] [facility] ([facility]) Respiratory rate 18 /min 18 /min [facility] ( [facility]) Heart rate 83 /min 83 /min [facility] ([facility]) Body mass index (BMI) [Ratio] 33.4 kg/m2 33.4 k g/m2 [facility] ([facility]) Body weight 219.50 [lb_av] 219.50 [lb_av] [facility] T ([facility]) Body height 68 [in_i] 68 [in_i] [facility] ([facility]) 5'8" Diastolic blood pressure 64 mm[Hg] 64 mm[Hg] [facility] ([facility]) Systolic blood pressure 132 mm[Hg] 132 mm[Hg] [facility] ([facility]) Body temperature 98.0 [degF] 98.0 [degF] [facility] ([facility]) Oxygen saturation in Arterial blood by Pulse oximetry 97 % 97 % [facility] ([facility]) Room Air Heart rate 80 /min 80 /min [facility] ([facility]) Diastolic blood pressure 70 mm[Hg] 70 mm[Hg] [facility] ([facility]) Systolic blood pressure 142 mm[Hg] 142 mm[Hg] [facility] ([facility]) Body weight 99.792 kg 99.792 kg [facility] ([facility]) Body mass index (BMI) [Ratio] 31.6 kg/m2 31.6 k g/m2 [facility] ([facility]) Body weight 220.00 [lb_av] 220.00 [lb_av] [facility] Body height 70 [in_i] 70 [in_i] [facility] ([facility]) 5'10" Body weight 98.885 kg 98.885 kg [facility] ([facility]) Body mass index (BMI) [Ratio] 31.3 kg/m2 31.3 k g/m2 [facility] ([facility]) Body weight 218.00 [lb_av] 218.00 [lb_av] [facility] Body height 70 [in_i] 70 [in_i] [facility] ([facility]) 5'10" Body temperature 95.8 [degF] 95.8 [degF] [facility] ([facility]) Diastolic blood pressure 60 mm[Hg] 60 mm[Hg] [facility] ([facility]) Systolic blood pressure 140 mm[Hg] 140 mm[Hg] [facility] ([facility]) Body weight 97.184 kg 97.184 kg [facility] ([facility]) Body mass index (BMI) [Ratio] 30.7 kg/m2 30.7 k g/m2 [facility] ([facility], ) Body weight 214.25 [lb_av] 214.25 [lb_av] ROSEANNE Howard ([facility]) Body height 70 [in_i] 70 [in_i] [facility] ([facility]) 5'10" Diastolic blood pressure 90 mm[Hg] 90 mm[Hg] [facility] ([facility]) Systolic blood pressure 160 mm[Hg] 160 mm[Hg] Abdon AMOR ([facility]) Oxygen saturation in Arterial blood by Pulse oximetry 97 % 97 % [facility] ([facility]) Body temperature 97.4 [degF] 97.4 [degF] [facility] ([facility]) Respiratory rate 18 /min 18 /min [facility] ( [facility]) Heart rate 73 /min 73 /min [facility] ([facility]) Body mass index (BMI) [Ratio] 31.8 kg/m2 31.8 k g/m2 [facility] ([facility]) Body weight 209.00 [lb_av] 209.00 [lb_av] [facility]) Body height 68 [in_i] 68 [in_i] [facility] ([facility]) 5'8" Diastolic blood pressure 62 mm[Hg] 62 mm[Hg] [facility] ([facility]) 114/60 recheck Systolic blood pressure 108 mm[Hg] 108 mm[Hg] [facility] 114/60 recheck
[2020-08-18] MEDS ORDERED: NS 1,000 ML IV ONE (09:30)
[2020-08-18] MEDS ORDERED: fentaNYL 100 MCG/2 ML INJECTION (J3010) As Ordered ONE (10:57)
[2020-08-18] MEDS ORDERED: propofoL 500 MG/50 ML VIAL As Ordered ONE (10:57)
[2020-08-18] MEDS ORDERED: LIDOCAINE 2% 100MG/5ML SDV (FOR ANES.) As Ordered ONE (10:57)
--- NOTE | 2020-08-18 11:30 | ROOR ---
Patient Name: Zack Timmons Procedure Date: 08/18/2020 10:52 AM Date of : 1955 Age: 65 Room: [facility] Gender: Male Note Status: Finalized Procedure: Upper GI endoscopy Indications: Unexplained iron deficiency anemia Providers: Peter DOW MD Referring MD: Danyelle MANUEL DO Requesting Provider: Medicines: Monitored Anesthesia Care Complications: No immediate complications. Procedure: Pre-Anesthesia Assessment: - The heart rate, respiratory rate, oxygen saturations, blood pressure, adequacy of pulmonary ventilation, and response to care were monitored throughout the procedure. The Endoscope was introduced through the mouth, and advanced to the second part of duodenum. The upper GI endoscopy was accomplished without difficulty. The patient tolerated the procedure well. Findings: The Z-line was variable and was found 40 cm from the incisors. This was biopsied with a cold forceps for histology. The exam of the esophagus was otherwise normal. The entire examined stomach was normal. The examined duodenum was normal. Impression: - Z-line variable, 40 cm from the incisors. Biopsied. - Normal stomach. - Normal examined duodenum. Recommendation: - Observe patient's clinical course. - Continue present medications. Procedure Code(s): --- Professional --- 53051, Esophagogastroduodenoscopy, flexible, transoral; with biopsy, single or multiple Diagnosis Code(s): --- Professional --- D50.9, Iron deficiency anemia, unspecified K22.8, Other specified diseases of esophagus CPT copyright 2019 [employer]. All rights reserved. The codes documented in this report are preliminary and upon foreign language interpreter review may be revised to meet current compliance requirements. Peter Dow MD Peter DOW MD 08/18/2020 11:30:30 AM Electronically signed by Peter DOW MD Number of Addenda: 0 Note Initiated On: 08/18/2020 10:52 AM Estimated Blood Loss: Estimated blood loss: none.
--- NOTE | 2020-08-18 11:36 | ROOR ---
Patient Name: Zack Timmons Procedure Date: 08/18/2020 10:53 AM Date of : 1955 Age: 65 Room: [facility] Gender: Male Note Status: Finalized Procedure: Colonoscopy Indications: Melena Providers: Peter DOW MD Referring MD: Danyelle MANUEL DO Requestjodie Provider: Medicines: Monitored Anesthesia Care Complications: No immediate complications. Procedure: Pre-Anesthesia Assessment: - The heart rate, respiratory rate, oxygen saturations, blood pressure, adequacy of pulmonary ventilation, and response to care were monitored throughout the procedure. The Endoscope was introduced through the sigmoid colostomy and advanced to the ileocolonic anastomosis. Findings: Two sessile polyps were found at 10 cm proximal to the stoma. The polyps were 4 to 6 mm in size. These polyps were removed with a cold snare. Resection and retrieval were complete. There was evidence of an end colostomy in the sigmoid colon. This was characterized by healthy appearing mucosa. There was evidence of a prior functional end-to-end ileo-colonic anastomosis at the hepatic flexure. This was patent. Impression: - Two 4 to 6 mm polyps at 10 cm proximal to the stoma, removed with a cold snare. Resected and retrieved. - End colostomy with healthy appearing mucosa. - Patent functional end-to-end ileo-colonic anastomosis. Recommendation: - Repeat colonoscopy in 3 - 5 years for surveillance based on pathology results. - Telephone endoscopist for pathology results in 2 weeks. - Resume Plavix (clopidogrel) at prior dose in 2 days. Procedure Code(s): --- Professional --- 98350, Colonoscopy through stoma; with removal of tumor(s), polyp(s), or other lesion(s) by snare technique Diagnosis Code(s): --- Professional --- Z98.0, Intestinal bypass and anastomosis status Z93.3, Colostomy status K63.5, Polyp of colon K92.1, Melena (includes Hematochezia) CPT copyright 2019 [employer]. All rights reserved. The codes documented in this report are preliminary and upon embroidery operator review may be revised to meet current compliance requirements. Peter Dow MD Peter DOW MD 08/18/2020 11:35:21 AM Electronically signed by Peter DOW MD Number of Addenda: 0 Note Initiated On: 08/18/2020 10:53 AM Estimated Blood Loss: Estimated blood loss: none.
[2020-08-18 11:55] VITALS: BP 191/62
== END 2020-08-18 12:14 | disposition home or self-care (01) ==
LOC: M OPP 08:31
PROVIDERS: ATTEND Internal Medicine Gastroenterology
DX: K92.1 Melena (principal); D50.9 Iron deficiency anemia, unspecified; R10.9 Unspecified abdominal pain; D12.6 Benign neoplasm of colon, unspecified; Z98.0 Intestinal bypass and anastomosis status; Z93.3 Colostomy status; D13.0 Benign neoplasm of esophagus; K22.8 Other specified diseases of esophagus; I10 Essential (primary) hypertension; E78.5 Hyperlipidemia, unspecified; E11.9 Type 2 diabetes mellitus without complications; M10.9 Gout, unspecified; R12 Heartburn; M19.90 Unspecified osteoarthritis, unspecified site; F17.210 Nicotine dependence, cigarettes, uncomplicated; L30.9 Dermatitis, unspecified; L40.9 Psoriasis, unspecified; F41.9 Anxiety disorder, unspecified; F32.9 Major depressive disorder, single episode, unspecified; G62.9 Polyneuropathy, unspecified; J44.9 Chronic obstructive pulmonary disease, unspecified; Z85.00 Personal history of malignant neoplasm of unspecified digestive organ; Z92.21 Personal history of antineoplastic chemotherapy; Z86.73 Personal history of transient ischemic attack (TIA), and cerebral infarction without residual deficits; Z88.1 Allergy status to other antibiotic agents; Z88.8 Allergy status to other drugs, medicaments and biological substances; Z79.84 Long term (current) use of oral hypoglycemic drugs; Z79.899 Other long term (current) drug therapy; Z83.3 Family history of diabetes mellitus; Z80.0 Family history of malignant neoplasm of digestive organs
CPT/HCPCS: 43239; 44394; 88305; J3010

== ENCOUNTER → 2020-09-10 | Outpatient (CLI) | payer MEDICARE ==
[2020-09-10 19:56] LABS: HEMATOCRIT 42.5 % (42.0-52.0); HEMOGLOBIN 13.1 g/dl (13.5-17.5); MEAN CORPUSCULAR HGB CONC 30.8 g/dl (32.0-36.5); MEAN CORPUSCULAR VOLUME 94.2 fl (80.0-96.0); PLATELET COUNT, AUTOMATED 207 10^3/uL (150-450); RED BLOOD COUNT 4.51 10^6/uL (4.30-6.10); WHITE BLOOD COUNT 9.4 10^3/uL (4.0-10.0)
[2020-09-10 20:04] LABS: PERCENT SATURATION 84.3 % (19.7-50.0)
== END ==
LOC: M WUC 15:33
PROVIDERS: ATTEND Physician Assistant Medical
DX: D50.9 Iron deficiency anemia, unspecified (principal)

== ENCOUNTER → 2020-09-15 | Outpatient (CLI) | payer MEDICARE ==
--- NOTE | 2020-09-15 17:31 | REP ---
INDICATION: ATHEROSCLEROSIS, CT 1ST THEN US COMPARISON: 02/11/2020. TECHNIQUE: Real time hart scale and Duplex Doppler evaluation of the bilateral lower extremity arterial vasculature using linear high frequency transducer. FINDINGS: Hart scale and duplex doppler images demonstrate severe diffuse plaquing throughout the right lower extremity arterial system. The right common femoral artery appears stenotic. Right external iliac artery demonstrates increased flow velocity and may be stenotic. There are diffuse monophasic waveforms noted throughout the right lower except for biphasic waveform in the profunda artery. On the left there is diffuse severe plaquing with diffuse monophasic waveforms. There is stenosis of the left common femoral artery approximately 2-1. There is occlusion of the mid popliteal artery with revascularization of the distal aspect of the popliteal artery. Peak systolic velocities (cm/sec) Common femoral artery: Right 215; Left 421 Profunda femoris: Right 234; Left to 84 SFA (proximal): Right 251; Left 217 SFA (mid): Right 168; Left 161 SFA (distal): Right 187; Left 151 Popliteal artery: Right 85; Left 191 SUNI (prox.): Right 103; Left 114 Tibioperoneal trunk: Right 55; Left 37 FRONT MAN (prox.): Right 55; Left 62 FRONT MAN (distal): Right 97; Left 107 SUNI (distal): Right 108; Left 106 IMPRESSION: Severe diffuse plaquing bilaterally. 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 Possible stenosis of the right external iliac artery. Occlusion mid left popliteal artery with reconstitution of the distal aspect. <Electronically signed by Manuel Hart > 09/15/20 [id number]
== END ==
LOC: M RAD 13:54
PROVIDERS: ATTEND Surgery Vascular Surgery
DX: I70.213 Atherosclerosis of native arteries of extremities with intermittent claudication, bilateral legs (principal)

== ENCOUNTER → 2020-10-15 | Outpatient (CLI) | payer MEDICARE ==
[2020-10-15 16:45] LABS: HEMOGLOBIN A1c 6.5 %
[2020-10-15 17:07] LABS: ALBUMIN 3.9 GM/DL (3.2-5.2); ALT/SGPT 30 U/L (12-78); BILIRUBIN,TOTAL 0.4 MG/DL (0.2-1.0); BLOOD UREA NITROGEN 21 MG/DL (7-18); CALCIUM LEVEL 9.5 MG/DL (8.8-10.2); CARBON DIOXIDE LEVEL 33 MEQ/L (21-32); CHLORIDE LEVEL 100 MEQ/L (98-107); CREATININE FOR GFR 1.11 MG/DL (0.70-1.30); FERRITIN 13 NG/ML (26-388); GLOMERULAR FILTRATION RATE > 60.0 (>49); GLUCOSE, FASTING 121 MG/DL (70-100); IRON (FE) 60 UG/DL (65-175); PERCENT SATURATION 15.2 % (19.7-50.0); POTASSIUM SERUM 4.2 MEQ/L (3.5-5.1); SODIUM LEVEL 137 MEQ/L (136-145); TOTAL IRON BINDING CAPACITY 395 UG/DL (250-450); TOTAL PROTEIN 7.2 GM/DL (6.4-8.2)
[2020-10-15 17:08] LABS: FOLATE > 24.0 NG/ML; VITAMIN B12 LEVEL 945 PG/ML
== END ==
LOC: M WUC 11:41
PROVIDERS: ATTEND Physician Assistant
DX: D50.9 Iron deficiency anemia, unspecified (principal); E11.59 Type 2 diabetes mellitus with other circulatory complications

== ENCOUNTER → 2020-12-21 | Outpatient (CLI) | payer MEDICARE ==
[~2020-12-21] MED LIST changes: -HM P99TA PO; +POTA99TA14 PO
[2020-12-21 16:04] LABS: BASO # 0.1 10^3/uL (0.0-0.2); BASO % 0.5 % (0.0-1.0); EOS # 0.1 10^3/uL (0.0-0.5); EOS % 1.5 % (0.0-3.0); HEMATOCRIT 40.9 % (42.0-52.0); LYMPH # 1.3 10^3/uL (1.5-5.0); LYMPH % 13.9 % (24.0-44.0); MEAN CORPUSCULAR HEMOGLOBIN 29.7 pg (27.0-33.0); MEAN CORPUSCULAR HGB CONC 31.8 g/dl (32.0-36.5); MEAN CORPUSCULAR VOLUME 93.6 fl (80.0-96.0); MONO # 0.9 10^3/uL (0.0-0.8); MONO % 9.6 % (2.0-8.0); NEUTROPHILS # 6.7 10^3/uL (1.5-8.5); PLATELET COUNT, AUTOMATED 199 10^3/uL (150-450); RED BLOOD COUNT 4.37 10^6/uL (4.30-6.10); WHITE BLOOD COUNT 9.2 10^3/uL (4.0-10.0)
[2020-12-21 16:26] LABS: HEMOGLOBIN A1c 6.7 %
[2020-12-21 16:40] LABS: ALBUMIN 3.8 GM/DL (3.2-5.2); ALT/SGPT 30 U/L (12-78); BILIRUBIN,TOTAL 0.6 MG/DL (0.2-1.0); BLOOD UREA NITROGEN 24 MG/DL (7-18); CALCIUM LEVEL 8.7 MG/DL (8.8-10.2); CARBON DIOXIDE LEVEL 29 MEQ/L (21-32); CHLORIDE LEVEL 102 MEQ/L (98-107); CHOLESTEROL LEVEL 121 MG/DL (<200); CREATININE FOR GFR 1.17 MG/DL (0.70-1.30); FERRITIN 28 NG/ML (26-388); GLOMERULAR FILTRATION RATE > 60.0 (>49); GLUCOSE, FASTING 80 MG/DL (70-100); HDL CHOLESTEROL 37 MG/DL (>40); IRON (FE) 85 UG/DL (65-175); LDL CHOLESTEROL 47 MG/DL (<100); NON-HDL-C 84 MG/DL; PERCENT SATURATION 23.6 % (19.7-50.0); POTASSIUM SERUM 4.4 MEQ/L (3.5-5.1); SODIUM LEVEL 137 MEQ/L (136-145); THYROID STIMULATING HORMONE 0.551 uIU/ML (0.358-3.740); TOTAL IRON BINDING CAPACITY 360 UG/DL (250-450); TOTAL PROTEIN 7.1 GM/DL (6.4-8.2); TRIGLYCERIDES LEVEL 183 MG/DL (<150)
[2020-12-21 16:44] LABS: MALB URINE SIEMENS 5.6 MG/L
== END ==
LOC: M WUC 14:01
PROVIDERS: ATTEND Family Medicine
DX: E78.2 Mixed hyperlipidemia (principal); D50.9 Iron deficiency anemia, unspecified

== ENCOUNTER → 2021-01-25 | Outpatient (REF) | payer MEDICARE ==
[~2021-01-25] MED LIST changes: -LISI-898 PO; +LISI5TAB11 PO
== END ==
LOC: M LAB REF 17:52
PROVIDERS: ATTEND Family Medicine
DX: J44.1 Chronic obstructive pulmonary disease with (acute) exacerbation (principal)

== ENCOUNTER → 2021-04-14 | Outpatient (CLI) | payer MEDICARE ==
[~2021-04-14] MED LIST changes: +LISI-898 PO; -LISI5TAB11 PO
[2021-04-14 15:11] LABS: BASO # 0.1 10^3/uL (0.0-0.2); BASO % 0.5 % (0.0-1.0); EOS # 0.1 10^3/uL (0.0-0.5); EOS % 1.4 % (0.0-3.0); HEMATOCRIT 45.8 % (42.0-52.0); HEMOGLOBIN 14.4 g/dl (13.5-17.5); LYMPH # 1.3 10^3/uL (1.5-5.0); LYMPH % 14.1 % (24.0-44.0); MEAN CORPUSCULAR HEMOGLOBIN 30.3 pg (27.0-33.0); MEAN CORPUSCULAR HGB CONC 31.4 g/dl (32.0-36.5); MEAN CORPUSCULAR VOLUME 96.2 fl (80.0-96.0); MONO # 0.9 10^3/uL (0.0-0.8); MONO % 10.1 % (2.0-8.0); NEUTROPHILS # 6.7 10^3/uL (1.5-8.5); NEUTROPHILS % 72.8 % (36.0-66.0); PLATELET COUNT, AUTOMATED 218 10^3/uL (150-450); RED BLOOD COUNT 4.76 10^6/uL (4.30-6.10); WHITE BLOOD COUNT 9.2 10^3/uL (4.0-10.0)
[2021-04-14 15:31] LABS: BLOOD UREA NITROGEN 27 MG/DL (7-18); CALCIUM LEVEL 8.9 MG/DL (8.8-10.2); CARBON DIOXIDE LEVEL 32 MEQ/L (21-32); CHLORIDE LEVEL 103 MEQ/L (98-107); CREATININE FOR GFR 1.27 MG/DL (0.70-1.30); GLOMERULAR FILTRATION RATE > 60.0 (>49); GLUCOSE, FASTING 104 MG/DL (70-100); POTASSIUM SERUM 4.5 MEQ/L (3.5-5.1); SODIUM LEVEL 138 MEQ/L (136-145)
[2021-04-14 15:49] LABS: HEMOGLOBIN A1c 6.3 %
[2021-04-16 23:07] LABS: PSA TOTAL 0.1 ng/mL (0.0-4.0)
== END ==
LOC: M WUC 11:38
PROVIDERS: ATTEND Physician Assistant
DX: E11.59 Type 2 diabetes mellitus with other circulatory complications (principal); D50.9 Iron deficiency anemia, unspecified; R97.20 Elevated prostate specific antigen [PSA]

== ENCOUNTER → 2021-05-27 | Outpatient (CLI) | payer MEDICARE ==
[~2021-05-27] MED LIST changes: -LISI-898 PO; +LISI5TAB11 PO
== END ==
LOC: M RAD 13:11
PROVIDERS: ATTEND Surgery Vascular Surgery
DX: I70.213 Atherosclerosis of native arteries of extremities with intermittent claudication, bilateral legs (principal); I65.23 Occlusion and stenosis of bilateral carotid arteries; I71.4 Abdominal aortic aneurysm, without rupture

== ENCOUNTER → 2021-07-22 | Outpatient (CLI) | payer MEDICARE ==
[2021-07-22 17:10] LABS: HEMOGLOBIN A1c 6.5 %
[2021-07-22 17:16] LABS: BASO # 0.1 10^3/uL (0.0-0.2); BASO % 0.4 % (0.0-1.0); EOS # 0.1 10^3/uL (0.0-0.5); EOS % 1.1 % (0.0-3.0); HEMATOCRIT 46.2 % (42.0-52.0); HEMOGLOBIN 14.7 g/dl (13.5-17.5); LYMPH # 1.6 10^3/uL (1.5-5.0); LYMPH % 14.4 % (24.0-44.0); MEAN CORPUSCULAR HEMOGLOBIN 29.9 pg (27.0-33.0); MEAN CORPUSCULAR HGB CONC 31.8 g/dl (32.0-36.5); MEAN CORPUSCULAR VOLUME 94.1 fl (80.0-96.0); MONO % 8.7 % (2.0-8.0); NEUTROPHILS # 8.2 10^3/uL (1.5-8.5); NEUTROPHILS % 73.5 % (36.0-66.0); PLATELET COUNT, AUTOMATED 238 10^3/uL (150-450); RED BLOOD COUNT 4.91 10^6/uL (4.30-6.10); WHITE BLOOD COUNT 11.2 10^3/uL (4.0-10.0)
[2021-07-22 17:20] LABS: ALBUMIN 3.7 GM/DL (3.2-5.2); ALT/SGPT 35 U/L (12-78); BILIRUBIN,TOTAL 0.5 MG/DL (0.2-1.0); BLOOD UREA NITROGEN 21 MG/DL (7-18); CALCIUM LEVEL 8.7 MG/DL (8.8-10.2); CARBON DIOXIDE LEVEL 32 MEQ/L (21-32); CHLORIDE LEVEL 101 MEQ/L (98-107); CHOLESTEROL LEVEL 111 MG/DL (<200); CHOLESTEROL RISK RATIO 2.707 (<5); CREATININE FOR GFR 1.21 MG/DL (0.70-1.30); FERRITIN 32 NG/ML (26-388); GLOMERULAR FILTRATION RATE > 60.0 (>49); GLUCOSE, FASTING 94 MG/DL (70-100); HDL CHOLESTEROL 41 MG/DL (>40); IRON (FE) 91 UG/DL (65-175); LDL CHOLESTEROL 43 MG/DL (<100); NON-HDL-C 70 MG/DL; PERCENT SATURATION 25.5 % (19.7-50.0); POTASSIUM SERUM 4.9 MEQ/L (3.5-5.1); SODIUM LEVEL 137 MEQ/L (136-145); TOTAL IRON BINDING CAPACITY 357 UG/DL (250-450); TOTAL PROTEIN 6.9 GM/DL (6.4-8.2); TRIGLYCERIDES LEVEL 133 MG/DL (<150)
[2021-07-22 17:25] LABS: CREATININE, URINE 92.9 MG/DL; MALB URINE SIEMENS 6.5 MG/L; MAU/CREAT RATIO 6.9 MCG/MG (0.0-30.0)
== END ==
LOC: M WUC 13:10
PROVIDERS: ATTEND Family Medicine
DX: E11.59 Type 2 diabetes mellitus with other circulatory complications (principal); E78.2 Mixed hyperlipidemia; D50.9 Iron deficiency anemia, unspecified

== ENCOUNTER → 2021-07-26 | Outpatient (CLI) | payer MEDICARE ==
[~2021-07-26] MED LIST changes: +ISOVUE-370 76% 100ML VIAL As Ordered ONE
[2021-07-26 16:40] LABS: BASO # 0.1 10^3/uL (0.0-0.2); BASO % 0.6 % (0.0-1.0); EOS # 0.1 10^3/uL (0.0-0.5); EOS % 1.3 % (0.0-3.0); HEMATOCRIT 44.5 % (42.0-52.0); HEMOGLOBIN 14.5 g/dl (13.5-17.5); LYMPH # 1.7 10^3/uL (1.5-5.0); LYMPH % 15.3 % (24.0-44.0); MEAN CORPUSCULAR HEMOGLOBIN 30.3 pg (27.0-33.0); MEAN CORPUSCULAR HGB CONC 32.6 g/dl (32.0-36.5); MEAN CORPUSCULAR VOLUME 93.1 fl (80.0-96.0); MONO # 0.9 10^3/uL (0.0-0.8); MONO % 8.5 % (2.0-8.0); NEUTROPHILS % 73.2 % (36.0-66.0); PLATELET COUNT, AUTOMATED 221 10^3/uL (150-450); RED BLOOD COUNT 4.78 10^6/uL (4.30-6.10); WHITE BLOOD COUNT 10.9 10^3/uL (4.0-10.0)
[2021-07-26 17:03] LABS: ALBUMIN 3.7 GM/DL (3.2-5.2); ALT/SGPT 35 U/L (12-78); AMYLASE 50 U/L (25-115); BILIRUBIN,TOTAL 0.5 MG/DL (0.2-1.0); BLOOD UREA NITROGEN 21 MG/DL (7-18); CARBON DIOXIDE LEVEL 32 MEQ/L (21-32); CHLORIDE LEVEL 100 MEQ/L (98-107); CREATININE FOR GFR 1.19 MG/DL (0.70-1.30); GLOMERULAR FILTRATION RATE > 60.0 (>49); GLUCOSE, FASTING 87 MG/DL (70-100); LIPASE 98 U/L (73-393); POTASSIUM SERUM 4.3 MEQ/L (3.5-5.1); SODIUM LEVEL 138 MEQ/L (136-145)
== END ==
LOC: M RAD 15:57
PROVIDERS: ATTEND Nurse Practitioner Adult Health
DX: R10.12 Left upper quadrant pain (principal)
CPT/HCPCS: 36415; 74177; 80053; 82150; 83690; 85025; Q9967

== ENCOUNTER → 2021-09-22 | Outpatient (CLI) | payer MEDICARE ==
[~2021-09-22] MED LIST changes: -ISOVUE-370 76% 100ML VIAL As Ordered ONE
== END ==
LOC: M RAD 11:41
PROVIDERS: ATTEND Specialist
DX: Z87.891 Personal history of nicotine dependence (principal)

== ENCOUNTER → 2021-11-10 | Outpatient (REF) | payer MEDICARE ==
[2021-11-10 16:08] LABS: BASO # 0.1 10^3/uL (0.0-0.2); BASO % 0.7 % (0.0-1.0); EOS # 0.2 10^3/uL (0.0-0.5); EOS % 1.7 % (0.0-3.0); HEMOGLOBIN 14.5 g/dl (13.5-17.5); LYMPH # 1.6 10^3/uL (1.5-5.0); LYMPH % 15.6 % (24.0-44.0); MEAN CORPUSCULAR HEMOGLOBIN 31.2 pg (27.0-33.0); MEAN CORPUSCULAR HGB CONC 32.2 g/dl (32.0-36.5); MEAN CORPUSCULAR VOLUME 96.8 fl (80.0-96.0); MONO # 0.9 10^3/uL (0.0-0.8); MONO % 9.2 % (2.0-8.0); NEUTROPHILS # 7.1 10^3/uL (1.5-8.5); NEUTROPHILS % 71.2 % (36.0-66.0); PLATELET COUNT, AUTOMATED 229 10^3/uL (150-450); RED BLOOD COUNT 4.65 10^6/uL (4.30-6.10)
[2021-11-10 16:24] LABS: HEMOGLOBIN A1c 6.3 %
[2021-11-10 16:35] LABS: ALBUMIN 3.7 GM/DL (3.2-5.2); ALT/SGPT 42 U/L (12-78); BILIRUBIN,TOTAL 0.5 MG/DL (0.2-1.0); BLOOD UREA NITROGEN 18 MG/DL (7-18); CALCIUM LEVEL 9.4 MG/DL (8.8-10.2); CARBON DIOXIDE LEVEL 32 MEQ/L (21-32); CHLORIDE LEVEL 101 MEQ/L (98-107); CREATININE FOR GFR 1.06 MG/DL (0.70-1.30); GLOMERULAR FILTRATION RATE > 60.0 (>49); GLUCOSE, FASTING 99 MG/DL (70-100); POTASSIUM SERUM 4.6 MEQ/L (3.5-5.1); SODIUM LEVEL 139 MEQ/L (136-145); TOTAL PROTEIN 7.2 GM/DL (6.4-8.2)
== END ==
LOC: M LABWUC 15:40
PROVIDERS: ATTEND Nurse Practitioner Adult Health
DX: E11.59 Type 2 diabetes mellitus with other circulatory complications (principal)

== ENCOUNTER → 2022-02-22 | Outpatient (CLI) | payer MEDICARE ==
[2022-02-22 16:36] LABS: BASO # 0.1 10^3/uL (0.0-0.2); BASO % 0.7 % (0.0-1.0); EOS # 0.2 10^3/uL (0.0-0.5); EOS % 1.5 % (0.0-3.0); HEMATOCRIT 44.9 % (42.0-52.0); HEMOGLOBIN 14.4 g/dl (13.5-17.5); LYMPH # 1.5 10^3/uL (1.5-5.0); LYMPH % 14.5 % (24.0-44.0); MEAN CORPUSCULAR HEMOGLOBIN 30.4 pg (27.0-33.0); MEAN CORPUSCULAR HGB CONC 32.1 g/dl (32.0-36.5); MEAN CORPUSCULAR VOLUME 94.7 fl (80.0-96.0); MONO # 0.9 10^3/uL (0.0-0.8); MONO % 8.9 % (2.0-8.0); NEUTROPHILS # 7.4 10^3/uL (1.5-8.5); NEUTROPHILS % 72.6 % (36.0-66.0); PLATELET COUNT, AUTOMATED 235 10^3/uL (150-450); RED BLOOD COUNT 4.74 10^6/uL (4.30-6.10); WHITE BLOOD COUNT 10.2 10^3/uL (4.0-10.0)
[2022-02-22 17:17] LABS: ALBUMIN 3.6 GM/DL (3.2-5.2); BILIRUBIN,TOTAL 0.5 MG/DL (0.2-1.0); CHOLESTEROL RISK RATIO 3.073 (<5); CREATININE FOR GFR 1.28 MG/DL (0.70-1.30); GLOMERULAR FILTRATION RATE 59.7 (>49); POTASSIUM SERUM 4.5 MEQ/L (3.5-5.1); TOTAL PROTEIN 7.2 GM/DL (6.4-8.2)
[2022-02-22 20:17] LABS: HEMOGLOBIN A1c 6.7 %
== END ==
LOC: M WUC 13:01
PROVIDERS: ATTEND Family Medicine
DX: E11.59 Type 2 diabetes mellitus with other circulatory complications (principal); E78.2 Mixed hyperlipidemia; J44.9 Chronic obstructive pulmonary disease, unspecified

== ENCOUNTER → 2022-05-30 | Outpatient (CLI) | payer MEDICARE ==
[2022-05-30 17:11] LABS: BASO % 0.4 % (0.0-1.0); EOS # 0.1 10^3/uL (0.0-0.5); EOS % 1.3 % (0.0-3.0); HEMATOCRIT 44.9 % (42.0-52.0); HEMOGLOBIN 14.5 g/dl (13.5-17.5); LYMPH # 1.5 10^3/uL (1.5-5.0); LYMPH % 16.5 % (24.0-44.0); MEAN CORPUSCULAR HEMOGLOBIN 31.1 pg (27.0-33.0); MEAN CORPUSCULAR HGB CONC 32.3 g/dl (32.0-36.5); MEAN CORPUSCULAR VOLUME 96.4 fl (80.0-96.0); MONO # 0.8 10^3/uL (0.0-0.8); MONO % 8.1 % (2.0-8.0); NEUTROPHILS # 6.8 10^3/uL (1.5-8.5); NEUTROPHILS % 72.5 % (36.0-66.0); PLATELET COUNT, AUTOMATED 219 10^3/uL (150-450); RED BLOOD COUNT 4.66 10^6/uL (4.30-6.10); WHITE BLOOD COUNT 9.4 10^3/uL (4.0-10.0)
[2022-05-30 17:57] LABS: ALBUMIN 3.9 G/DL (3.2-5.2); ALKALINE PHOSPHATASE 66 U/L (46-116); ALT/SGPT 35 U/L (7.0-40); AST/SGOT 17 U/L (<34); BILIRUBIN,TOTAL 0.5 MG/DL (0.3-1.2); BLOOD UREA NITROGEN 25 MG/DL (9-23); CALCIUM LEVEL 8.9 MG/DL (8.3-10.6); CARBON DIOXIDE LEVEL 32 MMOL/L (20-31); CHLORIDE LEVEL 101 MMOL/L (98-107); GLOMERULAR FILTRATION RATE > 60.0 (>49); GLUCOSE, FASTING 96 MG/DL (74-106); POTASSIUM SERUM 4.4 MMOL/L (3.5-5.1); SODIUM LEVEL 137 MMOL/L (136-145); TOTAL PROTEIN 6.8 G/DL (5.7-8.2)
[2022-05-30 18:27] LABS: HEMOGLOBIN A1c 6.3 % (4.0-6.0)
== END ==
LOC: M WUC 14:17
PROVIDERS: ATTEND Nurse Practitioner Adult Health
DX: E11.59 Type 2 diabetes mellitus with other circulatory complications (principal); N40.1 Benign prostatic hyperplasia with lower urinary tract symptoms; R97.20 Elevated prostate specific antigen [PSA]

== ENCOUNTER → 2022-07-18 | Outpatient (REF) | payer MEDICARE ==
[2022-07-18 18:17] LABS: APPEARANCE, URINE MANUAL HAZY (CLEAR); COLOR, URINE MANUAL YELLOW (YELLOW)
[2022-07-18 18:18] LABS: BILIRUBIN, URINE MANUAL NEGATIVE (NEGATIVE); BLOOD URINE MANUAL POSITIVE (NEGATIVE); GLUCOSE, URINE (UA) MANUAL NEGATIVE (NEGATIVE); KETONE, URINE MANUAL NEGATIVE (NEGATIVE); LEUKOCYTE ESTERASE, URINE MAN POSITIVE (NEGATIVE); NITRITE, URINE MANUAL POSITIVE (NEGATIVE); PROTEIN, URINE MANUAL NEGATIVE (NEGATIVE); UROBILINOGEN, URINE MANUAL NORMAL (NORMAL)
[2022-07-18 18:39] LABS: WBC, URINE TNTC /hpf (0-3)
[2022-07-18 18:40] LABS: BACTERIA, URINE LARGE AMOUNT; HYALINE CAST, URINE NONE SEEN /lpf (0-1); SQUAMOUS EPITHELIAL CELL URINE SMALL AMOUNT /hpf (SMALL AMT)
== END ==
LOC: M SMT 16:49
PROVIDERS: ATTEND Urology
DX: N39.0 Urinary tract infection, site not specified (principal)

== ENCOUNTER → 2022-08-15 | Outpatient (REF) | payer MEDICARE ==
[2022-08-15 19:06] LABS: APPEARANCE, URINE CLOUDY (CLEAR); BACTERIA, URINE AUTO 2+ (NEGATIVE); BILIRUBIN, URINE AUTO NEGATIVE (NEGATIVE); BLOOD, URINE BLOOD 2+ (NEGATIVE); COLOR, URINE YELLOW (YELLOW); GLUCOSE, URINE (UA) AUTO NEGATIVE (NEGATIVE); KETONE, URINE AUTO NEGATIVE (NEGATIVE); LEUKOCYTE ESTERASE, URINE AUTO 3+ (NEGATIVE); MUCUS, URINE SMALL (NEGATIVE); NITRITE, URINE AUTO NEGATIVE (NEGATIVE); PROTEIN, URINE AUTO 1+ mg/dL (NEGATIVE); RBC, URINE AUTO 65 /HPF (0-3); SPECIFIC GRAVITY URINE AUTO 1.013 (1.002-1.035); SQUAMOUS EPITHELIAL CELL UR AU 0 /HPF (0-6); UROBILINOGEN, URINE AUTO 0.2 mg/dL (0.0-2.0); WBC, URINE AUTO TNTC /HPF (0-3)
== END ==
LOC: M SMT 16:42
PROVIDERS: ATTEND Urology
DX: R30.0 Dysuria (principal)

== ENCOUNTER 2022-09-08 17:21 | Inpatient (IN) | payer MEDICARE ==
[~2022-09-08] VITALS: Ht 177.8 cm; Wt 86.8 kg
[~2022-09-08 17:21] MED LIST changes: -CEFD300CAP PO; -GASTROGRAFIN SOLUTION 30ML As Ordered ONE; -ISOVUE-370 76% 100ML VIAL As Ordered ONE
[2022-09-08] MEDS ORDERED: cefTRIAXone SOD 2 GM in D5W MINI-BAG PLUS 50 ML IV ONE (19:10)
[2022-09-08 19:13] LABS: BASO % 0.2 % (0.0-1.0); EOS % 0.1 % (0.0-3.0); HEMATOCRIT 36.7 % (42.0-52.0); LYMPH % 6.6 % (24.0-44.0); MEAN CORPUSCULAR HGB CONC 32.7 g/dl (32.0-36.5); MEAN CORPUSCULAR VOLUME 91.8 fl (80.0-96.0); MONO % 16.1 % (2.0-8.0); NEUTROPHILS # 11.5 10^3/uL (1.5-8.5); NEUTROPHILS % 76.5 % (36.0-66.0); PLATELET COUNT, AUTOMATED 266 10^3/uL (150-450)
[2022-09-08 19:22] LABS: INR 1.22; PARTIAL THROMBOPLASTIN TIME 33.3 SECONDS (24.8-34.2); PROTHROMBIN TIME 15.7 SECONDS (12.5-14.5)
[2022-09-08 19:28] LABS: MONO # 2.4 10^3/uL (0.0-0.8)
[2022-09-08 19:35] LABS: CK-MB VALUE MASS < 1.0 NG/ML (<3.6)
[2022-09-08 19:36] LABS: ALBUMIN 3.1 G/DL (3.2-5.2); ALKALINE PHOSPHATASE 85 U/L (46-116); ALT/SGPT 18 U/L (7.0-40); AMYLASE 34 U/L (30-118); AST/SGOT 14 U/L (<34); BILIRUBIN,DIRECT 0.4 MG/DL (<0.4); BILIRUBIN,TOTAL 0.9 MG/DL (0.3-1.2); BLOOD UREA NITROGEN 21 MG/DL (9-23); CALCIUM LEVEL 8.6 MG/DL (8.3-10.6); CARBON DIOXIDE LEVEL 28 MMOL/L (20-31); CHLORIDE LEVEL 97 MMOL/L (98-107); CPK CREATINE PHOSPHOKINASE 64 U/L (46-171); CREATININE FOR GFR 1.47 MG/DL (0.70-1.30); GLOMERULAR FILTRATION RATE 50.7 (>49); GLUCOSE, FASTING 96 MG/DL (74-106); MB/CK RELATIVE INDEX 1.56 (< OR =4); POTASSIUM SERUM 4.3 MMOL/L (3.5-5.1); SODIUM LEVEL 132 MMOL/L (136-145); TOTAL PROTEIN 6.4 G/DL (5.7-8.2)
[2022-09-08] MEDS ORDERED: LISI20TA33 PO (19:39)
[2022-09-08] MEDS ORDERED: HOME MED LIST COMPLETE! XX SCH (19:40)
[2022-09-08 19:48] LABS: APPEARANCE, URINE HAZY (CLEAR); BACTERIA, URINE AUTO NEGATIVE (NEGATIVE); BILIRUBIN, URINE AUTO NEGATIVE (NEGATIVE); BLOOD, URINE BLOOD NEGATIVE (NEGATIVE); COLOR, URINE YELLOW (YELLOW); GLUCOSE, URINE (UA) AUTO NEGATIVE (NEGATIVE); KETONE, URINE AUTO NEGATIVE (NEGATIVE); LEUKOCYTE ESTERASE, URINE AUTO 3+ (NEGATIVE); NITRITE, URINE AUTO NEGATIVE (NEGATIVE); PROTEIN, URINE AUTO NEGATIVE (NEGATIVE); RBC, URINE AUTO 3 /HPF (0-3); SPECIFIC GRAVITY URINE AUTO 1.047 (1.002-1.035); SQUAMOUS EPITHELIAL CELL UR AU 1 /HPF (0-6); UROBILINOGEN, URINE AUTO 0.2 mg/dL (0.0-2.0); WBC, URINE AUTO TNTC /HPF (0-3)
[2022-09-08 20:11] LABS: RSV AMPLIFICATION NEGATIVE (NEGATIVE)
[2022-09-08] MEDS ORDERED: ACETAMINOPHEN 325 MG TAB PO ONE (22:10)
[2022-09-08] MEDS ORDERED: ONDANSETRON 4MG 2ML VIAL IV PRN (23:40)
[2022-09-08] MEDS ORDERED: NS 1,000 ML IV SCH (23:40)
[2022-09-08] MEDS ORDERED: SODIUM CHLORIDE 0.9% 1000ML IV SCH (23:40)
[2022-09-08] MEDS ORDERED: ACETAMINOPHEN TAB 650MG DOSE (2X325MG) PO PRN (23:40)
[2022-09-08] MEDS ORDERED: HYDROMORPHONE HCL 0.5 MG/ 0.5 ML SYRINGE IV PRN (23:40)
[2022-09-09 02:15] VITALS: BP 143/57
[2022-09-09] MEDS ORDERED: BACLOFEN 10 MG TAB PO PRN (02:40)
[2022-09-09] MEDS ORDERED: ALBUTEROL 90 MCG/ACT 8GM HFA INHALER INH PRN (05:50)
[2022-09-09 06:00] VITALS: BP 148/59
[2022-09-09 06:20] LABS: BLOOD UREA NITROGEN 18 MG/DL (9-23); CALCIUM LEVEL 8.3 MG/DL (8.3-10.6); CARBON DIOXIDE LEVEL 30 MMOL/L (20-31); CHLORIDE LEVEL 101 MMOL/L (98-107); CREATININE FOR GFR 1.26 MG/DL (0.70-1.30); GLOMERULAR FILTRATION RATE > 60.0 (>49); GLUCOSE, FASTING 93 MG/DL (74-106); POTASSIUM SERUM 4.4 MMOL/L (3.5-5.1); SODIUM LEVEL 137 MMOL/L (136-145)
[2022-09-09 08:42] LABS: BASO % 0.3 % (0.0-1.0); EOS % 0.3 % (0.0-3.0); HEMATOCRIT 35.9 % (42.0-52.0); HEMOGLOBIN 11.7 g/dl (13.5-17.5); LYMPH # 1.1 10^3/uL (1.5-5.0); LYMPH % 8.9 % (24.0-44.0); MEAN CORPUSCULAR HEMOGLOBIN 30.3 pg (27.0-33.0); MEAN CORPUSCULAR HGB CONC 32.6 g/dl (32.0-36.5); MONO % 15.5 % (2.0-8.0); NEUTROPHILS # 9.1 10^3/uL (1.5-8.5); NEUTROPHILS % 74.3 % (36.0-66.0); PLATELET COUNT, AUTOMATED 251 10^3/uL (150-450); RED BLOOD COUNT 3.86 10^6/uL (4.30-6.10); WHITE BLOOD COUNT 12.2 10^3/uL (4.0-10.0)
[2022-09-09 08:57] LABS: MONO # 1.9 10^3/uL (0.0-0.8)
[2022-09-09] MEDS ORDERED: CLOPIDOGREL 75 MG TAB PO SCH (09:00)
[2022-09-09] MEDS ORDERED: ENOXAPARIN 40MG/0.4ML SYRINGE (J1650 PER 10MG) SC SCH (09:00)
[2022-09-09] MEDS ORDERED: TAMSULOSIN 0.4 MG CAP PO SCH (09:00)
[2022-09-09] MEDS ORDERED: atenoloL 25 MG TAB PO SCH (09:00)
[2022-09-09] MEDS ORDERED: amLODIPine 5 MG TAB PO SCH (09:00)
[2022-09-09] MEDS ORDERED: ESCITALOPRAM OXALATE 10 MG TAB (LEXAPRO) PO SCH (09:00)
[2022-09-09] MEDS ORDERED: ADVAIR HFA 115/21MCG INHALER INH SCH (09:00)
[2022-09-09] MEDS ORDERED: PANTOPRAZOLE 40MG TAB (PROTONIX) PO SCH (09:00)
[2022-09-09 14:00] VITALS: BP 134/53
[2022-09-09] MEDS ORDERED: cefTRIAXone SOD 1 GM in D5W MINI-BAG PLUS 50 ML IV SCH ×2 (15:00→18:00)
[2022-09-09] MEDS ORDERED: CEFD300CAP PO ×2 (15:16→15:31)
[2022-09-09] MEDS ORDERED: OXYC1TAB23 PO (15:31)
[2022-09-09] MEDS ORDERED: ATORVASTATIN 20 MG TAB PO SCH (21:00)
== END 2022-09-09 16:19 | disposition home or self-care (01) | DRG 690 ==
LOC: M ED 17:21 → M ED INP 23:15 → ENRESERV 09-09 00:48 → M MSPAV 09-09 02:13
PROVIDERS: ADMIT Internal Medicine; ATTEND Internal Medicine
DX: N10 Acute pyelonephritis (principal); E11.51 Type 2 diabetes mellitus with diabetic peripheral angiopathy without gangrene; E11.42 Type 2 diabetes mellitus with diabetic polyneuropathy; I12.9 Hypertensive chronic kidney disease with stage 1 through stage 4 chronic kidney disease, or unspecified chronic kidney disease; J44.9 Chronic obstructive pulmonary disease, unspecified; F17.210 Nicotine dependence, cigarettes, uncomplicated; N18.9 Chronic kidney disease, unspecified; E11.22 Type 2 diabetes mellitus with diabetic chronic kidney disease; K76.0 Fatty (change of) liver, not elsewhere classified; F32.A Depression, unspecified; Z95.820 Peripheral vascular angioplasty status with implants and grafts; Z85.038 Personal history of other malignant neoplasm of large intestine; Z93.2 Ileostomy status; Z79.01 Long term (current) use of anticoagulants; Z79.899 Other long term (current) drug therapy; Z88.1 Allergy status to other antibiotic agents

== ENCOUNTER → 2022-09-08 | Outpatient (CLI) | payer MEDICARE ==
[~2022-09-08] MED LIST changes: +CEFD300CAP PO; +GASTROGRAFIN SOLUTION 30ML As Ordered ONE; +ISOVUE-370 76% 100ML VIAL As Ordered ONE
[2022-09-08 10:47] LABS: BASO % 0.2 % (0.0-1.0); EOS % 0.1 % (0.0-3.0); HEMOGLOBIN 12.3 g/dl (13.5-17.5); LYMPH # 1.3 10^3/uL (1.5-5.0); LYMPH % 7.9 % (24.0-44.0); MEAN CORPUSCULAR HEMOGLOBIN 30.2 pg (27.0-33.0); MEAN CORPUSCULAR HGB CONC 33.2 g/dl (32.0-36.5); MEAN CORPUSCULAR VOLUME 90.9 fl (80.0-96.0); MONO % 14.1 % (2.0-8.0); NEUTROPHILS # 13.1 10^3/uL (1.5-8.5); NEUTROPHILS % 77.2 % (36.0-66.0); PLATELET COUNT, AUTOMATED 301 10^3/uL (150-450); RED BLOOD COUNT 4.07 10^6/uL (4.30-6.10); WHITE BLOOD COUNT 16.9 10^3/uL (4.0-10.0)
[2022-09-08 11:06] LABS: ALBUMIN 3.1 G/DL (3.2-5.2); BILIRUBIN,DIRECT 0.5 MG/DL (<0.4); BILIRUBIN,TOTAL 1.1 MG/DL (0.3-1.2); C REACTIVE PROTEIN QUANTITATIV 12.1 MG/DL (<1.0); CALCIUM LEVEL 8.6 MG/DL (8.3-10.6); CREATININE FOR GFR 1.42 MG/DL (0.70-1.30); GLOMERULAR FILTRATION RATE 52.8 (>49); POTASSIUM SERUM 4.1 MMOL/L (3.5-5.1); TOTAL PROTEIN 6.4 G/DL (5.7-8.2)
[2022-09-08 11:17] LABS: MONO # 2.4 10^3/uL (0.0-0.8)
== END ==
LOC: M RAD 10:02
PROVIDERS: ATTEND Physician Assistant
DX: R30.0 Dysuria (principal)
CPT/HCPCS: 36415; 74177; 80048; 80076; 83605; 83690; 85025; 86140; Q9963; Q9967

== ENCOUNTER → 2022-09-15 | Outpatient (CLI) | payer MEDICARE ==
[~2022-09-15] MED LIST changes: +CEFD300CAP PO
[2022-09-15 17:01] LABS: BASO # 0.1 10^3/uL (0.0-0.2); BASO % 0.9 % (0.0-1.0); EOS # 0.1 10^3/uL (0.0-0.5); EOS % 1.1 % (0.0-3.0); HEMATOCRIT 39.5 % (42.0-52.0); HEMOGLOBIN 12.4 g/dl (13.5-17.5); LYMPH # 1.9 10^3/uL (1.5-5.0); LYMPH % 15.6 % (24.0-44.0); MEAN CORPUSCULAR HEMOGLOBIN 29.5 pg (27.0-33.0); MEAN CORPUSCULAR HGB CONC 31.4 g/dl (32.0-36.5); MONO # 0.8 10^3/uL (0.0-0.8); MONO % 6.6 % (2.0-8.0); NEUTROPHILS # 8.8 10^3/uL (1.5-8.5); NEUTROPHILS % 71.1 % (36.0-66.0); PLATELET COUNT, AUTOMATED 351 10^3/uL (150-450); WHITE BLOOD COUNT 12.4 10^3/uL (4.0-10.0)
[2022-09-15 17:11] LABS: HEMOGLOBIN A1c 5.9 % (4.0-6.0)
[2022-09-15 17:20] LABS: CREATININE, URINE 132.5 MG/DL
[2022-09-15 17:21] LABS: MAU/CREAT RATIO 6.7 MCG/MG (0.0-30.0)
[2022-09-15 17:24] LABS: IRON (FE) 52 UG/DL (65-175); PERCENT SATURATION 17.4 % (19.7-50.0); TOTAL IRON BINDING CAPACITY 298 UG/DL (250-425)
[2022-09-15 17:29] LABS: ALBUMIN 3.3 G/DL (3.2-5.2); ALKALINE PHOSPHATASE 92 U/L (46-116); ALT/SGPT 60 U/L (7.0-40); AST/SGOT 26 U/L (<34); BILIRUBIN,TOTAL 0.4 MG/DL (0.3-1.2); BLOOD UREA NITROGEN 21 MG/DL (9-23); CALCIUM LEVEL 9.3 MG/DL (8.3-10.6); CARBON DIOXIDE LEVEL 33 MMOL/L (20-31); CHLORIDE LEVEL 99 MMOL/L (98-107); CREATININE FOR GFR 1.17 MG/DL (0.70-1.30); FERRITIN 55.2 NG/ML (10.5-307.3); FREE T4 1.03 NG/DL (0.89-1.76); GLOMERULAR FILTRATION RATE > 60.0 (>49); GLUCOSE, FASTING 91 MG/DL (74-106); POTASSIUM SERUM 4.4 MMOL/L (3.5-5.1); SODIUM LEVEL 137 MMOL/L (136-145); THYROID STIMULATING HORMONE 3.039 uIU/ML (0.55-4.78); TOTAL PROTEIN 6.7 G/DL (5.7-8.2)
== END ==
LOC: M WUC 13:09
PROVIDERS: ATTEND Family Medicine
DX: E11.59 Type 2 diabetes mellitus with other circulatory complications (principal); D50.9 Iron deficiency anemia, unspecified; E78.2 Mixed hyperlipidemia

== ENCOUNTER → 2022-11-10 | Outpatient (CLI) | payer MEDICARE | LOC: M RAD 14:27 | PROVIDERS: ATTEND Internal Medicine Pulmonary Disease | DX: R91.8 Other nonspecific abnormal finding of lung field (principal); F17.210 Nicotine dependence, cigarettes, uncomplicated ==

== ENCOUNTER → 2022-12-15 | Outpatient (CLI) | payer MEDICARE ==
[2022-12-15 17:40] LABS: BASO % 0.4 % (0.0-1.0); EOS # 0.2 10^3/uL (0.0-0.5); EOS % 1.6 % (0.0-3.0); HEMATOCRIT 42.8 % (42.0-52.0); HEMOGLOBIN 13.6 g/dl (13.5-17.5); LYMPH # 1.6 10^3/uL (1.5-5.0); MEAN CORPUSCULAR HGB CONC 31.8 g/dl (32.0-36.5); MEAN CORPUSCULAR VOLUME 94.3 fl (80.0-96.0); MONO # 0.8 10^3/uL (0.0-0.8); MONO % 7.8 % (2.0-8.0); NEUTROPHILS # 6.9 10^3/uL (1.5-8.5); NEUTROPHILS % 72.5 % (36.0-66.0); PLATELET COUNT, AUTOMATED 219 10^3/uL (150-450); RED BLOOD COUNT 4.54 10^6/uL (4.30-6.10); WHITE BLOOD COUNT 9.6 10^3/uL (4.0-10.0)
[2022-12-15 17:50] LABS: HEMOGLOBIN A1c 5.8 % (4.0-6.0)
[2022-12-15 18:09] LABS: ALBUMIN 3.8 G/DL (3.2-5.2); ALKALINE PHOSPHATASE 62 U/L (46-116); ALT/SGPT 22 U/L (7.0-40); AST/SGOT 15 U/L (<34); BILIRUBIN,TOTAL 0.6 MG/DL (0.3-1.2); BLOOD UREA NITROGEN 25 MG/DL (9-23); CALCIUM LEVEL 8.5 MG/DL (8.3-10.6); CARBON DIOXIDE LEVEL 31 MMOL/L (20-31); CHLORIDE LEVEL 101 MMOL/L (98-107); CHOLESTEROL LEVEL 105 MG/DL (<200); CHOLESTEROL RISK RATIO 2.66 (<5); CREATININE FOR GFR 1.15 MG/DL (0.70-1.30); GLOMERULAR FILTRATION RATE > 60.0 (>49); GLUCOSE, FASTING 68 MG/DL (74-106); HDL CHOLESTEROL 39.4 MG/DL (>40); IRON (FE) 120 UG/DL (65-175); LDL CHOLESTEROL 44.6 MG/DL (<100); NON-HDL-C 65.6 MG/DL; PERCENT SATURATION 34.4 % (19.7-50.0); POTASSIUM SERUM 4.3 MMOL/L (3.5-5.1); SODIUM LEVEL 137 MMOL/L (136-145); TOTAL IRON BINDING CAPACITY 349 UG/DL (250-425); TOTAL PROTEIN 6.6 G/DL (5.7-8.2); TRIGLYCERIDES LEVEL 105 MG/DL (<150)
== END ==
LOC: M WUC 14:12
PROVIDERS: ATTEND Nurse Practitioner Adult Health
DX: E11.59 Type 2 diabetes mellitus with other circulatory complications (principal); D50.9 Iron deficiency anemia, unspecified; E78.2 Mixed hyperlipidemia

== ENCOUNTER → 2023-03-15 | Outpatient (CLI) | payer MEDICARE ==
[2023-03-15 16:25] LABS: BASO # 0.1 10^3/uL (0.0-0.2); BASO % 0.5 % (0.0-1.0); EOS # 0.1 10^3/uL (0.0-0.5); EOS % 1.3 % (0.0-3.0); HEMATOCRIT 43.3 % (42.0-52.0); HEMOGLOBIN 13.7 g/dl (13.5-17.5); LYMPH % 17.7 % (24.0-44.0); MEAN CORPUSCULAR HEMOGLOBIN 30.8 pg (27.0-33.0); MEAN CORPUSCULAR HGB CONC 31.6 g/dl (32.0-36.5); MEAN CORPUSCULAR VOLUME 97.3 fl (80.0-96.0); MONO # 0.9 10^3/uL (0.0-0.8); MONO % 8.3 % (2.0-8.0); NEUTROPHILS # 7.9 10^3/uL (1.5-8.5); NEUTROPHILS % 71.5 % (36.0-66.0); PLATELET COUNT, AUTOMATED 236 10^3/uL (150-450); RED BLOOD COUNT 4.45 10^6/uL (4.30-6.10); WHITE BLOOD COUNT 11.1 10^3/uL (4.0-10.0)
[2023-03-15 16:48] LABS: ALBUMIN 3.9 G/DL (3.2-5.2); ALKALINE PHOSPHATASE 73 U/L (46-116); ALT/SGPT 23 U/L (7.0-40); AST/SGOT 15 U/L (<34); BILIRUBIN,TOTAL 0.7 MG/DL (0.3-1.2); BLOOD UREA NITROGEN 23 MG/DL (9-23); CALCIUM LEVEL 9.5 MG/DL (8.3-10.6); CARBON DIOXIDE LEVEL 36 MMOL/L (20-31); CHLORIDE LEVEL 102 MMOL/L (98-107); CREATININE FOR GFR 1.12 MG/DL (0.70-1.30); GLOMERULAR FILTRATION RATE > 60.0 (>49); GLUCOSE, FASTING 89 MG/DL (74-106); POTASSIUM SERUM 4.5 MMOL/L (3.5-5.1); SODIUM LEVEL 142 MMOL/L (136-145); TOTAL PROTEIN 6.9 G/DL (5.7-8.2)
[2023-03-15 17:28] LABS: HEMOGLOBIN A1c 5.1 % (4.0-6.0)
== END ==
LOC: M WUC 13:55
PROVIDERS: ATTEND Nurse Practitioner Adult Health
DX: E11.59 Type 2 diabetes mellitus with other circulatory complications (principal)

== ENCOUNTER → 2023-05-09 | Outpatient (CLI) | payer MEDICARE ==
[~2023-05-09] MED LIST changes: +AMOX875T2 PO; +METF-839 PO; -OXYB5TAB10 PO; +OXYB5TAB11 PO; +PANT40TA29 PO; +PERCOCET PO; +PRED20TA PO
== END ==
LOC: M WUC 15:39
PROVIDERS: ATTEND Physician Assistant
DX: R05.9 Cough, unspecified (principal); J44.1 Chronic obstructive pulmonary disease with (acute) exacerbation

== ENCOUNTER 2023-05-23 09:21 | Inpatient (IN) | payer MEDICARE ==
[~2023-05-23] VITALS: Ht 175.3 cm; Wt 91.0 kg
[2023-05-23] MEDS ORDERED: CALC1CAP PO (09:58)
[2023-05-23] MEDS ORDERED: NYST10006 TOP (09:58)
[2023-05-23] MEDS ORDERED: AMLO1TAB25 PO (09:58)
[2023-05-23] MEDS ORDERED: CEFTINJ2 IV (09:58)
[2023-05-23] MEDS ORDERED: SENO8.6T5 PO (09:58)
[2023-05-23] MEDS ORDERED: PRED10TA2 PO (09:58)
[2023-05-23] MEDS ORDERED: ACETAMINOPHEN TAB 650MG DOSE (2X325MG) PO PRN (11:30)
[2023-05-23] MEDS ORDERED: GLUCOSE 4GM CHEW TABLET PO PRN (11:35)
[2023-05-23] MEDS ORDERED: NYSTATIN 100,000 UNITS/GM TOPICAL PWD 15GM TOP PRN (11:35)
[2023-05-23] MEDS ORDERED: GLUCAGON INJ 1MG VIAL SC PRN (11:35)
[2023-05-23] MEDS ORDERED: DEXTROSE 50% 50ML SYRINGE IV PRN (11:35)
[2023-05-23 13:05] VITALS: BP 145/66; TEMP 98; O2SAT 92
[2023-05-23] MEDS: HEPARIN SOD (PORCINE) 5000UNITS/ML 1ML VIAL/SYRINGE SC SCH ×2 (15:09→21:06)
[2023-05-23] MEDS: INSULIN LISPRO (NovoLOG) PER UNIT SC SCH ×2 (17:05→20:13)
[2023-05-23] MEDS: CALCIUM ACETATE 667MG GELCAP PO SCH (17:05)
[2023-05-23 19:15] VITALS: BP 164/78; TEMP 98.8; O2SAT 91
[2023-05-23] MEDS: ATORVASTATIN 20 MG TAB PO SCH (20:23)
[2023-05-23] MEDS: ALBUTEROL SULFATE 2.5MG/0.5ML INH NEB SOLN NEB SCH (20:52)
[2023-05-23] MEDS: ADVAIR HFA 115/21MCG INHALER INH SCH (20:53)
[2023-05-24] MEDS: ALBUTEROL SULFATE 2.5MG/0.5ML INH NEB SOLN NEB SCH ×3 (02:00→20:36)
[2023-05-24 06:10] VITALS: BP 159/70; TEMP 97.8; O2SAT 90
[2023-05-24] MEDS: HEPARIN SOD (PORCINE) 5000UNITS/ML 1ML VIAL/SYRINGE SC SCH ×3 (06:13→21:54)
[2023-05-24] MEDS: INSULIN LISPRO (NovoLOG) PER UNIT SC SCH ×4 (07:30→21:00)
[2023-05-24] MEDS: ADVAIR HFA 115/21MCG INHALER INH SCH ×2 (07:58→20:49)
[2023-05-24 08:14] LABS: BASO % 0.2 % (0.0-1.0); EOS # 0.1 10^3/uL (0.0-0.5); EOS % 0.4 % (0.0-3.0); HEMATOCRIT 28.7 % (42.0-52.0); HEMOGLOBIN 9.8 g/dl (13.5-17.5); LYMPH # 0.7 10^3/uL (1.5-5.0); LYMPH % 4.9 % (24.0-44.0); MEAN CORPUSCULAR HGB CONC 34.1 g/dl (32.0-36.5); MEAN CORPUSCULAR VOLUME 87.8 fl (80.0-96.0); MONO # 1.1 10^3/uL (0.0-0.8); MONO % 7.7 % (2.0-8.0); NEUTROPHILS # 12.1 10^3/uL (1.5-8.5); NEUTROPHILS % 84.5 % (36.0-66.0); PLATELET COUNT, AUTOMATED 341 10^3/uL (150-450); RED BLOOD COUNT 3.27 10^6/uL (4.30-6.10); WHITE BLOOD COUNT 14.4 10^3/uL (4.0-10.0)
[2023-05-24 08:43] LABS: ALBUMIN 1.9 G/DL (3.2-5.2); BILIRUBIN,TOTAL 0.4 MG/DL (0.3-1.2); CALCIUM LEVEL 6.4 MG/DL (8.3-10.6); CREATININE FOR GFR 4.26 MG/DL (0.70-1.30); GLOMERULAR FILTRATION RATE 14.9 (>49); MAGNESIUM LEVEL 1.7 MG/DL (1.8-2.4); POTASSIUM SERUM 4.2 MMOL/L (3.5-5.1); TOTAL PROTEIN 4.9 G/DL (5.7-8.2)
[2023-05-24] MEDS ORDERED: predniSONE 10MG TAB PO ONE (09:00)
[2023-05-24] MEDS ORDERED: predniSONE 10MG TAB PO SCH (09:00)
[2023-05-24] MEDS: SENNA 8.6 MG TAB (SENOKOT) PO SCH (09:00)
[2023-05-24] MEDS: CLOPIDOGREL 75 MG TAB PO SCH (09:19)
[2023-05-24] MEDS: CALCIUM ACETATE 667MG GELCAP PO SCH ×3 (09:19→20:42)
[2023-05-24] MEDS: TAMSULOSIN 0.4 MG CAP PO SCH (09:19)
[2023-05-24] MEDS: DULoxetine 30MG CAPSULE (CYMBALTA) PO SCH (09:19)
[2023-05-24] MEDS: ESCITALOPRAM OXALATE 10 MG TAB (LEXAPRO) PO SCH (09:20)
[2023-05-24] MEDS ORDERED: CALCIUM GLUCONATE 1,000 MG in D5W MINI-BAG PLUS 100 ML IV ONE (11:00)
[2023-05-24] MEDS ORDERED: cefTRIAXone SOD 2 GM in D5W MINI-BAG PLUS 50 ML IV ONE (12:00)
[2023-05-24 14:00] VITALS: BP 150/70; TEMP 98.3; O2SAT 92
[2023-05-24 20:00] VITALS: BP 164/72; TEMP 97.9; O2SAT 92
[2023-05-24] MEDS: ATORVASTATIN 20 MG TAB PO SCH (20:42)
[2023-05-24] MEDS: PANTOPRAZOLE 40MG TAB (PROTONIX) PO SCH (20:42)
[2023-05-25] MEDS: ALBUTEROL SULFATE 2.5MG/0.5ML INH NEB SOLN NEB SCH ×4 (01:19→21:02)
[2023-05-25] MEDS: HEPARIN SOD (PORCINE) 5000UNITS/ML 1ML VIAL/SYRINGE SC SCH ×3 (05:48→21:10)
[2023-05-25 06:00] VITALS: BP 180/77; TEMP 98.4; O2SAT 93
[2023-05-25 06:35] VITALS: BP 164/68
[2023-05-25] MEDS: INSULIN LISPRO (NovoLOG) PER UNIT SC SCH ×2 (07:30→12:12)
[2023-05-25] MEDS: ADVAIR HFA 115/21MCG INHALER INH SCH ×2 (08:12→21:02)
[2023-05-25] MEDS: predniSONE 5 MG TAB PO SCH (08:14)
[2023-05-25] MEDS: CLOPIDOGREL 75 MG TAB PO SCH (08:14)
[2023-05-25] MEDS: CALCIUM ACETATE 667MG GELCAP PO SCH ×3 (08:14→18:42)
[2023-05-25] MEDS: ESCITALOPRAM OXALATE 10 MG TAB (LEXAPRO) PO SCH (08:14)
[2023-05-25] MEDS: DULoxetine 30MG CAPSULE (CYMBALTA) PO SCH (08:14)
[2023-05-25] MEDS: TAMSULOSIN 0.4 MG CAP PO SCH (08:14)
[2023-05-25] MEDS: SENNA 8.6 MG TAB (SENOKOT) PO SCH (08:16)
[2023-05-25 14:00] VITALS: BP 174/72; TEMP 97.8; O2SAT 97
[2023-05-25] MEDS: ATENOLOL 12.5MG PER 1/2 TABLET PO SCH (18:42)
[2023-05-25 20:00] VITALS: BP 133/60; TEMP 96.9; O2SAT 96
[2023-05-25] MEDS: BACLOFEN 10 MG TAB PO SCH (21:10)
[2023-05-25] MEDS: PANTOPRAZOLE 40MG TAB (PROTONIX) PO SCH (21:10)
[2023-05-25] MEDS: ATORVASTATIN 20 MG TAB PO SCH (21:12)
[2023-05-26] MEDS: ALBUTEROL SULFATE 2.5MG/0.5ML INH NEB SOLN NEB SCH ×4 (01:37→20:25)
[2023-05-26] MEDS: HEPARIN SOD (PORCINE) 5000UNITS/ML 1ML VIAL/SYRINGE SC SCH ×3 (05:30→21:28)
[2023-05-26 06:00] VITALS: BP 167/73; TEMP 97.3; O2SAT 91
[2023-05-26] MEDS: TAMSULOSIN 0.4 MG CAP PO SCH (08:25)
[2023-05-26] MEDS: CLOPIDOGREL 75 MG TAB PO SCH (08:25)
[2023-05-26] MEDS: predniSONE 5 MG TAB PO SCH (08:25)
[2023-05-26] MEDS: DULoxetine 30MG CAPSULE (CYMBALTA) PO SCH (08:25)
[2023-05-26] MEDS: ESCITALOPRAM OXALATE 10 MG TAB (LEXAPRO) PO SCH (08:26)
[2023-05-26] MEDS: SENNA 8.6 MG TAB (SENOKOT) PO SCH (08:26)
[2023-05-26] MEDS: ATENOLOL 12.5MG PER 1/2 TABLET PO SCH (08:26)
[2023-05-26] MEDS: CALCIUM ACETATE 667MG GELCAP PO SCH ×3 (08:27→17:00)
[2023-05-26] MEDS: ADVAIR HFA 115/21MCG INHALER INH SCH ×3 (09:00→20:25)
[2023-05-26 10:31] LABS: ALBUMIN 1.9 G/DL (3.2-5.2); CALCIUM LEVEL 7.6 MG/DL (8.3-10.6); CREATININE FOR GFR 3.52 MG/DL (0.70-1.30); GLOMERULAR FILTRATION RATE 18.5 (>49); PHOSPHORUS LEVEL 4.4 MG/DL (2.4-5.1); POTASSIUM SERUM 4.1 MMOL/L (3.5-5.1)
[2023-05-26 14:00] VITALS: BP 129/61; TEMP 98.6; O2SAT 98
[2023-05-26 20:00] VITALS: BP 167/72; TEMP 96.9; O2SAT 95
[2023-05-26] MEDS: PANTOPRAZOLE 40MG TAB (PROTONIX) PO SCH (20:34)
[2023-05-26] MEDS: BACLOFEN 10 MG TAB PO SCH (20:34)
[2023-05-26] MEDS: ATORVASTATIN 20 MG TAB PO SCH (20:34)
[2023-05-26 22:00] VITALS: BP 132/61
[2023-05-27] MEDS: ALBUTEROL SULFATE 2.5MG/0.5ML INH NEB SOLN NEB SCH ×4 (01:57→20:15)
[2023-05-27] MEDS: HEPARIN SOD (PORCINE) 5000UNITS/ML 1ML VIAL/SYRINGE SC SCH ×3 (05:59→19:45)
[2023-05-27 06:00] VITALS: BP 150/62; TEMP 98.2; O2SAT 94
[2023-05-27] MEDS: DULoxetine 30MG CAPSULE (CYMBALTA) PO SCH (08:28)
[2023-05-27] MEDS: TAMSULOSIN 0.4 MG CAP PO SCH (08:28)
[2023-05-27] MEDS: ATENOLOL 12.5MG PER 1/2 TABLET PO SCH (08:28)
[2023-05-27] MEDS: CALCIUM ACETATE 667MG GELCAP PO SCH ×3 (08:28→17:13)
[2023-05-27] MEDS: ESCITALOPRAM OXALATE 10 MG TAB (LEXAPRO) PO SCH (08:28)
[2023-05-27] MEDS: predniSONE 5 MG TAB PO SCH (08:29)
[2023-05-27] MEDS: SENNA 8.6 MG TAB (SENOKOT) PO SCH (08:29)
[2023-05-27] MEDS: CLOPIDOGREL 75 MG TAB PO SCH (08:29)
[2023-05-27] MEDS: ADVAIR HFA 115/21MCG INHALER INH SCH ×2 (09:02→20:15)
[2023-05-27 14:13] VITALS: BP 167/72; TEMP 98.1; O2SAT 96
[2023-05-27 14:32] VITALS: BP 142/56
[2023-05-27] MEDS: PANTOPRAZOLE 40MG TAB (PROTONIX) PO SCH (19:44)
[2023-05-27] MEDS: BACLOFEN 10 MG TAB PO SCH (19:45)
[2023-05-27] MEDS: ATORVASTATIN 20 MG TAB PO SCH (19:45)
[2023-05-27 20:00] VITALS: BP 138/60; TEMP 97.6; O2SAT 95
[2023-05-28] MEDS: ALBUTEROL SULFATE 2.5MG/0.5ML INH NEB SOLN NEB SCH ×4 (01:16→19:18)
[2023-05-28] MEDS: HEPARIN SOD (PORCINE) 5000UNITS/ML 1ML VIAL/SYRINGE SC SCH ×3 (05:19→20:42)
[2023-05-28 05:30] VITALS: BP 158/40; TEMP 98.1; O2SAT 91
[2023-05-28] MEDS: ADVAIR HFA 115/21MCG INHALER INH SCH ×2 (08:25→19:19)
[2023-05-28] MEDS: SENNA 8.6 MG TAB (SENOKOT) PO SCH (09:10)
[2023-05-28] MEDS: ATENOLOL 12.5MG PER 1/2 TABLET PO SCH (09:10)
[2023-05-28] MEDS: TAMSULOSIN 0.4 MG CAP PO SCH (09:10)
[2023-05-28] MEDS: predniSONE 2.5 MG TAB PO SCH (09:11)
[2023-05-28] MEDS: ESCITALOPRAM OXALATE 10 MG TAB (LEXAPRO) PO SCH (09:11)
[2023-05-28] MEDS: CLOPIDOGREL 75 MG TAB PO SCH (09:11)
[2023-05-28] MEDS: DULoxetine 30MG CAPSULE (CYMBALTA) PO SCH (09:11)
[2023-05-28] MEDS: CALCIUM ACETATE 667MG GELCAP PO SCH ×3 (09:15→17:32)
[2023-05-28 14:00] VITALS: BP 134/63; TEMP 97.7; O2SAT 96
[2023-05-28 20:00] VITALS: BP 153/68; TEMP 98.2; O2SAT 97
[2023-05-28] MEDS: PANTOPRAZOLE 40MG TAB (PROTONIX) PO SCH (20:41)
[2023-05-28] MEDS: BACLOFEN 10 MG TAB PO SCH (20:41)
[2023-05-28] MEDS: ATORVASTATIN 20 MG TAB PO SCH (20:41)
[2023-05-29] MEDS: ALBUTEROL SULFATE 2.5MG/0.5ML INH NEB SOLN NEB SCH ×4 (02:00→19:16)
[2023-05-29] MEDS: HEPARIN SOD (PORCINE) 5000UNITS/ML 1ML VIAL/SYRINGE SC SCH ×3 (05:49→22:38)
[2023-05-29] MEDS: ADVAIR HFA 115/21MCG INHALER INH SCH ×2 (05:56→19:15)
[2023-05-29 06:00] VITALS: TEMP 98.6; O2SAT 90
[2023-05-29 07:06] LABS: HEMATOCRIT 26.4 % (42.0-52.0); HEMOGLOBIN 8.6 g/dl (13.5-17.5); MEAN CORPUSCULAR HEMOGLOBIN 30.5 pg (27.0-33.0); MEAN CORPUSCULAR HGB CONC 32.6 g/dl (32.0-36.5); MEAN CORPUSCULAR VOLUME 93.6 fl (80.0-96.0); PLATELET COUNT, AUTOMATED 252 10^3/uL (150-450); RED BLOOD COUNT 2.82 10^6/uL (4.30-6.10)
[2023-05-29 07:38] LABS: CREATININE FOR GFR 2.75 MG/DL (0.70-1.30); GLOMERULAR FILTRATION RATE 24.5 (>49); POTASSIUM SERUM 3.6 MMOL/L (3.5-5.1)
[2023-05-29] MEDS: DULoxetine 30MG CAPSULE (CYMBALTA) PO SCH (08:43)
[2023-05-29] MEDS: predniSONE 2.5 MG TAB PO SCH (08:43)
[2023-05-29] MEDS: TAMSULOSIN 0.4 MG CAP PO SCH (08:43)
[2023-05-29] MEDS: CLOPIDOGREL 75 MG TAB PO SCH (08:43)
[2023-05-29] MEDS: ESCITALOPRAM OXALATE 10 MG TAB (LEXAPRO) PO SCH (08:43)
[2023-05-29] MEDS: ATENOLOL 12.5MG PER 1/2 TABLET PO SCH (08:44)
[2023-05-29] MEDS: SENNA 8.6 MG TAB (SENOKOT) PO SCH (08:44)
[2023-05-29] MEDS: CALCIUM ACETATE 667MG GELCAP PO SCH ×3 (08:44→17:27)
[2023-05-29 14:00] VITALS: BP 138/63; TEMP 98.4; O2SAT 97
[2023-05-29 20:00] VITALS: BP 167/60; TEMP 97.1; O2SAT 96
[2023-05-29] MEDS: PANTOPRAZOLE 40MG TAB (PROTONIX) PO SCH (22:38)
[2023-05-29] MEDS: BACLOFEN 10 MG TAB PO SCH (22:38)
[2023-05-29] MEDS: ATORVASTATIN 20 MG TAB PO SCH (22:39)
[2023-05-30] MEDS: ALBUTEROL SULFATE 2.5MG/0.5ML INH NEB SOLN NEB SCH ×4 (02:00→19:44)
[2023-05-30] MEDS: HEPARIN SOD (PORCINE) 5000UNITS/ML 1ML VIAL/SYRINGE SC SCH ×3 (05:46→21:00)
[2023-05-30 06:00] VITALS: BP 160/64; TEMP 98; O2SAT 93
[2023-05-30] MEDS: ADVAIR HFA 115/21MCG INHALER INH SCH ×2 (06:25→19:45)
[2023-05-30 07:45] LABS: BASO % 0.1 % (0.0-1.0); EOS # 0.1 10^3/uL (0.0-0.5); EOS % 1.5 % (0.0-3.0); HEMATOCRIT 27.6 % (42.0-52.0); HEMOGLOBIN 8.8 g/dl (13.5-17.5); LYMPH # 0.9 10^3/uL (1.5-5.0); LYMPH % 11.4 % (24.0-44.0); MEAN CORPUSCULAR HEMOGLOBIN 29.9 pg (27.0-33.0); MEAN CORPUSCULAR HGB CONC 31.9 g/dl (32.0-36.5); MEAN CORPUSCULAR VOLUME 93.9 fl (80.0-96.0); MONO # 0.8 10^3/uL (0.0-0.8); MONO % 9.3 % (2.0-8.0); NEUTROPHILS # 6.3 10^3/uL (1.5-8.5); NEUTROPHILS % 76.6 % (36.0-66.0); PLATELET COUNT, AUTOMATED 236 10^3/uL (150-450); RED BLOOD COUNT 2.94 10^6/uL (4.30-6.10); WHITE BLOOD COUNT 8.2 10^3/uL (4.0-10.0)
[2023-05-30] MEDS: SENNA 8.6 MG TAB (SENOKOT) PO SCH (09:00)
[2023-05-30] MEDS: ESCITALOPRAM OXALATE 10 MG TAB (LEXAPRO) PO SCH (09:33)
[2023-05-30] MEDS: CALCIUM ACETATE 667MG GELCAP PO SCH ×3 (09:33→17:28)
[2023-05-30] MEDS: DULoxetine 30MG CAPSULE (CYMBALTA) PO SCH (09:33)
[2023-05-30] MEDS: CLOPIDOGREL 75 MG TAB PO SCH (09:33)
[2023-05-30] MEDS: predniSONE 2.5 MG TAB PO SCH (09:33)
[2023-05-30] MEDS: ATENOLOL 12.5MG PER 1/2 TABLET PO SCH (09:34)
[2023-05-30] MEDS: TAMSULOSIN 0.4 MG CAP PO SCH (09:34)
[2023-05-30 10:05] LABS: BILIRUBIN,TOTAL 0.5 MG/DL (0.3-1.2); CALCIUM LEVEL 8.8 MG/DL (8.3-10.6); CREATININE FOR GFR 2.62 MG/DL (0.70-1.30); MAGNESIUM LEVEL 1.4 MG/DL (1.8-2.4); POTASSIUM SERUM 4.1 MMOL/L (3.5-5.1); TOTAL PROTEIN 5.3 G/DL (5.7-8.2)
[2023-05-30 14:00] VITALS: BP 165/72; TEMP 97.5; O2SAT 91
[2023-05-30] MEDS ORDERED: MAGNESIUM OXIDE 400MG TAB (MAG-OX) PO ONE (17:00)
[2023-05-30 20:00] VITALS: BP 145/66; TEMP 98.4; O2SAT 93
[2023-05-30] MEDS: ATORVASTATIN 20 MG TAB PO SCH (21:00)
[2023-05-30] MEDS: PANTOPRAZOLE 40MG TAB (PROTONIX) PO SCH (21:00)
[2023-05-30] MEDS: BACLOFEN 10 MG TAB PO SCH (21:00)
[2023-05-31] MEDS: ALBUTEROL SULFATE 2.5MG/0.5ML INH NEB SOLN NEB SCH ×2 (01:10→08:00)
[2023-05-31] MEDS: HEPARIN SOD (PORCINE) 5000UNITS/ML 1ML VIAL/SYRINGE SC SCH (05:40)
[2023-05-31 06:00] VITALS: BP 164/76; TEMP 97.8; O2SAT 91
[2023-05-31] MEDS: CALCIUM ACETATE 667MG GELCAP PO SCH ×3 (08:00→18:15)
[2023-05-31] MEDS: SENNA 8.6 MG TAB (SENOKOT) PO SCH (09:00)
[2023-05-31] MEDS: ADVAIR HFA 115/21MCG INHALER INH SCH ×2 (09:00→19:27)
[2023-05-31] MEDS: TAMSULOSIN 0.4 MG CAP PO SCH (09:59)
[2023-05-31] MEDS: DULoxetine 30MG CAPSULE (CYMBALTA) PO SCH (09:59)
[2023-05-31] MEDS: CLOPIDOGREL 75 MG TAB PO SCH (09:59)
[2023-05-31] MEDS: ATENOLOL 12.5MG PER 1/2 TABLET PO SCH (10:00)
[2023-05-31] MEDS: ESCITALOPRAM OXALATE 10 MG TAB (LEXAPRO) PO SCH (10:00)
[2023-05-31] MEDS ORDERED: ALBUTEROL SULFATE 2.5MG/0.5ML INH NEB SOLN NEB PRN (12:40)
[2023-05-31 14:00] VITALS: BP 144/65; TEMP 97.3; O2SAT 96
[2023-05-31 14:09] LABS: HEMATOCRIT 29.6 % (42.0-52.0); HEMOGLOBIN 9.1 g/dl (13.5-17.5); MEAN CORPUSCULAR HEMOGLOBIN 29.4 pg (27.0-33.0); MEAN CORPUSCULAR HGB CONC 30.7 g/dl (32.0-36.5); MEAN CORPUSCULAR VOLUME 95.8 fl (80.0-96.0); PLATELET COUNT, AUTOMATED 256 10^3/uL (150-450); RED BLOOD COUNT 3.09 10^6/uL (4.30-6.10)
[2023-05-31 20:00] VITALS: BP 145/65; TEMP 97.8; O2SAT 96
[2023-05-31] MEDS: PANTOPRAZOLE 40MG TAB (PROTONIX) PO SCH (20:39)
[2023-05-31] MEDS: BACLOFEN 10 MG TAB PO SCH (20:39)
[2023-05-31] MEDS: ATORVASTATIN 20 MG TAB PO SCH (20:39)
[2023-06-01 06:00] VITALS: BP 156/68; TEMP 98.3; O2SAT 92
[2023-06-01 06:14] LABS: CALCIUM LEVEL 8.9 MG/DL (8.3-10.6); CREATININE FOR GFR 2.35 MG/DL (0.70-1.30); GLOMERULAR FILTRATION RATE 29.4 (>49); POTASSIUM SERUM 3.8 MMOL/L (3.5-5.1)
[2023-06-01] MEDS: ADVAIR HFA 115/21MCG INHALER INH SCH ×2 (07:09→21:43)
[2023-06-01] MEDS: ESCITALOPRAM OXALATE 10 MG TAB (LEXAPRO) PO SCH (07:36)
[2023-06-01] MEDS: TAMSULOSIN 0.4 MG CAP PO SCH (07:36)
[2023-06-01] MEDS: CLOPIDOGREL 75 MG TAB PO SCH (07:36)
[2023-06-01] MEDS: SENNA 8.6 MG TAB (SENOKOT) PO SCH (07:37)
[2023-06-01] MEDS: CALCIUM ACETATE 667MG GELCAP PO SCH ×3 (07:38→17:18)
[2023-06-01] MEDS: atenoloL 25 MG TAB PO SCH (07:38)
[2023-06-01] MEDS: DULoxetine 30MG CAPSULE (CYMBALTA) PO SCH (07:38)
[2023-06-01 11:18] LABS: MAGNESIUM LEVEL 1.3 MG/DL (1.8-2.4)
[2023-06-01] MEDS ORDERED: MAG SULF 1GM/100ML (MAG RUN) 1 GM in IV 1 EA IV ONE (13:00)
[2023-06-01 14:00] VITALS: BP 136/62; TEMP 97.9; O2SAT 96
[2023-06-01] MEDS ORDERED: MAGN400T2 PO (14:11)
[2023-06-01] MEDS ORDERED: BACL10TA2 PO (14:11)
[2023-06-01 20:00] VITALS: BP 148/64; TEMP 98; O2SAT 96
[2023-06-01] MEDS: BACLOFEN 10 MG TAB PO SCH (20:23)
[2023-06-01] MEDS: PANTOPRAZOLE 40MG TAB (PROTONIX) PO SCH (20:24)
[2023-06-01] MEDS: ATORVASTATIN 20 MG TAB PO SCH (20:24)
[2023-06-02 06:00] VITALS: BP 167/72; TEMP 98.3; O2SAT 91
[2023-06-02] MEDS: ADVAIR HFA 115/21MCG INHALER INH SCH (07:23)
[2023-06-02] MEDS: DULoxetine 30MG CAPSULE (CYMBALTA) PO SCH (08:23)
[2023-06-02] MEDS: CLOPIDOGREL 75 MG TAB PO SCH (08:24)
[2023-06-02] MEDS: ESCITALOPRAM OXALATE 10 MG TAB (LEXAPRO) PO SCH (08:24)
[2023-06-02] MEDS: TAMSULOSIN 0.4 MG CAP PO SCH (08:24)
[2023-06-02 08:25] VITALS: BP 167/72
[2023-06-02] MEDS: atenoloL 25 MG TAB PO SCH (08:25)
[2023-06-02] MEDS: CALCIUM ACETATE 667MG GELCAP PO SCH (08:25)
[2023-06-02] MEDS: SENNA 8.6 MG TAB (SENOKOT) PO SCH (08:26)
[2023-06-02] MEDS ORDERED: MAGNESIUM OXIDE 400MG TAB (MAG-OX) PO SCH (09:00)
== END 2023-06-02 11:00 | disposition home or self-care (01) | DRG 683 ==
LOC: M PM&R 12:52
PROVIDERS: ADMIT Student in an Organized Health Care Education/Training Program; ATTEND Student in an Organized Health Care Education/Training Program
DX: N17.9 Acute kidney failure, unspecified (principal); I69.351 Hemiplegia and hemiparesis following cerebral infarction affecting right dominant side; R53.81 Other malaise; R41.89 Other symptoms and signs involving cognitive functions and awareness; R13.10 Dysphagia, unspecified; I25.10 Atherosclerotic heart disease of native coronary artery without angina pectoris; E11.51 Type 2 diabetes mellitus with diabetic peripheral angiopathy without gangrene; I10 Essential (primary) hypertension; E11.42 Type 2 diabetes mellitus with diabetic polyneuropathy; N40.0 Benign prostatic hyperplasia without lower urinary tract symptoms; J44.9 Chronic obstructive pulmonary disease, unspecified; E83.51 Hypocalcemia; R60.0 Localized edema; K21.9 Gastro-esophageal reflux disease without esophagitis; F32.A Depression, unspecified; E83.42 Hypomagnesemia; Z93.3 Colostomy status; Z98.62 Peripheral vascular angioplasty status; Z87.891 Personal history of nicotine dependence; Z74.09 Other reduced mobility; Z74.1 Need for assistance with personal care; D64.9 Anemia, unspecified; Z90.49 Acquired absence of other specified parts of digestive tract; Z79.02 Long term (current) use of antithrombotics/antiplatelets; Z79.899 Other long term (current) drug therapy; Z88.1 Allergy status to other antibiotic agents

== ENCOUNTER → 2023-06-05 | Outpatient (CLI) | payer MEDICARE ==
[~2023-06-05] MED LIST changes: +AMLO1TAB25 PO; +CALC1CAP PO; +CEFTINJ2 IV; +MAGN400T2 PO; +NYST10006 TOP; +SENO8.6T5 PO
[2023-06-05 13:41] LABS: BASO % 0.2 % (0.0-1.0); EOS # 0.2 10^3/uL (0.0-0.5); EOS % 2.4 % (0.0-3.0); LYMPH % 15.7 % (24.0-44.0); MEAN CORPUSCULAR HEMOGLOBIN 30.6 pg (27.0-33.0); MEAN CORPUSCULAR HGB CONC 32.1 g/dl (32.0-36.5); MEAN CORPUSCULAR VOLUME 95.2 fl (80.0-96.0); MONO # 0.6 10^3/uL (0.0-0.8); MONO % 8.5 % (2.0-8.0); NEUTROPHILS # 4.8 10^3/uL (1.5-8.5); NEUTROPHILS % 72.6 % (36.0-66.0); PLATELET COUNT, AUTOMATED 213 10^3/uL (150-450); RED BLOOD COUNT 2.94 10^6/uL (4.30-6.10); WHITE BLOOD COUNT 6.6 10^3/uL (4.0-10.0)
[2023-06-05 14:13] LABS: ALBUMIN 2.3 G/DL (3.2-5.2); BILIRUBIN,TOTAL 0.4 MG/DL (0.3-1.2); CALCIUM LEVEL 9.8 MG/DL (8.3-10.6); CHOLESTEROL RISK RATIO 2.72 (<5); CREATININE FOR GFR 1.94 MG/DL (0.70-1.30); GLOMERULAR FILTRATION RATE 36.7 (>49); HDL CHOLESTEROL 41.1 MG/DL (>40); LDL CHOLESTEROL 50.3 MG/DL (<100); NON-HDL-C 70.9 MG/DL; POTASSIUM SERUM 3.9 MMOL/L (3.5-5.1); TOTAL PROTEIN 5.8 G/DL (5.7-8.2)
== END ==
LOC: M LAB 13:00
PROVIDERS: ATTEND Nurse Practitioner Adult Health
DX: Z00.00 Encounter for general adult medical examination without abnormal findings (principal); E11.59 Type 2 diabetes mellitus with other circulatory complications

== ENCOUNTER → 2023-08-04 | Outpatient (CLI) | payer MEDICARE ==
[2023-08-04 18:22] LABS: BASO % 0.4 % (0.0-1.0); EOS # 0.2 10^3/uL (0.0-0.5); EOS % 2.3 % (0.0-3.0); HEMATOCRIT 38.6 % (42.0-52.0); HEMOGLOBIN 12.5 g/dl (13.5-17.5); LYMPH # 1.6 10^3/uL (1.5-5.0); LYMPH % 17.5 % (24.0-44.0); MEAN CORPUSCULAR HEMOGLOBIN 30.6 pg (27.0-33.0); MEAN CORPUSCULAR HGB CONC 32.4 g/dl (32.0-36.5); MEAN CORPUSCULAR VOLUME 94.4 fl (80.0-96.0); MONO # 0.9 10^3/uL (0.0-0.8); MONO % 9.3 % (2.0-8.0); NEUTROPHILS # 6.4 10^3/uL (1.5-8.5); PLATELET COUNT, AUTOMATED 262 10^3/uL (150-450); RED BLOOD COUNT 4.09 10^6/uL (4.30-6.10); WHITE BLOOD COUNT 9.1 10^3/uL (4.0-10.0)
[2023-08-04 18:55] LABS: IRON (FE) 191 UG/DL (65-175); PERCENT SATURATION 55.4 % (19.7-50.0); TOTAL IRON BINDING CAPACITY 345 UG/DL (250-425)
[2023-08-04 18:57] LABS: ALBUMIN 3.5 G/DL (3.2-5.2); ALKALINE PHOSPHATASE 70 U/L (46-116); ALT/SGPT 21 U/L (7.0-40); AST/SGOT 13 U/L (<34); BILIRUBIN,TOTAL 0.6 MG/DL (0.3-1.2); BLOOD UREA NITROGEN 19 MG/DL (9-23); CALCIUM LEVEL 9.7 MG/DL (8.3-10.6); CARBON DIOXIDE LEVEL 31 MMOL/L (20-31); CHLORIDE LEVEL 102 MMOL/L (98-107); GLOMERULAR FILTRATION RATE > 60.0 (>49); GLUCOSE, FASTING 103 MG/DL (74-106); POTASSIUM SERUM 3.9 MMOL/L (3.5-5.1); SODIUM LEVEL 137 MMOL/L (136-145); TOTAL PROTEIN 6.7 G/DL (5.7-8.2)
[2023-08-04 19:20] LABS: HEMOGLOBIN A1c 5.5 % (4.0-6.0)
== END ==
LOC: M WUC 14:18
PROVIDERS: ATTEND Nurse Practitioner Adult Health
DX: E11.59 Type 2 diabetes mellitus with other circulatory complications (principal); D50.9 Iron deficiency anemia, unspecified

== ENCOUNTER → 2023-10-13 | Outpatient (CLI) | payer MEDICARE ==
[~2023-10-13] MED LIST changes: -OXYB5TAB11 PO; +OXYB5TAB14 PO
[2023-10-13 17:34] LABS: BLOOD UREA NITROGEN 10 MG/DL (9-23); CALCIUM LEVEL 9.8 MG/DL (8.3-10.6); CARBON DIOXIDE LEVEL 30 MMOL/L (20-31); CHLORIDE LEVEL 99 MMOL/L (98-107); CREATININE FOR GFR 0.96 MG/DL (0.70-1.30); GLOMERULAR FILTRATION RATE > 60.0 (>49); GLUCOSE, FASTING 115 MG/DL (74-106); SODIUM LEVEL 135 MMOL/L (136-145)
== END ==
LOC: M WUC 13:58
PROVIDERS: ATTEND Nurse Practitioner Adult Health
DX: E11.59 Type 2 diabetes mellitus with other circulatory complications (principal)

== ENCOUNTER → 2023-10-18 | Outpatient (CLI) | payer MEDICARE ==
[~2023-10-18] MED LIST changes: +GASTROGRAFIN SOLUTION 30ML As Ordered ONE; +ISOVUE-370 76% 100ML VIAL As Ordered ONE
== END ==
LOC: M RAD 11:24
PROVIDERS: ATTEND Nurse Practitioner Adult Health
DX: R10.12 Left upper quadrant pain (principal); Z93.3 Colostomy status; K59.00 Constipation, unspecified
CPT/HCPCS: 74178; Q9963; Q9967

== ENCOUNTER → 2023-11-02 | Outpatient (REF) | payer MEDICARE ==
[~2023-11-02] MED LIST changes: -GASTROGRAFIN SOLUTION 30ML As Ordered ONE; -ISOVUE-370 76% 100ML VIAL As Ordered ONE
[2023-11-02 17:37] LABS: BASO % 0.4 % (0.0-1.0); EOS # 0.1 10^3/uL (0.0-0.5); EOS % 0.8 % (0.0-3.0); HEMATOCRIT 43.2 % (42.0-52.0); HEMOGLOBIN 14.4 g/dl (13.5-17.5); LYMPH # 1.7 10^3/uL (1.5-5.0); LYMPH % 16.4 % (24.0-44.0); MEAN CORPUSCULAR HEMOGLOBIN 29.3 pg (27.0-33.0); MEAN CORPUSCULAR HGB CONC 33.3 g/dl (32.0-36.5); NEUTROPHILS # 7.7 10^3/uL (1.5-8.5); PLATELET COUNT, AUTOMATED 240 10^3/uL (150-450); RED BLOOD COUNT 4.91 10^6/uL (4.30-6.10); WHITE BLOOD COUNT 10.6 10^3/uL (4.0-10.0)
[2023-11-02 17:59] LABS: CREATININE, URINE 183.9 MG/DL; HEMOGLOBIN A1c 6.5 % (4.0-6.0); MAU/CREAT RATIO 20.1 MCG/MG (0.0-30.0)
[2023-11-02 18:00] LABS: ALBUMIN 3.4 G/DL (3.2-5.2); ALKALINE PHOSPHATASE 67 U/L (46-116); ALT/SGPT 14 U/L (7.0-40); AST/SGOT 10 U/L (<34); BILIRUBIN,TOTAL 0.7 MG/DL (0.3-1.2); BLOOD UREA NITROGEN 14 MG/DL (9-23); CALCIUM LEVEL 9.3 MG/DL (8.3-10.6); CARBON DIOXIDE LEVEL 31 MMOL/L (20-31); CHLORIDE LEVEL 104 MMOL/L (98-107); CREATININE FOR GFR 1.11 MG/DL (0.70-1.30); GLOMERULAR FILTRATION RATE > 60.0 (>49); GLUCOSE, FASTING 107 MG/DL (74-106); POTASSIUM SERUM 4.4 MMOL/L (3.5-5.1); SODIUM LEVEL 138 MMOL/L (136-145); TOTAL PROTEIN 6.3 G/DL (5.7-8.2)
[2023-11-02 18:01] LABS: THYROID STIMULATING HORMONE 1.522 uIU/ML (0.55-4.78)
[2023-11-02 18:02] LABS: FREE T4 1.27 NG/DL (0.89-1.76)
== END ==
LOC: M PLALAB 16:17
PROVIDERS: ATTEND Nurse Practitioner Adult Health
DX: E11.59 Type 2 diabetes mellitus with other circulatory complications (principal)

== ENCOUNTER 2023-11-11 09:09 | Observation (INO) | payer MEDICARE ==
[2023-11-11 09:42] LABS: VENOUS BASE EXCESS 0.4 (-2.0-2.0); VENOUS HCO3 26.8 MMOL/L (23.0-27.0); VENOUS O2 SATURATION 71.1 % (60.0-80.0); VENOUS PARTIAL PRESSURE CO2 49.8 mmHg (38.0-50.0); VENOUS PARTIAL PRESSURE O2 38.8 mmHg (30.0-50.0); VENOUS PH 7.349 UNITS (7.330-7.430); VENOUS STANDARD HCO3 24.2 MMOL/L; VENOUS TOTAL CO2 28.3 MMOL/L (24.0-28.0)
[2023-11-11 09:47] LABS: BASO % 0.3 % (0.0-1.0); EOS # 0.1 10^3/uL (0.0-0.5); EOS % 0.4 % (0.0-3.0); HEMOGLOBIN 14.2 g/dl (13.5-17.5); LYMPH # 0.9 10^3/uL (1.5-5.0); LYMPH % 6.8 % (24.0-44.0); MEAN CORPUSCULAR HGB CONC 33.8 g/dl (32.0-36.5); MEAN CORPUSCULAR VOLUME 88.8 fl (80.0-96.0); MONO # 1.3 10^3/uL (0.0-0.8); MONO % 9.4 % (2.0-8.0); NEUTROPHILS # 11.2 10^3/uL (1.5-8.5); NEUTROPHILS % 82.8 % (36.0-66.0); PLATELET COUNT, AUTOMATED 250 10^3/uL (150-450); RED BLOOD COUNT 4.73 10^6/uL (4.30-6.10); WHITE BLOOD COUNT 13.6 10^3/uL (4.0-10.0)
[2023-11-11 10:10] LABS: AMPHETAMINES LEVEL URINE NEGATIVE (NEGATIVE); BARBITURATES URINE NEGATIVE (NEGATIVE); BENZODIAZEPINES URINE NEGATIVE (NEGATIVE); CANNABINOIDS URINE NEGATIVE (NEGATIVE); COCAINE METABOLITE URINE NEGATIVE (NEGATIVE); METHADONE URINE NEGATIVE (NEGATIVE); OPIATES URINE NEGATIVE (NEGATIVE); PHENCYCLIDINE URINE NEGATIVE (NEGATIVE)
[2023-11-11 10:13] LABS: ETHYL ALCOHOL (ETHANOL) < 0.003 % (0.000-0.010)
[2023-11-11 10:15] LABS: ALBUMIN 3.6 G/DL (3.2-5.2); ALKALINE PHOSPHATASE 67 U/L (46-116); ALT/SGPT 14 U/L (7.0-40); AST/SGOT 14 U/L (<34); BILIRUBIN,DIRECT 0.2 MG/DL (<0.4); BILIRUBIN,TOTAL 0.7 MG/DL (0.3-1.2); BLOOD UREA NITROGEN 20 MG/DL (9-23); CALCIUM LEVEL 9.5 MG/DL (8.3-10.6); CARBON DIOXIDE LEVEL 30 MMOL/L (20-31); CHLORIDE LEVEL 105 MMOL/L (98-107); CREATININE FOR GFR 1.01 MG/DL (0.70-1.30); GLOMERULAR FILTRATION RATE > 60.0 (>49); GLUCOSE, FASTING 110 MG/DL (74-106); POTASSIUM SERUM 3.9 MMOL/L (3.5-5.1); SALICYLATE LEVEL < 3.0 MG/DL (<30); SODIUM LEVEL 139 MMOL/L (136-145); TOTAL PROTEIN 6.3 G/DL (5.7-8.2)
[2023-11-11 10:17] LABS: THYROID STIMULATING HORMONE 0.883 uIU/ML (0.55-4.78)
[2023-11-11] MEDS: BOOSTRIX VACCINE (TETANUS/DIPHTH/ACEL. PERTUSSIS) 0.5ML SYR IM.IMMUN ONE (10:41)
[2023-11-11 11:25] LABS: OSMOLALITY SERUM 291 MOSM/KG (280-301)
[2023-11-11] MEDS: LORazepam 2 MG/ML 1ML VIAL IM PRN (12:31)
[2023-11-11] MEDS ORDERED: ACETAMINOPHEN TAB 650MG DOSE (2X325MG) PO PRN (13:45)
[2023-11-11 14:31] LABS: HEMATOCRIT 40.3 % (42.0-52.0); HEMOGLOBIN 13.6 g/dl (13.5-17.5); MEAN CORPUSCULAR HGB CONC 33.7 g/dl (32.0-36.5); PLATELET COUNT, AUTOMATED 220 10^3/uL (150-450); RED BLOOD COUNT 4.53 10^6/uL (4.30-6.10); WHITE BLOOD COUNT 12.8 10^3/uL (4.0-10.0)
[2023-11-11 15:02] LABS: ALBUMIN 3.5 G/DL (3.2-5.2); ALKALINE PHOSPHATASE 69 U/L (46-116); ALT/SGPT 16 U/L (7.0-40); AST/SGOT 18 U/L (<34); BILIRUBIN,TOTAL 0.8 MG/DL (0.3-1.2); BLOOD UREA NITROGEN 18 MG/DL (9-23); CALCIUM LEVEL 9.3 MG/DL (8.3-10.6); CARBON DIOXIDE LEVEL 32 MMOL/L (20-31); CHLORIDE LEVEL 106 MMOL/L (98-107); CREATININE FOR GFR 0.96 MG/DL (0.70-1.30); GLOMERULAR FILTRATION RATE > 60.0 (>49); GLUCOSE, FASTING 85 MG/DL (74-106); MAGNESIUM LEVEL 1.9 MG/DL (1.8-2.4); SODIUM LEVEL 140 MMOL/L (136-145); TOTAL PROTEIN 6.2 G/DL (5.7-8.2)
[2023-11-11] MEDS ORDERED: BACL10TA2 PO (15:04)
[2023-11-11] MEDS ORDERED: MAGN400T2 PO (15:05)
[2023-11-11] MEDS ORDERED: VENTAER INH (15:12)
[2023-11-11] MEDS ORDERED: OXYB10TA23 PO (15:12)
[2023-11-11] MEDS ORDERED: ROPI0.5T33 PO (15:12)
[2023-11-11] MEDS ORDERED: METF500T13 PO (15:12)
[2023-11-11] MEDS ORDERED: HOME MED LIST COMPLETE! XX SCH (15:15)
[2023-11-11] MEDS ORDERED: DEXTROSE 50% 50ML SYRINGE IV PRN (16:05)
[2023-11-11] MEDS ORDERED: GLUCOSE 4 GM CHEW PO PRN (16:05)
[2023-11-11] MEDS ORDERED: GLUCAGON INJ 1MG VIAL SC PRN (16:05)
[2023-11-11] MEDS ORDERED: LORazepam 0.5 MG TAB PO PRN (16:05)
[2023-11-11 16:22] VITALS: BP 144/69; TEMP 98.4; O2SAT 96
[2023-11-11] MEDS: INSULIN LISPRO (NovoLOG) PER UNIT SC SCH ×2 (17:14→20:13)
[2023-11-11] MEDS: DULoxetine 30MG CAPSULE (CYMBALTA) PO SCH (17:45)
[2023-11-11 19:36] VITALS: BP 162/70; TEMP 98.7; O2SAT 95
[2023-11-11] MEDS ORDERED: ALBUTEROL 90 MCG/ACT 8GM HFA INHALER INH PRN (20:00)
[2023-11-11] MEDS: PANTOPRAZOLE 40MG TAB (PROTONIX) PO SCH (20:13)
[2023-11-11] MEDS: BACLOFEN 10 MG TAB PO SCH (20:13)
[2023-11-11] MEDS: ATORVASTATIN 20 MG TAB PO SCH (20:13)
[2023-11-11] MEDS: DOCUSATE SODIUM 100MG CAPSULE PO SCH (20:13)
[2023-11-11] MEDS: rOPINIRole 0.25 MG TAB(REQUIP) PO PRN (20:13)
[2023-11-11] MEDS: ADVAIR HFA 115/21MCG INHALER INH SCH (20:22)
[2023-11-12] VITALS (8 sets, daily range): BP systolic 104–166; BP diastolic 55–79; TEMP 97.3–98.5; O2SAT 94–96
[2023-11-12 05:51] LABS: HEMATOCRIT 40.7 % (42.0-52.0); HEMOGLOBIN 13.7 g/dl (13.5-17.5); MEAN CORPUSCULAR HEMOGLOBIN 29.9 pg (27.0-33.0); MEAN CORPUSCULAR HGB CONC 33.7 g/dl (32.0-36.5); MEAN CORPUSCULAR VOLUME 88.9 fl (80.0-96.0); PLATELET COUNT, AUTOMATED 221 10^3/uL (150-450); RED BLOOD COUNT 4.58 10^6/uL (4.30-6.10)
[2023-11-12 06:27] LABS: ALBUMIN 3.4 G/DL (3.2-5.2); ALKALINE PHOSPHATASE 72 U/L (46-116); ALT/SGPT 15 U/L (7.0-40); AST/SGOT 21 U/L (<34); BILIRUBIN,TOTAL 1.3 MG/DL (0.3-1.2); BLOOD UREA NITROGEN 13 MG/DL (9-23); CALCIUM LEVEL 9.1 MG/DL (8.3-10.6); CARBON DIOXIDE LEVEL 28 MMOL/L (20-31); CHLORIDE LEVEL 105 MMOL/L (98-107); CREATININE FOR GFR 0.92 MG/DL (0.70-1.30); GLOMERULAR FILTRATION RATE > 60.0 (>49); GLUCOSE, FASTING 109 MG/DL (74-106); MAGNESIUM LEVEL 1.8 MG/DL (1.8-2.4); POTASSIUM SERUM 3.7 MMOL/L (3.5-5.1); SODIUM LEVEL 138 MMOL/L (136-145)
[2023-11-12] MEDS: amLODIPine 5 MG TAB PO SCH (08:36)
[2023-11-12] MEDS: CLOPIDOGREL 75 MG TAB PO SCH (08:37)
[2023-11-12] MEDS: atenoloL 25 MG TAB PO SCH (08:37)
[2023-11-12] MEDS: NEPHRO-VIT TAB (NEPHROCAPS) PO SCH (08:37)
[2023-11-12] MEDS: MAGNESIUM OXIDE 400MG TAB (MAG-OX) PO SCH (08:37)
[2023-11-12] MEDS: TAMSULOSIN 0.4 MG CAP PO SCH (08:38)
[2023-11-12] MEDS: ENOXAPARIN 40MG/0.4ML SYRINGE (J1650 PER 10MG) SC SCH (08:38)
[2023-11-13 03:00] VITALS: BP 131/60; TEMP 97.5; O2SAT 94
[2023-11-13 07:45] VITALS: BP 133/63; TEMP 97.8; O2SAT 92
[2023-11-13 09:00] VITALS: BP 133/63
== END 2023-11-13 13:03 | disposition home or self-care (01) ==
LOC: EDBD 09:09 → M ED 09:09 → M ED INP 09:10 → M PCU 16:02
PROVIDERS: ADMIT Preventive Medicine Undersea and Hyperbaric Medicine; ATTEND Preventive Medicine Undersea and Hyperbaric Medicine
DX: R41.82 Altered mental status, unspecified (principal); I69.351 Hemiplegia and hemiparesis following cerebral infarction affecting right dominant side; I73.9 Peripheral vascular disease, unspecified; I25.10 Atherosclerotic heart disease of native coronary artery without angina pectoris; E11.42 Type 2 diabetes mellitus with diabetic polyneuropathy; I10 Essential (primary) hypertension; N40.0 Benign prostatic hyperplasia without lower urinary tract symptoms; J44.9 Chronic obstructive pulmonary disease, unspecified; K21.9 Gastro-esophageal reflux disease without esophagitis; E11.51 Type 2 diabetes mellitus with diabetic peripheral angiopathy without gangrene; F17.200 Nicotine dependence, unspecified, uncomplicated; F32.A Depression, unspecified; F41.8 Other specified anxiety disorders; Z79.84 Long term (current) use of oral hypoglycemic drugs; Z79.02 Long term (current) use of antithrombotics/antiplatelets; Z79.899 Other long term (current) drug therapy; Z85.038 Personal history of other malignant neoplasm of large intestine; Z93.3 Colostomy status; Z88.1 Allergy status to other antibiotic agents; Z90.49 Acquired absence of other specified parts of digestive tract; W19.XXXA Unspecified fall, initial encounter; Y92.009 Unspecified place in unspecified non-institutional (private) residence as the place of occurrence of the external cause; Y93.9 Activity, unspecified; Z23 Encounter for immunization
CPT/HCPCS: 36415; 70450; 70544; 70551; 71045; 72125; 80048; 80053; 80076; 80143; 80307; 81001; 82077; 82140; 82803; 83605; 83735; 83930; 84443; 85025; 85027; 87040; 87486; 87581; 87633; 87798; 90471; 90715; 93005; 93041; 94640; 94760; 96372; 97116; 97161; 99285; G0378; J1650; J1815; J2060

== ENCOUNTER → 2023-11-14 | Outpatient (CLI) | payer MEDICARE ==
[~2023-11-14] MED LIST changes: +METF500T13 PO; +ROPI0.5T33 PO; +VENTAER INH
== END ==
LOC: M SLEEP 08:15
PROVIDERS: ATTEND Preventive Medicine Undersea and Hyperbaric Medicine
DX: G40.89 Other seizures (principal)

== ENCOUNTER → 2024-03-22 | Outpatient (CLI) | payer MEDICARE ==
[2024-03-22 17:28] LABS: BASO # 0.1 10^3/uL (0.0-0.2); BASO % 0.6 % (0.0-1.0); EOS % 0.3 % (0.0-3.0); HEMATOCRIT 40.4 % (42.0-52.0); HEMOGLOBIN 13.2 g/dl (13.5-17.5); LYMPH # 2.2 10^3/uL (1.5-5.0); LYMPH % 15.7 % (24.0-44.0); MEAN CORPUSCULAR HEMOGLOBIN 30.3 pg (27.0-33.0); MEAN CORPUSCULAR HGB CONC 32.7 g/dl (32.0-36.5); MEAN CORPUSCULAR VOLUME 92.9 fl (80.0-96.0); MONO # 1.2 10^3/uL (0.0-0.8); MONO % 8.1 % (2.0-8.0); NEUTROPHILS # 10.3 10^3/uL (1.5-8.5); NEUTROPHILS % 71.9 % (36.0-66.0); PLATELET COUNT, AUTOMATED 262 10^3/uL (150-450); RED BLOOD COUNT 4.35 10^6/uL (4.30-6.10); WHITE BLOOD COUNT 14.3 10^3/uL (4.0-10.0)
[2024-03-22 17:59] LABS: ALBUMIN 3.5 G/DL (3.2-5.2); ALKALINE PHOSPHATASE 81 U/L (46-116); ALT/SGPT 26 U/L (7.0-40); AST/SGOT 11 U/L (<34); BILIRUBIN,TOTAL 0.6 MG/DL (0.3-1.2); BLOOD UREA NITROGEN 24 MG/DL (9-23); CALCIUM LEVEL 9.3 MG/DL (8.3-10.6); CARBON DIOXIDE LEVEL 32 MMOL/L (20-31); CHLORIDE LEVEL 105 MMOL/L (98-107); CHOLESTEROL LEVEL 154 MG/DL (<200); CREATININE FOR GFR 1.11 MG/DL (0.70-1.30); GLOMERULAR FILTRATION RATE > 60.0 (>49); GLUCOSE, FASTING 82 MG/DL (74-106); IRON (FE) 119 UG/DL (65-175); PERCENT SATURATION 33.1 % (19.7-50.0); SODIUM LEVEL 140 MMOL/L (136-145); TOTAL IRON BINDING CAPACITY 359 UG/DL (250-425); TOTAL PROTEIN 6.6 G/DL (5.7-8.2); TRIGLYCERIDES LEVEL 129 MG/DL (<150)
[2024-03-22 18:32] LABS: HEMOGLOBIN A1c 6.4 % (4.0-6.0)
[2024-03-22 23:34] LABS: CHOLESTEROL RISK RATIO 2.62 (<5); HDL CHOLESTEROL 58.6 MG/DL (>40); LDL CHOLESTEROL 69.6 MG/DL (<100); NON-HDL-C 95.4 MG/DL
== END ==
LOC: M WUC 14:21
PROVIDERS: ATTEND Nurse Practitioner Adult Health
DX: E11.59 Type 2 diabetes mellitus with other circulatory complications (principal); E78.2 Mixed hyperlipidemia; D50.9 Iron deficiency anemia, unspecified

== ENCOUNTER → 2024-06-25 | Outpatient (CLI) | payer MEDICARE ==
[~2024-06-25] MED LIST changes: -ADV250INH INH; +ADVA1AER9 INH
[2024-06-25 15:50] LABS: BASO # 0.1 10^3/uL (0.0-0.2); BASO % 0.7 % (0.0-1.0); EOS # 0.2 10^3/uL (0.0-0.5); EOS % 1.7 % (0.0-3.0); HEMATOCRIT 39.6 % (42.0-52.0); LYMPH # 1.6 10^3/uL (1.5-5.0); MEAN CORPUSCULAR HEMOGLOBIN 29.4 pg (27.0-33.0); MEAN CORPUSCULAR HGB CONC 32.8 g/dl (32.0-36.5); MEAN CORPUSCULAR VOLUME 89.6 fl (80.0-96.0); MONO # 0.7 10^3/uL (0.0-0.8); NEUTROPHILS % 68.3 % (36.0-66.0); PLATELET COUNT, AUTOMATED 231 10^3/uL (150-450); RED BLOOD COUNT 4.42 10^6/uL (4.30-6.10); WHITE BLOOD COUNT 8.8 10^3/uL (4.0-10.0)
[2024-06-25 16:09] LABS: HEMOGLOBIN A1c 7.9 % (4.0-6.0)
[2024-06-25 16:23] LABS: PROSTATIC SPECIFIC AG MONITOR 0.13 NG/ML (< 4.00)
[2024-06-25 16:24] LABS: ALBUMIN 3.5 G/DL (3.2-5.2); ALKALINE PHOSPHATASE 98 U/L (40-129); ALT/SGPT 26 U/L (7.0-40); AST/SGOT 18 U/L (<34); BILIRUBIN,TOTAL 0.5 MG/DL (0.3-1.2); BLOOD UREA NITROGEN 23 MG/DL (9-23); CALCIUM LEVEL 9.4 MG/DL (8.3-10.6); CARBON DIOXIDE LEVEL 34 MMOL/L (20-31); CHLORIDE LEVEL 103 MMOL/L (98-107); CHOLESTEROL LEVEL 159 MG/DL (<200); CHOLESTEROL RISK RATIO 3.93 (<5); CREATININE FOR GFR 1.06 MG/DL (0.70-1.30); GLOMERULAR FILTRATION RATE > 60.0 (>42); GLUCOSE, FASTING 131 MG/DL (74-106); HDL CHOLESTEROL 40.4 MG/DL (>40); LDL CHOLESTEROL 69.6 MG/DL (<100); NON-HDL-C 118.6 MG/DL; POTASSIUM SERUM 4.3 MMOL/L (3.5-5.1); SODIUM LEVEL 141 MMOL/L (136-145); TOTAL PROTEIN 6.8 G/DL (5.7-8.2); TRIGLYCERIDES LEVEL 245 MG/DL (<150)
== END ==
LOC: M LAB 14:40
PROVIDERS: ATTEND Nurse Practitioner Adult Health
DX: Z12.5 Encounter for screening for malignant neoplasm of prostate (principal); E11.59 Type 2 diabetes mellitus with other circulatory complications; E78.2 Mixed hyperlipidemia

== ENCOUNTER → 2024-06-25 | Outpatient (CLI) | payer MEDICARE | LOC: M RAD 14:36 | PROVIDERS: ATTEND Internal Medicine Pulmonary Disease | DX: F17.210 Nicotine dependence, cigarettes, uncomplicated (principal) ==

== ENCOUNTER → 2024-09-26 | Outpatient (CLI) | payer MEDICARE ==
[2024-09-26 15:06] LABS: BASO # 0.1 10^3/uL (0.0-0.2); BASO % 0.4 % (0.0-1.0); EOS # 0.2 10^3/uL (0.0-0.5); EOS % 1.6 % (0.0-3.0); HEMATOCRIT 41.8 % (42.0-52.0); LYMPH # 1.9 10^3/uL (1.5-5.0); LYMPH % 15.7 % (24.0-44.0); MEAN CORPUSCULAR HGB CONC 31.1 g/dl (32.0-36.5); MEAN CORPUSCULAR VOLUME 90.1 fl (80.0-96.0); MONO # 1.2 10^3/uL (0.0-0.8); NEUTROPHILS # 8.4 10^3/uL (1.5-8.5); NEUTROPHILS % 70.7 % (36.0-66.0); PLATELET COUNT, AUTOMATED 254 10^3/uL (150-450); RED BLOOD COUNT 4.64 10^6/uL (4.30-6.10); WHITE BLOOD COUNT 11.9 10^3/uL (4.0-10.0)
[2024-09-26 15:39] LABS: ALBUMIN 3.7 G/DL (3.2-5.2); ALKALINE PHOSPHATASE 94 U/L (40-129); ALT/SGPT 29 U/L (7.0-40); AST/SGOT 19 U/L (<34); BILIRUBIN,TOTAL 0.6 MG/DL (0.3-1.2); BLOOD UREA NITROGEN 20 MG/DL (9-23); CALCIUM LEVEL 9.2 MG/DL (8.3-10.6); CARBON DIOXIDE LEVEL 32 MMOL/L (20-31); CHLORIDE LEVEL 100 MMOL/L (98-107); CREATININE FOR GFR 1.18 MG/DL (0.70-1.30); GLOMERULAR FILTRATION RATE > 60.0 (>42); GLUCOSE, FASTING 124 MG/DL (74-106); POTASSIUM SERUM 4.3 MMOL/L (3.5-5.1); SODIUM LEVEL 140 MMOL/L (136-145); TOTAL PROTEIN 6.9 G/DL (5.7-8.2)
[2024-09-26 16:42] LABS: HEMOGLOBIN A1c 8.7 % (4.0-6.0)
== END ==
LOC: M WUC 13:09
PROVIDERS: ATTEND Nurse Practitioner Adult Health
DX: E11.59 Type 2 diabetes mellitus with other circulatory complications (principal)

== ENCOUNTER → 2025-03-27 | Outpatient (CLI) | payer MEDICARE ==
[~2025-03-27] MED LIST changes: -ESSE250T PO; +MAGN250T17 PO; +SENN-225 PO; -SENO8.6T5 PO
[2025-03-27 19:25] LABS: BASO # 0.1 10^3/uL (0.0-0.2); BASO % 0.5 % (0.0-1.0); EOS # 0.1 10^3/uL (0.0-0.5); EOS % 1.1 % (0.0-3.0); LYMPH # 1.9 10^3/uL (1.5-5.0); LYMPH % 17.4 % (24.0-44.0); MONO # 1.0 10^3/uL (0.0-0.8); MONO % 9.6 % (2.0-8.0); NEUTROPHILS # 7.7 10^3/uL (1.5-8.5); NEUTROPHILS % 70.8 % (36.0-66.0); PLATELET COUNT, AUTOMATED 315 10^3/uL (150-450)
[2025-03-27 19:30] LABS: ALT/SGPT 25.0 U/L (7.0-40); AST/SGOT 19.0 U/L (<34); CALCIUM LEVEL 9.1 MG/DL (8.3-10.6); CARBON DIOXIDE LEVEL 34.0 MMOL/L (20-31); CHLORIDE LEVEL 101.0 MMOL/L (98-107); CHOLESTEROL LEVEL 131.0 MG/DL (<200); CHOLESTEROL RISK RATIO 2.82 (<5); CREATININE FOR GFR 1.03 MG/DL (0.70-1.30); GLOMERULAR FILTRATION RATE 78.2 (>42); LDL CHOLESTEROL 62.0 MG/DL (<100); NON-HDL-C 84.6 MG/DL; POTASSIUM SERUM 4.2 MMOL/L (3.5-5.1); SODIUM LEVEL 140.0 MMOL/L (136-145); TRIGLYCERIDES LEVEL 113.0 MG/DL (<150)
[2025-03-27 19:32] LABS: FREE T4 1.29 NG/DL (0.89-1.76)
[2025-03-27 19:54] LABS: CREATININE, URINE 61.5 MG/DL; MALB URINE SIEMENS 3.0 MG/L
[2025-03-27 20:07] LABS: ESTIMATED AVERAGE GLUCOSE 146.0 MG/DL (60-110)
== END ==
LOC: M WUC 13:57
PROVIDERS: ATTEND Nurse Practitioner Adult Health
DX: E11.59 Type 2 diabetes mellitus with other circulatory complications (principal); E78.2 Mixed hyperlipidemia

== ENCOUNTER → 2025-06-24 | Outpatient (CLI) | payer MEDICARE ==
[2025-06-24 18:06] LABS: BASO # 0.1 10^3/uL (0.0-0.2); BASO % 0.3 % (0.0-1.0); EOS # 0.2 10^3/uL (0.0-0.5); EOS % 1.0 % (0.0-3.0); LYMPH # 2.0 10^3/uL (1.5-5.0); LYMPH % 13.2 % (24.0-44.0); MONO # 1.4 10^3/uL (0.0-0.8); MONO % 8.9 % (2.0-8.0); NEUTROPHILS # 11.6 10^3/uL (1.5-8.5); NEUTROPHILS % 76.1 % (36.0-66.0); PLATELET COUNT, AUTOMATED 318 10^3/uL (150-450)
[2025-06-24 18:10] LABS: ALT/SGPT 26.0 U/L (7.0-40); AST/SGOT 20.0 U/L (<34); CALCIUM LEVEL 9.2 MG/DL (8.3-10.6); CARBON DIOXIDE LEVEL 34.0 MMOL/L (20-31); CHLORIDE LEVEL 101.0 MMOL/L (98-107); CREATININE FOR GFR 1.14 MG/DL (0.70-1.30); GLOMERULAR FILTRATION RATE 68.8 (>42); POTASSIUM SERUM 4.4 MMOL/L (3.5-5.1); PSA SCREENING 0.15 NG/ML (< 4.00); SODIUM LEVEL 141.0 MMOL/L (136-145)
[2025-06-24 18:26] LABS: ESTIMATED AVERAGE GLUCOSE 143.0 MG/DL (60-110)
== END ==
LOC: M WUC 14:03
PROVIDERS: ATTEND Nurse Practitioner Adult Health
DX: E11.59 Type 2 diabetes mellitus with other circulatory complications (principal); Z12.5 Encounter for screening for malignant neoplasm of prostate
CPT/HCPCS: 36415; 80053; 83036; 85025; G0103